=== PATIENT | female | born 1955 | race Caucasian/White ===

== ENCOUNTER 2017-02-12 19:15 | Emergency (ER) | payer MEDICARE, MEDICAID ==
[~2017-02-12] VITALS: Ht 152.4 cm; Wt 91.6 kg
[~2017-02-12 19:15] MED LIST: ACETAMINOPHEN325 M3 PO; BENADRYL25 M3 PO
--- NOTE | 2017-02-12 19:43 | Emergency Room Report ---
History of Present Illness General Chief Complaint: Abdominal Pain Present Illness HPI 61-year-old female presents to the emergency department complaining of 10 out of 10 in severity generalized abdominal pain since this afternoon. Patient states she also had acute onset of nausea and vomiting for which she vomited twice. Patient denies blood in the vomit she denies blood in the stool she reports she had a normal bowel movement prior to onset of pain. Patient has a history of chronic kidney disease and requires dialysis 3 times per week. She states she recently was told that she is high phosphorus and has been taking a supplement that she finished several days ago. Patient denies fevers she reports some chills. Patient also has a history of hernia repair which had dehiscence in the left lower quadrant, this occurred last January. She also states that she has midline low back pain onset was at the same time as her abdominal pain. Denies CP, Palpitations, LOC, AMS, dizziness, Changes in Vision , Sensation, paresthesias, or a sudden severe headache. (Alessandra Wolfe P.A.) Allergies: Coded Allergies: No Known Allergies (Unverified , 12/04/15) Patient History Past Medical History: see triage record Past Surgical History: none Pertinent Family History: none Now: No Reviewed Nursing Documentation: PMH: Agreed, PSxH: Agreed (Alessandra Wolfe P.Danni) Nursing Documentation-PMH Hx Cardiac Problems: Yes Hx Hypertension: Yes Hx Cancer: No Hx Gastrointestinal Problems: No Hx Neurological Problems: No (Alessandra Wolfe P.A.) Review of Systems All Other Systems: negative except mentioned in HPI (Alessandra Wolfe P.A.) Physical Exam Vital Signs Date Time Temp Pulse Resp B/P (MAP) Pulse Ox O2 Delivery O2 Flow Rate FiO2 02/12/17 19:18 97.2 64 18 110/52 100 Room Air Sp02 EP Interpretation: reviewed, normal General Appearance: alert, GCS 15, non-toxic, mild distress, obese, Chronically Ill Head: normocephalic, atraumatic Eyes: bilateral eye normal inspection, bilateral eye PERRL ENT: hearing grossly normal, normal voice Neck: full range of motion, supple/symm/no masses Respiratory: lungs clear, normal breath sounds, speaking full sentences Cardiovascular #1: regular rate, rhythm, normal capillary refill Gastrointestinal: normal bowel sounds, soft, non-distended, no guarding, no rebound, tenderness - TTP in all 4 quadrants particularly in the LLQ, where dehisced hernia repair wounds are noted, mesh is visible, no evidence of infection about the wounds. , overweight Rectal: deferred Musculoskeletal: back normal, normal range of motion Neurologic: alert, oriented x3, responsive, motor strength/tone normal, sensory intact, speech normal Skin: normal color, no rash, warm/dry, well hydrated, other - Pt. has jessee- cath in the left sublavian. (Alessandra Wolfe) Medical Decision Making PA Attestation Dr. rajput is my supervising Physician whom patient management has been discussed with. (Alessandra Wolfe) Diagnostic Impression: Primary Impression: Abdominal pain Qualified Codes: R10.84 - Generalized abdominal pain Additional Impressions: CKD (chronic kidney disease) Qualified Codes: N18.6 - End stage renal disease; Z99.2 - Dependence on renal dialysis Obesity, morbid HTN (hypertension) Qualified Codes: I10 - Essential (primary) hypertension ER Course 61-year-old female presents to the emergency department complaining of 10 out of 10 in severity generalized abdominal pain since this afternoon. Patient states she also had acute onset of nausea and vomiting for which she vomited twice. Patient denies blood in the vomit she denies blood in the stool she reports she had a normal bowel movement prior to onset of pain. Patient has a history of chronic kidney disease and requires dialysis 3 times per week. She states she recently was told that she is high phosphorus and has been taking a supplement that she finished several days ago. Patient denies fevers she reports some chills. Patient also has a history of hernia repair which had dehiscence in the left lower quadrant, this occurred last January. She also states that she has midline low back pain onset was at the same time as her abdominal pain. Denies CP, Palpitations, LOC, AMS, dizziness, Changes in Vision , Sensation, paresthesias, or a sudden severe headache. Ddx considered but are not limited to Diverticulitis, acute appy, diarrhea,UC, PUD, GE, pancreatitis, gallstone, AAA, Dissection. Vital signs: are WNL, pt. is afebrile H&PE are most consistent with medically complicated pt. with HX of dialysis , and previous abdominal surgeries with acute onset abdominal pain and back pain with N/V. this pt. requires extensive work up to include laboratory work and imaging studies. ORDERS: CBC, CMP, lipase: Elevated Lipase at 426 , wbc's 12.1, -BNP: 5250 elevated -Troponin, CK : WNL -UA:-- Pt. does not make urine so d/c order -CXR: Pending at time of sign out to Dr. Wright -EKNSR no acute ST changes. - CT Abdomen and Pelvis with contrast: Pending ED INTERVENTIONS: -- . Morphine 4mg IV DISPOSITION: at this time pt. will be admitted to [ ] for [ ]. [ ] agreed to admit the pt. and to continue pt. care management. Labs Test 02/12/17 20:03 White Blood Count 12.1 K/UL (4.8-10.8) Red Blood Count 3.88 M/UL (4.20-5.40) Hemoglobin 13.7 G/DL (12.0-16.0) Hematocrit 40.8 % (37.0-47.0) Mean Corpuscular Volume 105 FL (80-99) Mean Corpuscular Hemoglobin 35.5 PG (27.0-31.0) Mean Corpuscular Hemoglobin Concent 33.7 G/DL (32.0-36.0) Red Cell Distribution Width 13.6 % (11.6-14.8) Platelet Count 199 K/UL (150-450) Mean Platelet Volume 7.7 FL (6.5-10.1) Neutrophils (%) (Auto) 53.8 % (45.0-75.0) Lymphocytes (%) (Auto) 37.3 % (20.0-45.0) Monocytes (%) (Auto) 7.5 % (1.0-10.0) Eosinophils (%) (Auto) 0.8 % (0.0-3.0) Basophils (%) (Auto) 0.6 % (0.0-2.0) Sodium Level 139 MMOL/L (136-145) Potassium Level 4.1 MMOL/L (3.5-5.1) Chloride Level 100 MMOL/L (98-107) Carbon Dioxide Level 28 MMOL/L (21-32) Anion Gap 11 mmol/L (5-15) Blood Urea Nitrogen 30 mg/dL (7-18) Creatinine 8.0 MG/DL (0.55-1.30) Estimat Glomerular Filtration Rate 5.1 mL/min (>60) Glucose Level 95 MG/DL (74-106) Calcium Level 9.9 MG/DL (8.5-10.1) Total Bilirubin 0.3 MG/DL (0.2-1.0) Aspartate Amino Transf (AST/SGOT) 13 U/L (15-37) Alanine Aminotransferase (ALT/SGPT) 14 U/L (12-78) Alkaline Phosphatase 101 U/L (46-116) Total Creatine Kinase 65 U/L (26-308) Troponin I 0.006 ng/mL (0.000-0.056) Pro-B-Type Natriuretic Peptide 5250 pg/mL (0-125) Total Protein 8.6 G/DL (6.4-8.2) Albumin 4.0 G/DL (3.4-5.0) Globulin 4.6 g/dL Albumin/Globulin Ratio 0.9 (1.0-2.7) Lipase 426 U/L (73-393) (Alessandra Wolfe P.A.) ER Course Patient signed out to me. She had multiple abdominal surgery in the past with small bowel obstruction. She presents with abdominal pain. CT scan signed out to me. CT scan negative for acute process. We'll discharge home. (MARIE WRIGHT M.D.) EKG Diagnostic Results EP Interpretation: Dr. Mosquera Rate: normal Rhythm: NSR ST Segments: no acute changes ASA given to the pt in ED: No PA Scribe Text - EK BPM NSR - no acute ST changes reviewed by Dr. Mosquera , this interpretation was scribed by RAINE Wolfe (Alessandra Wolfe P.A.) CT/MRI/US Diagnostic Results CT/MRI/US Diagnostic Results : Imaging Test Ordered: CT abdomen and pelvis Impression Read by radiologist. Diffuse anterior abdominal wall laxity with multiple small bowel loops and pushing the colon in the large anterior pannus. No evidence of obstruction. No evidence of acute appendicitis. No free air. (MARIE WRIGHT M.D.) Last Vital Signs Date Time Temp Pulse Resp B/P (MAP) Pulse Ox O2 Delivery O2 Flow Rate FiO2 11/25/17 19:18 97.2 64 18 110/52 100 Room Air (Alessandra Wolfe) Status: improved (MARIE WRIGHT M.D.) Disposition: HOME, SELF-CARE Condition: Stable Signed Out To: Dr. Wright (Alessandra Wolfe) Scripts Hydrocodone/Acetaminophen 5-325* (HYDROCODONE/ACETAMINOPHEN 5-325*) 1 Each Tablet 1 TAB ORAL Q6H Y for For Pain, #30 TAB 0 Refills Prov: MARIE WRIGHT M.D. 02/13/17 Patient Instructions: Abdominal Pain, Adult Additional Instructions: Followup with your DrBeatriz in 2 to 3 days. Return if worse. Alessandra Wolfe Feb 12, 2017 19:43 MARIE WRIGHT M.D. Feb 13, 2017 00:29
[2017-02-12] MEDS ORDERED: AMLODIPINE BESYL5 MG ORAL (20:10)
[2017-02-12] MEDS ORDERED: TRAZODONE HCL150 MG ORAL (20:10)
[2017-02-12] MEDS ORDERED: GABAPENTIN300 MG ORAL (20:10)
[2017-02-12] MEDS ORDERED: TOPIRAMATE25 MG ORAL (20:10)
[2017-02-12] MEDS ORDERED: AMIODARONE HCL200 MG ORAL (20:10)
[2017-02-12] MEDS ORDERED: METOPROLOL TART25 MG ORAL (20:10)
[2017-02-12] MEDS ORDERED: SENSIPAR30 MG ORAL (20:10)
[2017-02-12] MEDS ORDERED: AURYXIA210 MG PO (20:10)
[2017-02-12] MEDS ORDERED: RENA-VITE RX T1 EAC1 PO (20:10)
[2017-02-12] MEDS ORDERED: ASPIRIN81 MG ORAL (20:10)
[2017-02-12] MEDS ORDERED: CATAPRES0.1 MG ORAL (20:10)
[2017-02-12] MEDS ORDERED: ELIQUIS5 MG PO (20:10)
[2017-02-12] MEDS ORDERED: TRAMADOL HCL50 MG ORAL (20:10)
[2017-02-12] MEDS ORDERED: BUSPIRONE HCL15 MG ORAL (20:10)
[2017-02-12 20:15] VITALS: BP 110/52
[2017-02-12 20:56] LABS: BASOPHILS % (AUTO) 0.6 % (0.0-2.0); EOSINOPHILS % (AUTO) 0.8 % (0.0-3.0); LYMPHOCYTES % (AUTO) 37.3 % (20.0-45.0); MEAN CORPUSCULAR HEMOGLOBIN 35.5 PG (27.0-31.0); MEAN CORPUSCULAR HGB CONC 33.7 G/DL (32.0-36.0); MEAN CORPUSCULAR VOLUME 105 FL (80-99); MEAN PLATELET VOLUME 7.7 FL (6.5-10.1); MONOCYTES % (AUTO) 7.5 % (1.0-10.0); NEUTROPHILS % (AUTO) 53.8 % (45.0-75.0); PLATELET COUNT 199 K/UL (150-450); RED BLOOD COUNT 3.88 M/UL (4.20-5.40); RED CELL DISTRIBUTION WIDTH 13.6 % (11.6-14.8); WHITE BLOOD COUNT 12.1 K/UL (4.8-10.8)
[2017-02-12 20:59] LABS: ANION GAP 11 mmol/L (5-15); CALCIUM 9.9 MG/DL (8.5-10.1); CARBON DIOXIDE 28 MMOL/L (21-32); CHLORIDE 100 MMOL/L (98-107); GLOMERULAR FILTRATION RATE 5.1 mL/min (>60); POTASSIUM 4.1 MMOL/L (3.5-5.1); SODIUM 139 MMOL/L (136-145)
[2017-02-12] MEDS ORDERED: Morphine Sulfate 4mg/ml Inj IVP ONE (21:00)
[2017-02-12 21:03] LABS: ALANINE AMINOTRANSFERASE 14 U/L (12-78); ALBUMIN/GLOBULIN RATIO 0.9 (1.0-2.7); ASPARTATE AMINO TRANSFERASE 13 U/L (15-37); LIPASE 426 U/L (73-393); TOTAL PROTEIN 8.6 G/DL (6.4-8.2)
[2017-02-12] MEDS ORDERED: HYDROmorphone 1mg/ml Carpuject IVP ONE (22:00)
[2017-02-12 22:15] VITALS: BP 117/52
[2017-02-13 00:15] VITALS: BP 121/68
[2017-02-13] MEDS ORDERED: HYDROCODON-ACE1 EA15 ORAL (00:28)
[2017-02-13 00:50] VITALS: BP 124/56
[2017-02-13 01:09] VITALS: BP 117/52
--- NOTE | 2017-02-13 10:36 | Diagnostic Imaging Report ---
Indication: Abdominal pain Technique: CT scan of the abdomen and pelvis utilizing automated exposure control without intravenous or oral contrast. Axial, sagittal and coronal images were obtained. CT dose: Total DLP 997 mGycm; CTDI vol 19.5 mGy Comparison: None Findings: Evaluation of the solid organs is limited without intravenous contrast material. There is atelectasis in the partially visualized lung bases. There is a tiny hiatal hernia. The liver, adrenal glands, kidneys and pancreas are grossly unremarkable. There is slight heterogeneous density within the gallbladder suggestive of noncalcified gallstones. There is a fat and small bowel containing hernia of the right lateral abdomen without obstruction. There is also diffuse rectus diastases versus large anterior hernia but no obstruction. The uterus is enlarged with a 9 cm partially calcified mass. Polycystic changes are noted of the kidneys, right greater than left. There is a complex rim calcified cystic lesion in the right renal upper pole measuring 4.5 cm. There is at least one noncystic mass of the anterior right kidney measuring 1.4 cm series 3 image 42 and within the lower pole of the left kidney measuring 1.2 cm series 3 image 41. The inferior extent of the anterior abdominal wall pannus is not completely imaged. Degenerative changes of the spine are noted. There is grade 1 anterolisthesis of L4 on L5. There is severe bilateral hip arthrosis with acetabular remodeling. Impression: Right lower abdominal lateral hernia containing fat and small bowel without obstruction. Diffuse rectus diastases versus large anterior abdominal hernia containing bowel but no obstruction. Inferior margin incompletely imaged. Heterogeneity within the gallbladder suggestive of noncalcified gallstones. Correlation with ultrasound recommended as indicated. Cystic changes of the bilateral kidneys, right greater than left. Complex cyst in the upper pole the right kidney with peripheral calcification measuring 4.5 cm. At least one indeterminate possibly solid lesion in the anterior mid/lower right kidney and one indeterminate possibly solid lesion in the lower pole of the left kidney. Please see above for description. Further evaluation recommended as indicated. Enlarged uterus with a large partially calcified mass probably a fibroid measuring 9 cm. Clinical correlation recommended. Other findings as above. The CT scanner at [facility] is accredited by the [employer] and the scans are performed using protocols designed to limit radiation exposure to as low as reasonably achievable to attain images of sufficient resolution adequate for diagnostic evaluation.
--- NOTE | 2017-02-13 15:28 | Cardiology Report ---
APPROVED REPORT EKG Measurement Heart [id number] Normal sinus rhythm Normal ECG
== END 2017-02-13 00:50 | disposition home or self-care (01) ==
LOC: EDBD 19:15 → EMR 21:31
DX: R10.10 Upper abdominal pain, unspecified (principal); I12.9 Hypertensive chronic kidney disease with stage 1 through stage 4 chronic kidney disease, or unspecified chronic kidney disease; N18.9 Chronic kidney disease, unspecified
CPT/HCPCS: 36415; 74177; 80053; 82550; 83690; 83880; 84484; 85025; 93005; 96374; 96375; 99284; J1170; J2270; Q9967

== ENCOUNTER 2017-04-30 21:44 | Inpatient (IN) | payer MEDICARE, MEDICAID ==
[~2017-04-30] VITALS: Ht 162.6 cm; Wt 95.7 kg
[~2017-04-30 21:44] MED LIST changes: +AMIODARONE HCL200 MG ORAL; +AMIODARONE HCL400 M1 ORAL; +AMLODIPINE BESYL5 MG ORAL; +ASPIRIN81 MG ORAL; +AURYXIA210 MG PO; +BUSPIRONE HCL15 MG ORAL; +CATAPRES0.1 MG ORAL; +ELIQUIS5 MG PO; +GABAPENTIN300 MG ORAL; +HYDROCODON-ACE1 EA15 ORAL; +METOPROLOL TART25 MG ORAL; +RENA-VITE RX T1 EAC1 PO; +SENSIPAR30 MG ORAL; +TOPIRAMATE25 MG ORAL; +TRAMADOL HCL50 MG ORAL; +TRAZODONE HCL150 MG ORAL; +TRAZODONE HCL50 MG ORAL
[2017-04-30 21:53] VITALS: BP 115/94
[2017-04-30] MEDS ORDERED: Acetaminophen 650 MG SUPP RECTAL ONE (22:15)
[2017-04-30 22:35] LABS: BASOPHILS % (AUTO) 0.7 % (0.0-2.0); HEMATOCRIT 42.9 % (37.0-47.0); HEMOGLOBIN 14.3 G/DL (12.0-16.0); LYMPHOCYTES % (AUTO) 14.4 % (20.0-45.0); MEAN CORPUSCULAR VOLUME 101 FL (80-99); MONOCYTES % (AUTO) 6.8 % (1.0-10.0); NEUTROPHILS % (AUTO) 78.1 % (45.0-75.0); PLATELET COUNT 129 K/UL (150-450); RED BLOOD COUNT 4.23 M/UL (4.20-5.40); RED CELL DISTRIBUTION WIDTH 12.6 % (11.6-14.8); WHITE BLOOD COUNT 14.1 K/UL (4.8-10.8)
[2017-04-30 22:38] LABS: ANION GAP 19 mmol/L (5-15); BLOOD UREA NITROGEN 54 mg/dL (7-18); CALCIUM 11.3 MG/DL (8.5-10.1); CARBON DIOXIDE 23 MMOL/L (21-32); CHLORIDE 90 MMOL/L (98-107); CREATININE 15.5 MG/DL (0.55-1.30); POTASSIUM 4.8 MMOL/L (3.5-5.1); SODIUM 132 MMOL/L (136-145)
[2017-04-30 22:52] LABS: ALANINE AMINOTRANSFERASE 21 U/L (12-78); ALBUMIN 2.7 G/DL (3.4-5.0); ALBUMIN/GLOBULIN RATIO 0.4 (1.0-2.7); ALKALINE PHOSPHATASE 114 U/L (46-116); ASPARTATE AMINO TRANSFERASE 45 U/L (15-37); BILIRUBIN,TOTAL 0.8 MG/DL (0.2-1.0); CKMB 2.3 NG/ML (0.0-3.6); CREATINE KINASE 931 U/L (26-308)
[2017-04-30 23:24] VITALS: BP 76/45
[2017-04-30] MEDS ORDERED: NS 250 ML IVPB ONE (23:30)
[2017-05-01] VITALS (28 sets, daily range): BP systolic 58–194; BP diastolic 33–140
[2017-05-01] MEDS ORDERED: Piperacillin/Tazobactam 3.375 GM in NS 110 ML IVPB ONE (00:30)
[2017-05-01] MEDS ORDERED: NS 250 ML IVPB ONE ×2 (00:30→06:00)
[2017-05-01] MEDS ORDERED: Zosyn 3.375gm inj ONE (00:31)
--- NOTE | 2017-05-01 01:19 | Emergency Room Report ---
History of Present Illness General Chief Complaint: Flu Like Symptoms Source: Patient Present Illness HPI 61-year-old female presents ED for evaluation. Patient presents with generalized weakness, cough and congestion for several days. Rectal temperature 104. Patient missed dialysis today because she was feeling weak. Denies chest pain or shortness of breath. Denies nausea or vomiting. Denies abdominal pain. No other aggravating relieving factors. Denies any other associated symptoms Allergies: Coded Allergies: No Known Allergies (Unverified , 12/04/15) Patient History Past Medical History: seizures, renal disease, dialysis Past Surgical History: none Pertinent Family History: none Social History: Denies: smoking, alcohol use, drug use Last Menstrual Period: n/a Now: No Immunizations: UTD Reviewed Nursing Documentation: PMH: Agreed, PSxH: Agreed Nursing Documentation-PMH Hx Cardiac Problems: Yes Hx Hypertension: Yes Hx Cancer: No Hx Gastrointestinal Problems: No Hx Dialysis: Yes - tues, thurs, sat Hx Neurological Problems: No Hx Seizures: Yes Review of Systems All Other Systems: negative except mentioned in HPI Physical Exam Vital Signs Date Time Temp Pulse Resp B/P (MAP) Pulse Ox O2 Delivery O2 Flow Rate FiO2 04/30/17 21:36 99.3 64 16 98 Room Air 04/30/17 21:53 115/94 05/01/17 00:47 2.0 Sp02 EP Interpretation: reviewed, normal General Appearance: no apparent distress, alert, GCS 15, non-toxic, obese Head: normocephalic Eyes: bilateral eye normal inspection, bilateral eye PERRL ENT: normal ENT inspection Neck: normal inspection Respiratory: crackles Cardiovascular #1: no edema, tachycardia Gastrointestinal: normal bowel sounds, non tender, soft, non-distended, no guarding, no rebound Rectal: deferred Genitourinary: no CVA tenderness Musculoskeletal: normal inspection Neurologic: alert, oriented x3, responsive, motor strength/tone normal, sensory intact, speech normal Psychiatric: normal inspection Skin: normal inspection Lymphatic: normal inspection Procedures Critical Care Time Critical Care Time i. I feel this is a highly complex case requiring extensive working including EKG/Rhythm strip, Xray/CT/US, Blood/urine lab work, repeat exams while in ED, and administration of strong opiates/narcotics for pain control, admission to hospital or close patient follow up. Total time: 30 min bedside evaluation and treatment excludes procedures (EKG). Reason for critical care: severe sepsis, hypotension Possible complications: hypotension, hypertension, IN, shock, arrhythmias, metabolic acidosis, end organ damage, respiratory failure. Interventions: Labs, EKG, chest x-ray, rectal Tylenol, IV bolus, antibiotics Course: Patient presenting with fever and weakness. History of end-stage renal disease. Rectal temperature 104 and given rectal Tylenol. Chest x-ray shows possible infiltrate. Influenza swab negative. Lactate greater than 6. Patient became hypotensive respond with small fluid bolus. broad spectrum abx given. Consultations: nursing staff, EMS, family Performed by: Dr Mosquera Tolerated well condition = serious j. because of unstable vital signs this patient had a condition that could potentially threaten life or limb. I feel this is a critical patient who required my full attention while patient was considered critical. Total Critical Care Time excluding procedures was greater than 35 minutes Medical Decision Making Diagnostic Impression: Primary Impression: Severe sepsis Additional Impressions: Pneumonia Qualified Codes: J18.1 - Lobar pneumonia, unspecified organism Elevated troponin ESRD (end stage renal disease) on dialysis ER Course Hospital Course 61-year-old female presenting to ED with generalized weakness, fever Differential diagnoses include: Pneumonia, UTI, sepsis, dehydration, IN/ unstable angina Clinical course Patient placed on stretcher. On cardiac/vascular sonographer with stable vitals are ED course. After initial history and physical, I ordered labs, EKG, chest x-ray, blood cultures, UA. given rectal tylenol Labs - BUN/Cr elevated, noted leukocytosis, troponin elevated, lactate > 6, BNP elevated EKG - sinus tachycardia, no acute ischemic changes interpreted by me CXR - cardiomegaly, RLL infiltrate, dialysis catether in place troponin likely elevated due to troponin leak given ESRD Patient initially hypotensive, respond with small fluid bolus broad spectrum Abx given. Case discussed with Dr Mcnair and they agreed to admit patient to their service for further care and support I feel this is a highly complex case requiring extensive working including EKG/ Rhythm strip, Xray/CT/US, Blood/urine lab work, repeat exams while in ED, and administration of strong opiates/narcotics for pain control, admission to hospital or close patient follow up. Diagnosis - severe sepsis, pneumonia, elecated troponin, ESRD on dialysis Patient admitted to telemetry in serious condition Labs Test 04/30/17 21:50 04/30/17 23:25 04/30/17 23:31 White Blood Count 14.1 K/UL (4.8-10.8) Red Blood Count 4.23 M/UL (4.20-5.40) Hemoglobin 14.3 G/DL (12.0-16.0) Hematocrit 42.9 % (37.0-47.0) Mean Corpuscular Volume 101 FL (80-99) Mean Corpuscular Hemoglobin 33.9 PG (27.0-31.0) Mean Corpuscular Hemoglobin Concent 33.4 G/DL (32.0-36.0) Red Cell Distribution Width 12.6 % (11.6-14.8) Platelet Count 129 K/UL (150-450) Mean Platelet Volume 9.6 FL (6.5-10.1) Neutrophils (%) (Auto) 78.1 % (45.0-75.0) Lymphocytes (%) (Auto) 14.4 % (20.0-45.0) Monocytes (%) (Auto) 6.8 % (1.0-10.0) Eosinophils (%) (Auto) 0.0 % (0.0-3.0) Basophils (%) (Auto) 0.7 % (0.0-2.0) Sodium Level 132 MMOL/L (136-145) Potassium Level 4.8 MMOL/L (3.5-5.1) Chloride Level 90 MMOL/L (98-107) Carbon Dioxide Level 23 MMOL/L (21-32) Anion Gap 19 mmol/L (5-15) Blood Urea Nitrogen 54 mg/dL (7-18) Creatinine 15.5 MG/DL (0.55-1.30) Estimat Glomerular Filtration Rate 2.4 mL/min (>60) Glucose Level 160 MG/DL (74-106) Lactic Acid Level 6.10 mmol/L (0.66-2.22) 5.90 mmol/L (0.66-2.22) Calcium Level 11.3 MG/DL (8.5-10.1) Total Bilirubin 0.8 MG/DL (0.2-1.0) Aspartate Amino Transf (AST/SGOT) 45 U/L (15-37) Alanine Aminotransferase (ALT/SGPT) 21 U/L (12-78) Alkaline Phosphatase 114 U/L (46-116) Total Creatine Kinase 931 U/L (26-308) Creatine Kinase MB 2.3 NG/ML (0.0-3.6) Creatine Kinase MB Relative Index 0.2 Troponin I 0.284 ng/mL (0.000-0.056) Pro-B-Type Natriuretic Peptide > 50194 pg/mL (0-125) Total Protein 8.8 G/DL (6.4-8.2) Albumin 2.7 G/DL (3.4-5.0) Globulin 6.1 g/dL Albumin/Globulin Ratio 0.4 (1.0-2.7) Arterial Blood pH 7.509 (7.350-7.450) Arterial Blood Partial Pressure CO2 22.7 mmHg (35.0-45.0) Arterial Blood Partial Pressure O2 87.5 mmHg (75.0-100.0) Arterial Blood HCO3 17.7 mmol/L (22.0-26.0) Arterial Blood Oxygen Saturation 96.8 % (92.0-98.0) Arterial Blood Base Excess -3.4 Cecilio Test N/a EKG Diagnostic Results Rate: tachycardiac Rhythm: NSR ST Segments: no acute changes ASA given to the pt in ED: No Rhythm Strip Diag. Results EP Interpretation: yes Rhythm: NSR, no PVC's, no ectopy Chest X-Ray Diagnostic Results Chest X-Ray Diagnostic Results : Chest X-Ray Ordered: Yes # of Views/Limited/Complete: 1 View Indication: Shortness of Breath EP Interpretation: Yes Interpretation: no pneumothorax, other - cardiomegaly. RLL infiltrate Impression: Other - PNA Electronically Signed by: Electronically signed by Ye Mosquera MD Last Vital Signs Date Time Temp Pulse Resp B/P (MAP) Pulse Ox O2 Delivery O2 Flow Rate FiO2 05/01/17 00:49 99.2 05/01/17 00:47 124 21 105/87 96 Nasal Cannula 2.0 Status: improved Disposition: ADMITTED INPATIENT Condition: Serious Referrals: NOT CHOSEN ALYSSA/,REFERRING (PCP) YE MOSQUERA M.D. May 01, 2017 01:19
[2017-05-01] MEDS ORDERED: Albuterol/Ipratropium 3ml neb HHN PRN ×2 (02:30→11:30)
[2017-05-01] MEDS ORDERED: LORazepam Inj 2mg/ml 1ml IV PRN ×2 (02:30→11:30)
[2017-05-01] MEDS ORDERED: Norco 5mg/325mg tab ORAL PRN ×2 (07:00→11:00)
[2017-05-01] MEDS ORDERED: traMADol 50mg tab ORAL PRN ×2 (07:30→11:30)
[2017-05-01] MEDS ORDERED: Heparin 5000 units/ml inj SUBQ SCH (09:00)
[2017-05-01] MEDS ORDERED: Metoprolol 25mg tab ORAL SCH (09:00)
[2017-05-01] MEDS ORDERED: Amiodarone 200mg tab ORAL SCH ×3 (09:00→21:00)
[2017-05-01] MEDS ORDERED: Topiramate 25mg tab ORAL SCH (09:00)
[2017-05-01] MEDS ORDERED: BusPIRone 5mg Tab ORAL SCH (09:00)
[2017-05-01] MEDS ORDERED: Sensipar 30mg Tab ORAL SCH (09:00)
[2017-05-01] MEDS ORDERED: Aspirin Baby 81mg ORAL SCH (09:00)
--- NOTE | 2017-05-01 10:10 | Diagnostic Imaging Report ---
Indication: Cough Technique: XRAY Chest 1v Comparison: 12/08/2015 Findings: Limited exam due to patient rotation, low lung volumes and underpenetration secondary to large body habitus. Left-sided tunneled dialysis catheter in place, tip in the region of the right atrium. There is cardiomegaly and pulmonary vascular congestion. Mediastinal contours appear sharp. Question hazy opacity in the right upper lung. No pleural effusion. No definite pneumothorax. There are degenerative change of the spine. Impression: Markedly limited exam as above. Cardiomegaly with pulmonary vascular congestion. Question hazy asymmetric opacity in the right upper lung, possibly artifactual or possible developing infiltrate. Clinical correlation and repeat exam recommended. Study obtained via the emergency department however patient admitted to the hospital at time of dictation of the final report.
--- NOTE | 2017-05-01 10:35 | Infectious Diseases Prog Note ---
Assessment/Plan Assessment/Plan ID consult dictated # [id number] Subjective Allergies: Coded Allergies: No Known Allergies (Unverified , 12/04/15) Objective Vital Signs Last 24 Hour Vital Signs Date Time Temp Pulse Resp B/P (MAP) Pulse Ox O2 Delivery O2 Flow Rate FiO2 05/01/17 09:57 99 Nasal Cannula 2.0 28 05/01/17 09:56 Nasal Cannula 2.0 28 05/01/17 09:49 101.8 123 20 194/140 98 Nasal Cannula 2.0 05/01/17 09:48 122 05/01/17 09:00 101.8 122 20 79/47 98 Nasal Cannula 2.0 05/01/17 06:30 88/56 05/01/17 04:00 99.1 122 22 87/52 96 Nasal Cannula 2.0 05/01/17 04:00 123 05/01/17 01:34 99.2 124 21 105/87 96 Nasal Cannula 2.0 05/01/17 01:30 98.5 122 22 150/83 96 Nasal Cannula 2.0 05/01/17 00:49 99.2 05/01/17 00:47 99.2 124 21 105/87 96 Nasal Cannula 2.0 04/30/17 23:24 104.6 126 28 76/45 96 Room Air 04/30/17 22:36 128 28 Room Air 04/30/17 21:53 104.6 128 28 115/94 98 Room Air 04/30/17 21:36 99.3 64 16 98 Room Air Height (Feet): 5 Height (Inches): 4.00 Weight (Pounds): 310 Microbiology Date/Time Source Procedure Growth Status 04/30/17 22:50 Nasal Nares Influenza Types A,B Antigen (AARON) - Final Complete Laboratory Tests Test 04/30/17 21:50 04/30/17 23:25 04/30/17 23:31 White Blood Count 14.1 K/UL (4.8-10.8) H Red Blood Count 4.23 M/UL (4.20-5.40) Hemoglobin 14.3 G/DL (12.0-16.0) Hematocrit 42.9 % (37.0-47.0) Mean Corpuscular Volume 101 FL (80-99) H Mean Corpuscular Hemoglobin 33.9 PG (27.0-31.0) H Mean Corpuscular Hemoglobin Concent 33.4 G/DL (32.0-36.0) Red Cell Distribution Width 12.6 % (11.6-14.8) Platelet Count 129 K/UL (150-450) L Mean Platelet Volume 9.6 FL (6.5-10.1) Neutrophils (%) (Auto) 78.1 % (45.0-75.0) H Lymphocytes (%) (Auto) 14.4 % (20.0-45.0) L Monocytes (%) (Auto) 6.8 % (1.0-10.0) Eosinophils (%) (Auto) 0.0 % (0.0-3.0) Basophils (%) (Auto) 0.7 % (0.0-2.0) Sodium Level 132 MMOL/L (136-145) L Potassium Level 4.8 MMOL/L (3.5-5.1) Chloride Level 90 MMOL/L (98-107) L Carbon Dioxide Level 23 MMOL/L (21-32) Anion Gap 19 mmol/L (5-15) H Blood Urea Nitrogen 54 mg/dL (7-18) H Creatinine 15.5 MG/DL (0.55-1.30) H Estimat Glomerular Filtration Rate 2.4 mL/min (>60) Glucose Level 160 MG/DL (74-106) H Lactic Acid Level 6.10 mmol/L (0.66-2.22) H 5.90 mmol/L (0.66-2.22) H Calcium Level 11.3 MG/DL (8.5-10.1) H Total Bilirubin 0.8 MG/DL (0.2-1.0) Aspartate Amino Transf (AST/SGOT) 45 U/L (15-37) H Alanine Aminotransferase (ALT/SGPT) 21 U/L (12-78) Alkaline Phosphatase 114 U/L (46-116) Total Creatine Kinase 931 U/L (26-308) H Creatine Kinase MB 2.3 NG/ML (0.0-3.6) Creatine Kinase MB Relative Index 0.2 Troponin I 0.284 ng/mL (0.000-0.056) Pro-B-Type Natriuretic Peptide > 87035 pg/mL (0-125) H Total Protein 8.8 G/DL (6.4-8.2) H Albumin 2.7 G/DL (3.4-5.0) L Globulin 6.1 g/dL Albumin/Globulin Ratio 0.4 (1.0-2.7) L Arterial Blood pH 7.509 (7.350-7.450) Arterial Blood Partial Pressure CO2 22.7 mmHg (35.0-45.0) *L Arterial Blood Partial Pressure O2 87.5 mmHg (75.0-100.0) Arterial Blood HCO3 17.7 mmol/L (22.0-26.0) L Arterial Blood Oxygen Saturation 96.8 % (92.0-98.0) Arterial Blood Base Excess -3.4 Cecilio Test N/a Current Medications Medications (Trade) Dose Ordered Sig/Jeff Route PRN Reason Start Time Stop Time Status Last Admin Dose Admin Acetaminophen (Tylenol) 650 mg Q4H PRN ORAL Mild Pain (Pain Scale 1-3) 05/01/17 02:30 05/31/17 02:29 Acetaminophen/ Hydrocodone Bitart ([place] 5/325) 1 tab Q6H PRN ORAL Moderate Pain 05/01/17 07:00 05/08/17 06:59 Albumin Human 100 ml @ 200 mls/hr PRN PRN IV sbp<90 during hd 05/02/17 06:00 05/02/17 23:59 Albuterol/ Ipratropium (Albuterol/ Ipratropium) 3 ml Q4H PRN HHN sob 05/01/17 02:30 05/06/17 02:29 Amiodarone HCl (Cordarone) 200 mg EVERY 12 HOURS ORAL 05/01/17 09:00 05/31/17 08:59 UNV Aspirin (ASA) 81 mg DAILY ORAL 05/01/17 09:00 05/31/17 08:59 Buspirone HCl (Buspar) 15 mg TWICE A DAY ORAL 05/01/17 09:00 05/31/17 08:59 Cinacalcet (Sensipar) 30 mg DAILY ORAL 05/01/17 09:00 05/31/17 08:59 Dextrose (Dextrose 50%) STAT PRN IV Hypoglycemia 05/01/17 02:30 05/31/17 02:29 Gabapentin (Neurontin) 300 mg BEDTIME ORAL 05/01/17 21:00 05/31/17 20:59 Heparin Sodium (Porcine) (Heparin 5000 units/ml) 5,000 units EVERY 12 HOURS SUBQ 05/01/17 09:00 05/31/17 08:59 Heparin Sodium (Porcine) (Heparin Sod 1000 units/ml 10ml) 500 unit ONCE IV 05/02/17 06:00 05/02/17 23:59 Hydromorphone HCl (Dilaudid) 2 mg Q4H PRN IVP Severe Pain (Pain Scale 7-10) 05/01/17 02:30 05/08/17 02:29 Lorazepam (Ativan 2mg/ml 1ml) 0.5 mg Q4H PRN IV For Anxiety 05/01/17 02:30 05/08/17 02:29 Metoprolol Tartrate (Lopressor) 25 mg THREE TIMES A DAY ORAL 05/01/17 09:00 05/31/17 08:59 UNV Piperacillin Sod/ Tazobactam Sod 2.25 gm/Dextrose 55 ml @ 110 mls/hr Q8HR IVPB 05/01/17 14:00 05/06/17 13:59 UNV Prochlorperazine (Compazine) 10 mg Q6H PRN IVP Nausea & Vomiting 05/01/17 02:30 05/31/17 02:29 Topiramate (Topamax) 25 mg TWICE A DAY ORAL 05/01/17 09:00 05/31/17 08:59 Tramadol HCl (Ultram) 50 mg Q6H PRN ORAL Breakthru Moderate-Severe Pain 05/01/17 07:30 05/08/17 07:29 Trazodone HCl (Desyrel) 150 mg BEDTIME ORAL 05/01/17 21:00 05/31/17 20:59 Vancomycin HCl (Vanco rx to dose) 1 ea DAILY PRN MISC Per rx protocol 05/01/17 09:15 05/31/17 09:14 UNV SCOOBY FERREIRA May 01, 2017 10:35
[2017-05-01] MEDS ORDERED: Piperacillin/Tazobactam 2.25 GM in D5W 55 ML IVPB SCH (12:00)
[2017-05-01] MEDS: Piperacillin/Tazobactam 2.25 GM in NS 55 ML IVPB SCH ×2 (12:30→22:10)
[2017-05-01] MEDS ORDERED: Vancomycin 1.5gm/D5W 250ml 250 ML IVPB ONE (12:30)
--- NOTE | 2017-05-01 12:37 | History & Physical ---
History and Physical History & Physicial HP dictatted # [id number] NENA FERREIRA May 01, 2017 12:37
[2017-05-01] MEDS ORDERED: Lidocaine 1% Plain 30 ml INJ PRN (18:00)
[2017-05-01] MEDS ORDERED: Heparin 2000 units/Ns 1000ml INJ PRN (18:00)
[2017-05-01] MEDS: Topiramate 25mg tab ORAL SCH (18:00)
[2017-05-01] MEDS: BusPIRone 5mg Tab ORAL SCH (18:00)
--- NOTE | 2017-05-01 18:45 | History and Physical Report ---
DATE OF ADMISSION: 04/30/2017 CHIEF COMPLAINT: The patient came in with generalized weakness, cough, and congestion and temperature of 104 degrees. HISTORY OF PRESENT ILLNESS: This is a 61-year-old female with history of end-stage renal disease, on hemodialysis three times a week. The patient missed her dialysis yesterday. She came in with feeling weak and was found to have temperature of 104 degrees. She has still left-sided catheter for dialysis. The patient was hypotensive after she was admitted to telemetry and I just transferred her to the intensive care unit. She cannot talk much. She is somewhat dazed and not very coherent. PAST MEDICAL HISTORY: Includes history of end-stage renal disease as mentioned, history of seizures, peripheral vascular disease, and history of hypertension. MEDICATIONS: Reviewed and reconciled in the EMR. ALLERGIES: No known drug allergies. SOCIAL HISTORY: No history of smoking or alcohol abuse. REVIEW OF SYSTEMS: Negative except above. PHYSICAL EXAMINATION: GENERAL: The patient is an obese female. She does not feel good. VITAL SIGNS: Blood pressure is 133/100, pulse 125, temperature 101.5 degrees, and respiratory rate is 20. HEENT: Normanna conjunctivae. Anicteric sclerae. NECK: Supple. LUNGS: Clear to auscultation. HEART: S1 and S2 without murmurs or rubs. CHEST: The patient has a left-sided PermCath. ABDOMEN: Soft and nontender. EXTREMITIES: No cyanosis or edema. LABORATORY FINDINGS: The CBC shows WBC of 14.1, hematocrit is 42.9, hemoglobin is 14.3, and platelets 129,000. Lactic acid was originally 6.10 as of yesterday, repeat is 5.9. The chemistry panel shows serum sodium 132, potassium 4.8, chloride 90, CO2 23, BUN is 54, creatinine is 15.5, blood sugar is 160, and calcium is 11.3. Troponin was 0.284. ASSESSMENT: This is a 61-year-old female with history of end-stage renal disease, on hemodialysis every Tuesday, , and Tuesday. The patient was admitted with weakness and fevers. She was hypotensive. This is in a patient, who usually takes multiple blood pressure medications and likely she has septic shock. She was transferred to ICU. Her blood pressure is better at this point. PLAN: I would hold off on dialysis until tomorrow, hopefully with better blood pressure. The patient was already started on IV antibiotics. She was seen by Infectious Disease supply chain consultant. The patient will be seen by customer program specialist, Dr. Babin. Adjustment will be made in the patient's regimen. I also started the patient on Levophed just in case blood pressure drops again. Chico Truong M.D. DR: Mary JOB#: [id number] CC:
[2017-05-01] MEDS: TraZODone 50mg tab ORAL SCH (21:00)
[2017-05-01] MEDS ORDERED: TraZODone 50mg tab ORAL SCH (21:00)
[2017-05-01] MEDS: Heparin 5000 units/ml inj SUBQ SCH (21:14)
--- NOTE | 2017-05-01 21:15 | Consultation ---
DATE OF CONSULTATION: 05/01/2017 INFECTIOUS DISEASE CONSULTATION PRIMARY ATTENDING PHYSICIAN: Timoteo Mcnair M.D. REASON FOR CONSULTATION: Sepsis and pneumonia. HISTORY OF PRESENT ILLNESS: A 61-year-old female admitted late last night complaining of cough, congestion, and weakness. She had a temperature of 104.6 degrees. She is tachycardic with a heart rate of 123, was hypotensive this morning with a blood pressure of 79/47. The patient is a poor historian. Currently, transferred to ICU. PAST MEDICAL HISTORY: Significant for morbid obesity, end-stage renal disease, started on hemodialysis in 2014, and hypertension. MEDICATIONS: Getting albumin, heparin, gabapentin, trazodone, vancomycin, aspirin, BuSpar, Sensipar, metoprolol, Topamax, amiodarone, tramadol, Aurora, albuterol, ipratropium inhaler, and get a dose of Levaquin and Zosyn in the emergency room. ALLERGIES: No known drug allergies. REVIEW OF SYSTEMS: Very limited. The patient has some urine difficulty. According to son, has nausea, vomiting. Could not go to hemodialysis yesterday since he could not go out of bed in the past few days. PHYSICAL EXAMINATION: VITAL SIGNS: Temperature 101.8 degrees, pulse 123, and blood pressure 194/140. GENERAL APPEARANCE: Seems to be obese. HEAD AND NECK: Has red conjunctiva. HEART: Tachycardic. LUNGS: Tachypneic with decreased expansion and sounds. ABDOMEN: Soft and nontender. EXTREMITIES: No significant edema. The patient has left hemodialysis PermCath. NEUROLOGIC: Awake and alert, slow to response. SKIN: Developing pressure ulcer in buttock area. LABORATORY AND DIAGNOSTIC DATA: Sodium 138, potassium 4.8, chloride 90, bicarbonate 23, BUN 54, creatinine 15.5, lactic acid 5.9, and glucose 160. Troponin elevated 0.284. BNP elevated to 35,000. WBC 4.1, hemoglobin 14.3, hematocrit 42.9, and platelets 129,000. Chest x-ray showed congestion, cardiomegaly, opacity in the right lower lung. IMPRESSION: Sepsis with fever, leukocytosis and lactic acidosis. The patient may developed pneumonia. We will try to also rule out line sepsis. The patient has morbid obesity, acidosis, end-stage renal disease, and hypertension. RECOMMENDATION: We will continue with Zosyn and vancomycin. We will follow up the cultures. At the end of my exam, I thank Dr. Mcnair for involving me in the care of this patient. Yordy Truong M.D. DR: Angel JOB#: [id number] CC: BRIDGER
--- NOTE | 2017-05-01 21:52 | Consultation ---
Consult Note Assessment/Plan [id number] sepsis with shock RF on HD afib with RVR ? PNA HTn AMS NIKOS BELL DO May 01, 2017 21:52
[2017-05-01] MEDS: Amiodarone 900 MG in D5W 500ml 482 ML IV SCH (23:25)
--- NOTE | 2017-05-01 23:30 | Consultation ---
DATE OF CONSULTATION: 05/01/2017 PULMONARY AND CRITICAL CARE CONSULTATION CONSULTING PHYSICIAN: Kristina Bradley D.O. REASON FOR CONSULTATION: Shortness of breath. HISTORY OF PRESENT ILLNESS: This is a 61-year-old female, transferred here from a nursing facility with generalized weakness, cough, and fever to 100.4. She is confused and agitated, currently in no acute respiratory distress. Also in atrial tachycardia with a heart rate of 150 to 160 at this time. She has history of end-stage renal disease, apparently missed her dialysis on Tuesday due to her feeling poor. She has remained hypotensive and has been given IV fluids at this time. PAST MEDICAL HISTORY: End-stage renal disease, seizure disorder, peripheral vascular disease, hypertension, and atrial fibrillation. MEDICATIONS: Pre-hospital and present medications reviewed, reconciled, and documented in the electronic medical record by dose, frequency, and route. ALLERGIES: She has no known drug allergies. SOCIAL HISTORY: Not available. FAMILY HISTORY: Unavailable. REVIEW OF SYSTEMS: Unreliable. PHYSICAL EXAMINATION: GENERAL: At the time of my exam, her eyes are open. She answers minimal yes or no questions. VITAL SIGNS: She is currently afebrile at 89.9, heart rate is 152, her blood pressure is 98/57, and she is on 4 liters nasal cannula. HEENT: Normocephalic and atraumatic. Conjunctivae are injected. No discharge. Oropharynx is dry. LUNGS: Clear. No rhonchi. No wheezes. HEART: Irregular and tachycardic with positive murmur. ABDOMEN: Soft and distended. Abdominal wound from ventral hernia is noted. EXTREMITIES: With trace edema. She does not follow commands. Decubitus ulcer is also present. LABORATORY DATA: Her white count is 14, hemoglobin is 14, and platelets are 129. Her sodium is 132, potassium 4.8, chloride 90, bicarbonate 23, BUN 54, creatinine 15.5, glucose is 160. Lactic acid last measured was 5.9. Troponin is 0.284. CK was 931. BNP is elevated at 35,000. Urinalysis is not obtained. A chest x-ray was obtained in the emergency room with cardiomegaly, CHF, questionable pneumonia. Influenza screen was negative for influenza. ASSESSMENT: 1. Sepsis. 2. Respiratory insufficiency. 3. Fever. 4. End-stage renal disease, on dialysis. 5. History of atrial fibrillation. 6. Decubitus ulcer. 7. Depression. 8. Seizure disorder. 9. Sepsis and shock. 10. Chronic obstructive pulmonary disease. PLAN FOR THE PATIENT: She is in the intensive care unit. Pressors as mean arterial pressure less than 65. Heart rate controlled. Covering her with amiodarone through IV as she is unable to take p.o. Nebulizer treatments. Avoid any beta-agonists in light of arrhythmia. IV antibiotics. Aspiration precautions. May need NG tube. Dialysis per Renal. Repeat chest x-ray p.r.n. ABG in the morning. Wound care and follow her cultures and tailor antibiotics accordingly. Greater than 35 minutes of critical care time was spent with the patient reviewing medical records, documenting electronic record, and discussing plan of care with the nursing staff. The patient remains critically ill to be in the ICU. Kristina Bradley D.O. DR: Anibal JOB#: [id number] CC:
[2017-05-02] VITALS (40 sets, daily range): BP systolic 97–145; BP diastolic 33–85
[2017-05-02] MEDS ORDERED: Levophed 4mg/4mL Inj IV ONE ×2 (02:00→06:45)
[2017-05-02 04:03] LABS: BASOPHILS % (AUTO) 0.5 % (0.0-2.0); HEMATOCRIT 35.4 % (37.0-47.0); HEMOGLOBIN 11.9 G/DL (12.0-16.0); LYMPHOCYTES % (AUTO) 9.3 % (20.0-45.0); MEAN CORPUSCULAR VOLUME 103 FL (80-99); NEUTROPHILS % (AUTO) 79.2 % (45.0-75.0); PLATELET COUNT 120 K/UL (150-450); RED BLOOD COUNT 3.45 M/UL (4.20-5.40); RED CELL DISTRIBUTION WIDTH 13.4 % (11.6-14.8); WHITE BLOOD COUNT 15.4 K/UL (4.8-10.8)
[2017-05-02 04:17] LABS: ANION GAP 15 mmol/L (5-15); BLOOD UREA NITROGEN 39 mg/dL (7-18); CALCIUM 10.6 MG/DL (8.5-10.1); CARBON DIOXIDE 24 MMOL/L (21-32); CHLORIDE 97 MMOL/L (98-107); CREATININE 11.2 MG/DL (0.55-1.30); POTASSIUM 5.2 MMOL/L (3.5-5.1); SODIUM 136 MMOL/L (136-145)
[2017-05-02] MEDS: Piperacillin/Tazobactam 2.25 GM in NS 55 ML IVPB SCH ×3 (05:35→21:51)
[2017-05-02] MEDS ORDERED: Heparin Sod 1000 units/ml 10ml IV SCH (06:00)
[2017-05-02] MEDS ORDERED: Vancomycin 1.5 GM/D5W 250ML IVPB ONE (08:00)
--- NOTE | 2017-05-02 08:54 | Pulmonology Progress Note ---
Assessment/Plan Assessment/Plan 1. Septic shock 2. Respiratory insufficiency. 3. Rapid AF 4. End-stage renal disease, on dialysis. 5. abdominal hernia withulceration x2 with visible mesh and pus 6. Decubitus ulcer. 7. Depression. 8. Seizure disorder. 9. Dialysis catheter infection 10. Chronic obstructive pulmonary disease. CT abd sputum c/s f/u CXR rec dc HD catheter, culture tip rec surgery, cardiology, ID consults Subjective ROS Limited/Unobtainable: Yes Allergies: Coded Allergies: No Known Allergies (Unverified , 12/04/15) Objective Last 24 Hour Vital Signs Date Time Temp Pulse Resp B/P (MAP) Pulse Ox O2 Delivery O2 Flow Rate FiO2 05/02/17 06:30 93 31 142/68 95 Nasal Cannula 2.0 05/02/17 06:00 94 32 145/53 94 Nasal Cannula 4.0 05/02/17 05:30 94 32 145/53 94 Nasal Cannula 4.0 05/02/17 05:00 91 05/02/17 05:00 93 32 133/78 94 Nasal Cannula 4.0 05/02/17 04:30 93 32 143/72 87 Nasal Cannula 4.0 05/02/17 04:00 94 05/02/17 04:00 98.3 94 32 120/85 87 Nasal Cannula 4.0 05/02/17 03:00 93 32 141/63 93 Nasal Cannula 4.0 05/02/17 02:30 92 32 127/51 93 Nasal Cannula 4.0 05/02/17 02:05 113/36 05/02/17 02:00 93 32 128/72 93 Nasal Cannula 4.0 05/02/17 01:30 99 30 115/50 94 Nasal Cannula 4.0 05/02/17 01:00 91 30 126/43 94 Nasal Cannula 4.0 05/02/17 01:00 92 05/02/17 00:30 100 30 120/42 95 Nasal Cannula 4.0 05/02/17 00:00 99.0 96 30 138/42 95 Nasal Cannula 4.0 05/02/17 00:00 96 05/01/17 23:30 137 29 95/46 96 Nasal Cannula 4.0 05/01/17 23:00 137 29 99/76 96 Nasal Cannula 4.0 05/01/17 22:30 139 28 105/51 100 Nasal Cannula 4.0 05/01/17 22:00 140 29 150/60 96 Nasal Cannula 4.0 05/01/17 21:30 144 29 120/57 96 Nasal Cannula 4.0 05/01/17 21:00 144 29 98/57 96 Nasal Cannula 4.0 05/01/17 20:30 146 27 88/55 99 Nasal Cannula 4.0 05/01/17 20:00 143 05/01/17 20:00 99.2 143 27 91/57 99 Nasal Cannula 4.0 05/01/17 19:59 99 Nasal Cannula 3.0 32 05/01/17 19:59 Nasal Cannula 3.0 32 05/01/17 19:30 130 20 Nasal Cannula 3.0 32 05/01/17 19:30 98.9 141 24 98/57 Nasal Cannula 4.0 05/01/17 19:30 99.0 143 24 93/58 Nasal Cannula 4.0 05/01/17 19:30 Nasal Cannula 4.0 05/01/17 18:15 129 18 85/46 98 Nasal Cannula 2.0 05/01/17 18:00 77/49 05/01/17 18:00 100.2 132 23 76/42 96 Nasal Cannula 2.0 05/01/17 17:45 133 20 87/46 93 Nasal Cannula 2.0 05/01/17 17:30 134 20 85/46 95 Nasal Cannula 2.0 05/01/17 17:15 133 20 75/45 95 Nasal Cannula 2.0 05/01/17 17:00 100.2 135 20 58/33 95 Nasal Cannula 2.0 05/01/17 17:00 58/33 05/01/17 16:32 100.4 05/01/17 16:00 128 20 100/46 95 Nasal Cannula 2.0 05/01/17 16:00 128 05/01/17 15:36 109 20 Nasal Cannula 2.0 28 05/01/17 15:00 Nasal Cannula 4.0 05/01/17 15:00 108 20 110/56 95 Nasal Cannula 2.0 05/01/17 15:00 98.7 102 28 76/53 Nasal Cannula 4.0 05/01/17 14:00 100.8 110 20 92/45 96 Nasal Cannula 2.0 05/01/17 13:00 113 20 102/57 94 Nasal Cannula 2.0 05/01/17 12:00 113 05/01/17 12:00 101.2 110 20 92/45 95 Nasal Cannula 2.0 05/01/17 11:00 101.5 125 20 133/100 98 Nasal Cannula 2.0 05/01/17 11:00 115 20 102/57 94 Nasal Cannula 2.0 05/01/17 10:00 122 20 108/80 98 Nasal Cannula 2.0 05/01/17 09:57 99 Nasal Cannula 2.0 28 05/01/17 09:56 Nasal Cannula 2.0 28 05/01/17 09:49 101.8 123 20 194/140 98 Nasal Cannula 2.0 05/01/17 09:48 122 05/01/17 09:00 101.8 122 20 79/47 98 Nasal Cannula 2.0 Intake and Output 05/01/17 05/02/17 19:00 07:00 Intake Total 386.25 ml 647.87 ml Output Total 0 ml Balance 386.25 ml 647.87 ml Intake IV Total 386.25 ml 647.87 ml Hemodialysis UF 0 ml # Bowel Movements 1 1 General Appearance: no acute distress HEENT: atraumatic Respiratory/Chest: lungs clear Cardiovascular: tachycardia, irregularly irregular Abdomen: tender, hernia - with two ulcerations and visible mesh Microbiology Date/Time Source Procedure Growth Status 04/30/17 22:05 Blood Blood Culture - Preliminary NO GROWTH AFTER 24 HOURS Resulted 04/30/17 21:50 Blood Blood Culture - Preliminary NO GROWTH AFTER 24 HOURS Resulted 04/30/17 22:50 Nasal Nares Influenza Types A,B Antigen (AARON) - Final Complete Laboratory Tests 05/02/17 03:40: White Blood Count 15.4H, Red Blood Count 3.45L, Hemoglobin 11.9L, Hematocrit 35.4L, Mean Corpuscular Volume 103H, Mean Corpuscular Hemoglobin 34.5H, Mean Corpuscular Hemoglobin Concent 33.7, Red Cell Distribution Width 13.4, Platelet Count 120L, Mean Platelet Volume 10.1, Neutrophils (%) (Auto) 79.2H, Lymphocytes (%) (Auto) 9.3L, Monocytes (%) (Auto) 11.0H, Eosinophils (%) (Auto) 0.0, Basophils (%) (Auto) 0.5, Sodium Level 136, Potassium Level 5.2H, Chloride Level 97L, Carbon Dioxide Level 24, Anion Gap 15, Blood Urea Nitrogen 39H, Creatinine 11.2H, Estimat Glomerular Filtration Rate 4.2, Glucose Level 142H, Calcium Level 10.6H, Random Vancomycin Level 17.9 Current Medications Medications (Trade) Dose Ordered Sig/Jeff Route PRN Reason Start Time Stop Time Status Last Admin Dose Admin Acetaminophen (Tylenol) 650 mg Q4H PRN ORAL Mild Pain (Pain Scale 1-3) 05/01/17 11:00 05/31/17 10:59 Acetaminophen/ Hydrocodone Bitart ([place] 5/325) 1 tab Q6H PRN ORAL Moderate Pain 05/01/17 11:00 05/08/17 10:59 Albuterol/ Ipratropium (Albuterol/ Ipratropium) 3 ml Q4H PRN HHN SHORTNESS OF BREATH 05/01/17 11:30 05/06/17 11:29 Amiodarone HCl (Cordarone) 200 mg QHS ORAL 05/01/17 21:00 05/31/17 20:59 05/01/17 21:12 Amiodarone HCl 900 mg/Dextrose 500 ml @ 0 mls/hr Q24H IV 05/01/17 23:00 05/02/17 22:59 05/01/17 23:25 Aspirin (ASA) 81 mg DAILY ORAL 05/02/17 09:00 05/31/17 08:59 Buspirone HCl (Buspar) 15 mg TWICE A DAY ORAL 05/01/17 18:00 05/31/17 08:59 Chlorhexidine Gluconate (Majo-Hex 2%) 1 applic DAILY@2000 TOPIC 05/02/17 20:00 06/01/17 19:59 Cinacalcet (Sensipar) 30 mg DAILY ORAL 05/02/17 09:00 05/31/17 08:59 Dextrose (Dextrose 50%) STAT PRN IV Hypoglycemia 05/01/17 11:00 05/31/17 10:59 Gabapentin (Neurontin) 300 mg BEDTIME ORAL 05/01/17 21:00 05/31/17 20:59 05/01/17 21:12 Heparin Sodium (Porcine) (Heparin 5000 units/ml) 5,000 units EVERY 12 HOURS SUBQ 05/01/17 21:00 05/31/17 08:59 05/01/17 21:14 Heparin Sodium/ Sodium Chloride (Heparin 2000 units/Ns 1000ml premix) 2,000 unit ONCE PRN INJ PICC LINE INSERTION 05/01/17 18:00 05/02/17 23:59 Hydromorphone HCl (Dilaudid) 2 mg Q4H PRN IVP Severe Pain (Pain Scale 7-10) 05/01/17 11:00 05/08/17 10:59 05/01/17 15:45 Lidocaine HCl (Xylocaine 1% 30ml) 30 ml ONCE PRN INJ PICC LINE INSERTION 05/01/17 18:00 05/02/17 23:59 Lorazepam (Ativan 2mg/ml 1ml) 0.5 mg Q4H PRN IV For Anxiety 05/01/17 11:30 05/08/17 11:29 Metoprolol Succinate (Toprol XL) 25 mg DAILY ORAL 05/02/17 09:00 06/01/17 08:59 Norepinephrine Bitartrate 4 mg/ Dextrose 250 ml @ 0 mls/hr Q24H IV 05/01/17 14:30 05/31/17 14:29 05/02/17 02:05 Piperacillin Sod/ Tazobactam Sod 2.25 gm/Sodium Chloride 55 ml @ 110 mls/hr Q8HR IVPB 05/01/17 12:30 05/06/17 12:29 05/02/17 05:35 Prochlorperazine (Compazine) 10 mg Q6H PRN IVP Nausea & Vomiting 05/01/17 11:00 05/31/17 10:59 Topiramate (Topamax) 25 mg TWICE A DAY ORAL 05/01/17 18:00 05/31/17 08:59 Tramadol HCl (Ultram) 50 mg Q6H PRN ORAL Breakthru Moderate-Severe Pain 05/01/17 11:30 05/08/17 11:29 Trazodone HCl (Desyrel) 150 mg BEDTIME ORAL 05/01/17 21:00 05/31/17 20:59 Vancomycin HCl (Vanco rx to dose) 1 ea DAILYPRN PRN MISC Per rx protocol 05/01/17 09:00 05/31/17 08:59 Vancomycin HCl/ Dextrose 250 ml @ 125 mls/hr NOW ONCE IVPB 05/02/17 08:00 05/02/17 09:59 DEVENDRA BASSETT May 02, 2017 08:54
[2017-05-02] MEDS: Metoprolol Succinate XL 25mg tab ORAL SCH (09:00)
[2017-05-02] MEDS: Sensipar 30mg Tab ORAL SCH (09:09)
[2017-05-02] MEDS: BusPIRone 5mg Tab ORAL SCH ×2 (09:09→18:33)
[2017-05-02] MEDS: Aspirin Baby 81mg ORAL SCH (09:09)
[2017-05-02] MEDS: Topiramate 25mg tab ORAL SCH ×2 (09:14→18:33)
[2017-05-02] MEDS: Heparin 5000 units/ml inj SUBQ SCH ×2 (09:21→20:51)
[2017-05-02] MEDS ORDERED: NS 500ML ONE (10:05)
[2017-05-02] MEDS ORDERED: Tubing IV Secondary IV ONE (10:05)
--- NOTE | 2017-05-02 10:56 | Diagnostic Imaging Report ---
Indication: Cough Comparison: 04/30/2017 A single view chest radiograph was obtained. Findings: Pulmonary vascularity is prominent. Heart size is prominent. Left upper lobe infiltrate and left perihilar infiltrates noted. Left jugular permacath is noted. IMPRESSION: Interstitial edema/CHF. Patchy left pulmonary infiltrate
[2017-05-02] MEDS ORDERED: Metoprolol 5mg/5ml Inj IVP PRN (11:00)
[2017-05-02] MEDS ORDERED: Lidocaine 1% 10mg/ml/Epi 0.005mg/ml 30ml vial INJ PRN (12:45)
--- NOTE | 2017-05-02 12:52 | Nephrology Progress Note ---
Assessment/Plan Problem List: (1) Septic shock (2) Secondary hyperparathyroidism (of renal origin) (3) HTN (hypertension) (4) ESRD (end stage renal disease) on dialysis (5) Gram-positive bacteremia Assessment Remove HD catheter IV Abxs cardiology consult Discussed with Dr Babin and RN follow labs Await final cultures Subjective Subjective does not feel good Objective Objective Last 24 Hour Vital Signs Date Time Temp Pulse Resp B/P (MAP) Pulse Ox O2 Delivery O2 Flow Rate FiO2 05/02/17 12:00 98.9 88 30 105/54 100 Nasal Cannula 2.0 05/02/17 11:00 90 33 102/53 99 Nasal Cannula 2.0 05/02/17 10:00 95 31 122/70 99 Nasal Cannula 2.0 05/02/17 10:00 122/70 05/02/17 09:28 112/71 05/02/17 09:15 97 32 121/72 98 Nasal Cannula 2.0 05/02/17 09:08 121/72 05/02/17 09:00 120 112/71 05/02/17 09:00 124 36 110/64 98 Nasal Cannula 2.0 05/02/17 08:45 128 36 110/64 98 Nasal Cannula 2.0 05/02/17 08:30 123 36 112/71 98 Nasal Cannula 2.0 05/02/17 08:15 127 31 105/40 95 Nasal Cannula 2.0 05/02/17 08:00 99.3 124 33 120/85 97 Nasal Cannula 4.0 05/02/17 08:00 110/57 05/02/17 08:00 119 05/02/17 07:57 Nasal Cannula 2.0 05/02/17 07:56 98 Nasal Cannula 2.0 05/02/17 07:55 127 28 Nasal Cannula 2.0 05/02/17 07:30 123 32 98/33 94 Nasal Cannula 2.0 05/02/17 07:00 120 33 124/83 95 Nasal Cannula 2.0 05/02/17 07:00 124/83 05/02/17 06:30 93 31 142/68 95 Nasal Cannula 2.0 05/02/17 06:00 94 32 145/53 94 Nasal Cannula 4.0 05/02/17 05:30 94 32 145/53 94 Nasal Cannula 4.0 05/02/17 05:00 91 05/02/17 05:00 93 32 133/78 94 Nasal Cannula 4.0 05/02/17 04:30 93 32 143/72 87 Nasal Cannula 4.0 05/02/17 04:00 94 05/02/17 04:00 98.3 94 32 120/85 87 Nasal Cannula 4.0 05/02/17 03:00 93 32 141/63 93 Nasal Cannula 4.0 05/02/17 02:30 92 32 127/51 93 Nasal Cannula 4.0 05/02/17 02:05 113/36 05/02/17 02:00 93 32 128/72 93 Nasal Cannula 4.0 05/02/17 01:30 99 30 115/50 94 Nasal Cannula 4.0 05/02/17 01:00 91 30 126/43 94 Nasal Cannula 4.0 05/02/17 01:00 92 05/02/17 00:30 100 30 120/42 95 Nasal Cannula 4.0 05/02/17 00:00 99.0 96 30 138/42 95 Nasal Cannula 4.0 05/02/17 00:00 96 05/01/17 23:30 137 29 95/46 96 Nasal Cannula 4.0 05/01/17 23:00 137 29 99/76 96 Nasal Cannula 4.0 05/01/17 22:30 139 28 105/51 100 Nasal Cannula 4.0 05/01/17 22:00 140 29 150/60 96 Nasal Cannula 4.0 05/01/17 21:30 144 29 120/57 96 Nasal Cannula 4.0 05/01/17 21:00 144 29 98/57 96 Nasal Cannula 4.0 05/01/17 20:30 146 27 88/55 99 Nasal Cannula 4.0 05/01/17 20:00 143 05/01/17 20:00 99.2 143 27 91/57 99 Nasal Cannula 4.0 05/01/17 19:59 99 Nasal Cannula 3.0 32 05/01/17 19:59 Nasal Cannula 3.0 32 05/01/17 19:30 130 20 Nasal Cannula 3.0 32 05/01/17 19:30 98.9 141 24 98/57 Nasal Cannula 4.0 05/01/17 19:30 99.0 143 24 93/58 Nasal Cannula 4.0 05/01/17 19:30 Nasal Cannula 4.0 05/01/17 18:15 129 18 85/46 98 Nasal Cannula 2.0 05/01/17 18:00 77/49 05/01/17 18:00 100.2 132 23 76/42 96 Nasal Cannula 2.0 05/01/17 17:45 133 20 87/46 93 Nasal Cannula 2.0 05/01/17 17:30 134 20 85/46 95 Nasal Cannula 2.0 05/01/17 17:15 133 20 75/45 95 Nasal Cannula 2.0 05/01/17 17:00 100.2 135 20 58/33 95 Nasal Cannula 2.0 05/01/17 17:00 58/33 05/01/17 16:32 100.4 05/01/17 16:00 128 20 100/46 95 Nasal Cannula 2.0 05/01/17 16:00 128 05/01/17 15:36 109 20 Nasal Cannula 2.0 28 05/01/17 15:00 Nasal Cannula 4.0 05/01/17 15:00 108 20 110/56 95 Nasal Cannula 2.0 05/01/17 15:00 98.7 102 28 76/53 Nasal Cannula 4.0 05/01/17 14:00 100.8 110 20 92/45 96 Nasal Cannula 2.0 05/01/17 13:00 113 20 102/57 94 Nasal Cannula 2.0 Intake and Output 05/01/17 05/02/17 19:00 07:00 Intake Total 386.25 ml 683.28 ml Output Total 0 ml Balance 386.25 ml 683.28 ml IV Total 386.25 ml 683.28 ml Hemodialysis UF 0 ml # Bowel Movements 1 1 Laboratory Tests 05/02/17 03:40: White Blood Count 15.4H, Red Blood Count 3.45L, Hemoglobin 11.9L, Hematocrit 35.4L, Mean Corpuscular Volume 103H, Mean Corpuscular Hemoglobin 34.5H, Mean Corpuscular Hemoglobin Concent 33.7, Red Cell Distribution Width 13.4, Platelet Count 120L, Mean Platelet Volume 10.1, Neutrophils (%) (Auto) 79.2H, Lymphocytes (%) (Auto) 9.3L, Monocytes (%) (Auto) 11.0H, Eosinophils (%) (Auto) 0.0, Basophils (%) (Auto) 0.5, Sodium Level 136, Potassium Level 5.2H, Chloride Level 97L, Carbon Dioxide Level 24, Anion Gap 15, Blood Urea Nitrogen 39H, Creatinine 11.2H, Estimat Glomerular Filtration Rate 4.2, Glucose Level 142H, Calcium Level 10.6H, Random Vancomycin Level 17.9 05/02/17 10:45: Lactic Acid Level 1.40 Height (Feet): 5 Height (Inches): 4.00 Weight (Pounds): 309 Cardiovascular: normal rate Respiratory/Chest: lungs clear Extremities: trace edema, other NENA FERREIRA May 02, 2017 12:52
--- NOTE | 2017-05-02 13:37 | Wound Care Consultation ---
Wound Assessment Wound Assessment #1: Wound Number: 1 Wound Present on Admission: Yes New Wound: No Status Change of Wound: No Wound Location Body Site Modif: mid Wound Location Body Site: coccyx Wound Type: pressure ulcer Agustina Test: Does not Agustina Pressure Ulcer Stage: III Wound Thickness: Full Thickness Wound Length: 3.5 Wound Width: 1.5 Wound Depth: 0.2 Percent of Wound Vandling/Red: 100 Wound Drainage Description: Serosanguineous Wound Drainage Amount: Moderate Wound Drainage Odor: None/Absent Tissue Surrounding Wound: Erythemic Wound General Appearance: Reddened, Draining Wound Assessment #2: Wound Number: 2 Wound Present on Admission: Yes New Wound: No Status Change of Wound: No Wound Location Body Site Modif: right Wound Location Body Site: buttocks Wound Type: pressure ulcer Agustina Test: Does not Agustina Pressure Ulcer Stage: III - scattered Wound Thickness: Full Thickness Wound Length: 8.5 Wound Width: 6.5 Wound Depth: 0.2 Percent of Wound Vandling/Red: 100 Wound Drainage Description: Serosanguineous Wound Drainage Amount: Scant Wound Drainage Odor: None/Absent Tissue Surrounding Wound: Macerated Wound General Appearance: Reddened, Draining Wound Assessment #3: Wound Number: 3 Wound Present on Admission: Yes New Wound: No Status Change of Wound: No Wound Location Body Site Modif: left Wound Location Body Site: buttocks Wound Type: pressure ulcer Agustina Test: Does not Agustina Pressure Ulcer Stage: III Wound Thickness: Full Thickness Wound Length: 2.5 Wound Width: 2.5 Wound Depth: 0.2 Percent of Wound Vandling/Red: 100 Wound Drainage Amount: None Wound Drainage Odor: None/Absent Tissue Surrounding Wound: Intact Wound General Appearance: Reddened, Draining Wound Assessment #4: Wound Number: 4 Wound Present on Admission: Yes New Wound: No Status Change of Wound: No Wound Location Body Site Modif: right Wound Location Body Site: buttocks Wound Type: pressure ulcer Agustina Test: Does not Agustina Pressure Ulcer Stage: II - scattered Wound Thickness: Partial Thickness Wound Length: 3.5 Wound Width: 2.5 Wound Depth: 0.1 Percent of Wound Vandling/Red: 100 Wound Drainage Description: Serosanguineous Wound Drainage Amount: Scant Wound Drainage Odor: None/Absent Tissue Surrounding Wound: Intact Wound General Appearance: Reddened, Draining Wound Assessment #5: Wound Number: 5 Wound Present on Admission: Yes New Wound: No Status Change of Wound: No Wound Location Body Site Modif: left Wound Location Body Site: ischial tuberosity Wound Type: pressure ulcer Agustina Test: Does not Agustina Wound Thickness: Full Thickness Wound Length: 3.5 Wound Width: 4.5 Wound Depth: utd Percent of Wound Vandling/Red: 100 Wound Drainage Amount: None Wound Drainage Odor: None/Absent Tissue Surrounding Wound: Intact Wound General Appearance: Reddened Wound Comment #1 Coccygeal stage III pressure ulcer #2 Right buttock scattered stage III pressure ulcer #3 Left lower buttocks stage III pressure ulcer #4 Right buttocks scattered stage II pressure ulcer #5 Left ischial tuberosity full thickness scar tissue Recommendation -Local wound care per protocol -Keep clean and dry -Turn and reposition -Optimize nutrition -Low air loss mattress -Offload both heel -Heel protector on both heels -Assess and f/u accordingly for any changes AIMEE FRAUSTO RN May 02, 2017 13:37
--- NOTE | 2017-05-02 13:42 | Infectious Diseases Prog Note ---
Assessment/Plan Assessment/Plan A Septic shock improving/off pressor HD line infection Gram positive sepsis ESRD on HD Morbid obesity COPD P; Continue Zosyn & Vancomycin agree with HD removal will f/u cultures Subjective ROS Limited/Unobtainable: Yes Constitutional: Reports: other - no fever since yesterday Cardiovascular: Reports: other - off Levophed, on Amiodarone Allergies: Coded Allergies: No Known Allergies (Unverified , 12/04/15) Objective Vital Signs Last 24 Hour Vital Signs Date Time Temp Pulse Resp B/P (MAP) Pulse Ox O2 Delivery O2 Flow Rate FiO2 05/02/17 13:00 83 24 97/49 100 Nasal Cannula 2.0 05/02/17 12:00 98.9 88 30 105/54 100 Nasal Cannula 2.0 05/02/17 12:00 90 05/02/17 11:00 90 33 102/53 99 Nasal Cannula 2.0 05/02/17 10:00 95 31 122/70 99 Nasal Cannula 2.0 05/02/17 10:00 122/70 05/02/17 09:28 112/71 05/02/17 09:15 97 32 121/72 98 Nasal Cannula 2.0 05/02/17 09:08 121/72 05/02/17 09:00 120 112/71 05/02/17 09:00 124 36 110/64 98 Nasal Cannula 2.0 05/02/17 08:45 128 36 110/64 98 Nasal Cannula 2.0 05/02/17 08:30 123 36 112/71 98 Nasal Cannula 2.0 05/02/17 08:15 127 31 105/40 95 Nasal Cannula 2.0 05/02/17 08:00 99.3 124 33 120/85 97 Nasal Cannula 4.0 05/02/17 08:00 110/57 05/02/17 08:00 119 05/02/17 07:57 Nasal Cannula 2.0 05/02/17 07:56 98 Nasal Cannula 2.0 05/02/17 07:55 127 28 Nasal Cannula 2.0 05/02/17 07:30 123 32 98/33 94 Nasal Cannula 2.0 05/02/17 07:00 120 33 124/83 95 Nasal Cannula 2.0 05/02/17 07:00 124/83 05/02/17 06:30 93 31 142/68 95 Nasal Cannula 2.0 2/12/18 06:00 94 32 145/53 94 Nasal Cannula 4.0 05/02/17 05:30 94 32 145/53 94 Nasal Cannula 4.0 05/02/17 05:00 91 05/02/17 05:00 93 32 133/78 94 Nasal Cannula 4.0 05/02/17 04:30 93 32 143/72 87 Nasal Cannula 4.0 05/02/17 04:00 94 05/02/17 04:00 98.3 94 32 120/85 87 Nasal Cannula 4.0 05/02/17 03:00 93 32 141/63 93 Nasal Cannula 4.0 05/02/17 02:30 92 32 127/51 93 Nasal Cannula 4.0 05/02/17 02:05 113/36 05/02/17 02:00 93 32 128/72 93 Nasal Cannula 4.0 05/02/17 01:30 99 30 115/50 94 Nasal Cannula 4.0 05/02/17 01:00 91 30 126/43 94 Nasal Cannula 4.0 05/02/17 01:00 92 05/02/17 00:30 100 30 120/42 95 Nasal Cannula 4.0 05/02/17 00:00 99.0 96 30 138/42 95 Nasal Cannula 4.0 05/02/17 00:00 96 05/01/17 23:30 137 29 95/46 96 Nasal Cannula 4.0 05/01/17 23:00 137 29 99/76 96 Nasal Cannula 4.0 05/01/17 22:30 139 28 105/51 100 Nasal Cannula 4.0 05/01/17 22:00 140 29 150/60 96 Nasal Cannula 4.0 05/01/17 21:30 144 29 120/57 96 Nasal Cannula 4.0 05/01/17 21:00 144 29 98/57 96 Nasal Cannula 4.0 05/01/17 20:30 146 27 88/55 99 Nasal Cannula 4.0 05/01/17 20:00 143 05/01/17 20:00 99.2 143 27 91/57 99 Nasal Cannula 4.0 05/01/17 19:59 99 Nasal Cannula 3.0 32 05/01/17 19:59 Nasal Cannula 3.0 32 05/01/17 19:30 130 20 Nasal Cannula 3.0 32 05/01/17 19:30 98.9 141 24 98/57 Nasal Cannula 4.0 05/01/17 19:30 99.0 143 24 93/58 Nasal Cannula 4.0 05/01/17 19:30 Nasal Cannula 4.0 05/01/17 18:15 129 18 85/46 98 Nasal Cannula 2.0 05/01/17 18:00 77/49 05/01/17 18:00 100.2 132 23 76/42 96 Nasal Cannula 2.0 05/01/17 17:45 133 20 87/46 93 Nasal Cannula 2.0 05/01/17 17:30 134 20 85/46 95 Nasal Cannula 2.0 05/01/17 17:15 133 20 75/45 95 Nasal Cannula 2.0 05/01/17 17:00 100.2 135 20 58/33 95 Nasal Cannula 2.0 05/01/17 17:00 58/33 05/01/17 16:32 100.4 05/01/17 16:00 128 20 100/46 95 Nasal Cannula 2.0 05/01/17 16:00 128 05/01/17 15:36 109 20 Nasal Cannula 2.0 28 05/01/17 15:00 Nasal Cannula 4.0 05/01/17 15:00 108 20 110/56 95 Nasal Cannula 2.0 05/01/17 15:00 98.7 102 28 76/53 Nasal Cannula 4.0 05/01/17 14:00 100.8 110 20 92/45 96 Nasal Cannula 2.0 Height (Feet): 5 Height (Inches): 4.00 Weight (Pounds): 309 Respiratory/Chest: lungs clear Cardiovascular: normal rate, other - Permacath in left side Abdomen: soft, non tender Extremities: no edema Skin: ulcers, other - abdominal wall, mesh visible Neurologic/Psychiatric: other - sleeping Microbiology Date/Time Source Procedure Growth Status 04/30/17 22:05 Blood Blood Culture - Preliminary Resulted 04/30/17 21:50 Blood Blood Culture - Preliminary Resulted 04/30/17 22:50 Nasal Nares Influenza Types A,B Antigen (AARON) - Final Complete Laboratory Tests Test 05/02/17 03:40 05/02/17 10:45 White Blood Count 15.4 K/UL (4.8-10.8) H Red Blood Count 3.45 M/UL (4.20-5.40) L Hemoglobin 11.9 G/DL (12.0-16.0) L Hematocrit 35.4 % (37.0-47.0) L Mean Corpuscular Volume 103 FL (80-99) H Mean Corpuscular Hemoglobin 34.5 PG (27.0-31.0) H Mean Corpuscular Hemoglobin Concent 33.7 G/DL (32.0-36.0) Red Cell Distribution Width 13.4 % (11.6-14.8) Platelet Count 120 K/UL (150-450) L Mean Platelet Volume 10.1 FL (6.5-10.1) Neutrophils (%) (Auto) 79.2 % (45.0-75.0) H Lymphocytes (%) (Auto) 9.3 % (20.0-45.0) L Monocytes (%) (Auto) 11.0 % (1.0-10.0) H Eosinophils (%) (Auto) 0.0 % (0.0-3.0) Basophils (%) (Auto) 0.5 % (0.0-2.0) Sodium Level 136 MMOL/L (136-145) Potassium Level 5.2 MMOL/L (3.5-5.1) H Chloride Level 97 MMOL/L (98-107) L Carbon Dioxide Level 24 MMOL/L (21-32) Anion Gap 15 mmol/L (5-15) Blood Urea Nitrogen 39 mg/dL (7-18) H Creatinine 11.2 MG/DL (0.55-1.30) H Estimat Glomerular Filtration Rate 4.2 mL/min (>60) Glucose Level 142 MG/DL (74-106) H Calcium Level 10.6 MG/DL (8.5-10.1) H Random Vancomycin Level 17.9 ug/mL Lactic Acid Level 1.40 mmol/L (0.66-2.22) Current Medications Medications (Trade) Dose Ordered Sig/Jeff Route PRN Reason Start Time Stop Time Status Last Admin Dose Admin Acetaminophen (Tylenol) 650 mg Q4H PRN ORAL Mild Pain (Pain Scale 1-3) 05/01/17 11:00 05/31/17 10:59 Acetaminophen/ Hydrocodone Bitart ([place] 5/325) 1 tab Q6H PRN ORAL Moderate Pain 05/01/17 11:00 05/08/17 10:59 Albuterol/ Ipratropium (Albuterol/ Ipratropium) 3 ml Q4H PRN HHN SHORTNESS OF BREATH 05/01/17 11:30 05/06/17 11:29 Amiodarone HCl (Cordarone) 200 mg QHS ORAL 05/01/17 21:00 05/31/17 20:59 05/01/17 21:12 Amiodarone HCl 900 mg/Dextrose 500 ml @ 0 mls/hr Q24H IV 05/01/17 23:00 05/02/17 22:59 05/01/17 23:25 Aspirin (ASA) 81 mg DAILY ORAL 05/02/17 09:00 05/31/17 08:59 05/02/17 09:09 Buspirone HCl (Buspar) 15 mg TWICE A DAY ORAL 05/01/17 18:00 05/31/17 08:59 05/02/17 09:09 Chlorhexidine Gluconate (Majo-Hex 2%) 1 applic DAILY@2000 TOPIC 05/02/17 20:00 06/01/17 19:59 Cinacalcet (Sensipar) 30 mg DAILY ORAL 05/02/17 09:00 05/31/17 08:59 05/02/17 09:09 Dextrose (Dextrose 50%) STAT PRN IV Hypoglycemia 05/01/17 11:00 05/31/17 10:59 Gabapentin (Neurontin) 300 mg BEDTIME ORAL 05/01/17 21:00 05/31/17 20:59 05/01/17 21:12 Heparin Sodium (Porcine) (Heparin 5000 units/ml) 5,000 units EVERY 12 HOURS SUBQ 05/01/17 21:00 05/31/17 08:59 05/02/17 09:21 Heparin Sodium/ Sodium Chloride (Heparin 2000 units/Ns 1000ml premix) 2,000 unit ONCE PRN INJ PICC LINE INSERTION 05/01/17 18:00 05/02/17 23:59 Hydromorphone HCl (Dilaudid) 2 mg Q4H PRN IVP Severe Pain (Pain Scale 7-10) 05/01/17 11:00 05/08/17 10:59 05/02/17 12:26 Lidocaine HCl (Xylocaine 1% 30ml) 30 ml ONCE PRN INJ PICC LINE INSERTION 05/01/17 18:00 05/02/17 23:59 Lidocaine/ Epinephrine (Xylocaine 1%/ Epi MPF 30ml) 30 ml ONCE PRN INJ For radiology procedure 05/02/17 12:45 05/02/17 23:59 Lorazepam (Ativan 2mg/ml 1ml) 0.5 mg Q4H PRN IV For Anxiety 05/01/17 11:30 05/08/17 11:29 Metoprolol Succinate (Toprol XL) 25 mg DAILY ORAL 05/02/17 09:00 06/01/17 08:59 Metoprolol Tartrate (Lopressor) 5 mg Q6H PRN IVP HR>130 SUSTAINED MORE THAN 5 M 05/02/17 11:00 06/01/17 10:59 Norepinephrine Bitartrate 4 mg/ Dextrose 250 ml @ 0 mls/hr Q24H IV 05/01/17 14:30 05/31/17 14:29 05/02/17 09:28 Piperacillin Sod/ Tazobactam Sod 2.25 gm/Sodium Chloride 55 ml @ 110 mls/hr Q8HR IVPB 05/01/17 12:30 05/06/17 12:29 05/02/17 13:20 Prochlorperazine (Compazine) 10 mg Q6H PRN IVP Nausea & Vomiting 05/01/17 11:00 05/31/17 10:59 Topiramate (Topamax) 25 mg TWICE A DAY ORAL 05/01/17 18:00 05/31/17 08:59 05/02/17 09:14 Tramadol HCl (Ultram) 50 mg Q6H PRN ORAL Breakthru Moderate-Severe Pain 05/01/17 11:30 05/08/17 11:29 Trazodone HCl (Desyrel) 150 mg BEDTIME ORAL 05/01/17 21:00 05/31/17 20:59 Vancomycin HCl (Vanco rx to dose) 1 ea DAILYPRN PRN MISC Per rx protocol 05/01/17 09:00 05/31/17 08:59 SCOOBY FERREIRA May 02, 2017 13:42
[2017-05-02 14:58] LABS: INR 1.1 (0.9-1.1)
--- NOTE | 2017-05-02 19:28 | Cardiology Report ---
APPROVED REPORT EXAM: Two-dimensional and M-mode echocardiogram with Doppler and color Doppler. INDICATION SOB M-Mode DIMENSIONS IVSd0.8 (0.7-1.1cm)Left Atrium (MM)3.5 (1.6-4.0cm) LVDd4.2 (3.5-5.6cm)Aortic Root2.4 (2.0-3.7cm) PWd1.2 (0.7-1.1cm)Aortic Cusp Exc.1.7 (1.5-2.0cm) LVDs1.8 (2.5-4.0cm) PWs1.6 cm Technically limited and difficult study due to poor acoustical windows. Normal left ventricular chamber size, systolic function and wall motion. Left ventricular ejection fraction estimated to be 70-75% to extend visualized. No evidence of left ventricular hypertrophy. No evidence of pericardial or pleural effusion. Focal aortic valve sclerosis with adequate cusp excursion. Thickened mitral valve leaflets with normal excursion. Mild mitral annulus and aortic root calcification. Pulmonic valve not well visualized. Normal tricuspid valve structure. IVC is normal in size and collapsible with respiration. A color flow and spectral Doppler study was performed and revealed: No aortic regurgitation. Trace tricuspid regurgitation. Pulmonic regurgitation present.
--- NOTE | 2017-05-02 19:44 | Cardiology Progress Note ---
Assessment/Plan Assessment/Plan full note dicated pad nwop back ot sinsu keep on amiod iv overnite observe for ercurrrrenc f afib anticaogualtion withheparin for now fr srok prevention if no proceedure planned may need permacath tomorrow to start anitcoagualtion after that [id number] Objective Last 24 Hour Vital Signs Date Time Temp Pulse Resp B/P (MAP) Pulse Ox O2 Delivery O2 Flow Rate FiO2 05/02/17 19:04 98.7 05/02/17 19:00 80 26 128/58 97 Nasal Cannula 2.0 05/02/17 18:00 78 25 116/47 100 Nasal Cannula 2.0 05/02/17 17:00 80 24 100/44 99 Nasal Cannula 2.0 05/02/17 16:00 98.7 83 28 110/57 99 Nasal Cannula 2.0 05/02/17 16:00 83 05/02/17 15:00 83 24 117/72 100 Nasal Cannula 2.0 05/02/17 14:00 84 24 119/58 99 Nasal Cannula 2.0 05/02/17 13:00 83 24 97/49 100 Nasal Cannula 2.0 05/02/17 12:00 98.9 88 30 105/54 100 Nasal Cannula 2.0 05/02/17 12:00 90 05/02/17 11:00 90 33 102/53 99 Nasal Cannula 2.0 05/02/17 10:00 95 31 122/70 99 Nasal Cannula 2.0 05/02/17 10:00 122/70 05/02/17 09:28 112/71 05/02/17 09:15 97 32 121/72 98 Nasal Cannula 2.0 05/02/17 09:08 121/72 05/02/17 09:00 120 112/71 05/02/17 09:00 124 36 110/64 98 Nasal Cannula 2.0 05/02/17 08:45 128 36 110/64 98 Nasal Cannula 2.0 05/02/17 08:30 123 36 112/71 98 Nasal Cannula 2.0 05/02/17 08:15 127 31 105/40 95 Nasal Cannula 2.0 05/02/17 08:00 99.3 124 33 120/85 97 Nasal Cannula 4.0 05/02/17 08:00 110/57 05/02/17 08:00 119 2/12/18 07:57 Nasal Cannula 2.0 05/02/17 07:56 98 Nasal Cannula 2.0 05/02/17 07:55 127 28 Nasal Cannula 2.0 05/02/17 07:30 123 32 98/33 94 Nasal Cannula 2.0 05/02/17 07:00 120 33 124/83 95 Nasal Cannula 2.0 05/02/17 07:00 124/83 05/02/17 06:30 93 31 142/68 95 Nasal Cannula 2.0 05/02/17 06:00 94 32 145/53 94 Nasal Cannula 4.0 05/02/17 05:30 94 32 145/53 94 Nasal Cannula 4.0 05/02/17 05:00 91 05/02/17 05:00 93 32 133/78 94 Nasal Cannula 4.0 05/02/17 04:30 93 32 143/72 87 Nasal Cannula 4.0 05/02/17 04:00 94 05/02/17 04:00 98.3 94 32 120/85 87 Nasal Cannula 4.0 05/02/17 03:00 93 32 141/63 93 Nasal Cannula 4.0 05/02/17 02:30 92 32 127/51 93 Nasal Cannula 4.0 05/02/17 02:05 113/36 05/02/17 02:00 93 32 128/72 93 Nasal Cannula 4.0 05/02/17 01:30 99 30 115/50 94 Nasal Cannula 4.0 05/02/17 01:00 91 30 126/43 94 Nasal Cannula 4.0 05/02/17 01:00 92 05/02/17 00:30 100 30 120/42 95 Nasal Cannula 4.0 05/02/17 00:00 99.0 96 30 138/42 95 Nasal Cannula 4.0 05/02/17 00:00 96 05/01/17 23:30 137 29 95/46 96 Nasal Cannula 4.0 05/01/17 23:00 137 29 99/76 96 Nasal Cannula 4.0 05/01/17 22:30 139 28 105/51 100 Nasal Cannula 4.0 05/01/17 22:00 140 29 150/60 96 Nasal Cannula 4.0 05/01/17 21:30 144 29 120/57 96 Nasal Cannula 4.0 05/01/17 21:00 144 29 98/57 96 Nasal Cannula 4.0 05/01/17 20:30 146 27 88/55 99 Nasal Cannula 4.0 05/01/17 20:00 143 05/01/17 20:00 99.2 143 27 91/57 99 Nasal Cannula 4.0 05/01/17 19:59 99 Nasal Cannula 3.0 32 05/01/17 19:59 Nasal Cannula 3.0 32 Intake and Output 05/01/17 05/02/17 19:00 07:00 Intake Total 386.25 ml 683.28 ml Output Total 0 ml Balance 386.25 ml 683.28 ml IV Total 386.25 ml 683.28 ml Hemodialysis UF 0 ml # Bowel Movements 1 1 Laboratory Tests Test 05/02/17 03:40 05/02/17 10:45 05/02/17 13:40 White Blood Count 15.4 K/UL (4.8-10.8) H Red Blood Count 3.45 M/UL (4.20-5.40) L Hemoglobin 11.9 G/DL (12.0-16.0) L Hematocrit 35.4 % (37.0-47.0) L Mean Corpuscular Volume 103 FL (80-99) H Mean Corpuscular Hemoglobin 34.5 PG (27.0-31.0) H Mean Corpuscular Hemoglobin Concent 33.7 G/DL (32.0-36.0) Red Cell Distribution Width 13.4 % (11.6-14.8) Platelet Count 120 K/UL (150-450) L Mean Platelet Volume 10.1 FL (6.5-10.1) Neutrophils (%) (Auto) 79.2 % (45.0-75.0) H Lymphocytes (%) (Auto) 9.3 % (20.0-45.0) L Monocytes (%) (Auto) 11.0 % (1.0-10.0) H Eosinophils (%) (Auto) 0.0 % (0.0-3.0) Basophils (%) (Auto) 0.5 % (0.0-2.0) Sodium Level 136 MMOL/L (136-145) Potassium Level 5.2 MMOL/L (3.5-5.1) H Chloride Level 97 MMOL/L (98-107) L Carbon Dioxide Level 24 MMOL/L (21-32) Anion Gap 15 mmol/L (5-15) Blood Urea Nitrogen 39 mg/dL (7-18) H Creatinine 11.2 MG/DL (0.55-1.30) H Estimat Glomerular Filtration Rate 4.2 mL/min (>60) Glucose Level 142 MG/DL (74-106) H Calcium Level 10.6 MG/DL (8.5-10.1) H Random Vancomycin Level 17.9 ug/mL Lactic Acid Level 1.40 mmol/L (0.66-2.22) Prothrombin Time 11.1 SEC (9.30-11.50) Prothromb Time International Ratio 1.1 (0.9-1.1) Microbiology Date/Time Source Procedure Growth Status 04/30/17 22:05 Blood Blood Culture - Preliminary Resulted 04/30/17 21:50 Blood Blood Culture - Preliminary Resulted 04/30/17 22:50 Nasal Nares Influenza Types A,B Antigen (AARON) - Final Complete MATHEUS GATES May 02, 2017 19:44
[2017-05-02] MEDS: Dyna-Hex 2% Top Sol 2oz TOPIC SCH (20:01)
[2017-05-02] MEDS: TraZODone 50mg tab ORAL SCH (20:50)
[2017-05-02] MEDS: Amiodarone 900 MG in D5W 500ml 482 ML IV SCH (23:14)
--- NOTE | 2017-05-02 23:38 | Internal Med Progress Note ---
Subjective Physician Name Ion Appiah Attending Physician Ion Appiah M.D. Current Medications Medications (Trade) Dose Ordered Sig/Jeff Route PRN Reason Start Time Stop Time Status Last Admin Dose Admin Acetaminophen (Tylenol) 650 mg Q4H PRN ORAL Mild Pain (Pain Scale 1-3) 05/01/17 11:00 05/31/17 10:59 Acetaminophen/ Hydrocodone Bitart ([place] 5/325) 1 tab Q6H PRN ORAL Moderate Pain 05/01/17 11:00 05/08/17 10:59 Albuterol/ Ipratropium (Albuterol/ Ipratropium) 3 ml Q4H PRN HHN SHORTNESS OF BREATH 05/01/17 11:30 05/06/17 11:29 Aspirin (ASA) 81 mg DAILY ORAL 05/02/17 09:00 05/31/17 08:59 05/02/17 09:09 Buspirone HCl (Buspar) 15 mg TWICE A DAY ORAL 05/01/17 18:00 05/31/17 08:59 05/02/17 18:33 Chlorhexidine Gluconate (Majo-Hex 2%) 1 applic DAILY@2000 TOPIC 05/02/17 20:00 06/01/17 19:59 05/02/17 20:01 Cinacalcet (Sensipar) 30 mg DAILY ORAL 05/02/17 09:00 05/31/17 08:59 05/02/17 09:09 Dextrose (Dextrose 50%) STAT PRN IV Hypoglycemia 05/01/17 11:00 05/31/17 10:59 Gabapentin (Neurontin) 300 mg BEDTIME ORAL 05/01/17 21:00 05/31/17 20:59 05/02/17 20:49 Heparin Sodium (Porcine) (Heparin 5000 units/ml) 5,000 units EVERY 12 HOURS SUBQ 05/01/17 21:00 05/31/17 08:59 05/02/17 20:51 Heparin Sodium/ Sodium Chloride (Heparin 2000 units/Ns 1000ml premix) 2,000 unit ONCE PRN INJ PICC LINE INSERTION 05/01/17 18:00 05/02/17 23:59 Hydromorphone HCl (Dilaudid) 2 mg Q4H PRN IVP Severe Pain (Pain Scale 7-10) 05/01/17 11:00 05/08/17 10:59 05/02/17 18:34 Lidocaine HCl (Xylocaine 1% 30ml) 30 ml ONCE PRN INJ PICC LINE INSERTION 05/01/17 18:00 05/02/17 23:59 Lidocaine/ Epinephrine (Xylocaine 1%/ Epi MPF 30ml) 30 ml ONCE PRN INJ For radiology procedure 05/02/17 12:45 05/02/17 23:59 Lorazepam (Ativan 2mg/ml 1ml) 0.5 mg Q4H PRN IV For Anxiety 05/01/17 11:30 05/08/17 11:29 Metoprolol Succinate (Toprol XL) 25 mg DAILY ORAL 05/02/17 09:00 06/01/17 08:59 Metoprolol Tartrate (Lopressor) 5 mg Q6H PRN IVP HR>130 SUSTAINED MORE THAN 5 M 05/02/17 11:00 06/01/17 10:59 Norepinephrine Bitartrate 4 mg/ Dextrose 250 ml @ 0 mls/hr Q24H IV 05/01/17 14:30 05/31/17 14:29 05/02/17 09:28 Piperacillin Sod/ Tazobactam Sod 2.25 gm/Sodium Chloride 55 ml @ 110 mls/hr Q8HR IVPB 05/01/17 12:30 05/06/17 12:29 05/02/17 21:51 Prochlorperazine (Compazine) 10 mg Q6H PRN IVP Nausea & Vomiting 05/01/17 11:00 05/31/17 10:59 Topiramate (Topamax) 25 mg TWICE A DAY ORAL 05/01/17 18:00 05/31/17 08:59 05/02/17 18:33 Tramadol HCl (Ultram) 50 mg Q6H PRN ORAL Breakthru Moderate-Severe Pain 05/01/17 11:30 05/08/17 11:29 Trazodone HCl (Desyrel) 150 mg BEDTIME ORAL 05/01/17 21:00 05/31/17 20:59 05/02/17 20:50 Vancomycin HCl (Vanco rx to dose) 1 ea DAILYPRN PRN MISC Per rx protocol 05/01/17 09:00 05/31/17 08:59 Allergies: Coded Allergies: No Known Allergies (Unverified , 12/04/15) Objective Last Vital Signs Date Time Temp Pulse Resp B/P (MAP) Pulse Ox O2 Delivery O2 Flow Rate FiO2 05/02/17 22:00 76 34 133/64 99 Nasal Cannula 2.0 05/02/17 20:00 98.1 05/02/17 19:56 28 Laboratory Tests Test 05/02/17 03:40 05/02/17 10:45 05/02/17 13:40 White Blood Count 15.4 K/UL (4.8-10.8) H Red Blood Count 3.45 M/UL (4.20-5.40) L Hemoglobin 11.9 G/DL (12.0-16.0) L Hematocrit 35.4 % (37.0-47.0) L Mean Corpuscular Volume 103 FL (80-99) H Mean Corpuscular Hemoglobin 34.5 PG (27.0-31.0) H Mean Corpuscular Hemoglobin Concent 33.7 G/DL (32.0-36.0) Red Cell Distribution Width 13.4 % (11.6-14.8) Platelet Count 120 K/UL (150-450) L Mean Platelet Volume 10.1 FL (6.5-10.1) Neutrophils (%) (Auto) 79.2 % (45.0-75.0) H Lymphocytes (%) (Auto) 9.3 % (20.0-45.0) L Monocytes (%) (Auto) 11.0 % (1.0-10.0) H Eosinophils (%) (Auto) 0.0 % (0.0-3.0) Basophils (%) (Auto) 0.5 % (0.0-2.0) Sodium Level 136 MMOL/L (136-145) Potassium Level 5.2 MMOL/L (3.5-5.1) H Chloride Level 97 MMOL/L (98-107) L Carbon Dioxide Level 24 MMOL/L (21-32) Anion Gap 15 mmol/L (5-15) Blood Urea Nitrogen 39 mg/dL (7-18) H Creatinine 11.2 MG/DL (0.55-1.30) H Estimat Glomerular Filtration Rate 4.2 mL/min (>60) Glucose Level 142 MG/DL (74-106) H Calcium Level 10.6 MG/DL (8.5-10.1) H Random Vancomycin Level 17.9 ug/mL Lactic Acid Level 1.40 mmol/L (0.66-2.22) Prothrombin Time 11.1 SEC (9.30-11.50) Prothromb Time International Ratio 1.1 (0.9-1.1) Microbiology Date/Time Source Procedure Growth Status 04/30/17 22:05 Blood Blood Culture - Preliminary Resulted 04/30/17 21:50 Blood Blood Culture - Preliminary Resulted 04/30/17 22:50 Nasal Nares Influenza Types A,B Antigen (AARON) - Final Complete Intake and Output 05/01/17 05/02/17 19:00 07:00 Intake Total 386.25 ml 683.28 ml Output Total 0 ml Balance 386.25 ml 683.28 ml IV Total 386.25 ml 683.28 ml Hemodialysis UF 0 ml # Bowel Movements 1 1 Assessment/Plan Assessment/Plan ASSESSMENT: 1. Line Sepsis w/ GPC bacteremia 2. Respiratory insufficiency. 3. Metabolic Encephalopathy 4. End-stage renal disease, on dialysis. 5. History of atrial fibrillation. 6. Decubitus ulcer. 7. Depression. 8. Seizure disorder. 9. Septic Shock 2/2 #1 - resolved 10. Chronic obstructive pulmonary disease. 11. Abd surgical wound with exposed mesh Plan level of care - ICU off pressors catheter removed --> sent for Culture abx - Vanco and Zosyn ID recs appreciated f/u cultures renal recs appreciated Line Holiday TTE - no vegatations Surgery evaluation for abdominal surgical wound ION APPIAH M.D. May 02, 2017 23:38
--- NOTE | 2017-05-02 23:45 | Consultation ---
DATE OF CONSULTATION: 05/02/2017 CARDIOLOGY CONSULTATION REFERRING PHYSICIAN: Dr. Dionne M.D. REASON FOR REFERRAL: Atrial fibrillation. HISTORY OF PRESENT ILLNESS: This is an elderly female who is really not able to provide any information, but obtained from the patient's chart. On review of [facility] records as per my discussion with the patient's daughter, apparently the patient is on hemodialysis and has had replacement of the catheter of some kind on the left side. Her daughter was changing the dressing, noted some purulent material, also she has had some abdominal wall hernia that was treated with dressing changes. The patient became confused and less responsive, was brought to the emergency room here at [facility] by the paramedics, was seen this morning by Dr. Babin, was noted initially to be atrial fibrillation with rapid ventricular response. This consultation was subsequently requested by Dr. Truong. The patient is really noncommunicative at the present time and she is awake, responsive, although she had been on amiodarone IV and she was converted to sinus rhythm. PAST MEDICAL HISTORY: Positive for history of recent hospitalization at [facility] back in 2015 at which time, a left heart catheterization showed no evidence of cardiac coronary disease. She has had a history of morbid obesity, hypertension, ventral hernia, bowel obstruction secondary to incarcerated hernia status post exploratory laparotomy, status post release of several small bowel obstruction, lysis of adhesions and placement of a Prolene mesh by Dr. Burton. History of renal failure with ATN, compartment syndrome status post fasciotomy, and AV fistula placement. She has had septic shock previously, end-stage renal disease on hemodialysis, osteoarthritis, sleep apnea, pulmonary edema, atrial fibrillation, and pulmonary embolism. She has been maintained on Eliquis for anticoagulation, although I am not sure she was taking before this hospitalization. SOCIAL HISTORY: No smoking, tobacco alcohol use. She lives at home, although she gets dialysis transportation apparently take her down the stairs to as well. FAMILY HISTORY: Negative for premature coronary disease. REVIEW OF SYSTEMS: Really unable to obtain. PHYSICAL EXAMINATION: GENERAL: Morbidly obese elderly female, in no respiratory distress. She is lying down flat. VITAL SIGNS: Blood pressure has been anywhere between 97/59 to a level as high as 145/68 and at present time is 128/58. Her heart rates in the 80s and temperature 98.7 degrees. NECK: Supple. No jugular venous distention. Dressing on the left upper side of the chest wall and there is also dressing in the lower central abdomen. LUNGS: Appear to be clear to auscultation anteriorly. CARDIAC: Regular rate and rhythm. No heaves or thrills noted. ABDOMEN: Soft and nontender. Positive bowel sounds. EXTREMITIES: Bony edema in lower extremities bilaterally. LABORATORY AND DIAGNOSTIC DATA: Her white count of 15.4, hemoglobin 11.9, and platelet count of 120. PH is 7.55, pCO2 of 23, pO2 87 and bicarbonate of 18. Sodium is 136, potassium 5.2, chloride 97, bicarbonate 24, BUN 39, creatinine 11.2. Calcium of 10.6. Troponin of 0.284. INR 1.1. An echocardiogram has been performed. Preliminary report shows ejection fraction 30%-35%. No significant valvular regurgitation. Telemetry shows atrial fibrillation with rapid ventricular response at times. An EKG was performed at the time of admission by the paramedics shows sinus tachycardia at rate of 120. The patient's chest x-ray shows interstitial edema, CHF, and patchy left pulmonary infiltrate being documented. ASSESSMENT AND PLAN: 1. Paroxysmal episodes of atrial fibrillation. 2. No evidence of epicardial coronary disease. 3. End-stage renal disease, on hemodialysis. 4. Septic shock. 5. Bacteremia. 6. Abdominal ventral hernia status post repair. Dr. Truong, this patient was seen in cardiac consultation. The patient appears to be somewhat encephalopathic and my recommendation would be for the patient to be stay on amiodarone probably overnight. She has already converted to sinus rhythm. Hopefully with amiodarone will be able to maintain her in sinus. Once she is fully awake, alert, and responsive and able to take oral medication, we will switch her to a higher dose of amiodarone orally. I would consider replacing the patient back on anticoagulation with heparin or resumption of Eliquis and maintain a sinus rhythm to help with stroke prevention. Koko Gary M.D. DR: SOCORRO JOB#: [id number] CC:
[2017-05-03] VITALS (26 sets, daily range): BP systolic 103–142; BP diastolic 25–91
[2017-05-03 05:23] LABS: HEMATOCRIT 32.5 % (37.0-47.0); HEMOGLOBIN 10.8 G/DL (12.0-16.0); MEAN CORPUSCULAR VOLUME 103 FL (80-99); PLATELET COUNT 92 K/UL (150-450); RED BLOOD COUNT 3.15 M/UL (4.20-5.40); RED CELL DISTRIBUTION WIDTH 14.1 % (11.6-14.8); WHITE BLOOD COUNT 10.1 K/UL (4.8-10.8)
[2017-05-03 05:35] LABS: ANION GAP 15 mmol/L (5-15); BLOOD UREA NITROGEN 55 mg/dL (7-18); CARBON DIOXIDE 23 MMOL/L (21-32); CHLORIDE 97 MMOL/L (98-107); CREATININE 13.3 MG/DL (0.55-1.30); POTASSIUM 5.3 MMOL/L (3.5-5.1); SODIUM 135 MMOL/L (136-145)
[2017-05-03] MEDS: Piperacillin/Tazobactam 2.25 GM in NS 55 ML IVPB SCH ×2 (05:50→13:25)
[2017-05-03] MEDS: Sensipar 30mg Tab ORAL SCH (08:44)
[2017-05-03] MEDS: BusPIRone 5mg Tab ORAL SCH ×2 (08:44→18:46)
[2017-05-03] MEDS: Aspirin Baby 81mg ORAL SCH (08:44)
[2017-05-03] MEDS: Topiramate 25mg tab ORAL SCH ×2 (08:45→18:42)
[2017-05-03] MEDS: Heparin 5000 units/ml inj SUBQ SCH ×2 (09:00→21:00)
[2017-05-03] MEDS: Metoprolol Succinate XL 25mg tab ORAL SCH (09:00)
[2017-05-03] MEDS ORDERED: D5W 275ml ONE (10:55)
--- NOTE | 2017-05-03 12:58 | Nephrology Progress Note ---
Assessment/Plan Problem List: (1) Septic shock (2) Secondary hyperparathyroidism (of renal origin) (3) HTN (hypertension) (4) ESRD (end stage renal disease) on dialysis (5) Gram-positive bacteremia Assessment: Staph Aureus Plan Insert HD catheter by Tuesday IV Abxs Discussed with Dr Mcnair Discussed with Dr Babin and RN follow labs Subjective Subjective pain in her legs. can not be touched. Objective Objective Last 24 Hour Vital Signs Date Time Temp Pulse Resp B/P (MAP) Pulse Ox O2 Delivery O2 Flow Rate FiO2 05/03/17 12:00 97.7 66 17 130/91 100 Nasal Cannula 2.0 05/03/17 11:00 63 16 109/54 100 Nasal Cannula 2.0 05/03/17 10:00 65 15 115/48 100 Nasal Cannula 2.0 05/03/17 09:00 66 20 130/52 97 Nasal Cannula 2.0 05/03/17 08:00 67 05/03/17 08:00 97.7 65 15 142/63 99 Nasal Cannula 2.0 05/03/17 07:47 Nasal Cannula 2.0 28 05/03/17 07:46 96 Nasal Cannula 2.0 28 05/03/17 07:45 67 20 Nasal Cannula 2.0 28 05/03/17 07:00 67 16 130/52 97 Nasal Cannula 2.0 05/03/17 06:00 66 20 112/63 100 Nasal Cannula 2.0 05/03/17 05:00 69 22 134/52 96 Nasal Cannula 2.0 05/03/17 04:00 97.7 69 34 137/66 99 Nasal Cannula 2.0 05/03/17 03:50 69 05/03/17 03:00 71 17 133/61 99 Nasal Cannula 2.0 05/03/17 02:00 73 24 133/62 100 Nasal Cannula 2.0 05/03/17 01:30 74 24 124/79 100 Nasal Cannula 2.0 05/03/17 01:00 73 22 139/70 100 Nasal Cannula 2.0 05/03/17 00:30 73 22 132/68 99 Nasal Cannula 2.0 05/03/17 00:00 98.1 73 22 118/60 99 Nasal Cannula 2.0 05/02/17 23:53 73 05/02/17 23:30 75 22 137/60 99 Nasal Cannula 2.0 05/02/17 23:00 75 21 120/67 100 Nasal Cannula 2.0 05/02/17 22:30 76 25 121/67 98 Nasal Cannula 2.0 05/02/17 22:00 76 34 133/64 99 Nasal Cannula 2.0 05/02/17 21:30 78 24 135/70 93 Nasal Cannula 2.0 05/02/17 21:00 78 20 134/68 99 Nasal Cannula 2.0 05/02/17 20:30 76 19 123/66 98 Nasal Cannula 2.0 05/02/17 20:00 98.1 76 20 120/61 96 Nasal Cannula 2.0 05/02/17 19:58 77 05/02/17 19:56 79 20 Nasal Cannula 2.0 28 05/02/17 19:55 Nasal Cannula 2.0 28 05/02/17 19:55 98 Nasal Cannula 2.0 28 05/02/17 19:30 77 33 116/60 96 Nasal Cannula 2.0 05/02/17 19:04 98.7 05/02/17 19:00 80 26 128/58 97 Nasal Cannula 2.0 05/02/17 18:00 78 25 116/47 100 Nasal Cannula 2.0 05/02/17 17:00 80 24 100/44 99 Nasal Cannula 2.0 05/02/17 16:00 98.7 83 28 110/57 99 Nasal Cannula 2.0 05/02/17 16:00 83 05/02/17 15:00 83 24 117/72 100 Nasal Cannula 2.0 05/02/17 14:00 84 24 119/58 99 Nasal Cannula 2.0 05/02/17 13:00 83 24 97/49 100 Nasal Cannula 2.0 Intake and Output 05/02/17 05/03/17 19:00 07:00 Intake Total 469.92 ml 243.30 ml Output Total 0 ml 0 ml Balance 469.92 ml 243.30 ml Intake Oral 120 ml 50 ml IV Total 299.92 ml 193.30 ml Other 50 ml Output Urine Total 0 ml 0 ml Laboratory Tests 05/02/17 13:40: Prothrombin Time 11.1, Prothromb Time International Ratio 1.1 05/03/17 04:30: White Blood Count 10.1, Red Blood Count 3.15L, Hemoglobin 10.8L, Hematocrit 32.5L, Mean Corpuscular Volume 103H, Mean Corpuscular Hemoglobin 34.1H, Mean Corpuscular Hemoglobin Concent 33.1, Red Cell Distribution Width 14.1, Platelet Count 92L, Mean Platelet Volume 9.5, Neutrophils (%) (Auto) , Lymphocytes (%) ( Auto) , Monocytes (%) (Auto) , Eosinophils (%) (Auto) , Basophils (%) (Auto) , Sodium Level 135L, Potassium Level 5.3H, Chloride Level 97L, Carbon Dioxide Level 23, Anion Gap 15, Blood Urea Nitrogen 55H, Creatinine 13.3H, Estimat Glomerular Filtration Rate 3.4, Glucose Level 133H, Calcium Level 10.0 Height (Feet): 5 Height (Inches): 4.00 Weight (Pounds): 309 Cardiovascular: normal rate Respiratory/Chest: lungs clear Extremities: trace edema NENA FERREIRA May 03, 2017 12:58
--- NOTE | 2017-05-03 13:13 | Internal Med Progress Note ---
Subjective Physician Name Ion Appiah Attending Physician Ion Appiah M.D. Current Medications Medications (Trade) Dose Ordered Sig/Jeff Route PRN Reason Start Time Stop Time Status Last Admin Dose Admin Acetaminophen (Tylenol) 650 mg Q4H PRN ORAL Mild Pain (Pain Scale 1-3) 05/01/17 11:00 05/31/17 10:59 Acetaminophen/ Hydrocodone Bitart ([place] 5/325) 1 tab Q6H PRN ORAL Moderate Pain 05/01/17 11:00 05/08/17 10:59 Albuterol/ Ipratropium (Albuterol/ Ipratropium) 3 ml Q4H PRN HHN SHORTNESS OF BREATH 05/01/17 11:30 05/06/17 11:29 Aspirin (ASA) 81 mg DAILY ORAL 05/02/17 09:00 05/31/17 08:59 05/03/17 08:44 Buspirone HCl (Buspar) 15 mg TWICE A DAY ORAL 05/01/17 18:00 05/31/17 08:59 05/03/17 08:44 Chlorhexidine Gluconate ([place]ajo-Hex 2%) 1 applic DAILY@1999 TOPIC 05/02/17 20:00 06/01/17 19:59 05/02/17 20:01 Cinacalcet (Sensipar) 30 mg DAILY ORAL 05/02/17 09:00 05/31/17 08:59 05/03/17 08:44 Dextrose (Dextrose 50%) STAT PRN IV Hypoglycemia 05/01/17 11:00 05/31/17 10:59 Gabapentin (Neurontin) 300 mg BEDTIME ORAL 05/01/17 21:00 05/31/17 20:59 05/02/17 20:49 Heparin Sodium (Porcine) (Heparin 5000 units/ml) 5,000 units EVERY 12 HOURS SUBQ 05/01/17 21:00 05/31/17 08:59 05/02/17 20:51 Hydromorphone HCl (Dilaudid) 2 mg Q4H PRN IVP Severe Pain (Pain Scale 7-10) 05/01/17 11:00 05/08/17 10:59 05/03/17 07:32 Lorazepam (Ativan 2mg/ml 1ml) 0.5 mg Q4H PRN IV For Anxiety 05/01/17 11:30 05/08/17 11:29 Metoprolol Succinate (Toprol XL) 25 mg DAILY ORAL 05/02/17 09:00 06/01/17 08:59 Metoprolol Tartrate (Lopressor) 5 mg Q6H PRN IVP HR>130 SUSTAINED MORE THAN 5 M 05/02/17 11:00 06/01/17 10:59 Norepinephrine Bitartrate 4 mg/ Dextrose 250 ml @ 0 mls/hr Q24H IV 05/01/17 14:30 05/31/17 14:29 05/02/17 09:28 Piperacillin Sod/ Tazobactam Sod 2.25 gm/Sodium Chloride 55 ml @ 110 mls/hr Q8HR IVPB 05/01/17 12:30 05/06/17 12:29 05/03/17 05:50 Prochlorperazine (Compazine) 10 mg Q6H PRN IVP Nausea & Vomiting 05/01/17 11:00 05/31/17 10:59 Topiramate (Topamax) 25 mg TWICE A DAY ORAL 05/01/17 18:00 05/31/17 08:59 05/03/17 08:45 Tramadol HCl (Ultram) 50 mg Q6H PRN ORAL Breakthru Moderate-Severe Pain 05/01/17 11:30 05/08/17 11:29 Trazodone HCl (Desyrel) 150 mg BEDTIME ORAL 05/01/17 21:00 05/31/17 20:59 05/02/17 20:50 Vancomycin HCl (Vanco rx to dose) 1 ea DAILYPRN PRN MISC Per rx protocol 05/01/17 09:00 05/31/17 08:59 Allergies: Coded Allergies: No Known Allergies (Unverified , 12/04/15) All Systems: reviewed and negative except above Subjective in ICU off pressors on NC pain when moving cath removed today Objective Last Vital Signs Date Time Temp Pulse Resp B/P (MAP) Pulse Ox O2 Delivery O2 Flow Rate FiO2 05/03/17 12:00 97.7 66 17 130/91 100 Nasal Cannula 2.0 05/03/17 07:47 28 Laboratory Tests Test 05/02/17 13:40 05/03/17 04:30 Prothrombin Time 11.1 SEC (9.30-11.50) Prothromb Time International Ratio 1.1 (0.9-1.1) White Blood Count 10.1 K/UL (4.8-10.8) Red Blood Count 3.15 M/UL (4.20-5.40) L Hemoglobin 10.8 G/DL (12.0-16.0) L Hematocrit 32.5 % (37.0-47.0) L Mean Corpuscular Volume 103 FL (80-99) H Mean Corpuscular Hemoglobin 34.1 PG (27.0-31.0) H Mean Corpuscular Hemoglobin Concent 33.1 G/DL (32.0-36.0) Red Cell Distribution Width 14.1 % (11.6-14.8) Platelet Count 92 K/UL (150-450) L Mean Platelet Volume 9.5 FL (6.5-10.1) Neutrophils (%) (Auto) % (45.0-75.0) Lymphocytes (%) (Auto) % (20.0-45.0) Monocytes (%) (Auto) % (1.0-10.0) Eosinophils (%) (Auto) % (0.0-3.0) Basophils (%) (Auto) % (0.0-2.0) Sodium Level 135 MMOL/L (136-145) L Potassium Level 5.3 MMOL/L (3.5-5.1) H Chloride Level 97 MMOL/L (98-107) L Carbon Dioxide Level 23 MMOL/L (21-32) Anion Gap 15 mmol/L (5-15) Blood Urea Nitrogen 55 mg/dL (7-18) H Creatinine 13.3 MG/DL (0.55-1.30) H Estimat Glomerular Filtration Rate 3.4 mL/min (>60) Glucose Level 133 MG/DL (74-106) H Calcium Level 10.0 MG/DL (8.5-10.1) Microbiology Date/Time Source Procedure Growth Status 04/30/17 22:05 Blood Blood Culture - Preliminary Staphylococcus Aureus Resulted 04/30/17 21:50 Blood Blood Culture - Preliminary Staphylococcus Aureus Resulted 05/02/17 15:30 Drainage Fluid Gram Stain Pending Resulted 05/02/17 15:30 Drainage Fluid Body Fluid Culture - Preliminary Resulted 05/02/17 08:45 Sputum Expectorated Gram Stain Pending Resulted 05/02/17 08:45 Sputum Expectorated Sputum Culture - Preliminary NO GROWTH Resulted 04/30/17 22:50 Nasal Nares Influenza Types A,B Antigen (AARON) - Final Complete 04/30/17 22:30 Nasal Nares MRSA Culture - Final Staphylococcus Aureus - Mrsa Complete 05/02/17 15:30 Catheter Site Catheter Tip Culture - Preliminary Staphylococcus Aureus Resulted 04/30/17 22:30 Rectum VRE Culture - Final NO VANCOMYCIN RESISTANT ENTEROCOCCUS ... Complete Intake and Output 05/02/17 05/03/17 19:00 07:00 Intake Total 469.92 ml 243.30 ml Output Total 0 ml 0 ml Balance 469.92 ml 243.30 ml Intake Oral 120 ml 50 ml IV Total 299.92 ml 193.30 ml Other 50 ml Output Urine Total 0 ml 0 ml Objective gen - NAD. obese. slow to talk HEENT - nc/at Neck - supple. no kvd CVS - RRR> no S1, S2 Lungs - dec BS bilaterally Abd - NT. + surgical wound Assessment/Plan Assessment/Plan ASSESSMENT: 1. Line Sepsis w/ GPC bacteremia 2. Respiratory insufficiency. 3. Metabolic Encephalopathy 4. End-stage renal disease, on dialysis. 5. History of atrial fibrillation. 6. Decubitus ulcer. 7. Depression. 8. Seizure disorder. 9. Septic Shock 2/2 #1 - resolved 10. Chronic obstructive pulmonary disease. 11. Abd surgical wound with exposed mesh Plan level of care - ICU off pressors catheter removed --> sent for Culture abx - Vanco and Zosyn ID recs appreciated f/u cultures renal recs appreciated Line Holiday TTE - no vegatations Surgery evaluation for abdominal surgical wound ION APPIAH M.D. May 03, 2017 13:12
[2017-05-03] MEDS ORDERED: Morphine Sulfate 4mg/ml Inj IM PRN (13:15)
--- NOTE | 2017-05-03 13:57 | Pulmonology Progress Note ---
Assessment/Plan Assessment/Plan 1. Septic shock, due to staph aureus bacteremia, off pressors 2. Respiratory insufficiency. 3. Rapid AF, better 4. End-stage renal disease, on dialysis. 5. abdominal hernia with ulceration x2 with visible mesh and pus 6. Decubitus ulcer. 7. Depression. 8. Seizure disorder. 9. Dialysis catheter infection, removed 10. Chronic obstructive pulmonary disease. CT abd pdg sputum c/s HD catheter removed, culture tip growing s aureus surgery, cardiology, ID consults noted or pending disc w RN, Dr Truong Subjective ROS Limited/Unobtainable: Yes Allergies: Coded Allergies: No Known Allergies (Unverified , 12/04/15) Objective Last 24 Hour Vital Signs Date Time Temp Pulse Resp B/P (MAP) Pulse Ox O2 Delivery O2 Flow Rate FiO2 05/03/17 12:00 97.7 66 17 130/91 100 Nasal Cannula 2.0 05/03/17 11:00 63 16 109/54 100 Nasal Cannula 2.0 05/03/17 10:00 65 15 115/48 100 Nasal Cannula 2.0 05/03/17 09:00 66 20 130/52 97 Nasal Cannula 2.0 05/03/17 08:00 67 05/03/17 08:00 97.7 65 15 142/63 99 Nasal Cannula 2.0 05/03/17 07:47 Nasal Cannula 2.0 28 05/03/17 07:46 96 Nasal Cannula 2.0 28 05/03/17 07:45 67 20 Nasal Cannula 2.0 28 05/03/17 07:00 67 16 130/52 97 Nasal Cannula 2.0 05/03/17 06:00 66 20 112/63 100 Nasal Cannula 2.0 05/03/17 05:00 69 22 134/52 96 Nasal Cannula 2.0 05/03/17 04:00 97.7 69 34 137/66 99 Nasal Cannula 2.0 05/03/17 03:50 69 05/03/17 03:00 71 17 133/61 99 Nasal Cannula 2.0 05/03/17 02:00 73 24 133/62 100 Nasal Cannula 2.0 05/03/17 01:30 74 24 124/79 100 Nasal Cannula 2.0 05/03/17 01:00 73 22 139/70 100 Nasal Cannula 2.0 05/03/17 00:30 73 22 132/68 99 Nasal Cannula 2.0 05/03/17 00:00 98.1 73 22 118/60 99 Nasal Cannula 2.0 05/02/17 23:53 73 05/02/17 23:30 75 22 137/60 99 Nasal Cannula 2.0 05/02/17 23:00 75 21 120/67 100 Nasal Cannula 2.0 05/02/17 22:30 76 25 121/67 98 Nasal Cannula 2.0 05/02/17 22:00 76 34 133/64 99 Nasal Cannula 2.0 05/02/17 21:30 78 24 135/70 93 Nasal Cannula 2.0 05/02/17 21:00 78 20 134/68 99 Nasal Cannula 2.0 05/02/17 20:30 76 19 123/66 98 Nasal Cannula 2.0 05/02/17 20:00 98.1 76 20 120/61 96 Nasal Cannula 2.0 05/02/17 19:58 77 05/02/17 19:56 79 20 Nasal Cannula 2.0 28 05/02/17 19:55 Nasal Cannula 2.0 28 05/02/17 19:55 98 Nasal Cannula 2.0 28 05/02/17 19:30 77 33 116/60 96 Nasal Cannula 2.0 05/02/17 19:04 98.7 05/02/17 19:00 80 26 128/58 97 Nasal Cannula 2.0 05/02/17 18:00 78 25 116/47 100 Nasal Cannula 2.0 05/02/17 17:00 80 24 100/44 99 Nasal Cannula 2.0 05/02/17 16:00 98.7 83 28 110/57 99 Nasal Cannula 2.0 05/02/17 16:00 83 05/02/17 15:00 83 24 117/72 100 Nasal Cannula 2.0 05/02/17 14:00 84 24 119/58 99 Nasal Cannula 2.0 Intake and Output 05/02/17 05/03/17 19:00 07:00 Intake Total 469.92 ml 243.30 ml Output Total 0 ml 0 ml Balance 469.92 ml 243.30 ml Intake Oral 120 ml 50 ml IV Total 299.92 ml 193.30 ml Other 50 ml Output Urine Total 0 ml 0 ml General Appearance: no acute distress - confused Respiratory/Chest: lungs clear, no respiratory distress Cardiovascular: normal rate Abdomen: tender, other - ulcerations Microbiology Date/Time Source Procedure Growth Status 04/30/17 22:05 Blood Blood Culture - Preliminary Staphylococcus Aureus Resulted 04/30/17 21:50 Blood Blood Culture - Preliminary Staphylococcus Aureus Resulted 05/02/17 15:30 Drainage Fluid Gram Stain Pending Resulted 05/02/17 15:30 Drainage Fluid Body Fluid Culture - Preliminary Resulted 05/02/17 08:45 Sputum Expectorated Gram Stain Pending Resulted 05/02/17 08:45 Sputum Expectorated Sputum Culture - Preliminary NO GROWTH Resulted 04/30/17 22:50 Nasal Nares Influenza Types A,B Antigen (AARON) - Final Complete 04/30/17 22:30 Nasal Nares MRSA Culture - Final Staphylococcus Aureus - Mrsa Complete 05/02/17 15:30 Catheter Site Catheter Tip Culture - Preliminary Staphylococcus Aureus Resulted 04/30/17 22:30 Rectum VRE Culture - Final NO VANCOMYCIN RESISTANT ENTEROCOCCUS ... Complete Laboratory Tests 05/03/17 04:30: White Blood Count 10.1, Red Blood Count 3.15L, Hemoglobin 10.8L, Hematocrit 32.5L, Mean Corpuscular Volume 103H, Mean Corpuscular Hemoglobin 34.1H, Mean Corpuscular Hemoglobin Concent 33.1, Red Cell Distribution Width 14.1, Platelet Count 92L, Mean Platelet Volume 9.5, Neutrophils (%) (Auto) , Lymphocytes (%) ( Auto) , Monocytes (%) (Auto) , Eosinophils (%) (Auto) , Basophils (%) (Auto) , Sodium Level 135L, Potassium Level 5.3H, Chloride Level 97L, Carbon Dioxide Level 23, Anion Gap 15, Blood Urea Nitrogen 55H, Creatinine 13.3H, Estimat Glomerular Filtration Rate 3.4, Glucose Level 133H, Calcium Level 10.0 Current Medications Medications (Trade) Dose Ordered Sig/Jeff Route PRN Reason Start Time Stop Time Status Last Admin Dose Admin Acetaminophen (Tylenol) 650 mg Q4H PRN ORAL Mild Pain (Pain Scale 1-3) 05/01/17 11:00 05/31/17 10:59 Acetaminophen/ Hydrocodone Bitart ([place] 5/325) 1 tab Q6H PRN ORAL Moderate Pain 05/01/17 11:00 05/08/17 10:59 Albuterol/ Ipratropium (Albuterol/ Ipratropium) 3 ml Q4H PRN HHN SHORTNESS OF BREATH 05/01/17 11:30 05/06/17 11:29 Aspirin (ASA) 81 mg DAILY ORAL 05/02/17 09:00 05/31/17 08:59 05/03/17 08:44 Buspirone HCl (Buspar) 15 mg TWICE A DAY ORAL 05/01/17 18:00 05/31/17 08:59 05/03/17 08:44 Chlorhexidine Gluconate (Majo-Hex 2%) 1 applic DAILY@2000 TOPIC 05/02/17 20:00 06/01/17 19:59 05/02/17 20:01 Cinacalcet (Sensipar) 30 mg DAILY ORAL 05/02/17 09:00 05/31/17 08:59 05/03/17 08:44 Dextrose (Dextrose 50%) STAT PRN IV Hypoglycemia 05/01/17 11:00 05/31/17 10:59 Gabapentin (Neurontin) 300 mg BEDTIME ORAL 05/01/17 21:00 05/31/17 20:59 05/02/17 20:49 Heparin Sodium (Porcine) (Heparin 5000 units/ml) 5,000 units EVERY 12 HOURS SUBQ 05/01/17 21:00 05/31/17 08:59 05/02/17 20:51 Hydromorphone HCl (Dilaudid) 2 mg Q4H PRN IVP Severe Pain (Pain Scale 7-10) 05/01/17 11:00 05/08/17 10:59 05/03/17 13:29 Lorazepam (Ativan 2mg/ml 1ml) 0.5 mg Q4H PRN IV For Anxiety 05/01/17 11:30 05/08/17 11:29 Metoprolol Succinate (Toprol XL) 25 mg DAILY ORAL 05/02/17 09:00 06/01/17 08:59 Metoprolol Tartrate (Lopressor) 5 mg Q6H PRN IVP HR>130 SUSTAINED MORE THAN 5 M 05/02/17 11:00 06/01/17 10:59 Morphine Sulfate (Morphine Sulfate) 4 mg Q4H PRN IM For Pain 05/03/17 13:15 05/10/17 13:14 UNV Norepinephrine Bitartrate 4 mg/ Dextrose 250 ml @ 0 mls/hr Q24H IV 05/01/17 14:30 05/31/17 14:29 05/02/17 09:28 Piperacillin Sod/ Tazobactam Sod 2.25 gm/Sodium Chloride 55 ml @ 110 mls/hr Q8HR IVPB 05/01/17 12:30 05/06/17 12:29 05/03/17 13:25 Prochlorperazine (Compazine) 10 mg Q6H PRN IVP Nausea & Vomiting 05/01/17 11:00 05/31/17 10:59 Topiramate (Topamax) 25 mg TWICE A DAY ORAL 05/01/17 18:00 05/31/17 08:59 05/03/17 08:45 Tramadol HCl (Ultram) 50 mg Q6H PRN ORAL Breakthru Moderate-Severe Pain 05/01/17 11:30 05/08/17 11:29 Trazodone HCl (Desyrel) 150 mg BEDTIME ORAL 05/01/17 21:00 05/31/17 20:59 05/02/17 20:50 Vancomycin HCl (Vanco rx to dose) 1 ea DAILYPRN PRN MISC Per rx protocol 05/01/17 09:00 05/31/17 08:59 DEVENDRA BASSETT May 03, 2017 13:57
--- NOTE | 2017-05-03 14:15 | Infectious Diseases Prog Note ---
Assessment/Plan Assessment/Plan A Septic shock improving/off pressor HD line infection Gram positive sepsis ESRD on HD Morbid obesity COPD P; Continue Vancomycin Change Zosyn to Cefazolin will f/u cultures Subjective ROS Limited/Unobtainable: Yes Cardiovascular: Reports: other - permacath was removed Allergies: Coded Allergies: No Known Allergies (Unverified , 12/04/15) Objective Vital Signs Last 24 Hour Vital Signs Date Time Temp Pulse Resp B/P (MAP) Pulse Ox O2 Delivery O2 Flow Rate FiO2 05/03/17 12:00 97.7 66 17 130/91 100 Nasal Cannula 2.0 05/03/17 11:00 63 16 109/54 100 Nasal Cannula 2.0 05/03/17 10:00 65 15 115/48 100 Nasal Cannula 2.0 05/03/17 09:00 66 20 130/52 97 Nasal Cannula 2.0 05/03/17 08:00 67 05/03/17 08:00 97.7 65 15 142/63 99 Nasal Cannula 2.0 05/03/17 07:47 Nasal Cannula 2.0 28 05/03/17 07:46 96 Nasal Cannula 2.0 28 05/03/17 07:45 67 20 Nasal Cannula 2.0 28 05/03/17 07:00 67 16 130/52 97 Nasal Cannula 2.0 05/03/17 06:00 66 20 112/63 100 Nasal Cannula 2.0 05/03/17 05:00 69 22 134/52 96 Nasal Cannula 2.0 05/03/17 04:00 97.7 69 34 137/66 99 Nasal Cannula 2.0 05/03/17 03:50 69 05/03/17 03:00 71 17 133/61 99 Nasal Cannula 2.0 05/03/17 02:00 73 24 133/62 100 Nasal Cannula 2.0 05/03/17 01:30 74 24 124/79 100 Nasal Cannula 2.0 05/03/17 01:00 73 22 139/70 100 Nasal Cannula 2.0 05/03/17 00:30 73 22 132/68 99 Nasal Cannula 2.0 05/03/17 00:00 98.1 73 22 118/60 99 Nasal Cannula 2.0 05/02/17 23:53 73 05/02/17 23:30 75 22 137/60 99 Nasal Cannula 2.0 05/02/17 23:00 75 21 120/67 100 Nasal Cannula 2.0 05/02/17 22:30 76 25 121/67 98 Nasal Cannula 2.0 05/02/17 22:00 76 34 133/64 99 Nasal Cannula 2.0 05/02/17 21:30 78 24 135/70 93 Nasal Cannula 2.0 05/02/17 21:00 78 20 134/68 99 Nasal Cannula 2.0 05/02/17 20:30 76 19 123/66 98 Nasal Cannula 2.0 05/02/17 20:00 98.1 76 20 120/61 96 Nasal Cannula 2.0 05/02/17 19:58 77 05/02/17 19:56 79 20 Nasal Cannula 2.0 28 05/02/17 19:55 Nasal Cannula 2.0 28 05/02/17 19:55 98 Nasal Cannula 2.0 28 05/02/17 19:30 77 33 116/60 96 Nasal Cannula 2.0 05/02/17 19:04 98.7 05/02/17 19:00 80 26 128/58 97 Nasal Cannula 2.0 05/02/17 18:00 78 25 116/47 100 Nasal Cannula 2.0 05/02/17 17:00 80 24 100/44 99 Nasal Cannula 2.0 05/02/17 16:00 98.7 83 28 110/57 99 Nasal Cannula 2.0 05/02/17 16:00 83 05/02/17 15:00 83 24 117/72 100 Nasal Cannula 2.0 Height (Feet): 5 Height (Inches): 4.00 Weight (Pounds): 309 General Appearance: no acute distress HEENT: mucous membranes moist Respiratory/Chest: lungs clear Cardiovascular: normal rate Abdomen: soft, non tender, other - ulcers in midline Extremities: no edema Neurologic/Psychiatric: other - sleeping Microbiology Date/Time Source Procedure Growth Status 04/30/17 22:05 Blood Blood Culture - Preliminary Staphylococcus Aureus Resulted 04/30/17 21:50 Blood Blood Culture - Preliminary Staphylococcus Aureus Resulted 05/02/17 15:30 Drainage Fluid Gram Stain Pending Resulted 05/02/17 15:30 Drainage Fluid Body Fluid Culture - Preliminary Resulted 05/02/17 08:45 Sputum Expectorated Gram Stain Pending Resulted 05/02/17 08:45 Sputum Expectorated Sputum Culture - Preliminary NO GROWTH Resulted 04/30/17 22:50 Nasal Nares Influenza Types A,B Antigen (AARON) - Final Complete 04/30/17 22:30 Nasal Nares MRSA Culture - Final Staphylococcus Aureus - Mrsa Complete 05/02/17 15:30 Catheter Site Catheter Tip Culture - Preliminary Staphylococcus Aureus Resulted 04/30/17 22:30 Rectum VRE Culture - Final NO VANCOMYCIN RESISTANT ENTEROCOCCUS ... Complete Laboratory Tests Test 05/03/17 04:30 White Blood Count 10.1 K/UL (4.8-10.8) Red Blood Count 3.15 M/UL (4.20-5.40) L Hemoglobin 10.8 G/DL (12.0-16.0) L Hematocrit 32.5 % (37.0-47.0) L Mean Corpuscular Volume 103 FL (80-99) H Mean Corpuscular Hemoglobin 34.1 PG (27.0-31.0) H Mean Corpuscular Hemoglobin Concent 33.1 G/DL (32.0-36.0) Red Cell Distribution Width 14.1 % (11.6-14.8) Platelet Count 92 K/UL (150-450) L Mean Platelet Volume 9.5 FL (6.5-10.1) Neutrophils (%) (Auto) % (45.0-75.0) Lymphocytes (%) (Auto) % (20.0-45.0) Monocytes (%) (Auto) % (1.0-10.0) Eosinophils (%) (Auto) % (0.0-3.0) Basophils (%) (Auto) % (0.0-2.0) Sodium Level 135 MMOL/L (136-145) L Potassium Level 5.3 MMOL/L (3.5-5.1) H Chloride Level 97 MMOL/L (98-107) L Carbon Dioxide Level 23 MMOL/L (21-32) Anion Gap 15 mmol/L (5-15) Blood Urea Nitrogen 55 mg/dL (7-18) H Creatinine 13.3 MG/DL (0.55-1.30) H Estimat Glomerular Filtration Rate 3.4 mL/min (>60) Glucose Level 133 MG/DL (74-106) H Calcium Level 10.0 MG/DL (8.5-10.1) Current Medications Medications (Trade) Dose Ordered Sig/Jeff Route PRN Reason Start Time Stop Time Status Last Admin Dose Admin Acetaminophen (Tylenol) 650 mg Q4H PRN ORAL Mild Pain (Pain Scale 1-3) 05/01/17 11:00 05/31/17 10:59 Acetaminophen/ Hydrocodone Bitart ([place] 5/325) 1 tab Q6H PRN ORAL Moderate Pain 05/01/17 11:00 05/08/17 10:59 Albuterol/ Ipratropium (Albuterol/ Ipratropium) 3 ml Q4H PRN HHN SHORTNESS OF BREATH 05/01/17 11:30 05/06/17 11:29 Aspirin (ASA) 81 mg DAILY ORAL 05/02/17 09:00 05/31/17 08:59 05/03/17 08:44 Buspirone HCl (Buspar) 15 mg TWICE A DAY ORAL 05/01/17 18:00 05/31/17 08:59 05/03/17 08:44 Chlorhexidine Gluconate (Majo-Hex 2%) 1 applic DAILY@1999 TOPIC 05/02/17 20:00 06/01/17 19:59 05/02/17 20:01 Cinacalcet (Sensipar) 30 mg DAILY ORAL 05/02/17 09:00 05/31/17 08:59 05/03/17 08:44 Dextrose (Dextrose 50%) STAT PRN IV Hypoglycemia 05/01/17 11:00 05/31/17 10:59 Gabapentin (Neurontin) 300 mg BEDTIME ORAL 05/01/17 21:00 05/31/17 20:59 05/02/17 20:49 Heparin Sodium (Porcine) (Heparin 5000 units/ml) 5,000 units EVERY 12 HOURS SUBQ 05/01/17 21:00 05/31/17 08:59 05/02/17 20:51 Hydromorphone HCl (Dilaudid) 2 mg Q4H PRN IVP Severe Pain (Pain Scale 7-10) 05/01/17 11:00 05/08/17 10:59 05/03/17 13:29 Lorazepam (Ativan 2mg/ml 1ml) 0.5 mg Q4H PRN IV For Anxiety 05/01/17 11:30 05/08/17 11:29 Metoprolol Succinate (Toprol XL) 25 mg DAILY ORAL 05/02/17 09:00 3/14/18 08:59 Metoprolol Tartrate (Lopressor) 5 mg Q6H PRN IVP HR>130 SUSTAINED MORE THAN 5 M 05/02/17 11:00 06/01/17 10:59 Morphine Sulfate (Morphine Sulfate) 4 mg Q4H PRN IM For Pain 05/03/17 13:15 05/10/17 13:14 UNV Norepinephrine Bitartrate 4 mg/ Dextrose 250 ml @ 0 mls/hr Q24H IV 05/01/17 14:30 05/31/17 14:29 05/02/17 09:28 Piperacillin Sod/ Tazobactam Sod 2.25 gm/Sodium Chloride 55 ml @ 110 mls/hr Q8HR IVPB 05/01/17 12:30 05/06/17 12:29 05/03/17 13:25 Prochlorperazine (Compazine) 10 mg Q6H PRN IVP Nausea & Vomiting 05/01/17 11:00 05/31/17 10:59 Topiramate (Topamax) 25 mg TWICE A DAY ORAL 05/01/17 18:00 05/31/17 08:59 05/03/17 08:45 Tramadol HCl (Ultram) 50 mg Q6H PRN ORAL Breakthru Moderate-Severe Pain 05/01/17 11:30 05/08/17 11:29 Trazodone HCl (Desyrel) 150 mg BEDTIME ORAL 05/01/17 21:00 05/31/17 20:59 05/02/17 20:50 Vancomycin HCl (Vanco rx to dose) 1 ea DAILYPRN PRN MISC Per rx protocol 05/01/17 09:00 05/31/17 08:59 SCOOBY FERREIRA May 03, 2017 14:15
--- NOTE | 2017-05-03 14:54 | Cardiology Progress Note ---
Assessment/Plan Assessment/Plan 1. Paroxysmal episodes of atrial fibrillation. 2. No evidence of epicardial coronary disease. 3. End-stage renal disease, on hemodialysis. 4. Septic shock. 5. Bacteremia. 6. Abdominal ventral hernia status post repair. remain in sinus off iv amio is on bb will dc for now and restart amio per po route iv abx for bacteremia echo normal lv fucntion Subjective ROS Limited/Unobtainable: Yes Subjective dtr at bedisde say she communicates when she wnat to and she saw her communicate with dr khan Objective Last 24 Hour Vital Signs Date Time Temp Pulse Resp B/P (MAP) Pulse Ox O2 Delivery O2 Flow Rate FiO2 05/03/17 12:00 97.7 66 17 130/91 100 Nasal Cannula 2.0 05/03/17 11:00 63 16 109/54 100 Nasal Cannula 2.0 05/03/17 10:00 65 15 115/48 100 Nasal Cannula 2.0 05/03/17 09:00 66 20 130/52 97 Nasal Cannula 2.0 05/03/17 08:00 67 05/03/17 08:00 97.7 65 15 142/63 99 Nasal Cannula 2.0 05/03/17 07:47 Nasal Cannula 2.0 28 05/03/17 07:46 96 Nasal Cannula 2.0 28 05/03/17 07:45 67 20 Nasal Cannula 2.0 28 05/03/17 07:00 67 16 130/52 97 Nasal Cannula 2.0 05/03/17 06:00 66 20 112/63 100 Nasal Cannula 2.0 05/03/17 05:00 69 22 134/52 96 Nasal Cannula 2.0 05/03/17 04:00 97.7 69 34 137/66 99 Nasal Cannula 2.0 05/03/17 03:50 69 05/03/17 03:00 71 17 133/61 99 Nasal Cannula 2.0 05/03/17 02:00 73 24 133/62 100 Nasal Cannula 2.0 05/03/17 01:30 74 24 124/79 100 Nasal Cannula 2.0 05/03/17 01:00 73 22 139/70 100 Nasal Cannula 2.0 05/03/17 00:30 73 22 132/68 99 Nasal Cannula 2.0 05/03/17 00:00 98.1 73 22 118/60 99 Nasal Cannula 2.0 05/02/17 23:53 73 05/02/17 23:30 75 22 137/60 99 Nasal Cannula 2.0 05/02/17 23:00 75 21 120/67 100 Nasal Cannula 2.0 05/02/17 22:30 76 25 121/67 98 Nasal Cannula 2.0 05/02/17 22:00 76 34 133/64 99 Nasal Cannula 2.0 05/02/17 21:30 78 24 135/70 93 Nasal Cannula 2.0 05/02/17 21:00 78 20 134/68 99 Nasal Cannula 2.0 05/02/17 20:30 76 19 123/66 98 Nasal Cannula 2.0 05/02/17 20:00 98.1 76 20 120/61 96 Nasal Cannula 2.0 05/02/17 19:58 77 05/02/17 19:56 79 20 Nasal Cannula 2.0 28 05/02/17 19:55 Nasal Cannula 2.0 28 05/02/17 19:55 98 Nasal Cannula 2.0 28 05/02/17 19:30 77 33 116/60 96 Nasal Cannula 2.0 05/02/17 19:04 98.7 05/02/17 19:00 80 26 128/58 97 Nasal Cannula 2.0 05/02/17 18:00 78 25 116/47 100 Nasal Cannula 2.0 05/02/17 17:00 80 24 100/44 99 Nasal Cannula 2.0 05/02/17 16:00 98.7 83 28 110/57 99 Nasal Cannula 2.0 05/02/17 16:00 83 05/02/17 15:00 83 24 117/72 100 Nasal Cannula 2.0 General Appearance: no apparent distress, alert, obese Cardiovascular: normal rate Respiratory/Chest: lungs clear - anter Abdomen: normal bowel sounds, non tender, soft Extremities: no swelling Intake and Output 05/02/17 05/03/17 19:00 07:00 Intake Total 469.92 ml 243.30 ml Output Total 0 ml 0 ml Balance 469.92 ml 243.30 ml Intake Oral 120 ml 50 ml IV Total 299.92 ml 193.30 ml Other 50 ml Output Urine Total 0 ml 0 ml Laboratory Tests Test 05/03/17 04:30 White Blood Count 10.1 K/UL (4.8-10.8) Red Blood Count 3.15 M/UL (4.20-5.40) L Hemoglobin 10.8 G/DL (12.0-16.0) L Hematocrit 32.5 % (37.0-47.0) L Mean Corpuscular Volume 103 FL (80-99) H Mean Corpuscular Hemoglobin 34.1 PG (27.0-31.0) H Mean Corpuscular Hemoglobin Concent 33.1 G/DL (32.0-36.0) Red Cell Distribution Width 14.1 % (11.6-14.8) Platelet Count 92 K/UL (150-450) L Mean Platelet Volume 9.5 FL (6.5-10.1) Neutrophils (%) (Auto) % (45.0-75.0) Lymphocytes (%) (Auto) % (20.0-45.0) Monocytes (%) (Auto) % (1.0-10.0) Eosinophils (%) (Auto) % (0.0-3.0) Basophils (%) (Auto) % (0.0-2.0) Sodium Level 135 MMOL/L (136-145) L Potassium Level 5.3 MMOL/L (3.5-5.1) H Chloride Level 97 MMOL/L (98-107) L Carbon Dioxide Level 23 MMOL/L (21-32) Anion Gap 15 mmol/L (5-15) Blood Urea Nitrogen 55 mg/dL (7-18) H Creatinine 13.3 MG/DL (0.55-1.30) H Estimat Glomerular Filtration Rate 3.4 mL/min (>60) Glucose Level 133 MG/DL (74-106) H Calcium Level 10.0 MG/DL (8.5-10.1) Microbiology Date/Time Source Procedure Growth Status 04/30/17 22:05 Blood Blood Culture - Preliminary Staphylococcus Aureus Resulted 04/30/17 21:50 Blood Blood Culture - Preliminary Staphylococcus Aureus Resulted 05/02/17 15:30 Drainage Fluid Gram Stain - Final Resulted 05/02/17 15:30 Drainage Fluid Body Fluid Culture - Preliminary Resulted 05/02/17 08:45 Sputum Expectorated Gram Stain - Final Resulted 05/02/17 08:45 Sputum Expectorated Sputum Culture - Preliminary NO GROWTH Resulted 04/30/17 22:50 Nasal Nares Influenza Types A,B Antigen (AARON) - Final Complete 04/30/17 22:30 Nasal Nares MRSA Culture - Final Staphylococcus Aureus - Mrsa Complete 05/02/17 15:30 Catheter Site Catheter Tip Culture - Preliminary Staphylococcus Aureus Resulted 04/30/17 22:30 Rectum VRE Culture - Final NO VANCOMYCIN RESISTANT ENTEROCOCCUS ... Complete MATHEUS GATES May 03, 2017 14:54
[2017-05-03] MEDS ORDERED: ceFAZolin sod 1 GM in NS 55 ML IVPB SCH (16:00)
--- NOTE | 2017-05-03 16:46 | Consultation ---
History of Present Illness General Date patient seen: May 03, 2017 Chief Complaint: Flu Like Symptoms Reason for Consultation: umbilical hernia mesh exposed Present Illness HPI 61-year-old female with history of end-stage renal disease, on hemodialysis three times a week. She came in with feeling weak and was found to be febrile. She has still left-sided catheter placed prior for dialysis. During admission became hypotensive and noted to be septic. Was transferred to ICU and resuscitated. During hospitalization noted to have potentially infected HD line and possibly infected prior umbilical hernia surgery mesh as etiology of sepsis. Surgery called to evaluate exposed umbilical hernia mesh. Line removed prior. Currently improving. Patient able to respond but majority of history obtained from chart. Seems that patient had umbilical hernia repair some time ago. After surgery her mesh became exposed but was not infected. Since she has been with exposed mesh that is dry and easily visible. Has been seen prior surgeons prior who did not recommend re-operation. because of current medical condition and possible history of infected mesh / exposed mesh surgery called to evaluate. Allergies: Coded Allergies: No Known Allergies (Unverified , 12/04/15) Medication History Scheduled Amiodarone Hcl* (Cordarone*), 200 MG ORAL DAILY, (Reported) Amlodipine Besylate* (Amlodipine Besylate*), 5 MG ORAL DAILY, (Reported) Apixaban (Eliquis), 5 MG PO BID, (Reported) Aspirin* (Aspirin*), 81 MG ORAL DAILY, (Reported) Buspirone Hcl* (Buspirone Hcl*), 15 MG ORAL TWICE A DAY, (Reported) Cinacalcet* (Sensipar*), 30 MG ORAL DAILY, (Reported) Clonidine Hcl* (Catapres*), 0.1 MG ORAL BID, (Reported) Gabapentin* (Gabapentin*), 300 MG ORAL BEDTIME, (Reported) Metoprolol Tartrate* (Metoprolol Tartrate*), 25 MG ORAL THREE TIMES A DAY, ( Reported) Topiramate* (Topamax*), 25 MG ORAL TWICE A DAY, (Reported) Trazodone* (Trazodone*), 150 MG ORAL BEDTIME, (Reported) Vit B Cmplx 3/Fa/Vit C/Biotin (Christine-Radha Rx Tablet), 1 EACH PO DAILY, (Reported) Scheduled PRN Tramadol Hcl* (Ultram*), 50 MG ORAL Q6H PRN for For Pain, (Reported) Discontinued Medications Acetaminophen (Acetaminophen), 325 MG PO, (Reported) Discontinued Reason: Pt stopped taking med Amiodarone Hcl* (Amiodarone Hcl*), Unknown Dose ORAL EVERY 12 HOURS, (Reported) Discontinued Reason: Medication dose changed Clonidine Hcl* (Catapres*), Unknown Dose ORAL EVERY 6 HOURS, (Reported) Discontinued Reason: MD discontinued med Diphenhydramine HCl (Benadryl), 25 MG PO, (Reported) Discontinued Reason: Pt stopped taking med Ferric Citrate (Auryxia), 210 MG PO DAILY, (Reported) Discontinued Reason: Pt stopped taking med Hydrocodone/Acetaminophen 5-325* (Hydrocodone/Acetaminophen 5-325*), 1 TAB ORAL Q6H PRN for For Pain Discontinued Reason: Therapy completed Patient History History Provided By: Patient, Medical Record, PMD Healthcare decision maker Resuscitation status Full Code Advanced Directive on File Past Medical/Surgical History Past Medical/Surgical History: (1) Sepsis (2) Pneumonia (3) Severe sepsis (4) Elevated troponin (5) ESRD (end stage renal disease) on dialysis (6) SOB (shortness of breath) (7) Septic shock (8) Gram-positive bacteremia (9) Small bowel (10) Sinus tachycardia (11) Ventral hernia (12) Small bowel obstruction (13) Uremia of renal origin (14) HTN (hypertension) (15) Cold hands (16) CKD (chronic kidney disease) (17) Respiratory disorder with ventilator dependence (18) Respiratory failure (19) Incarcerated ventral hernia (20) Osteoarthritis (21) Tachycardia (22) SBO (small bowel obstruction) (23) Hypertension (24) Obesity, morbid (25) Nausea & vomiting (26) Ischemia of hand (27) Secondary hyperparathyroidism (of renal origin) Review of Systems Constitutional: Denies: no symptoms, see HPI, chills, sweats, fever, malaise, weakness, other Eye: Denies: no symptoms, see HPI, eye pain, blurred vision, tearing, double vision, nose pain, nose congestion, acuity changes, discharge, other ENT: Denies: no symptoms, see HPI, ear pain, ear discharge, nose pain, nose congestion, throat pain, throat swelling, mouth pain, hearing loss, nasal discharge, other Respiratory: Denies: no symptoms, see HPI, cough, orthopnea, shortness of breath, stridor, wheezing, [place], sputum, other Cardiovascular: Denies: no symptoms, see HPI, chest pain, edema, palpitations, syncope, PND, other Gastrointestinal: Denies: no symptoms, see HPI, abdominal pain, constipation, diarrhea, nausea, vomiting, melena, hematemesis, other Genitourinary: Denies: no symptoms, see HPI, discharge, dysuria, frequency, hematuria, pain, retention, incontinence, urgency, vag bleed/dc, other Musculoskeletal: Denies: no symptoms, see HPI, back pain, gout, joint pain, joint swelling, muscle pain, muscle stiffness, other Skin: Denies: no symptoms, see HPI, rash, change in color, change in hair/nails , dryness, lesions, other Psychiatric: Denies: no symptoms, see HPI, prior hx, anxiety, depressed feelings, emotional problems, SI, HI, hallucinations, other Neurological: Denies: no symptoms, see HPI, headache, numbness, paresthesia, seizure, tingling, tremors, focal weakness, syncope, dizziness, other Endocrine: Denies: no symptoms, see HPI, excessive sweating, flushing, intolerance to temperature, increased thirst, increased urine, unexplained weight loss, other Hematologic/Lymphatic: Denies: no symptoms, see HPI, anemia, blood clots, easy bleeding, easy bruising, swollen glands, diathesis, other All Other Systems: negative except mentioned in HPI Physical Exam General Appearance: no apparent distress, alert HEENT: normocephalic, mucous membranes moist Neck: normal inspection Respiratory/Chest: lungs clear, normal breath sounds, no respiratory distress, no accessory muscle use Cardiovascular/Chest: normal rate, regular rhythm Abdomen: normal bowel sounds, non tender, soft, no organomegaly, no mass, other - prior old umbilical hernia site noted. there is mesh eroded through skin and exposed to surface. scar tissue underneath. no signs of infection. dry. under mesh there is debris builiding up. Extremities: normal inspection Skin Exam: normal pigmentation, warm/dry Neurologic: alert, responsive Last 24 Hour Vital Signs Date Time Temp Pulse Resp B/P (MAP) Pulse Ox O2 Delivery O2 Flow Rate FiO2 05/03/17 12:00 97.7 66 17 130/91 100 Nasal Cannula 2.0 05/03/17 11:00 63 16 109/54 100 Nasal Cannula 2.0 05/03/17 10:00 65 15 115/48 100 Nasal Cannula 2.0 05/03/17 09:00 66 20 130/52 97 Nasal Cannula 2.0 05/03/17 08:00 67 05/03/17 08:00 97.7 65 15 142/63 99 Nasal Cannula 2.0 05/03/17 07:47 Nasal Cannula 2.0 28 05/03/17 07:46 96 Nasal Cannula 2.0 28 05/03/17 07:45 67 20 Nasal Cannula 2.0 28 05/03/17 07:00 67 16 130/52 97 Nasal Cannula 2.0 05/03/17 06:00 66 20 112/63 100 Nasal Cannula 2.0 05/03/17 05:00 69 22 134/52 96 Nasal Cannula 2.0 05/03/17 04:00 97.7 69 34 137/66 99 Nasal Cannula 2.0 05/03/17 03:50 69 05/03/17 03:00 71 17 133/61 99 Nasal Cannula 2.0 05/03/17 02:00 73 24 133/62 100 Nasal Cannula 2.0 05/03/17 01:30 74 24 124/79 100 Nasal Cannula 2.0 05/03/17 01:00 73 22 139/70 100 Nasal Cannula 2.0 05/03/17 00:30 73 22 132/68 99 Nasal Cannula 2.0 05/03/17 00:00 98.1 73 22 118/60 99 Nasal Cannula 2.0 05/02/17 23:53 73 05/02/17 23:30 75 22 137/60 99 Nasal Cannula 2.0 05/02/17 23:00 75 21 120/67 100 Nasal Cannula 2.0 05/02/17 22:30 76 25 121/67 98 Nasal Cannula 2.0 05/02/17 22:00 76 34 133/64 99 Nasal Cannula 2.0 05/02/17 21:30 78 24 135/70 93 Nasal Cannula 2.0 05/02/17 21:00 78 20 134/68 99 Nasal Cannula 2.0 05/02/17 20:30 76 19 123/66 98 Nasal Cannula 2.0 05/02/17 20:00 98.1 76 20 120/61 96 Nasal Cannula 2.0 05/02/17 19:58 77 05/02/17 19:56 79 20 Nasal Cannula 2.0 28 05/02/17 19:55 Nasal Cannula 2.0 28 05/02/17 19:55 98 Nasal Cannula 2.0 28 05/02/17 19:30 77 33 116/60 96 Nasal Cannula 2.0 05/02/17 19:04 98.7 05/02/17 19:00 80 26 128/58 97 Nasal Cannula 2.0 05/02/17 18:00 78 25 116/47 100 Nasal Cannula 2.0 05/02/17 17:00 80 24 100/44 99 Nasal Cannula 2.0 Intake and Output 05/02/17 05/03/17 19:00 07:00 Intake Total 469.92 ml 243.30 ml Output Total 0 ml 0 ml Balance 469.92 ml 243.30 ml Intake Oral 120 ml 50 ml IV Total 299.92 ml 193.30 ml Other 50 ml Output Urine Total 0 ml 0 ml Laboratory Tests Test 05/03/17 04:30 White Blood Count 10.1 K/UL (4.8-10.8) Red Blood Count 3.15 M/UL (4.20-5.40) L Hemoglobin 10.8 G/DL (12.0-16.0) L Hematocrit 32.5 % (37.0-47.0) L Mean Corpuscular Volume 103 FL (80-99) H Mean Corpuscular Hemoglobin 34.1 PG (27.0-31.0) H Mean Corpuscular Hemoglobin Concent 33.1 G/DL (32.0-36.0) Red Cell Distribution Width 14.1 % (11.6-14.8) Platelet Count 92 K/UL (150-450) L Mean Platelet Volume 9.5 FL (6.5-10.1) Neutrophils (%) (Auto) % (45.0-75.0) Lymphocytes (%) (Auto) % (20.0-45.0) Monocytes (%) (Auto) % (1.0-10.0) Eosinophils (%) (Auto) % (0.0-3.0) Basophils (%) (Auto) % (0.0-2.0) Sodium Level 135 MMOL/L (136-145) L Potassium Level 5.3 MMOL/L (3.5-5.1) H Chloride Level 97 MMOL/L (98-107) L Carbon Dioxide Level 23 MMOL/L (21-32) Anion Gap 15 mmol/L (5-15) Blood Urea Nitrogen 55 mg/dL (7-18) H Creatinine 13.3 MG/DL (0.55-1.30) H Estimat Glomerular Filtration Rate 3.4 mL/min (>60) Glucose Level 133 MG/DL (74-106) H Calcium Level 10.0 MG/DL (8.5-10.1) Height (Feet): 5 Height (Inches): 4.00 Weight (Pounds): 309 Medications Current Medications Medications (Trade) Dose Ordered Sig/Jeff Route PRN Reason Start Time Stop Time Status Last Admin Dose Admin Acetaminophen (Tylenol) 650 mg Q4H PRN ORAL Mild Pain (Pain Scale 1-3) 05/01/17 11:00 05/31/17 10:59 Acetaminophen/ Hydrocodone Bitart ([place] 5/325) 1 tab Q6H PRN ORAL Moderate Pain 05/01/17 11:00 05/08/17 10:59 Albuterol/ Ipratropium (Albuterol/ Ipratropium) 3 ml Q4H PRN HHN SHORTNESS OF BREATH 05/01/17 11:30 05/06/17 11:29 Amiodarone HCl (Cordarone) 200 mg EVERY 12 HOURS ORAL 05/03/17 21:00 06/02/17 20:59 Aspirin (ASA) 81 mg DAILY ORAL 05/02/17 09:00 05/31/17 08:59 05/03/17 08:44 Buspirone HCl (Buspar) 15 mg TWICE A DAY ORAL 05/01/17 18:00 05/31/17 08:59 05/03/17 08:44 Cefazolin Sodium 1 gm/Sodium Chloride 55 ml @ 110 mls/hr Q24H IVPB 05/03/17 16:00 05/10/17 23:59 05/03/17 15:51 Chlorhexidine Gluconate (Majo-Hex 2%) 1 applic DAILY@2000 TOPIC 05/02/17 20:00 06/01/17 19:59 05/02/17 20:01 Cinacalcet (Sensipar) 30 mg DAILY ORAL 05/02/17 09:00 05/31/17 08:59 05/03/17 08:44 Dextrose (Dextrose 50%) STAT PRN IV Hypoglycemia 05/01/17 11:00 05/31/17 10:59 Gabapentin (Neurontin) 300 mg BEDTIME ORAL 05/01/17 21:00 05/31/17 20:59 05/02/17 20:49 Heparin Sodium (Porcine) (Heparin 5000 units/ml) 5,000 units EVERY 12 HOURS SUBQ 05/01/17 21:00 05/31/17 08:59 05/02/17 20:51 Hydromorphone HCl (Dilaudid) 2 mg Q4H PRN IVP Severe Pain (Pain Scale 7-10) 05/01/17 11:00 05/08/17 10:59 05/03/17 13:29 Lorazepam (Ativan 2mg/ml 1ml) 0.5 mg Q4H PRN IV For Anxiety 05/01/17 11:30 05/08/17 11:29 Metoprolol Succinate (Toprol XL) 25 mg DAILY ORAL 05/02/17 09:00 06/01/17 08:59 Metoprolol Tartrate (Lopressor) 5 mg Q6H PRN IVP HR>130 SUSTAINED MORE THAN 5 M 05/02/17 11:00 06/01/17 10:59 Morphine Sulfate (Morphine Sulfate) 4 mg Q4H PRN IVP MOD TO SEV BREAKTHROUGH PAIN 05/03/17 17:15 05/10/17 23:59 Norepinephrine Bitartrate 4 mg/ Dextrose 250 ml @ 0 mls/hr Q24H IV 05/01/17 14:30 05/31/17 14:29 05/02/17 09:28 Prochlorperazine (Compazine) 10 mg Q6H PRN IVP Nausea & Vomiting 05/01/17 11:00 05/31/17 10:59 Topiramate (Topamax) 25 mg TWICE A DAY ORAL 05/01/17 18:00 05/31/17 08:59 05/03/17 08:45 Trazodone HCl (Desyrel) 150 mg BEDTIME ORAL 05/01/17 21:00 05/31/17 20:59 05/02/17 20:50 Vancomycin HCl (Vanco rx to dose) 1 ea DAILYPRN PRN MISC Per rx protocol 05/01/17 09:00 05/31/17 08:59 Assessment/Plan Problem List: (1) Ventral hernia Assessment & Plan: history of umbilical hernia s/p repair with failure. hernia recurred and mesh exposed for some time now. has been monitored outside and stable. on exam does not seem to be source of sepsis. it is clean and well healed. areas of exposed mesh has scar tissue and debris building under mesh. no signs of infection or drainage. will cut away at portions of mesh that are exposed to air. this will allow cleaning and monitoring of underlying tissue. mesh seems to have incorporated into/as dermis in surrounding tissues. Do NOT recommend excision of mesh that is not exposed as it does not seem to be infected and would cause more harm. thank you for this consult. will follow with you ICD Codes: K43.9 - Ventral hernia without obstruction or gangrene SNOMED: [id number] Status: stable FernandoRex May 03, 2017 16:46
[2017-05-03] MEDS ORDERED: Morphine Sulfate 4mg/ml Inj IVP PRN (17:15)
[2017-05-03] MEDS: Dyna-Hex 2% Top Sol 2oz TOPIC SCH (19:37)
[2017-05-03] MEDS: Amiodarone 200mg tab ORAL SCH (21:16)
[2017-05-03] MEDS: TraZODone 50mg tab ORAL SCH (21:16)
[2017-05-04] VITALS (19 sets, daily range): BP systolic 86–132; BP diastolic 18–77
[2017-05-04] MEDS: Aspirin Baby 81mg ORAL SCH ×2 (09:00→17:50)
[2017-05-04] MEDS: Heparin 5000 units/ml inj SUBQ SCH (09:00)
[2017-05-04] MEDS: Sensipar 30mg Tab ORAL SCH (09:07)
[2017-05-04] MEDS: Topiramate 25mg tab ORAL SCH ×2 (09:07→22:01)
[2017-05-04] MEDS: Amiodarone 200mg tab ORAL SCH (09:07)
[2017-05-04] MEDS: Metoprolol Succinate XL 25mg tab ORAL SCH (09:08)
[2017-05-04] MEDS: BusPIRone 5mg Tab ORAL SCH ×2 (09:08→17:51)
[2017-05-04 10:31] LABS: BASOPHILS % (AUTO) 0.8 % (0.0-2.0); EOSINOPHILS % (AUTO) 0.6 % (0.0-3.0); HEMATOCRIT 32.1 % (37.0-47.0); HEMOGLOBIN 10.3 G/DL (12.0-16.0); LYMPHOCYTES % (AUTO) 9.3 % (20.0-45.0); MEAN CORPUSCULAR VOLUME 104 FL (80-99); MONOCYTES % (AUTO) 7.1 % (1.0-10.0); NEUTROPHILS % (AUTO) 82.2 % (45.0-75.0); PLATELET COUNT 103 K/UL (150-450); RED BLOOD COUNT 3.09 M/UL (4.20-5.40); RED CELL DISTRIBUTION WIDTH 13.8 % (11.6-14.8); WHITE BLOOD COUNT 9.8 K/UL (4.8-10.8)
[2017-05-04 10:48] LABS: ANION GAP 12 mmol/L (5-15); BLOOD UREA NITROGEN 70 mg/dL (7-18); CALCIUM 9.2 MG/DL (8.5-10.1); CARBON DIOXIDE 26 MMOL/L (21-32); CHLORIDE 97 MMOL/L (98-107); CREATININE 14.9 MG/DL (0.55-1.30); POTASSIUM 5.6 MMOL/L (3.5-5.1); SODIUM 134 MMOL/L (136-145)
--- NOTE | 2017-05-04 10:57 | Infectious Diseases Prog Note ---
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 ROS Limited/Unobtainable: No Constitutional: Reports: other - feels better Respiratory: Reports: dry cough Gastrointestinal/Abdominal: Reports: no symptoms Genitourinary: Reports: no symptoms Musculoskeletal: Reports: pain, other - in legs Allergies: Coded Allergies: No Known Allergies (Unverified , 12/04/15) Objective Vital Signs Last 24 Hour Vital Signs Date Time Temp Pulse Resp B/P (MAP) Pulse Ox O2 Delivery O2 Flow Rate FiO2 05/04/17 10:00 74 21 117/54 95 Nasal Cannula 2.0 05/04/17 09:08 78 117/53 05/04/17 09:00 72 20 117/53 95 Nasal Cannula 2.0 05/04/17 08:00 73 05/04/17 08:00 98.9 73 20 118/57 95 Nasal Cannula 2.0 05/04/17 07:30 100 Nasal Cannula 2.0 28 05/04/17 07:30 Nasal Cannula 2.0 28 05/04/17 07:30 72 24 Nasal Cannula 2.0 28 05/04/17 07:00 72 21 132/57 99 Nasal Cannula 2.0 05/04/17 06:00 72 18 113/51 99 Nasal Cannula 2.0 05/04/17 05:00 72 16 113/51 100 Nasal Cannula 2.0 05/04/17 04:00 98.8 67 14 95/26 100 Nasal Cannula 2.0 05/04/17 03:39 66 05/04/17 03:00 70 19 98/54 100 Nasal Cannula 2.0 05/04/17 02:00 69 19 102/38 100 Nasal Cannula 2.0 05/04/17 01:00 71 22 88/77 100 Nasal Cannula 2.0 05/04/17 00:00 98.8 72 20 86/20 100 Nasal Cannula 2.0 05/03/17 23:32 71 05/03/17 23:00 72 19 121/50 100 Nasal Cannula 2.0 05/03/17 22:00 71 19 104/53 100 Nasal Cannula 2.0 05/03/17 21:00 79 21 115/52 100 Nasal Cannula 2.0 05/03/17 20:24 65 05/03/17 20:00 98.1 68 16 115/51 100 Nasal Cannula 2.0 05/03/17 19:00 100 Nasal Cannula 3.0 32 05/03/17 19:00 69 23 Nasal Cannula 3.0 32 05/03/17 19:00 Nasal Cannula 3.0 32 05/03/17 19:00 68 17 136/29 100 Nasal Cannula 2.0 05/03/17 18:00 68 20 130/61 100 Nasal Cannula 2.0 05/03/17 17:00 67 20 125/53 100 Nasal Cannula 2.0 05/03/17 16:00 64 05/03/17 16:00 67 23 103/25 100 Nasal Cannula 2.0 05/03/17 15:00 64 20 113/67 100 Nasal Cannula 2.0 05/03/17 14:00 63 19 106/64 100 Nasal Cannula 2.0 05/03/17 13:00 65 17 113/59 100 Nasal Cannula 2.0 05/03/17 12:00 97.7 66 17 130/91 100 Nasal Cannula 2.0 05/03/17 12:00 67 05/03/17 11:00 63 16 109/54 100 Nasal Cannula 2.0 Height (Feet): 5 Height (Inches): 4.00 Weight (Pounds): 209 General Appearance: no acute distress HEENT: mucous membranes moist Respiratory/Chest: lungs clear Cardiovascular: normal rate Abdomen: soft, non tender Extremities: other - bilateral SCD of legs Neurologic/Psychiatric: alert, responsive Microbiology Date/Time Source Procedure Growth Status 05/02/17 15:30 Drainage Fluid Gram Stain - Final Resulted 05/02/17 15:30 Body Fluid Culture - Preliminary Staphylococcus Aureus - Mrsa Resulted 05/02/17 08:45 Sputum Expectorated Gram Stain - Final Complete 05/02/17 08:45 Sputum Expectorated Sputum Culture - Final NORMAL UPPER RESPIRATORY JOLLY PRESENT Complete 05/02/17 15:30 Catheter Site Catheter Tip Culture - Preliminary Staphylococcus Aureus - Mrsa Resulted Laboratory Tests Test 05/04/17 10:15 White Blood Count 9.8 K/UL (4.8-10.8) Red Blood Count 3.09 M/UL (4.20-5.40) L Hemoglobin 10.3 G/DL (12.0-16.0) L Hematocrit 32.1 % (37.0-47.0) L Mean Corpuscular Volume 104 FL (80-99) H Mean Corpuscular Hemoglobin 33.3 PG (27.0-31.0) H Mean Corpuscular Hemoglobin Concent 32.0 G/DL (32.0-36.0) Red Cell Distribution Width 13.8 % (11.6-14.8) Platelet Count 103 K/UL (150-450) L Mean Platelet Volume 9.9 FL (6.5-10.1) Neutrophils (%) (Auto) 82.2 % (45.0-75.0) H Lymphocytes (%) (Auto) 9.3 % (20.0-45.0) L Monocytes (%) (Auto) 7.1 % (1.0-10.0) Eosinophils (%) (Auto) 0.6 % (0.0-3.0) Basophils (%) (Auto) 0.8 % (0.0-2.0) Sodium Level 134 MMOL/L (136-145) L Potassium Level 5.6 MMOL/L (3.5-5.1) H Chloride Level 97 MMOL/L (98-107) L Carbon Dioxide Level 26 MMOL/L (21-32) Anion Gap 12 mmol/L (5-15) Blood Urea Nitrogen 70 mg/dL (7-18) H Creatinine 14.9 MG/DL (0.55-1.30) H Estimat Glomerular Filtration Rate 3.0 mL/min (>60) Glucose Level 124 MG/DL (74-106) H Calcium Level 9.2 MG/DL (8.5-10.1) Current Medications Medications (Trade) Dose Ordered Sig/Jeff Route PRN Reason Start Time Stop Time Status Last Admin Dose Admin Acetaminophen (Tylenol) 650 mg Q4H PRN ORAL Mild Pain (Pain Scale 1-3) 05/01/17 11:00 05/31/17 10:59 Acetaminophen/ Hydrocodone Bitart ([place] 5/325) 1 tab Q6H PRN ORAL Moderate Pain 05/01/17 11:00 05/08/17 10:59 Albuterol/ Ipratropium (Albuterol/ Ipratropium) 3 ml Q4H PRN HHN SHORTNESS OF BREATH 05/01/17 11:30 05/06/17 11:29 Amiodarone HCl (Cordarone) 200 mg EVERY 12 HOURS ORAL 05/03/17 21:00 06/02/17 20:59 05/04/17 09:07 Aspirin (ASA) 81 mg DAILY ORAL 05/02/17 09:00 05/31/17 08:59 05/03/17 08:44 Buspirone HCl (Buspar) 15 mg TWICE A DAY ORAL 05/01/17 18:00 05/31/17 08:59 05/04/17 09:08 Chlorhexidine Gluconate (Majo-Hex 2%) 1 applic DAILY@2000 TOPIC 05/02/17 20:00 06/01/17 19:59 05/03/17 19:37 Cinacalcet (Sensipar) 30 mg DAILY ORAL 05/02/17 09:00 05/31/17 08:59 05/04/17 09:07 Dextrose (Dextrose 50%) STAT PRN IV Hypoglycemia 05/01/17 11:00 05/31/17 10:59 Gabapentin (Neurontin) 300 mg BEDTIME ORAL 05/01/17 21:00 05/31/17 20:59 05/03/17 21:15 Heparin Sodium (Porcine) (Heparin 5000 units/ml) 5,000 units EVERY 12 HOURS SUBQ 05/01/17 21:00 05/31/17 08:59 05/02/17 20:51 Hydromorphone HCl (Dilaudid) 2 mg Q4H PRN IVP Severe Pain (Pain Scale 7-10) 05/01/17 11:00 05/08/17 10:59 05/04/17 03:24 Lorazepam (Ativan 2mg/ml 1ml) 0.5 mg Q4H PRN IV For Anxiety 05/01/17 11:30 05/08/17 11:29 Metoprolol Succinate (Toprol XL) 25 mg DAILY ORAL 05/02/17 09:00 06/01/17 08:59 05/04/17 09:08 Metoprolol Tartrate (Lopressor) 5 mg Q6H PRN IVP HR>130 SUSTAINED MORE THAN 5 M 05/02/17 11:00 06/01/17 10:59 Morphine Sulfate (Morphine Sulfate) 4 mg Q4H PRN IVP MOD TO SEV BREAKTHROUGH PAIN 05/03/17 17:15 05/10/17 23:59 05/03/17 17:01 Norepinephrine Bitartrate 4 mg/ Dextrose 250 ml @ 0 mls/hr Q24H IV 05/01/17 14:30 05/31/17 14:29 05/02/17 09:28 Prochlorperazine (Compazine) 10 mg Q6H PRN IVP Nausea & Vomiting 05/01/17 11:00 05/31/17 10:59 05/03/17 17:44 Topiramate (Topamax) 25 mg TWICE A DAY ORAL 05/01/17 18:00 05/31/17 08:59 05/04/17 09:07 Trazodone HCl (Desyrel) 150 mg BEDTIME ORAL 05/01/17 21:00 05/31/17 20:59 05/03/17 21:16 Vancomycin HCl (Vanco rx to dose) 1 ea DAILYPRN PRN MISC Per rx protocol 05/01/17 09:00 05/31/17 08:59 SCOOBY FERREIRA May 04, 2017 10:57
[2017-05-04] MEDS ORDERED: Sodium Polystyrene Sulfonate 15gm Powder ORAL ONE (11:15)
--- NOTE | 2017-05-04 11:42 | Diagnostic Imaging Report ---
Indication: Abdominal pain Technique: Continuous helical transaxial imaging of the abdomen and pelvis was obtained from the lung bases to the pubic symphysis during intravenous contrast administration. Coronal 2-D reformats were also obtained. Study obtained in a Siemens sensation [address] Automatic Exposure Control was utilized. Total Dose length Product (DLP): 1537.[address] Dose Index Volume (CTDIvol): 19.75,18.16 mGy Comparison: None Findings: There is basilar atelectasis on the left side. Cardiomegaly and a small hiatal hernia is present. Study limited by the absence of oral contrast. IV contrast was given. There is artifact on the current study limiting evaluation especially in the upper abdomen. The liver is grossly unchanged in appearance. Small gallstones may be present. There are innumerable cysts within both kidneys. Note is made of the largest cyst in the right kidney measuring 5 cm slightly complex with calcification of the wall and a suggestion of mild enhancement of the wall. The appearance is grossly unchanged. Large uterine fibroids with calcification centrally enlarging the uterus noted. Urinary bladder is nondistended. There is a bowel and fat containing hernia in the right lower quadrant intra-abdominal wall without evidence of obstruction. There is atrophy of the abdominal wall muscles especially on the left side with diastases of the rectus muscles stretching of the linea alba and approximation of the intra-abdominal fat with the skin. There is little to no subcutaneous fat surrounding much of the left side of the abdomen due to this large hernia. The appearance is unchanged from the last study. No bowel obstruction or evidence of free fluid or free air identified. Arterial vascular disease noted with tortuosity of mild calcification of aortoiliac vessels. There is narrowing of intervertebral discs and accompanying endplate osteophyte formation. Hypertrophied facet joints also demonstrated.. The appendix is normal. IMPRESSION: No significant change compared to the last examination. Large broad-based ventral hernia with diastases of the rectus muscles as discussed above. Focal hernia through the muscles of right lower quadrant anterior abdominal wall with the hernia containing fat and small bowel. No obstruction. Enlarged uterus due to fibroids. Basilar atelectasis on the left. Tiny hiatal hernia. Innumerable cysts within both kidneys. Complex cyst on the right kidney unchanged in appearance. Follow-up suggested. Probable gallstones. Spondylosis The CT scanner at [facility] is accredited by the [employer] and the scans are performed using dose optimization techniques as appropriate to a performed exam including Automatic Exposure control.
--- NOTE | 2017-05-04 12:08 | Nephrology Progress Note ---
Assessment/Plan Problem List: (1) Septic shock (2) Secondary hyperparathyroidism (of renal origin) (3) HTN (hypertension) (4) ESRD (end stage renal disease) on dialysis (5) Gram-positive bacteremia Assessment: Staph Aureus Plan Insert HD catheter tomorrow IV Abxs follow labs Kayexalate 30 gm today Discussed with RN Subjective Subjective feels better Objective Objective Last 24 Hour Vital Signs Date Time Temp Pulse Resp B/P (MAP) Pulse Ox O2 Delivery O2 Flow Rate FiO2 05/04/17 11:00 75 20 94/54 95 Nasal Cannula 2.0 05/04/17 10:00 74 21 117/54 95 Nasal Cannula 2.0 05/04/17 09:08 78 117/53 05/04/17 09:00 72 20 117/53 95 Nasal Cannula 2.0 05/04/17 08:00 73 05/04/17 08:00 98.9 73 20 118/57 95 Nasal Cannula 2.0 05/04/17 07:30 100 Nasal Cannula 2.0 28 05/04/17 07:30 Nasal Cannula 2.0 28 05/04/17 07:30 72 24 Nasal Cannula 2.0 28 05/04/17 07:00 72 21 132/57 99 Nasal Cannula 2.0 05/04/17 06:00 72 18 113/51 99 Nasal Cannula 2.0 05/04/17 05:00 72 16 113/51 100 Nasal Cannula 2.0 05/04/17 04:00 98.8 67 14 95/26 100 Nasal Cannula 2.0 05/04/17 03:39 66 05/04/17 03:00 70 19 98/54 100 Nasal Cannula 2.0 05/04/17 02:00 69 19 102/38 100 Nasal Cannula 2.0 05/04/17 01:00 71 22 88/77 100 Nasal Cannula 2.0 05/04/17 00:00 98.8 72 20 86/20 100 Nasal Cannula 2.0 05/03/17 23:32 71 05/03/17 23:00 72 19 121/50 100 Nasal Cannula 2.0 05/03/17 22:00 71 19 104/53 100 Nasal Cannula 2.0 05/03/17 21:00 79 21 115/52 100 Nasal Cannula 2.0 05/03/17 20:24 65 05/03/17 20:00 98.1 68 16 115/51 100 Nasal Cannula 2.0 05/03/17 19:00 100 Nasal Cannula 3.0 32 05/03/17 19:00 69 23 Nasal Cannula 3.0 32 05/03/17 19:00 Nasal Cannula 3.0 32 05/03/17 19:00 68 17 136/29 100 Nasal Cannula 2.0 05/03/17 18:00 68 20 130/61 100 Nasal Cannula 2.0 05/03/17 17:00 67 20 125/53 100 Nasal Cannula 2.0 05/03/17 16:00 64 05/03/17 16:00 67 23 103/25 100 Nasal Cannula 2.0 05/03/17 15:00 64 20 113/67 100 Nasal Cannula 2.0 05/03/17 14:00 63 19 106/64 100 Nasal Cannula 2.0 05/03/17 13:00 65 17 113/59 100 Nasal Cannula 2.0 Intake and Output 05/03/17 05/04/17 19:00 07:00 Intake Total 83 ml 470 ml Output Total 0 ml 0 ml Balance 83 ml 470 ml Intake Oral 28 ml IV Total 55 ml Other 470 ml Output Urine Total 0 ml 0 ml Laboratory Tests 05/04/17 10:15: White Blood Count 9.8, Red Blood Count 3.09L, Hemoglobin 10.3L, Hematocrit 32.1L , Mean Corpuscular Volume 104H, Mean Corpuscular Hemoglobin 33.3H, Mean Corpuscular Hemoglobin Concent 32.0, Red Cell Distribution Width 13.8, Platelet Count 103L, Mean Platelet Volume 9.9, Neutrophils (%) (Auto) 82.2H, Lymphocytes (%) (Auto) 9.3L, Monocytes (%) (Auto) 7.1, Eosinophils (%) (Auto) 0.6, Basophils (%) (Auto) 0.8, Sodium Level 134L, Potassium Level 5.6H, Chloride Level 97L, Carbon Dioxide Level 26, Anion Gap 12, Blood Urea Nitrogen 70H, Creatinine 14.9H, Estimat Glomerular Filtration Rate 3.0, Glucose Level 124H, Calcium Level 9.2 Height (Feet): 5 Height (Inches): 4.00 Weight (Pounds): 209 Cardiovascular: normal rate Respiratory/Chest: lungs clear Extremities: trace edema NENA FERREIRA May 04, 2017 12:08
--- NOTE | 2017-05-04 13:03 | Pulmonology Progress Note ---
Assessment/Plan Assessment/Plan 1. Septic shock, due to staph aureus bacteremia, off pressors 2. Respiratory insufficiency. 3. Rapid AF, better 4. End-stage renal disease, on dialysis. 5. abdominal hernia with ulceration x2 with visible mesh and pus 6. Decubitus ulcer. 7. Depression. 8. Seizure disorder. 9. Dialysis catheter infection, removed 10. Chronic obstructive pulmonary disease. CT abd reviewed blood cultures w MRSA HD catheter removed, culture tip growing s aureus disc w transfer professor out of ICU Subjective ROS Limited/Unobtainable: Yes Constitutional: Reports: fatigue Respiratory: Denies: shortness of breath Allergies: Coded Allergies: No Known Allergies (Unverified , 12/04/15) Objective Last 24 Hour Vital Signs Date Time Temp Pulse Resp B/P (MAP) Pulse Ox O2 Delivery O2 Flow Rate FiO2 05/04/17 12:00 99.0 75 18 98/55 95 Nasal Cannula 2.0 05/04/17 12:00 73 05/04/17 11:00 75 20 94/54 95 Nasal Cannula 2.0 05/04/17 10:00 74 21 117/54 95 Nasal Cannula 2.0 05/04/17 09:08 78 117/53 05/04/17 09:00 72 20 117/53 95 Nasal Cannula 2.0 05/04/17 08:00 73 05/04/17 08:00 98.9 73 20 118/57 95 Nasal Cannula 2.0 05/04/17 07:30 100 Nasal Cannula 2.0 28 05/04/17 07:30 Nasal Cannula 2.0 28 05/04/17 07:30 72 24 Nasal Cannula 2.0 28 05/04/17 07:00 72 21 132/57 99 Nasal Cannula 2.0 05/04/17 06:00 72 18 113/51 99 Nasal Cannula 2.0 05/04/17 05:00 72 16 113/51 100 Nasal Cannula 2.0 05/04/17 04:00 98.8 67 14 95/26 100 Nasal Cannula 2.0 05/04/17 03:39 66 05/04/17 03:00 70 19 98/54 100 Nasal Cannula 2.0 05/04/17 02:00 69 19 102/38 100 Nasal Cannula 2.0 05/04/17 01:00 71 22 88/77 100 Nasal Cannula 2.0 05/04/17 00:00 98.8 72 20 86/20 100 Nasal Cannula 2.0 05/03/17 23:32 71 05/03/17 23:00 72 19 121/50 100 Nasal Cannula 2.0 05/03/17 22:00 71 19 104/53 100 Nasal Cannula 2.0 05/03/17 21:00 79 21 115/52 100 Nasal Cannula 2.0 05/03/17 20:24 65 05/03/17 20:00 98.1 68 16 115/51 100 Nasal Cannula 2.0 05/03/17 19:00 100 Nasal Cannula 3.0 32 05/03/17 19:00 69 23 Nasal Cannula 3.0 32 05/03/17 19:00 Nasal Cannula 3.0 32 05/03/17 19:00 68 17 136/29 100 Nasal Cannula 2.0 05/03/17 18:00 68 20 130/61 100 Nasal Cannula 2.0 05/03/17 17:00 67 20 125/53 100 Nasal Cannula 2.0 05/03/17 16:00 64 05/03/17 16:00 67 23 103/25 100 Nasal Cannula 2.0 05/03/17 15:00 64 20 113/67 100 Nasal Cannula 2.0 05/03/17 14:00 63 19 106/64 100 Nasal Cannula 2.0 Intake and Output 05/03/17 05/04/17 19:00 07:00 Intake Total 83 ml 470 ml Output Total 0 ml 0 ml Balance 83 ml 470 ml Intake Oral 28 ml IV Total 55 ml Other 470 ml Output Urine Total 0 ml 0 ml Objective morbidly obese General Appearance: no acute distress Respiratory/Chest: decreased breath sounds Cardiovascular: normal rate Microbiology Date/Time Source Procedure Growth Status 05/02/17 15:30 Drainage Fluid Gram Stain - Final Resulted 05/02/17 15:30 Body Fluid Culture - Preliminary Staphylococcus Aureus - Mrsa Resulted 05/02/17 08:45 Sputum Expectorated Gram Stain - Final Complete 05/02/17 08:45 Sputum Expectorated Sputum Culture - Final NORMAL UPPER RESPIRATORY JOLLY PRESENT Complete 05/02/17 15:30 Catheter Site Catheter Tip Culture - Preliminary Staphylococcus Aureus - Mrsa Resulted Laboratory Tests 05/04/17 10:15: White Blood Count 9.8, Red Blood Count 3.09L, Hemoglobin 10.3L, Hematocrit 32.1L , Mean Corpuscular Volume 104H, Mean Corpuscular Hemoglobin 33.3H, Mean Corpuscular Hemoglobin Concent 32.0, Red Cell Distribution Width 13.8, Platelet Count 103L, Mean Platelet Volume 9.9, Neutrophils (%) (Auto) 82.2H, Lymphocytes (%) (Auto) 9.3L, Monocytes (%) (Auto) 7.1, Eosinophils (%) (Auto) 0.6, Basophils (%) (Auto) 0.8, Sodium Level 134L, Potassium Level 5.6H, Chloride Level 97L, Carbon Dioxide Level 26, Anion Gap 12, Blood Urea Nitrogen 70H, Creatinine 14.9H, Estimat Glomerular Filtration Rate 3.0, Glucose Level 124H, Calcium Level 9.2 Current Medications Medications (Trade) Dose Ordered Sig/Jeff Route PRN Reason Start Time Stop Time Status Last Admin Dose Admin Acetaminophen (Tylenol) 650 mg Q4H PRN ORAL Mild Pain (Pain Scale 1-3) 05/01/17 11:00 05/31/17 10:59 Acetaminophen/ Hydrocodone Bitart ([place] 5/325) 1 tab Q6H PRN ORAL Moderate Pain 05/01/17 11:00 05/08/17 10:59 Albuterol/ Ipratropium (Albuterol/ Ipratropium) 3 ml Q4H PRN HHN SHORTNESS OF BREATH 05/01/17 11:30 05/06/17 11:29 Amiodarone HCl (Cordarone) 200 mg EVERY 12 HOURS ORAL 05/03/17 21:00 06/02/17 20:59 05/04/17 09:07 Aspirin (ASA) 81 mg DAILY ORAL 05/02/17 09:00 05/31/17 08:59 05/03/17 08:44 Buspirone HCl (Buspar) 15 mg TWICE A DAY ORAL 05/01/17 18:00 05/31/17 08:59 05/04/17 09:08 Chlorhexidine Gluconate (Majo-Hex 2%) 1 applic DAILY@2000 TOPIC 05/02/17 20:00 06/01/17 19:59 05/03/17 19:37 Cinacalcet (Sensipar) 30 mg DAILY ORAL 05/02/17 09:00 05/31/17 08:59 05/04/17 09:07 Dextrose (Dextrose 50%) STAT PRN IV Hypoglycemia 2/11/18 11:00 05/31/17 10:59 Gabapentin (Neurontin) 300 mg BEDTIME ORAL 05/01/17 21:00 05/31/17 20:59 05/03/17 21:15 Heparin Sodium (Porcine) (Heparin 5000 units/ml) 5,000 units EVERY 12 HOURS SUBQ 05/01/17 21:00 05/31/17 08:59 05/02/17 20:51 Hydromorphone HCl (Dilaudid) 2 mg Q4H PRN IVP Severe Pain (Pain Scale 7-10) 05/01/17 11:00 05/08/17 10:59 05/04/17 03:24 Lorazepam (Ativan 2mg/ml 1ml) 0.5 mg Q4H PRN IV For Anxiety 05/01/17 11:30 05/08/17 11:29 Metoprolol Succinate (Toprol XL) 25 mg DAILY ORAL 05/02/17 09:00 06/01/17 08:59 05/04/17 09:08 Metoprolol Tartrate (Lopressor) 5 mg Q6H PRN IVP HR>130 SUSTAINED MORE THAN 5 M 05/02/17 11:00 06/01/17 10:59 Morphine Sulfate (Morphine Sulfate) 4 mg Q4H PRN IVP MOD TO SEV BREAKTHROUGH PAIN 05/03/17 17:15 05/10/17 23:59 05/03/17 17:01 Norepinephrine Bitartrate 4 mg/ Dextrose 250 ml @ 0 mls/hr Q24H IV 05/01/17 14:30 05/31/17 14:29 05/02/17 09:28 Prochlorperazine (Compazine) 10 mg Q6H PRN IVP Nausea & Vomiting 05/01/17 11:00 05/31/17 10:59 05/03/17 17:44 Topiramate (Topamax) 25 mg TWICE A DAY ORAL 05/01/17 18:00 05/31/17 08:59 05/04/17 09:07 Trazodone HCl (Desyrel) 150 mg BEDTIME ORAL 05/01/17 21:00 05/31/17 20:59 05/03/17 21:16 Vancomycin HCl (Vanco rx to dose) 1 ea DAILYPRN PRN MISC Per rx protocol 2/11/18 09:00 05/31/17 08:59 DEVENDRA BASSETT May 04, 2017 13:03
--- NOTE | 2017-05-04 13:12 | General Surgery Progress Note ---
General Surgery-Progress Note Subjective Symptoms: improved Additional Comments doing well. no acute events. Objective Last 24 Hour Vital Signs Date Time Temp Pulse Resp B/P (MAP) Pulse Ox O2 Delivery O2 Flow Rate FiO2 05/04/17 12:00 99.0 75 18 98/55 95 Nasal Cannula 2.0 05/04/17 12:00 73 05/04/17 11:00 75 20 94/54 95 Nasal Cannula 2.0 05/04/17 10:00 74 21 117/54 95 Nasal Cannula 2.0 05/04/17 09:08 78 117/53 05/04/17 09:00 72 20 117/53 95 Nasal Cannula 2.0 05/04/17 08:00 73 05/04/17 08:00 98.9 73 20 118/57 95 Nasal Cannula 2.0 05/04/17 07:30 100 Nasal Cannula 2.0 28 05/04/17 07:30 Nasal Cannula 2.0 28 05/04/17 07:30 72 24 Nasal Cannula 2.0 28 05/04/17 07:00 72 21 132/57 99 Nasal Cannula 2.0 05/04/17 06:00 72 18 113/51 99 Nasal Cannula 2.0 05/04/17 05:00 72 16 113/51 100 Nasal Cannula 2.0 05/04/17 04:00 98.8 67 14 95/26 100 Nasal Cannula 2.0 05/04/17 03:39 66 05/04/17 03:00 70 19 98/54 100 Nasal Cannula 2.0 05/04/17 02:00 69 19 102/38 100 Nasal Cannula 2.0 05/04/17 01:00 71 22 88/77 100 Nasal Cannula 2.0 05/04/17 00:00 98.8 72 20 86/20 100 Nasal Cannula 2.0 05/03/17 23:32 71 05/03/17 23:00 72 19 121/50 100 Nasal Cannula 2.0 05/03/17 22:00 71 19 104/53 100 Nasal Cannula 2.0 05/03/17 21:00 79 21 115/52 100 Nasal Cannula 2.0 05/03/17 20:24 65 05/03/17 20:00 98.1 68 16 115/51 100 Nasal Cannula 2.0 05/03/17 19:00 100 Nasal Cannula 3.0 32 05/03/17 19:00 69 23 Nasal Cannula 3.0 32 05/03/17 19:00 Nasal Cannula 3.0 32 05/03/17 19:00 68 17 136/29 100 Nasal Cannula 2.0 05/03/17 18:00 68 20 130/61 100 Nasal Cannula 2.0 05/03/17 17:00 67 20 125/53 100 Nasal Cannula 2.0 05/03/17 16:00 64 05/03/17 16:00 67 23 103/25 100 Nasal Cannula 2.0 05/03/17 15:00 64 20 113/67 100 Nasal Cannula 2.0 05/03/17 14:00 63 19 106/64 100 Nasal Cannula 2.0 I&O Intake and Output 05/03/17 05/04/17 19:00 07:00 Intake Total 83 ml 470 ml Output Total 0 ml 0 ml Balance 83 ml 470 ml Intake Oral 28 ml IV Total 55 ml Other 470 ml Output Urine Total 0 ml 0 ml Dressing: dry Wound: clean Drains: none Cardiovascular: RSR Respiratory: clear Abdomen: soft, distended, non-tender, present bowel sounds Extremities: no cyanosis Laboratory Tests Test 05/04/17 10:15 White Blood Count 9.8 K/UL (4.8-10.8) Red Blood Count 3.09 M/UL (4.20-5.40) L Hemoglobin 10.3 G/DL (12.0-16.0) L Hematocrit 32.1 % (37.0-47.0) L Mean Corpuscular Volume 104 FL (80-99) H Mean Corpuscular Hemoglobin 33.3 PG (27.0-31.0) H Mean Corpuscular Hemoglobin Concent 32.0 G/DL (32.0-36.0) Red Cell Distribution Width 13.8 % (11.6-14.8) Platelet Count 103 K/UL (150-450) L Mean Platelet Volume 9.9 FL (6.5-10.1) Neutrophils (%) (Auto) 82.2 % (45.0-75.0) H Lymphocytes (%) (Auto) 9.3 % (20.0-45.0) L Monocytes (%) (Auto) 7.1 % (1.0-10.0) Eosinophils (%) (Auto) 0.6 % (0.0-3.0) Basophils (%) (Auto) 0.8 % (0.0-2.0) Sodium Level 134 MMOL/L (136-145) L Potassium Level 5.6 MMOL/L (3.5-5.1) H Chloride Level 97 MMOL/L (98-107) L Carbon Dioxide Level 26 MMOL/L (21-32) Anion Gap 12 mmol/L (5-15) Blood Urea Nitrogen 70 mg/dL (7-18) H Creatinine 14.9 MG/DL (0.55-1.30) H Estimat Glomerular Filtration Rate 3.0 mL/min (>60) Glucose Level 124 MG/DL (74-106) H Calcium Level 9.2 MG/DL (8.5-10.1) Plan Problems: (1) Ventral hernia Assessment & Plan: history of umbilical hernia s/p repair with failure. hernia recurred and mesh exposed for some time now. has been monitored outside and stable. on exam does not seem to be source of sepsis. it is clean and well healed. areas of exposed mesh has scar tissue and debris building under mesh. no signs of infection or drainage. portions of mesh that were exposed were cut away. underlying tissue cleaned and allowed to heal. mesh seems to have incorporated into/as dermis in surrounding tissues. Do NOT recommend excision of mesh that is not exposed as it does not seem to be infected and would cause more harm. thank you for this consult. will follow with you Rex King May 04, 2017 13:12
--- NOTE | 2017-05-04 15:42 | Internal Med Progress Note ---
Subjective Physician Name Ion Appiah Attending Physician Ion Appiah M.D. Current Medications Medications (Trade) Dose Ordered Sig/Jeff Route PRN Reason Start Time Stop Time Status Last Admin Dose Admin Acetaminophen (Tylenol) 650 mg Q4H PRN ORAL Mild Pain (Pain Scale 1-3) 05/01/17 11:00 05/31/17 10:59 Acetaminophen/ Hydrocodone Bitart ([place] 5/325) 1 tab Q6H PRN ORAL Moderate Pain 05/01/17 11:00 05/08/17 10:59 Albuterol/ Ipratropium (Albuterol/ Ipratropium) 3 ml Q4H PRN HHN SHORTNESS OF BREATH 05/01/17 11:30 05/06/17 11:29 Amiodarone HCl (Cordarone) 200 mg EVERY 12 HOURS ORAL 05/03/17 21:00 06/02/17 20:59 05/04/17 09:07 Aspirin (ASA) 81 mg DAILY ORAL 05/02/17 09:00 05/31/17 08:59 05/03/17 08:44 Buspirone HCl (Buspar) 15 mg TWICE A DAY ORAL 05/01/17 18:00 05/31/17 08:59 05/04/17 09:08 Chlorhexidine Gluconate (Majo-Hex 2%) 1 applic DAILY@2000 TOPIC 05/02/17 20:00 06/01/17 19:59 05/03/17 19:37 Cinacalcet (Sensipar) 30 mg DAILY ORAL 05/02/17 09:00 05/31/17 08:59 05/04/17 09:07 Dextrose (Dextrose 50%) STAT PRN IV Hypoglycemia 05/01/17 11:00 05/31/17 10:59 Gabapentin (Neurontin) 300 mg BEDTIME ORAL 05/01/17 21:00 05/31/17 20:59 05/03/17 21:15 Heparin Sodium (Porcine) (Heparin 5000 units/ml) 5,000 units EVERY 12 HOURS SUBQ 05/01/17 21:00 05/31/17 08:59 05/02/17 20:51 Hydromorphone HCl (Dilaudid) 2 mg Q4H PRN IVP Severe Pain (Pain Scale 7-10) 05/01/17 11:00 05/08/17 10:59 05/04/17 03:24 Lorazepam (Ativan 2mg/ml 1ml) 0.5 mg Q4H PRN IV For Anxiety 05/01/17 11:30 05/08/17 11:29 Metoprolol Succinate (Toprol XL) 25 mg DAILY ORAL 05/02/17 09:00 06/01/17 08:59 05/04/17 09:08 Metoprolol Tartrate (Lopressor) 5 mg Q6H PRN IVP HR>130 SUSTAINED MORE THAN 5 M 05/02/17 11:00 06/01/17 10:59 Morphine Sulfate (Morphine Sulfate) 4 mg Q4H PRN IVP MOD TO SEV BREAKTHROUGH PAIN 05/03/17 17:15 05/10/17 23:59 05/03/17 17:01 Norepinephrine Bitartrate 4 mg/ Dextrose 250 ml @ 0 mls/hr Q24H IV 05/01/17 14:30 05/31/17 14:29 05/02/17 09:28 Prochlorperazine (Compazine) 10 mg Q6H PRN IVP Nausea & Vomiting 05/01/17 11:00 05/31/17 10:59 05/03/17 17:44 Topiramate (Topamax) 25 mg TWICE A DAY ORAL 05/01/17 18:00 05/31/17 08:59 05/04/17 09:07 Trazodone HCl (Desyrel) 150 mg BEDTIME ORAL 05/01/17 21:00 05/31/17 20:59 05/03/17 21:16 Vancomycin HCl (Vanco rx to dose) 1 ea DAILYPRN PRN MISC Per rx protocol 05/01/17 09:00 05/31/17 08:59 Allergies: Coded Allergies: No Known Allergies (Unverified , 12/04/15) Subjective vitals stable c/o left hip pain afebrile 12 pt ROS neg except above positives Objective Last Vital Signs Date Time Temp Pulse Resp B/P (MAP) Pulse Ox O2 Delivery O2 Flow Rate FiO2 05/04/17 15:00 72 21 113/47 95 Nasal Cannula 2.0 05/04/17 12:00 99.0 05/04/17 07:30 28 Laboratory Tests Test 05/04/17 10:15 White Blood Count 9.8 K/UL (4.8-10.8) Red Blood Count 3.09 M/UL (4.20-5.40) L Hemoglobin 10.3 G/DL (12.0-16.0) L Hematocrit 32.1 % (37.0-47.0) L Mean Corpuscular Volume 104 FL (80-99) H Mean Corpuscular Hemoglobin 33.3 PG (27.0-31.0) H Mean Corpuscular Hemoglobin Concent 32.0 G/DL (32.0-36.0) Red Cell Distribution Width 13.8 % (11.6-14.8) Platelet Count 103 K/UL (150-450) L Mean Platelet Volume 9.9 FL (6.5-10.1) Neutrophils (%) (Auto) 82.2 % (45.0-75.0) H Lymphocytes (%) (Auto) 9.3 % (20.0-45.0) L Monocytes (%) (Auto) 7.1 % (1.0-10.0) Eosinophils (%) (Auto) 0.6 % (0.0-3.0) Basophils (%) (Auto) 0.8 % (0.0-2.0) Sodium Level 134 MMOL/L (136-145) L Potassium Level 5.6 MMOL/L (3.5-5.1) H Chloride Level 97 MMOL/L (98-107) L Carbon Dioxide Level 26 MMOL/L (21-32) Anion Gap 12 mmol/L (5-15) Blood Urea Nitrogen 70 mg/dL (7-18) H Creatinine 14.9 MG/DL (0.55-1.30) H Estimat Glomerular Filtration Rate 3.0 mL/min (>60) Glucose Level 124 MG/DL (74-106) H Calcium Level 9.2 MG/DL (8.5-10.1) Microbiology Date/Time Source Procedure Growth Status 05/02/17 15:30 Drainage Fluid Gram Stain - Final Resulted 05/02/17 15:30 Body Fluid Culture - Preliminary Staphylococcus Aureus - Mrsa Resulted 05/02/17 08:45 Sputum Expectorated Gram Stain - Final Complete 05/02/17 08:45 Sputum Expectorated Sputum Culture - Final NORMAL UPPER RESPIRATORY JOLLY PRESENT Complete 05/02/17 15:30 Catheter Site Catheter Tip Culture - Preliminary Staphylococcus Aureus - Mrsa Resulted Intake and Output 05/03/17 05/04/17 19:00 07:00 Intake Total 83 ml 470 ml Output Total 0 ml 0 ml Balance 83 ml 470 ml Intake Oral 28 ml IV Total 55 ml Other 470 ml Output Urine Total 0 ml 0 ml Objective gen - NAD. obese. HEENT - nc/at Neck - supple. no kvd CVS - RRR> no S1, S2 Lungs - dec BS bilaterally Abd - NT. + surgical wound ext - no c/c/e; left hip and leg externally rotated Assessment/Plan Assessment/Plan ASSESSMENT: 1. MRSA Line Sepsis w/ bacteremia 2. Respiratory insufficiency. 3. Metabolic Encephalopathy 4. End-stage renal disease, on dialysis. 5. History of atrial fibrillation. 6. Decubitus ulcer. 7. Depression. 8. Seizure disorder. 9. Septic Shock 2/2 #1 - resolved 10. Chronic obstructive pulmonary disease. 11. Abd surgical wound with exposed mesh Plan level of care - ICU off pressors catheter removed --> sent for Culture abx - Vanco ID recs appreciated f/u cultures renal recs appreciated Line Holiday until tomorrow then place non-tunneled catheter TTE - no vegatations CT abd/pelvis - no abscess. large ventral hernia b/l hip xray; Ortho consult Surgery evaluation for abdominal surgical wound ION APPIAH M.D. May 04, 2017 15:42
--- NOTE | 2017-05-04 16:20 | Cardiology Report ---
APPROVED REPORT EKG Measurement Heart [id number] CT 160P25 [id number] Normal sinus rhythm Normal ECG
[2017-05-04] MEDS ORDERED: Morphine Sulfate 4mg/ml Inj IVP PRN (17:15)
[2017-05-04] MEDS ORDERED: LORazepam Inj 2mg/ml 1ml IV PRN (17:52)
[2017-05-04] MEDS ORDERED: Metoprolol 5mg/5ml Inj IVP PRN (17:52)
[2017-05-04] MEDS ORDERED: Norco 5mg/325mg tab ORAL PRN (17:53)
[2017-05-04] MEDS ORDERED: Albuterol/Ipratropium 3ml neb HHN PRN (18:00)
--- NOTE | 2017-05-04 19:16 | Cardiology Progress Note ---
Assessment/Plan Assessment/Plan 1. Paroxysmal episodes of atrial fibrillation. 2. No evidence of epicardial coronary disease. 3. End-stage renal disease, on hemodialysis. 4. Septic shock. 5. Bacteremia. 6. Abdominal ventral hernia status post repair. remain in sinus on po amiod iv abx for bacteremia echo normal lv function catheter tip + for staph as well surveillance cx ordered by id Subjective ROS Limited/Unobtainable: Yes Subjective dtr is nto at bedside Objective Last 24 Hour Vital Signs Date Time Temp Pulse Resp B/P (MAP) Pulse Ox O2 Delivery O2 Flow Rate FiO2 05/04/17 16:00 78 05/04/17 16:00 98.5 80 22 115/18 94 Nasal Cannula 2.0 05/04/17 15:00 72 21 113/47 95 Nasal Cannula 2.0 05/04/17 14:30 108/50 05/04/17 14:00 73 19 120/47 95 Nasal Cannula 2.0 05/04/17 13:00 74 20 125/52 95 Nasal Cannula 2.0 05/04/17 12:00 99.0 75 18 98/55 95 Nasal Cannula 2.0 05/04/17 12:00 73 05/04/17 11:00 98.0 82 24 108/58 Venturi Mask 05/04/17 11:00 75 20 94/54 95 Nasal Cannula 2.0 05/04/17 11:00 Venturi Mask 05/04/17 10:00 74 21 117/54 95 Nasal Cannula 2.0 05/04/17 09:08 78 117/53 05/04/17 09:00 72 20 117/53 95 Nasal Cannula 2.0 05/04/17 08:00 73 05/04/17 08:00 98.9 73 20 118/57 95 Nasal Cannula 2.0 05/04/17 07:30 100 Nasal Cannula 2.0 28 05/04/17 07:30 Nasal Cannula 2.0 28 05/04/17 07:30 72 24 Nasal Cannula 2.0 28 05/04/17 07:00 72 21 132/57 99 Nasal Cannula 2.0 05/04/17 06:00 72 18 113/51 99 Nasal Cannula 2.0 05/04/17 05:00 72 16 113/51 100 Nasal Cannula 2.0 05/04/17 04:00 98.8 67 14 95/26 100 Nasal Cannula 2.0 2/14/18 03:39 66 05/04/17 03:00 70 19 98/54 100 Nasal Cannula 2.0 05/04/17 02:00 69 19 102/38 100 Nasal Cannula 2.0 05/04/17 01:00 71 22 88/77 100 Nasal Cannula 2.0 05/04/17 00:00 98.8 72 20 86/20 100 Nasal Cannula 2.0 05/03/17 23:32 71 05/03/17 23:00 72 19 121/50 100 Nasal Cannula 2.0 05/03/17 22:00 71 19 104/53 100 Nasal Cannula 2.0 05/03/17 21:00 79 21 115/52 100 Nasal Cannula 2.0 05/03/17 20:24 65 05/03/17 20:00 98.1 68 16 115/51 100 Nasal Cannula 2.0 General Appearance: no apparent distress, alert Neck: supple Cardiovascular: normal rate, regular rhythm Respiratory/Chest: lungs clear - ant Abdomen: non tender, soft Extremities: no swelling Intake and Output 05/03/17 05/04/17 19:00 07:00 Intake Total 83 ml 470 ml Output Total 0 ml 0 ml Balance 83 ml 470 ml Intake Oral 28 ml IV Total 55 ml Other 470 ml Output Urine Total 0 ml 0 ml Laboratory Tests Test 05/04/17 10:15 White Blood Count 9.8 K/UL (4.8-10.8) Red Blood Count 3.09 M/UL (4.20-5.40) L Hemoglobin 10.3 G/DL (12.0-16.0) L Hematocrit 32.1 % (37.0-47.0) L Mean Corpuscular Volume 104 FL (80-99) H Mean Corpuscular Hemoglobin 33.3 PG (27.0-31.0) H Mean Corpuscular Hemoglobin Concent 32.0 G/DL (32.0-36.0) Red Cell Distribution Width 13.8 % (11.6-14.8) Platelet Count 103 K/UL (150-450) L Mean Platelet Volume 9.9 FL (6.5-10.1) Neutrophils (%) (Auto) 82.2 % (45.0-75.0) H Lymphocytes (%) (Auto) 9.3 % (20.0-45.0) L Monocytes (%) (Auto) 7.1 % (1.0-10.0) Eosinophils (%) (Auto) 0.6 % (0.0-3.0) Basophils (%) (Auto) 0.8 % (0.0-2.0) Sodium Level 134 MMOL/L (136-145) L Potassium Level 5.6 MMOL/L (3.5-5.1) H Chloride Level 97 MMOL/L (98-107) L Carbon Dioxide Level 26 MMOL/L (21-32) Anion Gap 12 mmol/L (5-15) Blood Urea Nitrogen 70 mg/dL (7-18) H Creatinine 14.9 MG/DL (0.55-1.30) H Estimat Glomerular Filtration Rate 3.0 mL/min (>60) Glucose Level 124 MG/DL (74-106) H Calcium Level 9.2 MG/DL (8.5-10.1) Microbiology Date/Time Source Procedure Growth Status 05/02/17 15:30 Drainage Fluid Gram Stain - Final Resulted 05/02/17 15:30 Body Fluid Culture - Preliminary Staphylococcus Aureus - Mrsa Resulted 05/02/17 08:45 Sputum Expectorated Gram Stain - Final Complete 05/02/17 08:45 Sputum Expectorated Sputum Culture - Final NORMAL UPPER RESPIRATORY JOLLY PRESENT Complete 05/02/17 15:30 Catheter Site Catheter Tip Culture - Preliminary Staphylococcus Aureus - Mrsa Resulted MATHEUS GATES May 04, 2017 19:16
[2017-05-04] MEDS ORDERED: Heparin 5000 units/ml inj SUBQ SCH (21:00)
[2017-05-04] MEDS ORDERED: Amiodarone 200mg tab ORAL SCH (21:00)
[2017-05-04] MEDS: Dyna-Hex 2% Top Sol 2oz TOPIC SCH (22:01)
[2017-05-04] MEDS ORDERED: Heparin 5000 units/ml inj SUBQ ONE (22:30)
[2017-05-04] MEDS: TraZODone 50mg tab ORAL SCH (22:47)
[2017-05-05] VITALS (15 sets, daily range): BP systolic 79–138; BP diastolic 44–110
[2017-05-05 08:27] LABS: BASOPHILS % (AUTO) 0.6 % (0.0-2.0); EOSINOPHILS % (AUTO) 0.8 % (0.0-3.0); HEMATOCRIT 30.8 % (37.0-47.0); HEMOGLOBIN 10.4 G/DL (12.0-16.0); LYMPHOCYTES % (AUTO) 13.7 % (20.0-45.0); MEAN CORPUSCULAR VOLUME 102 FL (80-99); NEUTROPHILS % (AUTO) 76.9 % (45.0-75.0); PLATELET COUNT 125 K/UL (150-450); RED BLOOD COUNT 3.02 M/UL (4.20-5.40); RED CELL DISTRIBUTION WIDTH 13.9 % (11.6-14.8); WHITE BLOOD COUNT 10.2 K/UL (4.8-10.8)
[2017-05-05 08:43] LABS: ANION GAP 15 mmol/L (5-15); BLOOD UREA NITROGEN 78 mg/dL (7-18); CALCIUM 9.3 MG/DL (8.5-10.1); CARBON DIOXIDE 24 MMOL/L (21-32); CHLORIDE 94 MMOL/L (98-107); CREATININE 15.9 MG/DL (0.55-1.30); POTASSIUM 4.9 MMOL/L (3.5-5.1); SODIUM 133 MMOL/L (136-145)
--- NOTE | 2017-05-05 08:44 | General Surgery Progress Note ---
General Surgery-Progress Note Subjective Symptoms: improved Additional Comments no acute events. doing well. Objective Last 24 Hour Vital Signs Date Time Temp Pulse Resp B/P (MAP) Pulse Ox O2 Delivery O2 Flow Rate FiO2 05/05/17 08:36 Nasal Cannula 2.0 28 05/05/17 08:36 88 18 Nasal Cannula 2.0 28 05/05/17 08:36 97 Nasal Cannula 2.0 28 05/05/17 08:00 96.0 86 20 129/105 98 Nasal Cannula 2.0 05/05/17 04:10 97.0 25 99/50 94 Nasal Cannula 2.0 05/05/17 03:52 85 05/05/17 02:40 25 93/45 95 Nasal Cannula 2.0 05/05/17 00:17 116 05/04/17 23:44 97.0 110 27 97/53 95 Nasal Cannula 2.0 05/04/17 20:03 99 Nasal Cannula 2.0 28 05/04/17 20:03 Nasal Cannula 2.0 28 05/04/17 20:03 76 20 Nasal Cannula 2.0 28 05/04/17 19:38 97.5 78 26 103/43 93 Nasal Cannula 2.0 05/04/17 19:05 74 05/04/17 16:00 78 05/04/17 16:00 98.5 80 22 115/18 94 Nasal Cannula 2.0 05/04/17 15:00 72 21 113/47 95 Nasal Cannula 2.0 05/04/17 14:30 108/50 05/04/17 14:00 73 19 120/47 95 Nasal Cannula 2.0 05/04/17 13:00 74 20 125/52 95 Nasal Cannula 2.0 05/04/17 12:00 99.0 75 18 98/55 95 Nasal Cannula 2.0 05/04/17 12:00 73 05/04/17 11:00 98.0 82 24 108/58 Venturi Mask 05/04/17 11:00 75 20 94/54 95 Nasal Cannula 2.0 05/04/17 11:00 Venturi Mask 05/04/17 10:00 74 21 117/54 95 Nasal Cannula 2.0 05/04/17 09:08 78 117/53 05/04/17 09:00 72 20 117/53 95 Nasal Cannula 2.0 I&O Intake and Output 05/04/17 05/05/17 19:00 07:00 Output Total 0 ml 0 ml Balance 0 ml 0 ml Output Urine Total 0 ml 0 ml Wound: clean, dry, intact, other - areas with exposed mesh that was excised improved with less skin breakdown and debris. healing. mesh edges noted and okay. Cardiovascular: RSR Respiratory: clear Abdomen: soft, tenderness, present bowel sounds, other - large hernia noted no obstuction Extremities: no cyanosis Laboratory Tests Test 05/04/17 10:15 05/05/17 07:30 White Blood Count 9.8 K/UL (4.8-10.8) 10.2 K/UL (4.8-10.8) Red Blood Count 3.09 M/UL (4.20-5.40) L 3.02 M/UL (4.20-5.40) L Hemoglobin 10.3 G/DL (12.0-16.0) L 10.4 G/DL (12.0-16.0) L Hematocrit 32.1 % (37.0-47.0) L 30.8 % (37.0-47.0) L Mean Corpuscular Volume 104 FL (80-99) H 102 FL (80-99) H Mean Corpuscular Hemoglobin 33.3 PG (27.0-31.0) H 34.4 PG (27.0-31.0) H Mean Corpuscular Hemoglobin Concent 32.0 G/DL (32.0-36.0) 33.8 G/DL (32.0-36.0) Red Cell Distribution Width 13.8 % (11.6-14.8) 13.9 % (11.6-14.8) Platelet Count 103 K/UL (150-450) L 125 K/UL (150-450) L Mean Platelet Volume 9.9 FL (6.5-10.1) 8.4 FL (6.5-10.1) Neutrophils (%) (Auto) 82.2 % (45.0-75.0) H 76.9 % (45.0-75.0) H Lymphocytes (%) (Auto) 9.3 % (20.0-45.0) L 13.7 % (20.0-45.0) L Monocytes (%) (Auto) 7.1 % (1.0-10.0) 8.0 % (1.0-10.0) Eosinophils (%) (Auto) 0.6 % (0.0-3.0) 0.8 % (0.0-3.0) Basophils (%) (Auto) 0.8 % (0.0-2.0) 0.6 % (0.0-2.0) Sodium Level 134 MMOL/L (136-145) L Pending Potassium Level 5.6 MMOL/L (3.5-5.1) H Pending Chloride Level 97 MMOL/L (98-107) L Pending Carbon Dioxide Level 26 MMOL/L (21-32) Pending Anion Gap 12 mmol/L (5-15) Blood Urea Nitrogen 70 mg/dL (7-18) H Pending Creatinine 14.9 MG/DL (0.55-1.30) H Pending Estimat Glomerular Filtration Rate 3.0 mL/min (>60) Pending Glucose Level 124 MG/DL (74-106) H Pending Calcium Level 9.2 MG/DL (8.5-10.1) Pending Random Vancomycin Level Pending Plan Problems: (1) Ventral hernia Assessment & Plan: history of umbilical hernia s/p repair with failure. hernia recurred and mesh exposed for some time now. has been monitored outside and stable. on exam does not seem to be source of sepsis. it is clean and well healed. areas of exposed mesh has scar tissue and debris building under mesh. no signs of infection or drainage. portions of mesh that were exposed were cut away. underlying tissue cleaned and allowed to heal. mesh seems to have incorporated into/as dermis in surrounding tissues. Do NOT recommend excision of mesh that is not exposed as it does not seem to be infected and would cause more harm. cont with monitoring for now. hernia stable without obstruction thank you for this consult. will follow with you Rex King May 05, 2017 08:44
[2017-05-05] MEDS ORDERED: Metoprolol Succinate XL 25mg tab ORAL SCH (09:00)
[2017-05-05] MEDS: Heparin 5000 units/ml inj SUBQ SCH ×2 (09:00→22:28)
[2017-05-05] MEDS ORDERED: Amiodarone 200mg tab ORAL SCH ×2 (09:00→20:00)
[2017-05-05] MEDS ORDERED: Sensipar 30mg Tab ORAL SCH (09:00)
[2017-05-05] MEDS ORDERED: Heparin Sod 1000 units/ml 10ml IV PRN (09:15)
[2017-05-05] MEDS: BusPIRone 5mg Tab ORAL SCH ×2 (10:14→20:11)
[2017-05-05] MEDS: Aspirin Baby 81mg ORAL SCH (10:14)
[2017-05-05] MEDS: Topiramate 25mg tab ORAL SCH ×2 (10:15→20:20)
--- NOTE | 2017-05-05 11:31 | Nephrology Progress Note ---
Assessment/Plan Problem List: (1) Septic shock (2) Secondary hyperparathyroidism (of renal origin) (3) HTN (hypertension) (4) ESRD (end stage renal disease) on dialysis (5) Gram-positive bacteremia Assessment: Staph Aureus Plan Insert HD catheter today HD today IV Abxs follow labs Discussed with RN Subjective Subjective out of ICU In NAD Objective Objective Last 24 Hour Vital Signs Date Time Temp Pulse Resp B/P (MAP) Pulse Ox O2 Delivery O2 Flow Rate FiO2 05/05/17 11:24 118/71 05/05/17 10:14 88 129/105 05/05/17 08:36 Nasal Cannula 2.0 28 05/05/17 08:36 88 18 Nasal Cannula 2.0 28 05/05/17 08:36 97 Nasal Cannula 2.0 28 05/05/17 08:00 96.0 86 20 129/105 98 Nasal Cannula 2.0 05/05/17 08:00 87 05/05/17 04:10 97.0 25 99/50 94 Nasal Cannula 2.0 05/05/17 03:52 85 05/05/17 02:40 25 93/45 95 Nasal Cannula 2.0 05/05/17 00:17 116 05/04/17 23:44 97.0 110 27 97/53 95 Nasal Cannula 2.0 05/04/17 20:03 99 Nasal Cannula 2.0 28 05/04/17 20:03 Nasal Cannula 2.0 28 05/04/17 20:03 76 20 Nasal Cannula 2.0 28 05/04/17 19:38 97.5 78 26 103/43 93 Nasal Cannula 2.0 05/04/17 19:05 74 05/04/17 16:00 78 05/04/17 16:00 98.5 80 22 115/18 94 Nasal Cannula 2.0 05/04/17 15:00 72 21 113/47 95 Nasal Cannula 2.0 05/04/17 14:30 108/50 05/04/17 14:00 73 19 120/47 95 Nasal Cannula 2.0 05/04/17 13:00 74 20 125/52 95 Nasal Cannula 2.0 05/04/17 12:00 99.0 75 18 98/55 95 Nasal Cannula 2.0 05/04/17 12:00 73 Intake and Output 05/04/17 05/05/17 19:00 07:00 Output Total 0 ml 0 ml Balance 0 ml 0 ml Output Urine Total 0 ml 0 ml Laboratory Tests 05/05/17 07:30: White Blood Count 10.2, Red Blood Count 3.02L, Hemoglobin 10.4L, Hematocrit 30.8L, Mean Corpuscular Volume 102H, Mean Corpuscular Hemoglobin 34.4H, Mean Corpuscular Hemoglobin Concent 33.8, Red Cell Distribution Width 13.9, Platelet Count 125L, Mean Platelet Volume 8.4, Neutrophils (%) (Auto) 76.9H, Lymphocytes (%) (Auto) 13.7L, Monocytes (%) (Auto) 8.0, Eosinophils (%) (Auto) 0.8, Basophils (%) (Auto) 0.6, Sodium Level 133L, Potassium Level 4.9, Chloride Level 94L, Carbon Dioxide Level 24, Anion Gap 15, Blood Urea Nitrogen 78H, Creatinine 15.9H, Estimat Glomerular Filtration Rate 2.8, Glucose Level 76, Calcium Level 9.3, Random Vancomycin Level 29.1 Height (Feet): 5 Height (Inches): 4.00 Weight (Pounds): 210 Cardiovascular: normal rate Respiratory/Chest: lungs clear Extremities: other - no edema NENA FERREIRA May 05, 2017 11:31
--- NOTE | 2017-05-05 12:53 | Internal Med Progress Note ---
Subjective Physician Name Timoteo Appiah Attending Physician Timoteo Appiah M.D. Current Medications Medications (Trade) Dose Ordered Sig/Jeff Route PRN Reason Start Time Stop Time Status Last Admin Dose Admin Acetaminophen (Tylenol) 650 mg Q4H PRN ORAL Mild Pain (Pain Scale 1-3) 05/04/17 18:00 05/31/17 17:59 Acetaminophen/ Hydrocodone Bitart ([place] 5/325) 1 tab Q6H PRN ORAL Moderate Pain 05/04/17 17:53 05/08/17 17:52 Albuterol/ Ipratropium (Albuterol/ Ipratropium) 3 ml Q4H PRN HHN SHORTNESS OF BREATH 05/04/17 18:00 05/06/17 17:59 Amiodarone HCl (Cordarone) 200 mg EVERY 12 HOURS ORAL 05/05/17 09:00 06/04/17 08:59 05/05/17 10:15 Aspirin (ASA) 81 mg DAILY ORAL 05/04/17 18:00 06/03/17 17:59 05/05/17 10:14 Buspirone HCl (Buspar) 15 mg TWICE A DAY ORAL 05/04/17 18:00 05/31/17 08:59 05/05/17 10:14 Chlorhexidine Gluconate (Majo-Hex 2%) 1 applic DAILY@2000 TOPIC 05/04/17 20:00 06/01/17 19:59 05/04/17 22:01 Cinacalcet (Sensipar) 30 mg DAILY ORAL 05/05/17 09:00 05/31/17 08:59 05/05/17 10:14 Dextrose (Dextrose 50%) STAT PRN IV Hypoglycemia 05/04/17 18:00 06/03/17 17:59 Gabapentin (Neurontin) 300 mg BEDTIME ORAL 05/04/17 21:00 05/31/17 20:59 05/04/17 22:01 Heparin Sodium (Porcine) (Heparin 5000 units/ml) 5,000 units EVERY 12 HOURS SUBQ 05/05/17 09:00 06/04/17 08:59 Heparin Sodium (Porcine) (Heparin Sod 1000 units/ml 10ml) 500 unit ONCE PRN IV dialysis 05/05/17 09:15 05/05/17 23:59 Hydromorphone HCl (Dilaudid) 2 mg Q4H PRN IVP Severe Pain (Pain Scale 7-10) 05/04/17 17:53 05/08/17 17:52 05/05/17 11:24 Lorazepam (Ativan 2mg/ml 1ml) 0.5 mg Q4H PRN IV For Anxiety 05/04/17 17:52 05/08/17 17:51 Metoprolol Succinate (Toprol XL) 25 mg DAILY ORAL 05/05/17 09:00 06/01/17 08:59 05/05/17 10:14 Metoprolol Tartrate (Lopressor) 5 mg Q6H PRN IVP HR>130 SUSTAINED MORE THAN 5 M 05/04/17 17:52 06/01/17 17:51 Morphine Sulfate (Morphine Sulfate) 4 mg Q4H PRN IVP MOD TO SEV BREAKTHROUGH PAIN 05/04/17 17:15 05/10/17 23:59 Prochlorperazine (Compazine) 10 mg Q6H PRN IVP Nausea & Vomiting 05/04/17 17:00 05/31/17 10:59 Sodium Chloride 1,000 ml @ 500 mls/hr Q2H PRN IVLG sbp<90 during hd 05/05/17 09:15 05/05/17 23:59 Topiramate (Topamax) 25 mg Q12HR ORAL 05/04/17 21:00 06/03/17 20:59 05/05/17 10:15 Trazodone HCl (Desyrel) 150 mg BEDTIME ORAL 05/04/17 21:00 05/31/17 20:59 05/04/17 22:47 Vancomycin HCl (Vanco rx to dose) 1 ea DAILYPRN PRN MISC Per rx protocol 05/04/17 17:53 06/03/17 17:52 Allergies: Coded Allergies: No Known Allergies (Unverified , 12/04/15) Subjective on tele lethargic still has left leg pain tele - SR awaiting catheter placement 12 pt ROS neg except above positives Objective Last Vital Signs Date Time Temp Pulse Resp B/P (MAP) Pulse Ox O2 Delivery O2 Flow Rate FiO2 05/05/17 11:24 118/71 05/05/17 10:14 88 05/05/17 08:36 Nasal Cannula 2.0 28 05/05/17 08:36 18 05/05/17 08:36 97 05/05/17 08:00 96.0 Laboratory Tests Test 05/05/17 07:30 White Blood Count 10.2 K/UL (4.8-10.8) Red Blood Count 3.02 M/UL (4.20-5.40) L Hemoglobin 10.4 G/DL (12.0-16.0) L Hematocrit 30.8 % (37.0-47.0) L Mean Corpuscular Volume 102 FL (80-99) H Mean Corpuscular Hemoglobin 34.4 PG (27.0-31.0) H Mean Corpuscular Hemoglobin Concent 33.8 G/DL (32.0-36.0) Red Cell Distribution Width 13.9 % (11.6-14.8) Platelet Count 125 K/UL (150-450) L Mean Platelet Volume 8.4 FL (6.5-10.1) Neutrophils (%) (Auto) 76.9 % (45.0-75.0) H Lymphocytes (%) (Auto) 13.7 % (20.0-45.0) L Monocytes (%) (Auto) 8.0 % (1.0-10.0) Eosinophils (%) (Auto) 0.8 % (0.0-3.0) Basophils (%) (Auto) 0.6 % (0.0-2.0) Sodium Level 133 MMOL/L (136-145) L Potassium Level 4.9 MMOL/L (3.5-5.1) Chloride Level 94 MMOL/L (98-107) L Carbon Dioxide Level 24 MMOL/L (21-32) Anion Gap 15 mmol/L (5-15) Blood Urea Nitrogen 78 mg/dL (7-18) H Creatinine 15.9 MG/DL (0.55-1.30) H Estimat Glomerular Filtration Rate 2.8 mL/min (>60) Glucose Level 76 MG/DL (74-106) Calcium Level 9.3 MG/DL (8.5-10.1) Random Vancomycin Level 29.1 ug/mL Microbiology Date/Time Source Procedure Growth Status 05/02/17 15:30 Drainage Fluid Gram Stain - Final Complete 05/02/17 15:30 Body Fluid Culture - Final Staphylococcus Aureus - Mrsa Complete 05/02/17 15:30 Catheter Site Catheter Tip Culture - Final Staphylococcus Aureus - Mrsa Complete Intake and Output 05/04/17 05/05/17 19:00 07:00 Output Total 0 ml 0 ml Balance 0 ml 0 ml Output Urine Total 0 ml 0 ml Objective gen - NAD. obese. HEENT - nc/at Neck - supple. no kvd CVS - RRR> no S1, S2 Lungs - dec BS bilaterally Abd - NT. + surgical wound ext - no c/c/e; left hip and leg externally rotated Assessment/Plan Assessment/Plan ASSESSMENT: 1. MRSA Line Sepsis w/ bacteremia 2. Respiratory insufficiency. 3. Metabolic Encephalopathy 4. End-stage renal disease, on dialysis. 5. History of atrial fibrillation. 6. Decubitus ulcer. 7. Depression. 8. Seizure disorder. 9. Septic Shock 2/2 #1 - resolved 10. Chronic obstructive pulmonary disease. 11. Abd surgical wound with exposed mesh Plan level of care - tele off pressors catheter removed --> sent for Culture abx - Vanco ID recs appreciated f/u cultures renal recs appreciated placement of non-tunneled catheter followed by HD Cards consult for afib Amiodarone TTE - no vegatations CT abd/pelvis - no abscess. large ventral hernia Surgery evaluation for abdominal surgical wound TIMOTEO APPIAH M.D. May 05, 2017 12:53
--- NOTE | 2017-05-05 13:04 | Diagnostic Imaging Report ---
Indication: Dyspnea Comparison: 05/02/2017 A single view chest radiograph was obtained. Findings: Patchy infiltrates noted bilaterally versus pulmonary edema. Please correlate clinically. The heart is enlarged. Contrast noted in the stomach. IMPRESSION: Patchy infiltrates versus pulmonary edema
--- NOTE | 2017-05-05 13:05 | Diagnostic Imaging Report ---
Indications: hip pain Findings: 2 views of both hips were obtained. Large pannus demonstrated projected over the pelvis. Severe degenerative changes of both hips noted with joint space narrowing extensive osteophyte formation. Similar findings lower lumbar spine and sacroiliac joints. Large area of calcification consistent with uterine fibroid noted. Bones are osteopenic. No obvious fracture seen. IMPRESSION: No obvious fracture. Severe arthrosis
--- NOTE | 2017-05-05 15:18 | Diagnostic Imaging Report ---
Indication: Patient requires hemodialysis. Findings: After the indications, procedure, risks, complications, and alternatives of the procedure were explained, written informed consent was obtained. The neck was prepped with alcohol. All elements of maximal sterile barrier technique were followed including usage of a cap, mask, sterile gown, sterile gloves, hand hygiene and a large sterile sheet. 1% lidocaine was used to anesthetize the skin. Sonographic evaluation was performed demonstrating a patent and compressible left jugular vein. Access was obtained under real-time ultrasound guidance using an 18 gauge needle and a digital image was saved in archive. An 0.035 wire was then advanced into the vein. Needle exchanged for a dilator. A temporary hemodialysis catheter was then advanced over the wire. Wire was removed. Catheter was secured to the skin using 2-0 Prolene suture. Both ports aspirate and flush easily. Fluoroscopic imaging was utilized to negotiate the 035 wire into position. Final position of the hemodialysis catheter was confirmed by fluoroscopy. The catheter is cleared for use. Total fluoroscopic time 1.6 minutes. Impression: Successful placement of right jugular hemodialysis catheter.
[2017-05-05] MEDS ORDERED: Tubing IV Secondary IV ONE (17:30)
--- NOTE | 2017-05-05 17:30 | Pulmonology Progress Note ---
Assessment/Plan Assessment/Plan 1. Septic shock, due to staph aureus bacteremia 2. Respiratory insufficiency. 3. Rapid AF, better 4. End-stage renal disease, on dialysis. 5. abdominal hernia with ulceration x2 with visible mesh, foul odor 6. Decubitus ulcer. 7. Depression. 8. Seizure disorder. 9. Dialysis catheter infection, removed 10. Chronic obstructive pulmonary disease. blood cultures still + [facility] HD catheter replaced CXR w edema needs HD/UF Subjective ROS Limited/Unobtainable: Yes Allergies: Coded Allergies: No Known Allergies (Unverified , 12/04/15) Objective Last 24 Hour Vital Signs Date Time Temp Pulse Resp B/P (MAP) Pulse Ox O2 Delivery O2 Flow Rate FiO2 05/05/17 16:00 97.9 82 20 129/56 95 Nasal Cannula 2.0 05/05/17 15:00 85 20 117/56 97 Nasal Cannula 2.0 05/05/17 14:55 85 20 118/61 99 Nasal Cannula 2.0 05/05/17 14:50 84 20 121/57 100 Nasal Cannula 2.0 05/05/17 14:45 83 20 113/53 100 Nasal Cannula 2.0 05/05/17 13:52 84 17 05/05/17 11:24 118/71 05/05/17 10:14 88 129/105 05/05/17 08:36 Nasal Cannula 2.0 28 05/05/17 08:36 88 18 Nasal Cannula 2.0 05/05/17 08:36 97 Nasal Cannula 2.0 28 05/05/17 08:00 96.0 86 20 129/105 98 Nasal Cannula 2.0 05/05/17 08:00 87 05/05/17 04:10 97.0 25 99/50 94 Nasal Cannula 2.0 05/05/17 03:52 85 05/05/17 02:40 25 93/45 95 Nasal Cannula 2.0 05/05/17 00:17 116 05/04/17 23:44 97.0 110 27 97/53 95 Nasal Cannula 2.0 05/04/17 20:03 99 Nasal Cannula 2.0 28 05/04/17 20:03 Nasal Cannula 2.0 28 05/04/17 20:03 76 20 Nasal Cannula 2.0 28 05/04/17 19:38 97.5 78 26 103/43 93 Nasal Cannula 2.0 05/04/17 19:05 74 Intake and Output 05/04/17 05/05/17 19:00 07:00 Output Total 0 ml 0 ml Balance 0 ml 0 ml Output Urine Total 0 ml 0 ml Objective morbidly obese General Appearance: no acute distress HEENT: atraumatic Respiratory/Chest: decreased breath sounds Cardiovascular: normal rate Abdomen: soft, non tender Microbiology Date/Time Source Procedure Growth Status 05/04/17 12:45 Blood Blood Culture - Preliminary Resulted 05/04/17 12:40 Blood Blood Culture - Preliminary Resulted Laboratory Tests 05/05/17 07:30: White Blood Count 10.2, Red Blood Count 3.02L, Hemoglobin 10.4L, Hematocrit 30.8L, Mean Corpuscular Volume 102H, Mean Corpuscular Hemoglobin 34.4H, Mean Corpuscular Hemoglobin Concent 33.8, Red Cell Distribution Width 13.9, Platelet Count 125L, Mean Platelet Volume 8.4, Neutrophils (%) (Auto) 76.9H, Lymphocytes (%) (Auto) 13.7L, Monocytes (%) (Auto) 8.0, Eosinophils (%) (Auto) 0.8, Basophils (%) (Auto) 0.6, Sodium Level 133L, Potassium Level 4.9, Chloride Level 94L, Carbon Dioxide Level 24, Anion Gap 15, Blood Urea Nitrogen 78H, Creatinine 15.9H, Estimat Glomerular Filtration Rate 2.8, Glucose Level 76, Calcium Level 9.3, Random Vancomycin Level 29.1 Current Medications Medications (Trade) Dose Ordered Sig/Jeff Route PRN Reason Start Time Stop Time Status Last Admin Dose Admin Acetaminophen (Tylenol) 650 mg Q4H PRN ORAL Mild Pain (Pain Scale 1-3) 05/04/17 18:00 05/31/17 17:59 Acetaminophen/ Hydrocodone Bitart ([place] 5/325) 1 tab Q6H PRN ORAL Moderate Pain 05/04/17 17:53 05/08/17 17:52 Albuterol/ Ipratropium (Albuterol/ Ipratropium) 3 ml Q4H PRN HHN SHORTNESS OF BREATH 05/04/17 18:00 05/06/17 17:59 Amiodarone HCl (Cordarone) 200 mg EVERY 12 HOURS ORAL 05/05/17 09:00 06/04/17 08:59 05/05/17 10:15 Aspirin (ASA) 81 mg DAILY ORAL 05/04/17 18:00 06/03/17 17:59 05/05/17 10:14 Buspirone HCl (Buspar) 15 mg TWICE A DAY ORAL 05/04/17 18:00 05/31/17 08:59 05/05/17 10:14 Chlorhexidine Gluconate (Majo-Hex 2%) 1 applic DAILY@2000 TOPIC 05/04/17 20:00 06/01/17 19:59 05/04/17 22:01 Cinacalcet (Sensipar) 30 mg DAILY ORAL 05/05/17 09:00 05/31/17 08:59 05/05/17 10:14 Dextrose (Dextrose 50%) STAT PRN IV Hypoglycemia 05/04/17 18:00 06/03/17 17:59 Gabapentin (Neurontin) 300 mg BEDTIME ORAL 05/04/17 21:00 05/31/17 20:59 05/04/17 22:01 Heparin Sodium (Porcine) (Heparin 5000 units/ml) 5,000 units EVERY 12 HOURS SUBQ 05/05/17 09:00 06/04/17 08:59 Heparin Sodium (Porcine) (Heparin Sod 1000 units/ml 10ml) 500 unit ONCE PRN IV dialysis 05/05/17 09:15 05/05/17 23:59 Hydromorphone HCl (Dilaudid) 2 mg Q4H PRN IVP Severe Pain (Pain Scale 7-10) 05/04/17 17:53 05/08/17 17:52 05/05/17 11:24 Lorazepam (Ativan 2mg/ml 1ml) 0.5 mg Q4H PRN IV For Anxiety 05/04/17 17:52 05/08/17 17:51 Metoprolol Succinate (Toprol XL) 25 mg DAILY ORAL 05/05/17 09:00 06/01/17 08:59 05/05/17 10:14 Metoprolol Tartrate (Lopressor) 5 mg Q6H PRN IVP HR>130 SUSTAINED MORE THAN 5 M 05/04/17 17:52 06/01/17 17:51 Morphine Sulfate (Morphine Sulfate) 4 mg Q4H PRN IVP MOD TO SEV BREAKTHROUGH PAIN 05/04/17 17:15 05/10/17 23:59 Prochlorperazine (Compazine) 10 mg Q6H PRN IVP Nausea & Vomiting 05/04/17 17:00 05/31/17 10:59 Sodium Chloride 1,000 ml @ 500 mls/hr Q2H PRN IVLG sbp<90 during hd 05/05/17 09:15 05/05/17 23:59 Topiramate (Topamax) 25 mg Q12HR ORAL 05/04/17 21:00 06/03/17 20:59 05/05/17 10:15 Trazodone HCl (Desyrel) 150 mg BEDTIME ORAL 05/04/17 21:00 05/31/17 20:59 05/04/17 22:47 Vancomycin HCl (Vanco rx to dose) 1 ea DAILYPRN PRN MISC Per rx protocol 05/04/17 17:53 06/03/17 17:52 DEVENDRA BASSETT May 05, 2017 17:30
--- NOTE | 2017-05-05 19:36 | Cardiology Progress Note ---
Assessment/Plan Assessment/Plan 1. Paroxysmal episodes of atrial fibrillation. 2. No evidence of epicardial coronary disease. 3. End-stage renal disease, on hemodialysis. 4. Septic shock. 5. Bacteremia. 6. Abdominal ventral hernia status post repair. has had recurrence of afib 1 time last ntei the other jsut on start of dialysis on po amiod will icnrease to 400 mg bid for nwo iv abx for bacteremia echo normal lv function catheter tip + for staph as well surveillance cx ordered by id yest now seem positive as well may need further evaluation will d/w ID Subjective ROS Limited/Unobtainable: Yes Subjective dtr is nto at bedside just started on dialysis Objective Last 24 Hour Vital Signs Date Time Temp Pulse Resp B/P (MAP) Pulse Ox O2 Delivery O2 Flow Rate FiO2 05/05/17 16:00 84 05/05/17 16:00 97.9 82 20 129/56 95 Nasal Cannula 2.0 05/05/17 15:00 85 20 117/56 97 Nasal Cannula 2.0 05/05/17 14:55 85 20 118/61 99 Nasal Cannula 2.0 05/05/17 14:50 84 20 121/57 100 Nasal Cannula 2.0 05/05/17 14:45 83 20 113/53 100 Nasal Cannula 2.0 05/05/17 13:52 84 17 05/05/17 12:00 88 05/05/17 11:24 118/71 05/05/17 10:14 88 129/105 05/05/17 08:36 Nasal Cannula 2.0 28 05/05/17 08:36 88 18 Nasal Cannula 2.0 28 05/05/17 08:36 97 Nasal Cannula 2.0 28 05/05/17 08:00 96.0 86 20 129/105 98 Nasal Cannula 2.0 05/05/17 08:00 87 05/05/17 04:10 97.0 25 99/50 94 Nasal Cannula 2.0 05/05/17 03:52 85 05/05/17 02:40 25 93/45 95 Nasal Cannula 2.0 05/05/17 00:17 116 05/04/17 23:44 97.0 110 27 97/53 95 Nasal Cannula 2.0 05/04/17 20:03 99 Nasal Cannula 2.0 28 05/04/17 20:03 Nasal Cannula 2.0 28 05/04/17 20:03 76 20 Nasal Cannula 2.0 28 05/04/17 19:38 97.5 78 26 103/43 93 Nasal Cannula 2.0 General Appearance: no apparent distress, patient on isolation Cardiovascular: tachycardia, irregularly irregular Respiratory/Chest: lungs clear, normal breath sounds Abdomen: normal bowel sounds, non tender, soft Extremities: no swelling Intake and Output 05/04/17 05/05/17 19:00 07:00 Output Total 0 ml 0 ml Balance 0 ml 0 ml Output Urine Total 0 ml 0 ml Laboratory Tests Test 05/05/17 07:30 White Blood Count 10.2 K/UL (4.8-10.8) Red Blood Count 3.02 M/UL (4.20-5.40) L Hemoglobin 10.4 G/DL (12.0-16.0) L Hematocrit 30.8 % (37.0-47.0) L Mean Corpuscular Volume 102 FL (80-99) H Mean Corpuscular Hemoglobin 34.4 PG (27.0-31.0) H Mean Corpuscular Hemoglobin Concent 33.8 G/DL (32.0-36.0) Red Cell Distribution Width 13.9 % (11.6-14.8) Platelet Count 125 K/UL (150-450) L Mean Platelet Volume 8.4 FL (6.5-10.1) Neutrophils (%) (Auto) 76.9 % (45.0-75.0) H Lymphocytes (%) (Auto) 13.7 % (20.0-45.0) L Monocytes (%) (Auto) 8.0 % (1.0-10.0) Eosinophils (%) (Auto) 0.8 % (0.0-3.0) Basophils (%) (Auto) 0.6 % (0.0-2.0) Sodium Level 133 MMOL/L (136-145) L Potassium Level 4.9 MMOL/L (3.5-5.1) Chloride Level 94 MMOL/L (98-107) L Carbon Dioxide Level 24 MMOL/L (21-32) Anion Gap 15 mmol/L (5-15) Blood Urea Nitrogen 78 mg/dL (7-18) H Creatinine 15.9 MG/DL (0.55-1.30) H Estimat Glomerular Filtration Rate 2.8 mL/min (>60) Glucose Level 76 MG/DL (74-106) Calcium Level 9.3 MG/DL (8.5-10.1) Random Vancomycin Level 29.1 ug/mL Microbiology Date/Time Source Procedure Growth Status 05/04/17 12:45 Blood Blood Culture - Preliminary Resulted 05/04/17 12:40 Blood Blood Culture - Preliminary Resulted MATHEUS GATES May 05, 2017 19:36
[2017-05-05] MEDS: Dyna-Hex 2% Top Sol 2oz TOPIC SCH (20:10)
[2017-05-05] MEDS: TraZODone 50mg tab ORAL SCH (20:20)
--- NOTE | 2017-05-05 20:46 | Consultation ---
DATE OF CONSULTATION: 05/05/2017 ORTHOPEDIC CONSULTATION CONSULTING PHYSICIAN: Popeye Espinosa M.D. REQUESTING PHYSICIAN: Timoteo Mcnair M.D. CHIEF COMPLAINT: The patient is a pleasant 61-year-old female with very complicated medical history, who is admitted initially with end-stage renal disease. The patient was complaining of shoulder pain. She had an MRI, which showed a full-thickness rotator cuff tear. Therefore, Orthopedic consultation obtained for further care and recommendation. PAST MEDICAL HISTORY: Reviewed from the intake chart. PAST SURGICAL HISTORY: Reviewed from the intake chart. MEDICATIONS: Reviewed from the intake chart. PHYSICAL EXAMINATION: EXTREMITIES: The patient has moderate discomfort in the right shoulder. Limited range of motion. Mild effusion. Neurovascular exam is normal. DIAGNOSTIC DATA: MRI shows a chronic full-thickness rotator cuff tear. ASSESSMENT: Right shoulder chronic rotator cuff tear. DISCUSSION: At this point, given her comorbidities, she is really not any type of candidate for surgical intervention. It looks like it is a chronic tear something that ultimately is going to require intervention in the form of shoulder replacement, but at this point, she is not really a good candidate for that at this point and I will continue to monitor her and manage her medically for her infection and sepsis. She can follow up as outpatient as needed. Popeye Espinosa M.D. DR: Chuy JOB#: [id number] CC:
[2017-05-06] VITALS (33 sets, daily range): BP systolic 76–141; BP diastolic 36–60
[2017-05-06] MEDS ORDERED: Albuterol/Ipratropium 3ml neb HHN PRN (02:00)
[2017-05-06] MEDS ORDERED: Norco 5mg/325mg tab ORAL PRN (06:00)
[2017-05-06] MEDS ORDERED: Metoprolol 5mg/5ml Inj IVP PRN (06:00)
[2017-05-06 06:26] LABS: BASOPHILS % (AUTO) 0.7 % (0.0-2.0); EOSINOPHILS % (AUTO) 0.4 % (0.0-3.0); HEMATOCRIT 28.1 % (37.0-47.0); HEMOGLOBIN 9.2 G/DL (12.0-16.0); MEAN CORPUSCULAR VOLUME 104 FL (80-99); MONOCYTES % (AUTO) 9.7 % (1.0-10.0); NEUTROPHILS % (AUTO) 77.3 % (45.0-75.0); PLATELET COUNT 185 K/UL (150-450); RED CELL DISTRIBUTION WIDTH 13.8 % (11.6-14.8); WHITE BLOOD COUNT 12.7 K/UL (4.8-10.8)
[2017-05-06 07:07] LABS: ALANINE AMINOTRANSFERASE 18 U/L (12-78); ALBUMIN/GLOBULIN RATIO 0.4 (1.0-2.7); ALKALINE PHOSPHATASE 91 U/L (46-116); ANION GAP 14 mmol/L (5-15); ASPARTATE AMINO TRANSFERASE 22 U/L (15-37); BLOOD UREA NITROGEN 41 mg/dL (7-18); CALCIUM 8.9 MG/DL (8.5-10.1); CARBON DIOXIDE 23 MMOL/L (21-32); CHLORIDE 100 MMOL/L (98-107); CREATININE 9.4 MG/DL (0.55-1.30); POTASSIUM 4.2 MMOL/L (3.5-5.1); SODIUM 137 MMOL/L (136-145)
[2017-05-06] MEDS: Metoprolol Succinate XL 25mg tab ORAL SCH (09:00)
[2017-05-06] MEDS ORDERED: Eliquis 2.5mg tablet ORAL SCH (09:00)
[2017-05-06] MEDS: Aspirin Baby 81mg ORAL SCH (09:46)
[2017-05-06] MEDS: Sensipar 30mg Tab ORAL SCH (09:46)
[2017-05-06] MEDS: Topiramate 25mg tab ORAL SCH ×2 (09:46→20:57)
[2017-05-06] MEDS: BusPIRone 5mg Tab ORAL SCH ×2 (09:46→18:00)
[2017-05-06] MEDS: Amiodarone 200mg tab ORAL SCH ×2 (09:47→20:56)
[2017-05-06] MEDS: Eliquis 2.5mg tablet ORAL SCH ×2 (09:47→18:00)
--- NOTE | 2017-05-06 12:14 | Nephrology Progress Note ---
Assessment/Plan Problem List: (1) Septic shock (2) Secondary hyperparathyroidism (of renal origin) (3) HTN (hypertension) (4) ESRD (end stage renal disease) on dialysis (5) Gram-positive bacteremia Assessment: Staph Aureus Plan HD tomorrow IV Abxs follow labs Discussed with RN Subjective Subjective Back in ICU for afib Objective Objective Last 24 Hour Vital Signs Date Time Temp Pulse Resp B/P (MAP) Pulse Ox O2 Delivery O2 Flow Rate FiO2 05/06/17 11:00 82 19 121/54 99 Nasal Cannula 3.0 05/06/17 10:00 83 20 130/59 99 Nasal Cannula 3.0 05/06/17 09:00 80 18 124/57 99 Nasal Cannula 3.0 05/06/17 09:00 79 98/53 05/06/17 08:59 Nasal Cannula 2.0 28 05/06/17 08:58 79 22 Nasal Cannula 2.0 28 05/06/17 08:58 100 Nasal Cannula 2.0 28 05/06/17 08:00 83 05/06/17 08:00 99.1 88 22 100/45 100 Nasal Cannula 3.0 05/06/17 07:00 77 20 98/53 99 Nasal Cannula 3.0 05/06/17 06:30 79 20 103/36 100 Nasal Cannula 3.0 05/06/17 06:00 80 21 110/47 100 Nasal Cannula 3.0 05/06/17 05:30 82 21 117/46 99 Nasal Cannula 3.0 05/06/17 05:00 85 21 141/47 99 Nasal Cannula 3.0 05/06/17 04:30 86 22 89/50 100 Nasal Cannula 3.0 05/06/17 04:00 99.5 88 22 106/46 100 Nasal Cannula 3.0 05/06/17 03:30 92 22 94/47 95 Nasal Cannula 3.0 05/06/17 03:00 95 25 95/43 95 Nasal Cannula 3.0 05/06/17 02:43 94 25 108/43 95 Nasal Cannula 3.0 05/06/17 02:30 104 25 90/45 95 Nasal Cannula 3.0 05/06/17 02:00 120/40 05/06/17 02:00 104 25 85/42 95 Nasal Cannula 3.0 05/06/17 01:30 104 25 85/41 95 Nasal Cannula 3.0 05/06/17 01:00 103 05/06/17 01:00 99.5 120 22 117/38 94 Nasal Cannula 3.0 05/06/17 00:45 136 20 111/56 95 Nasal Cannula 3.0 05/06/17 00:15 141 19 77/52 Nasal Cannula 3.0 05/06/17 00:00 139 05/06/17 00:00 100.2 133 20 76/43 Nasal Cannula 3.0 05/05/17 22:15 98.2 146 28 88/44 Nasal Cannula 3.0 05/05/17 22:15 Nasal Cannula 3.0 05/05/17 22:00 22 79/46 Nasal Cannula 2.0 05/05/17 20:09 Nasal Cannula 2.0 28 05/05/17 20:09 138 20 Nasal Cannula 2.0 28 05/05/17 20:09 97 Nasal Cannula 2.0 28 05/05/17 20:00 98.0 140 23 88/44 96 Nasal Cannula 2.0 05/05/17 20:00 97 05/05/17 18:00 98.2 88 28 116/58 Nasal Cannula 2.0 05/05/17 18:00 Nasal Cannula 3.0 05/05/17 16:00 84 05/05/17 16:00 97.9 82 20 129/56 95 Nasal Cannula 2.0 05/05/17 15:00 85 20 117/56 97 Nasal Cannula 2.0 05/05/17 14:55 85 20 118/61 99 Nasal Cannula 2.0 05/05/17 14:50 84 20 121/57 100 Nasal Cannula 2.0 05/05/17 14:45 83 20 113/53 100 Nasal Cannula 2.0 05/05/17 13:52 84 17 Intake and Output 05/05/17 05/06/17 19:00 07:00 Intake Total 0 ml Output Total 2000 ml Balance -2000 ml Intake Oral 0 ml Output Urine Total 0 ml Hemodialysis UF 2000 ml Laboratory Tests 05/06/17 05:35: White Blood Count 12.7H, Red Blood Count 2.70L, Hemoglobin 9.2L, Hematocrit 28.1L, Mean Corpuscular Volume 104H, Mean Corpuscular Hemoglobin 34.3H, Mean Corpuscular Hemoglobin Concent 32.9, Red Cell Distribution Width 13.8, Platelet Count 185, Mean Platelet Volume 8.0, Neutrophils (%) (Auto) 77.3H, Lymphocytes ( %) (Auto) 12.0L, Monocytes (%) (Auto) 9.7, Eosinophils (%) (Auto) 0.4, Basophils (%) (Auto) 0.7, Sodium Level 137, Potassium Level 4.2, Chloride Level 100, Carbon Dioxide Level 23, Anion Gap 14, Blood Urea Nitrogen 41H, Creatinine 9.4H, Estimat Glomerular Filtration Rate 5.1, Glucose Level 102, Calcium Level 8.9, Total Bilirubin 1.0, Aspartate Amino Transf (AST/SGOT) 22, Alanine Aminotransferase (ALT/SGPT) 18, Alkaline Phosphatase 91, Troponin I 0.340H, Total Protein 7.6, Albumin 2.0L, Globulin 5.6, Albumin/Globulin Ratio 0.4L Height (Feet): 5 Height (Inches): 4.00 Weight (Pounds): 212 Cardiovascular: normal rate Respiratory/Chest: lungs clear Extremities: other - no edema NENA FERREIRA May 06, 2017 12:14
--- NOTE | 2017-05-06 13:12 | Infectious Diseases Prog Note ---
Assessment/Plan Assessment/Plan A Septic shock HD line infection MRSA sepsis Persistent bacteremia ESRD on HD Morbid obesity COPD Atrial fibrillation P; Continue Vancomycin will check sensitivity of MRSA to Daptomycin will repeat blood cultures Subjective ROS Limited/Unobtainable: Yes Respiratory: Reports: no symptoms Cardiovascular: Reports: other - transferred to ICU with rapid A fib, had Floyd'ns catheter placement yesterday Allergies: Coded Allergies: No Known Allergies (Unverified , 12/04/15) Objective Vital Signs Last 24 Hour Vital Signs Date Time Temp Pulse Resp B/P (MAP) Pulse Ox O2 Delivery O2 Flow Rate FiO2 05/06/17 11:00 82 19 121/54 99 Nasal Cannula 3.0 05/06/17 10:00 83 20 130/59 99 Nasal Cannula 3.0 05/06/17 09:00 80 18 124/57 99 Nasal Cannula 3.0 05/06/17 09:00 79 98/53 05/06/17 08:59 Nasal Cannula 2.0 28 05/06/17 08:58 79 22 Nasal Cannula 2.0 28 05/06/17 08:58 100 Nasal Cannula 2.0 28 05/06/17 08:00 83 05/06/17 08:00 99.1 88 22 100/45 100 Nasal Cannula 3.0 05/06/17 07:00 77 20 98/53 99 Nasal Cannula 3.0 05/06/17 06:30 79 20 103/36 100 Nasal Cannula 3.0 05/06/17 06:00 80 21 110/47 100 Nasal Cannula 3.0 05/06/17 05:30 82 21 117/46 99 Nasal Cannula 3.0 05/06/17 05:00 85 21 141/47 99 Nasal Cannula 3.0 05/06/17 04:30 86 22 89/50 100 Nasal Cannula 3.0 05/06/17 04:00 99.5 88 22 106/46 100 Nasal Cannula 3.0 05/06/17 03:30 92 22 94/47 95 Nasal Cannula 3.0 05/06/17 03:00 95 25 95/43 95 Nasal Cannula 3.0 05/06/17 02:43 94 25 108/43 95 Nasal Cannula 3.0 05/06/17 02:30 104 25 90/45 95 Nasal Cannula 3.0 05/06/17 02:00 120/40 05/06/17 02:00 104 25 85/42 95 Nasal Cannula 3.0 05/06/17 01:30 104 25 85/41 95 Nasal Cannula 3.0 05/06/17 01:00 103 05/06/17 01:00 99.5 120 22 117/38 94 Nasal Cannula 3.0 05/06/17 00:45 136 20 111/56 95 Nasal Cannula 3.0 05/06/17 00:15 141 19 77/52 Nasal Cannula 3.0 05/06/17 00:00 139 05/06/17 00:00 100.2 133 20 76/43 Nasal Cannula 3.0 05/05/17 22:15 98.2 146 28 88/44 Nasal Cannula 3.0 05/05/17 22:15 Nasal Cannula 3.0 05/05/17 22:00 22 79/46 Nasal Cannula 2.0 05/05/17 20:09 Nasal Cannula 2.0 28 05/05/17 20:09 138 20 Nasal Cannula 2.0 28 05/05/17 20:09 97 Nasal Cannula 2.0 28 05/05/17 20:00 98.0 140 23 88/44 96 Nasal Cannula 2.0 05/05/17 20:00 97 05/05/17 18:00 98.2 88 28 116/58 Nasal Cannula 2.0 05/05/17 18:00 Nasal Cannula 3.0 05/05/17 16:00 84 05/05/17 16:00 97.9 82 20 129/56 95 Nasal Cannula 2.0 05/05/17 15:00 85 20 117/56 97 Nasal Cannula 2.0 05/05/17 14:55 85 20 118/61 99 Nasal Cannula 2.0 05/05/17 14:50 84 20 121/57 100 Nasal Cannula 2.0 05/05/17 14:45 83 20 113/53 100 Nasal Cannula 2.0 05/05/17 13:52 84 17 Height (Feet): 5 Height (Inches): 4.00 Weight (Pounds): 212 General Appearance: no acute distress HEENT: mucous membranes moist Respiratory/Chest: chest wall non-tender Cardiovascular: normal rate, other - Left IJ Quiton Extremities: no edema Neurologic/Psychiatric: alert, responsive Microbiology Date/Time Source Procedure Growth Status 05/04/17 12:45 Blood Blood Culture - Preliminary Staphylococcus Aureus Resulted 05/04/17 12:40 Blood Blood Culture - Preliminary Staphylococcus Aureus Resulted Laboratory Tests Test 05/06/17 05:35 White Blood Count 12.7 K/UL (4.8-10.8) H Red Blood Count 2.70 M/UL (4.20-5.40) L Hemoglobin 9.2 G/DL (12.0-16.0) L Hematocrit 28.1 % (37.0-47.0) L Mean Corpuscular Volume 104 FL (80-99) H Mean Corpuscular Hemoglobin 34.3 PG (27.0-31.0) H Mean Corpuscular Hemoglobin Concent 32.9 G/DL (32.0-36.0) Red Cell Distribution Width 13.8 % (11.6-14.8) Platelet Count 185 K/UL (150-450) Mean Platelet Volume 8.0 FL (6.5-10.1) Neutrophils (%) (Auto) 77.3 % (45.0-75.0) H Lymphocytes (%) (Auto) 12.0 % (20.0-45.0) L Monocytes (%) (Auto) 9.7 % (1.0-10.0) Eosinophils (%) (Auto) 0.4 % (0.0-3.0) Basophils (%) (Auto) 0.7 % (0.0-2.0) Sodium Level 137 MMOL/L (136-145) Potassium Level 4.2 MMOL/L (3.5-5.1) Chloride Level 100 MMOL/L (98-107) Carbon Dioxide Level 23 MMOL/L (21-32) Anion Gap 14 mmol/L (5-15) Blood Urea Nitrogen 41 mg/dL (7-18) H Creatinine 9.4 MG/DL (0.55-1.30) H Estimat Glomerular Filtration Rate 5.1 mL/min (>60) Glucose Level 102 MG/DL (74-106) Calcium Level 8.9 MG/DL (8.5-10.1) Total Bilirubin 1.0 MG/DL (0.2-1.0) Aspartate Amino Transf (AST/SGOT) 22 U/L (15-37) Alanine Aminotransferase (ALT/SGPT) 18 U/L (12-78) Alkaline Phosphatase 91 U/L (46-116) Troponin I 0.340 ng/mL (0.000-0.056) Total Protein 7.6 G/DL (6.4-8.2) Albumin 2.0 G/DL (3.4-5.0) L Globulin 5.6 g/dL Albumin/Globulin Ratio 0.4 (1.0-2.7) L Current Medications Medications (Trade) Dose Ordered Sig/Jeff Route PRN Reason Start Time Stop Time Status Last Admin Dose Admin Acetaminophen (Tylenol) 650 mg Q4H PRN ORAL Mild Pain (Pain Scale 1-3) 05/06/17 02:00 05/31/17 17:59 Acetaminophen/ Hydrocodone Bitart ([place] 5/325) 1 tab Q6H PRN ORAL Moderate Pain 05/06/17 06:00 05/08/17 17:52 Albuterol/ Ipratropium (Albuterol/ Ipratropium) 3 ml Q4H PRN HHN SHORTNESS OF BREATH 05/06/17 02:00 05/06/17 17:59 Amiodarone HCl (Cordarone) 400 mg EVERY 12 HOURS ORAL 05/06/17 09:00 06/04/17 19:59 05/06/17 09:47 Apixaban (Eliquis) 5 mg BID ORAL 05/06/17 09:00 06/05/17 08:59 05/06/17 09:47 Aspirin (ASA) 81 mg DAILY ORAL 05/06/17 09:00 06/03/17 17:59 05/06/17 09:46 Buspirone HCl (Buspar) 15 mg TWICE A DAY ORAL 05/06/17 09:00 05/31/17 08:59 05/06/17 09:46 Chlorhexidine Gluconate (Majo-Hex 2%) 1 applic DAILY@1999 TOPIC 05/06/17 20:00 06/01/17 19:59 Cinacalcet (Sensipar) 30 mg DAILY ORAL 05/06/17 09:00 05/31/17 08:59 05/06/17 09:46 Dextrose (Dextrose 50%) STAT PRN IV Hypoglycemia 05/06/17 18:00 06/03/17 17:59 Gabapentin (Neurontin) 300 mg BEDTIME ORAL 05/06/17 21:00 05/31/17 20:59 Hydromorphone HCl (Dilaudid) 2 mg Q4H PRN IVP Severe Pain (Pain Scale 7-10) 05/06/17 02:00 05/08/17 17:52 Lorazepam (Ativan 2mg/ml 1ml) 0.5 mg Q4H PRN IV For Anxiety 05/06/17 02:00 05/08/17 17:51 Metoprolol Succinate (Toprol XL) 25 mg DAILY ORAL 05/06/17 09:00 06/01/17 08:59 Metoprolol Tartrate (Lopressor) 5 mg Q6H PRN IVP HR>130 SUSTAINED MORE THAN 5 M 05/06/17 06:00 06/01/17 17:51 Morphine Sulfate (Morphine Sulfate) 4 mg Q4H PRN IVP MOD TO SEV BREAKTHROUGH PAIN 05/06/17 05:15 05/10/17 23:59 Norepinephrine Bitartrate 4 mg/ Dextrose 250 ml @ 0 mls/hr Q24H IV 05/06/17 02:00 06/05/17 01:59 Prochlorperazine (Compazine) 10 mg Q6H PRN IVP Nausea & Vomiting 05/06/17 05:00 05/31/17 10:59 Topiramate (Topamax) 25 mg Q12HR ORAL 05/06/17 09:00 06/03/17 20:59 05/06/17 09:46 Trazodone HCl (Desyrel) 150 mg BEDTIME ORAL 05/06/17 21:00 05/31/17 20:59 Vancomycin HCl (Vanco rx to dose) 1 ea DAILYPRN PRN MISC Per rx protocol 05/06/17 18:00 06/03/17 17:52 SCOOBY FERREIRA May 06, 2017 13:11
--- NOTE | 2017-05-06 14:51 | Cardiology Report ---
APPROVED REPORT EKG Measurement Heart [id number] Sinus tachycardia with premature ventricular complexes or fusion complexes Right atrial enlargement Right superior axis deviation Pulmonary disease pattern Abnormal ECG
--- NOTE | 2017-05-06 18:17 | Cardiology Progress Note ---
Assessment/Plan Assessment/Plan 1. Paroxysmal episodes of atrial fibrillation. 2. No evidence of epicardial coronary disease. 3. End-stage renal disease, on hemodialysis. 4. Septic shock. 5. Bacteremia. 6. Abdominal ventral hernia status post repair. has had recurrence of afib 1 time last ntei the other jsut on start of dialysis on po amiod will icnrease to 400 mg bid for nwo iv abx for bacteremia echo normal lv function catheter tip + for staph as well surveillance cx postitive may need further evaluation will d/w ID iv anticoagualtion when no procedure are planned Subjective Cardiovascular: Denies: chest pain, palpitations Respiratory: Denies: shortness of breath Gastrointestinal/Abdominal: Reports: abdominal pain Objective Last 24 Hour Vital Signs Date Time Temp Pulse Resp B/P (MAP) Pulse Ox O2 Delivery O2 Flow Rate FiO2 05/06/17 17:00 84 19 93/47 99 Nasal Cannula 3.0 05/06/17 16:00 98.9 88 19 101/45 100 Nasal Cannula 3.0 05/06/17 16:00 82 05/06/17 15:00 85 16 115/60 99 Nasal Cannula 3.0 05/06/17 14:00 82 18 120/57 100 Nasal Cannula 3.0 05/06/17 13:00 76 19 122/55 99 Nasal Cannula 3.0 05/06/17 12:00 85 05/06/17 12:00 99.0 79 22 110/58 100 Nasal Cannula 3.0 05/06/17 11:00 82 19 121/54 99 Nasal Cannula 3.0 05/06/17 10:00 83 20 130/59 99 Nasal Cannula 3.0 05/06/17 09:00 80 18 124/57 99 Nasal Cannula 3.0 05/06/17 09:00 79 98/53 05/06/17 08:59 Nasal Cannula 2.0 28 05/06/17 08:58 79 22 Nasal Cannula 2.0 28 05/06/17 08:58 100 Nasal Cannula 2.0 28 05/06/17 08:00 83 05/06/17 08:00 99.1 88 22 100/45 100 Nasal Cannula 3.0 05/06/17 07:00 77 20 98/53 99 Nasal Cannula 3.0 05/06/17 06:30 79 20 103/36 100 Nasal Cannula 3.0 05/06/17 06:00 80 21 110/47 100 Nasal Cannula 3.0 05/06/17 05:30 82 21 117/46 99 Nasal Cannula 3.0 05/06/17 05:00 85 21 141/47 99 Nasal Cannula 3.0 05/06/17 04:30 86 22 89/50 100 Nasal Cannula 3.0 05/06/17 04:00 99.5 88 22 106/46 100 Nasal Cannula 3.0 05/06/17 03:30 92 22 94/47 95 Nasal Cannula 3.0 05/06/17 03:00 95 25 95/43 95 Nasal Cannula 3.0 05/06/17 02:43 94 25 108/43 95 Nasal Cannula 3.0 05/06/17 02:30 104 25 90/45 95 Nasal Cannula 3.0 05/06/17 02:00 120/40 05/06/17 02:00 104 25 85/42 95 Nasal Cannula 3.0 05/06/17 01:30 104 25 85/41 95 Nasal Cannula 3.0 05/06/17 01:00 103 05/06/17 01:00 99.5 120 22 117/38 94 Nasal Cannula 3.0 05/06/17 00:45 136 20 111/56 95 Nasal Cannula 3.0 05/06/17 00:15 141 19 77/52 Nasal Cannula 3.0 05/06/17 00:00 139 05/06/17 00:00 100.2 133 20 76/43 Nasal Cannula 3.0 05/05/17 22:15 98.2 146 28 88/44 Nasal Cannula 3.0 05/05/17 22:15 Nasal Cannula 3.0 05/05/17 22:00 22 79/46 Nasal Cannula 2.0 05/05/17 20:09 Nasal Cannula 2.0 28 05/05/17 20:09 138 20 Nasal Cannula 2.0 28 05/05/17 20:09 97 Nasal Cannula 2.0 28 05/05/17 20:00 98.0 140 23 88/44 96 Nasal Cannula 2.0 05/05/17 20:00 97 General Appearance: no apparent distress Neck: supple Cardiovascular: regular rhythm Respiratory/Chest: lungs clear Abdomen: normal bowel sounds, non tender, soft Extremities: no swelling Intake and Output 05/05/17 05/06/17 19:00 07:00 Intake Total 0 ml Output Total 2000 ml Balance -2000 ml Intake Oral 0 ml Output Urine Total 0 ml Hemodialysis UF 2000 ml Laboratory Tests Test 05/06/17 05:35 White Blood Count 12.7 K/UL (4.8-10.8) H Red Blood Count 2.70 M/UL (4.20-5.40) L Hemoglobin 9.2 G/DL (12.0-16.0) L Hematocrit 28.1 % (37.0-47.0) L Mean Corpuscular Volume 104 FL (80-99) H Mean Corpuscular Hemoglobin 34.3 PG (27.0-31.0) H Mean Corpuscular Hemoglobin Concent 32.9 G/DL (32.0-36.0) Red Cell Distribution Width 13.8 % (11.6-14.8) Platelet Count 185 K/UL (150-450) Mean Platelet Volume 8.0 FL (6.5-10.1) Neutrophils (%) (Auto) 77.3 % (45.0-75.0) H Lymphocytes (%) (Auto) 12.0 % (20.0-45.0) L Monocytes (%) (Auto) 9.7 % (1.0-10.0) Eosinophils (%) (Auto) 0.4 % (0.0-3.0) Basophils (%) (Auto) 0.7 % (0.0-2.0) Sodium Level 137 MMOL/L (136-145) Potassium Level 4.2 MMOL/L (3.5-5.1) Chloride Level 100 MMOL/L (98-107) Carbon Dioxide Level 23 MMOL/L (21-32) Anion Gap 14 mmol/L (5-15) Blood Urea Nitrogen 41 mg/dL (7-18) H Creatinine 9.4 MG/DL (0.55-1.30) H Estimat Glomerular Filtration Rate 5.1 mL/min (>60) Glucose Level 102 MG/DL (74-106) Calcium Level 8.9 MG/DL (8.5-10.1) Total Bilirubin 1.0 MG/DL (0.2-1.0) Aspartate Amino Transf (AST/SGOT) 22 U/L (15-37) Alanine Aminotransferase (ALT/SGPT) 18 U/L (12-78) Alkaline Phosphatase 91 U/L (46-116) Troponin I 0.340 ng/mL (0.000-0.056) Total Protein 7.6 G/DL (6.4-8.2) Albumin 2.0 G/DL (3.4-5.0) L Globulin 5.6 g/dL Albumin/Globulin Ratio 0.4 (1.0-2.7) L Microbiology Date/Time Source Procedure Growth Status 05/04/17 12:45 Blood Blood Culture - Preliminary Staphylococcus Aureus Resulted 05/04/17 12:40 Blood Blood Culture - Preliminary Staphylococcus Aureus Resulted MATHEUS GATES May 06, 2017 18:17
[2017-05-06] MEDS: Dyna-Hex 2% Top Sol 2oz TOPIC SCH (19:57)
[2017-05-06] MEDS: TraZODone 50mg tab ORAL SCH (20:57)
[2017-05-07] VITALS (43 sets, daily range): BP systolic 73–117; BP diastolic 33–75
[2017-05-07 05:21] LABS: BASOPHILS % (AUTO) 0.6 % (0.0-2.0); EOSINOPHILS % (AUTO) 0.4 % (0.0-3.0); HEMATOCRIT 29.1 % (37.0-47.0); HEMOGLOBIN 9.6 G/DL (12.0-16.0); LYMPHOCYTES % (AUTO) 13.6 % (20.0-45.0); MEAN CORPUSCULAR VOLUME 103 FL (80-99); MONOCYTES % (AUTO) 8.6 % (1.0-10.0); NEUTROPHILS % (AUTO) 76.7 % (45.0-75.0); PLATELET COUNT 222 K/UL (150-450); RED BLOOD COUNT 2.83 M/UL (4.20-5.40); RED CELL DISTRIBUTION WIDTH 13.8 % (11.6-14.8); WHITE BLOOD COUNT 12.1 K/UL (4.8-10.8)
[2017-05-07 05:36] LABS: ALANINE AMINOTRANSFERASE 12 U/L (12-78); ALBUMIN 1.9 G/DL (3.4-5.0); ALBUMIN/GLOBULIN RATIO 0.3 (1.0-2.7); ALKALINE PHOSPHATASE 84 U/L (46-116); ANION GAP 17 mmol/L (5-15); ASPARTATE AMINO TRANSFERASE 17 U/L (15-37); BILIRUBIN,TOTAL 0.8 MG/DL (0.2-1.0); BLOOD UREA NITROGEN 61 mg/dL (7-18); CALCIUM 8.9 MG/DL (8.5-10.1); CARBON DIOXIDE 23 MMOL/L (21-32); CHLORIDE 99 MMOL/L (98-107); CREATININE 11.4 MG/DL (0.55-1.30); POTASSIUM 3.6 MMOL/L (3.5-5.1); SODIUM 139 MMOL/L (136-145)
[2017-05-07] MEDS: Metoprolol Succinate XL 25mg tab ORAL SCH (09:00)
[2017-05-07] MEDS: Amiodarone 200mg tab ORAL SCH ×2 (09:02→21:23)
[2017-05-07] MEDS: Aspirin Baby 81mg ORAL SCH (09:02)
[2017-05-07] MEDS: Eliquis 2.5mg tablet ORAL SCH ×2 (09:02→21:24)
[2017-05-07] MEDS: Sensipar 30mg Tab ORAL SCH (09:03)
[2017-05-07] MEDS: Topiramate 25mg tab ORAL SCH ×2 (09:03→21:27)
[2017-05-07] MEDS: BusPIRone 5mg Tab ORAL SCH ×2 (09:03→16:52)
--- NOTE | 2017-05-07 09:07 | Pulmonolgy Critical Care Note ---
Critical Care - Asmt/Plan Assessment/Plan: 1. Septic shock, due to staph aureus bacteremia 2. Respiratory insufficiency. 3. Rapid AF, better 4. End-stage renal disease, on dialysis. 5. abdominal hernia with ulceration x2 with visible mesh, foul odor 6. Decubitus ulcer. 7. Depression. 8. Seizure disorder. 9. Dialysis catheter infection, removed 10. Chronic obstructive pulmonary disease. HD/UF montior BP, pressors for map less than 65 mmhg dvt proplyaxis abs fu cultures wound care is fu labs ICU for now Greater than 35 minutes of critical care time, reviewign transfer to ICu, exam and documentation and discussing with staff and plan for the day Respiratory: CXR Cardiac: continue to monitor HR/BP Infectious Disease: check cultures, continue antibiotics Endocrine: monitor blood sugar Disposition: keep in ICU Time Spent (Minutes): 40 Notes Reviewed: shipping and receiving clerk Discussed with: nurses Critical Care - Objective Last 24 Hour Vital Signs Date Time Temp Pulse Resp B/P (MAP) Pulse Ox O2 Delivery O2 Flow Rate FiO2 05/07/17 06:00 90 23 97/56 99 Nasal Cannula 3.0 05/07/17 05:00 90 23 97/56 99 Nasal Cannula 3.0 05/07/17 04:00 98.0 90 23 90/56 99 Nasal Cannula 3.0 05/07/17 04:00 87 05/07/17 03:00 90 23 90/56 99 Nasal Cannula 3.0 05/07/17 02:00 90/74 05/07/17 02:00 82 23 98/40 99 Nasal Cannula 3.0 05/07/17 01:00 90 23 91/41 99 Nasal Cannula 3.0 05/07/17 00:00 88 05/07/17 00:00 98.5 82 23 88/56 99 Nasal Cannula 3.0 05/06/17 23:00 90 23 98/47 99 Nasal Cannula 3.0 05/06/17 22:00 88 23 88/56 99 Nasal Cannula 3.0 05/06/17 21:00 90 23 88/56 99 Nasal Cannula 3.0 05/06/17 20:00 89 05/06/17 20:00 98.5 90 23 88/56 99 Nasal Cannula 3.0 05/06/17 19:00 85 18 100/50 99 Nasal Cannula 3.0 05/06/17 18:00 82 18 94/51 99 Nasal Cannula 3.0 05/06/17 17:00 84 19 93/47 99 Nasal Cannula 3.0 05/06/17 16:00 98.9 88 19 101/45 100 Nasal Cannula 3.0 05/06/17 16:00 82 05/06/17 15:00 85 16 115/60 99 Nasal Cannula 3.0 05/06/17 14:00 82 18 120/57 100 Nasal Cannula 3.0 05/06/17 13:00 76 19 122/55 99 Nasal Cannula 3.0 05/06/17 12:00 85 05/06/17 12:00 99.0 79 22 110/58 100 Nasal Cannula 3.0 05/06/17 11:00 82 19 121/54 99 Nasal Cannula 3.0 05/06/17 10:00 83 20 130/59 99 Nasal Cannula 3.0 Status: awake Condition: critical, improving Lungs: rales Heart: HR/BP unstable Abdomen: soft, non-tender Extremities: no C/C/E Decubiti: location Micro: Microbiology Date/Time Source Procedure Growth Status 05/04/17 12:45 Blood Blood Culture - Final Staphylococcus Aureus - Mrsa Complete 05/04/17 12:40 Blood Blood Culture - Final Staphylococcus Aureus - Mrsa Complete 05/06/17 20:00 Stool Clostridium difficile Toxin Assay - Final Complete Accucheck: 189 Blood Sugars: BS not controlled Critical Care - Subjective Condition: improving EKG Rhythm: Sinus Rhythm FI02: 28 Sputum Amount: None I&O: Intake and Output 05/06/17 05/07/17 19:00 07:00 Intake Total 0 ml 0 ml Output Total 0 ml 0 ml Balance 0 ml 0 ml Intake Oral 0 ml 0 ml Output Urine Total 0 ml 0 ml # Voids 1 # Bowel Movements 2 Subjective: BETTER THIS AM Transfered post HD for hypotension did not require presors over night folloes commands adn no FND noted no cp nv or bleeding no fever at this time hungry and wants breakfast currently not n IVF CXR: 05/05 CHF VS INFILTRATES Labs: Current Medications Medications (Trade) Dose Ordered Sig/Jeff Route PRN Reason Start Time Stop Time Status Last Admin Dose Admin Acetaminophen (Tylenol) 650 mg Q4H PRN ORAL Mild Pain (Pain Scale 1-3) 05/06/17 02:00 05/31/17 17:59 Acetaminophen/ Hydrocodone Bitart ([place] 5/325) 1 tab Q6H PRN ORAL Moderate Pain 05/06/17 06:00 05/08/17 17:52 Amiodarone HCl (Cordarone) 400 mg EVERY 12 HOURS ORAL 05/06/17 09:00 06/04/17 19:59 05/06/17 20:56 Apixaban (Eliquis) 5 mg BID ORAL 05/06/17 09:00 06/05/17 08:59 05/06/17 09:47 Aspirin (ASA) 81 mg DAILY ORAL 05/06/17 09:00 06/03/17 17:59 05/06/17 09:46 Buspirone HCl (Buspar) 15 mg TWICE A DAY ORAL 05/06/17 09:00 05/31/17 08:59 05/06/17 09:46 Chlorhexidine Gluconate (Majo-Hex 2%) 1 applic DAILY@2000 TOPIC 05/06/17 20:00 06/01/17 19:59 05/06/17 19:57 Cinacalcet (Sensipar) 30 mg DAILY ORAL 05/06/17 09:00 05/31/17 08:59 05/06/17 09:46 Dextrose (Dextrose 50%) STAT PRN IV Hypoglycemia 05/06/17 18:00 06/03/17 17:59 Gabapentin (Neurontin) 300 mg BEDTIME ORAL 05/06/17 21:00 05/31/17 20:59 05/06/17 20:57 Hydromorphone HCl (Dilaudid) 2 mg Q4H PRN IVP Severe Pain (Pain Scale 7-10) 05/06/17 02:00 05/08/17 17:52 Lorazepam (Ativan 2mg/ml 1ml) 0.5 mg Q4H PRN IV For Anxiety 05/06/17 02:00 05/08/17 17:51 Metoprolol Succinate (Toprol XL) 25 mg DAILY ORAL 05/06/17 09:00 06/01/17 08:59 Metoprolol Tartrate (Lopressor) 5 mg Q6H PRN IVP HR>130 SUSTAINED MORE THAN 5 M 05/06/17 06:00 06/01/17 17:51 Morphine Sulfate (Morphine Sulfate) 4 mg Q4H PRN IVP MOD TO SEV BREAKTHROUGH PAIN 05/06/17 05:15 05/10/17 23:59 Norepinephrine Bitartrate 4 mg/ Dextrose 250 ml @ 0 mls/hr Q24H IV 05/06/17 02:00 06/05/17 01:59 Prochlorperazine (Compazine) 10 mg Q6H PRN IVP Nausea & Vomiting 05/06/17 05:00 05/31/17 10:59 Topiramate (Topamax) 25 mg Q12HR ORAL 05/06/17 09:00 06/03/17 20:59 05/06/17 20:57 Trazodone HCl (Desyrel) 150 mg BEDTIME ORAL 05/06/17 21:00 05/31/17 20:59 05/06/17 20:57 Vancomycin HCl (Vanco rx to dose) 1 ea DAILYPRN PRN MISC Per rx protocol 05/06/17 18:00 06/03/17 17:52 Laboratory Tests Test 05/07/17 04:05 White Blood Count 12.1 K/UL (4.8-10.8) H Red Blood Count 2.83 M/UL (4.20-5.40) L Hemoglobin 9.6 G/DL (12.0-16.0) L Hematocrit 29.1 % (37.0-47.0) L Mean Corpuscular Volume 103 FL (80-99) H Mean Corpuscular Hemoglobin 33.9 PG (27.0-31.0) H Mean Corpuscular Hemoglobin Concent 33.0 G/DL (32.0-36.0) Red Cell Distribution Width 13.8 % (11.6-14.8) Platelet Count 222 K/UL (150-450) Mean Platelet Volume 6.7 FL (6.5-10.1) Neutrophils (%) (Auto) 76.7 % (45.0-75.0) H Lymphocytes (%) (Auto) 13.6 % (20.0-45.0) L Monocytes (%) (Auto) 8.6 % (1.0-10.0) Eosinophils (%) (Auto) 0.4 % (0.0-3.0) Basophils (%) (Auto) 0.6 % (0.0-2.0) Sodium Level 139 MMOL/L (136-145) Potassium Level 3.6 MMOL/L (3.5-5.1) Chloride Level 99 MMOL/L (98-107) Carbon Dioxide Level 23 MMOL/L (21-32) Anion Gap 17 mmol/L (5-15) H Blood Urea Nitrogen 61 mg/dL (7-18) H Creatinine 11.4 MG/DL (0.55-1.30) H Estimat Glomerular Filtration Rate 4.1 mL/min (>60) Glucose Level 96 MG/DL (74-106) Calcium Level 8.9 MG/DL (8.5-10.1) Total Bilirubin 0.8 MG/DL (0.2-1.0) Aspartate Amino Transf (AST/SGOT) 17 U/L (15-37) Alanine Aminotransferase (ALT/SGPT) 12 U/L (12-78) Alkaline Phosphatase 84 U/L (46-116) Total Protein 7.6 G/DL (6.4-8.2) Albumin 1.9 G/DL (3.4-5.0) L Globulin 5.7 g/dL Albumin/Globulin Ratio 0.3 (1.0-2.7) L Random Vancomycin Level 19.8 ug/mL NIKOS BELL DO May 07, 2017 09:07
[2017-05-07] MEDS ORDERED: Digoxin 0.5mg/2ml Inj IVP ONE (11:00)
--- NOTE | 2017-05-07 11:12 | Infectious Diseases Prog Note ---
Assessment/Plan Assessment/Plan antibiotics : vancomycin iv A 1. MRSA persistent sepsis s/p catheter removal 2. renal failure 3. septic shock 4. COPD 5. atrial fibrillation P 1. continue iv vancomycin 2. consider rifampin or daptomycin 3. will follow up cultures Subjective ROS Limited/Unobtainable: Yes Allergies: Coded Allergies: No Known Allergies (Unverified , 12/04/15) Objective Vital Signs Last 24 Hour Vital Signs Date Time Temp Pulse Resp B/P (MAP) Pulse Ox O2 Delivery O2 Flow Rate FiO2 05/07/17 11:02 131 05/07/17 11:00 131 21 83/57 99 Nasal Cannula 3.0 05/07/17 10:00 123 20 95/45 100 Nasal Cannula 3.0 05/07/17 09:00 117 22 92/46 99 Nasal Cannula 3.0 05/07/17 09:00 127 92/46 05/07/17 08:00 88 05/07/17 08:00 98.8 129 20 73/43 97 Nasal Cannula 3.0 05/07/17 07:00 86 23 93/57 98 Nasal Cannula 3.0 05/07/17 06:39 100 Nasal Cannula 2.0 28 05/07/17 06:39 86 24 Nasal Cannula 2.0 28 05/07/17 06:39 Nasal Cannula 2.0 28 05/07/17 06:00 90 23 97/56 99 Nasal Cannula 3.0 05/07/17 05:00 90 23 97/56 99 Nasal Cannula 3.0 05/07/17 04:00 98.0 90 23 90/56 99 Nasal Cannula 3.0 05/07/17 04:00 87 05/07/17 03:00 90 23 90/56 99 Nasal Cannula 3.0 05/07/17 02:00 90/74 05/07/17 02:00 82 23 98/40 99 Nasal Cannula 3.0 05/07/17 01:00 90 23 91/41 99 Nasal Cannula 3.0 05/07/17 00:00 88 05/07/17 00:00 98.5 82 23 88/56 99 Nasal Cannula 3.0 05/06/17 23:00 90 23 98/47 99 Nasal Cannula 3.0 05/06/17 22:00 88 23 88/56 99 Nasal Cannula 3.0 05/06/17 21:00 90 23 88/56 99 Nasal Cannula 3.0 05/06/17 20:00 89 05/06/17 20:00 98.5 90 23 88/56 99 Nasal Cannula 3.0 05/06/17 19:00 85 18 100/50 99 Nasal Cannula 3.0 05/06/17 18:00 82 18 94/51 99 Nasal Cannula 3.0 05/06/17 17:00 84 19 93/47 99 Nasal Cannula 3.0 05/06/17 16:00 98.9 88 19 101/45 100 Nasal Cannula 3.0 05/06/17 16:00 82 05/06/17 15:00 85 16 115/60 99 Nasal Cannula 3.0 05/06/17 14:00 82 18 120/57 100 Nasal Cannula 3.0 05/06/17 13:00 76 19 122/55 99 Nasal Cannula 3.0 05/06/17 12:00 85 05/06/17 12:00 99.0 79 22 110/58 100 Nasal Cannula 3.0 Height (Feet): 5 Height (Inches): 4.00 Weight (Pounds): 210 Respiratory/Chest: lungs clear Cardiovascular: normal rate, regular rhythm, no gallop/murmur Abdomen: soft, non tender, other - in dressings Extremities: no edema, other - left IJ catheter Microbiology Date/Time Source Procedure Growth Status 05/04/17 12:45 Blood Blood Culture - Final Staphylococcus Aureus - Mrsa Complete 05/04/17 12:40 Blood Blood Culture - Final Staphylococcus Aureus - Mrsa Complete 05/06/17 20:00 Stool Clostridium difficile Toxin Assay - Final Complete Laboratory Tests Test 05/07/17 04:05 White Blood Count 12.1 K/UL (4.8-10.8) H Red Blood Count 2.83 M/UL (4.20-5.40) L Hemoglobin 9.6 G/DL (12.0-16.0) L Hematocrit 29.1 % (37.0-47.0) L Mean Corpuscular Volume 103 FL (80-99) H Mean Corpuscular Hemoglobin 33.9 PG (27.0-31.0) H Mean Corpuscular Hemoglobin Concent 33.0 G/DL (32.0-36.0) Red Cell Distribution Width 13.8 % (11.6-14.8) Platelet Count 222 K/UL (150-450) Mean Platelet Volume 6.7 FL (6.5-10.1) Neutrophils (%) (Auto) 76.7 % (45.0-75.0) H Lymphocytes (%) (Auto) 13.6 % (20.0-45.0) L Monocytes (%) (Auto) 8.6 % (1.0-10.0) Eosinophils (%) (Auto) 0.4 % (0.0-3.0) Basophils (%) (Auto) 0.6 % (0.0-2.0) Sodium Level 139 MMOL/L (136-145) Potassium Level 3.6 MMOL/L (3.5-5.1) Chloride Level 99 MMOL/L (98-107) Carbon Dioxide Level 23 MMOL/L (21-32) Anion Gap 17 mmol/L (5-15) H Blood Urea Nitrogen 61 mg/dL (7-18) H Creatinine 11.4 MG/DL (0.55-1.30) H Estimat Glomerular Filtration Rate 4.1 mL/min (>60) Glucose Level 96 MG/DL (74-106) Calcium Level 8.9 MG/DL (8.5-10.1) Total Bilirubin 0.8 MG/DL (0.2-1.0) Aspartate Amino Transf (AST/SGOT) 17 U/L (15-37) Alanine Aminotransferase (ALT/SGPT) 12 U/L (12-78) Alkaline Phosphatase 84 U/L (46-116) Total Protein 7.6 G/DL (6.4-8.2) Albumin 1.9 G/DL (3.4-5.0) L Globulin 5.7 g/dL Albumin/Globulin Ratio 0.3 (1.0-2.7) L Random Vancomycin Level 19.8 ug/mL JOAN COLLIER May 07, 2017 11:12
--- NOTE | 2017-05-07 14:08 | Cardiology Progress Note ---
Assessment/Plan Assessment/Plan 1. Paroxysmal episodes of atrial fibrillation. 2. No evidence of epicardial coronary disease. 3. End-stage renal disease, on hemodialysis. 4. Septic shock. 5. Bacteremia. 6. Abdominal ventral hernia status post repair. has had recurrence of afib 1 time last ntei the other jsut on start of dialysis on po amiod will icnrease to 400 mg bid for nwo iv abx for bacteremia echo normal lv function catheter tip + for staph as well surveillance cx postitive may need further evaluation will d/w ID eliquis 2.5 bid for nwo d/w dr michel Subjective ROS Limited/Unobtainable: Yes Subjective on dialysis Objective Last 24 Hour Vital Signs Date Time Temp Pulse Resp B/P (MAP) Pulse Ox O2 Delivery O2 Flow Rate FiO2 05/07/17 12:45 96 13 80/49 99 Nasal Cannula 3.0 05/07/17 12:30 90 16 85/40 99 Nasal Cannula 3.0 05/07/17 12:15 112 14 76/42 99 Nasal Cannula 3.0 05/07/17 12:00 98.0 111 20 82/49 98 Nasal Cannula 3.0 05/07/17 12:00 18 05/07/17 11:58 78/52 05/07/17 11:54 98.8 05/07/17 11:24 98.2 05/07/17 11:02 131 05/07/17 11:00 131 21 83/57 99 Nasal Cannula 3.0 05/07/17 10:00 123 20 95/45 100 Nasal Cannula 3.0 05/07/17 09:00 117 22 92/46 99 Nasal Cannula 3.0 05/07/17 09:00 127 92/46 05/07/17 08:00 88 05/07/17 08:00 98.8 129 20 73/43 97 Nasal Cannula 3.0 05/07/17 07:00 86 23 93/57 98 Nasal Cannula 3.0 05/07/17 06:39 100 Nasal Cannula 2.0 28 05/07/17 06:39 86 24 Nasal Cannula 2.0 28 05/07/17 06:39 Nasal Cannula 2.0 28 05/07/17 06:00 90 23 97/56 99 Nasal Cannula 3.0 05/07/17 05:00 90 23 97/56 99 Nasal Cannula 3.0 05/07/17 04:00 98.0 90 23 90/56 99 Nasal Cannula 3.0 05/07/17 04:00 87 05/07/17 03:00 90 23 90/56 99 Nasal Cannula 3.0 05/07/17 02:00 90/74 05/07/17 02:00 82 23 98/40 99 Nasal Cannula 3.0 05/07/17 01:00 90 23 91/41 99 Nasal Cannula 3.0 05/07/17 00:00 88 05/07/17 00:00 98.5 82 23 88/56 99 Nasal Cannula 3.0 05/06/17 23:00 90 23 98/47 99 Nasal Cannula 3.0 05/06/17 22:00 88 23 88/56 99 Nasal Cannula 3.0 05/06/17 21:00 90 23 88/56 99 Nasal Cannula 3.0 05/06/17 20:00 89 05/06/17 20:00 98.5 90 23 88/56 99 Nasal Cannula 3.0 05/06/17 19:00 85 18 100/50 99 Nasal Cannula 3.0 05/06/17 18:00 82 18 94/51 99 Nasal Cannula 3.0 05/06/17 17:00 84 19 93/47 99 Nasal Cannula 3.0 05/06/17 16:00 98.9 88 19 101/45 100 Nasal Cannula 3.0 05/06/17 16:00 82 05/06/17 15:00 85 16 115/60 99 Nasal Cannula 3.0 General Appearance: no apparent distress, obese, patient on isolation Neck: supple Cardiovascular: tachycardia, irregularly irregular Respiratory/Chest: lungs clear - ant Abdomen: normal bowel sounds, soft Extremities: no swelling Intake and Output 05/06/17 05/07/17 19:00 07:00 Intake Total 0 ml 0 ml Output Total 0 ml 0 ml Balance 0 ml 0 ml Intake Oral 0 ml 0 ml Output Urine Total 0 ml 0 ml # Voids 1 # Bowel Movements 2 Laboratory Tests Test 05/07/17 04:05 White Blood Count 12.1 K/UL (4.8-10.8) H Red Blood Count 2.83 M/UL (4.20-5.40) L Hemoglobin 9.6 G/DL (12.0-16.0) L Hematocrit 29.1 % (37.0-47.0) L Mean Corpuscular Volume 103 FL (80-99) H Mean Corpuscular Hemoglobin 33.9 PG (27.0-31.0) H Mean Corpuscular Hemoglobin Concent 33.0 G/DL (32.0-36.0) Red Cell Distribution Width 13.8 % (11.6-14.8) Platelet Count 222 K/UL (150-450) Mean Platelet Volume 6.7 FL (6.5-10.1) Neutrophils (%) (Auto) 76.7 % (45.0-75.0) H Lymphocytes (%) (Auto) 13.6 % (20.0-45.0) L Monocytes (%) (Auto) 8.6 % (1.0-10.0) Eosinophils (%) (Auto) 0.4 % (0.0-3.0) Basophils (%) (Auto) 0.6 % (0.0-2.0) Sodium Level 139 MMOL/L (136-145) Potassium Level 3.6 MMOL/L (3.5-5.1) Chloride Level 99 MMOL/L (98-107) Carbon Dioxide Level 23 MMOL/L (21-32) Anion Gap 17 mmol/L (5-15) H Blood Urea Nitrogen 61 mg/dL (7-18) H Creatinine 11.4 MG/DL (0.55-1.30) H Estimat Glomerular Filtration Rate 4.1 mL/min (>60) Glucose Level 96 MG/DL (74-106) Calcium Level 8.9 MG/DL (8.5-10.1) Total Bilirubin 0.8 MG/DL (0.2-1.0) Aspartate Amino Transf (AST/SGOT) 17 U/L (15-37) Alanine Aminotransferase (ALT/SGPT) 12 U/L (12-78) Alkaline Phosphatase 84 U/L (46-116) Total Protein 7.6 G/DL (6.4-8.2) Albumin 1.9 G/DL (3.4-5.0) L Globulin 5.7 g/dL Albumin/Globulin Ratio 0.3 (1.0-2.7) L Random Vancomycin Level 19.8 ug/mL Microbiology Date/Time Source Procedure Growth Status 05/06/17 20:00 Stool Clostridium difficile Toxin Assay - Final Complete MATHEUS GATESb 17, 2018 14:08
--- NOTE | 2017-05-07 14:24 | Nephrology Progress Note ---
Assessment/Plan Problem List: (1) Septic shock (2) Secondary hyperparathyroidism (of renal origin) (3) HTN (hypertension) (4) ESRD (end stage renal disease) on dialysis (5) Gram-positive bacteremia Assessment: Staph Aureus Plan HD as tolerated IV Abxs follow labs Discussed with RN discussed with dr ortiz Subjective Subjective seen in ICU Objective Objective Last 24 Hour Vital Signs Date Time Temp Pulse Resp B/P (MAP) Pulse Ox O2 Delivery O2 Flow Rate FiO2 05/07/17 13:30 97.7 124 20 82/49 Nasal Cannula 2.0 05/07/17 12:45 96 13 80/49 99 Nasal Cannula 3.0 05/07/17 12:30 90 16 85/40 99 Nasal Cannula 3.0 05/07/17 12:15 112 14 76/42 99 Nasal Cannula 3.0 05/07/17 12:00 98.0 111 20 82/49 98 Nasal Cannula 3.0 05/07/17 12:00 18 05/07/17 11:58 78/52 05/07/17 11:54 98.8 05/07/17 11:24 98.2 05/07/17 11:02 131 05/07/17 11:00 131 21 83/57 99 Nasal Cannula 3.0 05/07/17 10:00 123 20 95/45 100 Nasal Cannula 3.0 05/07/17 09:00 117 22 92/46 99 Nasal Cannula 3.0 05/07/17 09:00 127 92/46 05/07/17 08:00 88 05/07/17 08:00 98.8 129 20 73/43 97 Nasal Cannula 3.0 05/07/17 07:00 86 23 93/57 98 Nasal Cannula 3.0 05/07/17 06:39 100 Nasal Cannula 2.0 28 05/07/17 06:39 86 24 Nasal Cannula 2.0 28 05/07/17 06:39 Nasal Cannula 2.0 28 05/07/17 06:00 90 23 97/56 99 Nasal Cannula 3.0 05/07/17 05:00 90 23 97/56 99 Nasal Cannula 3.0 05/07/17 04:00 98.0 90 23 90/56 99 Nasal Cannula 3.0 05/07/17 04:00 87 05/07/17 03:00 90 23 90/56 99 Nasal Cannula 3.0 05/07/17 02:00 90/74 05/07/17 02:00 82 23 98/40 99 Nasal Cannula 3.0 05/07/17 01:00 90 23 91/41 99 Nasal Cannula 3.0 05/07/17 00:00 88 05/07/17 00:00 98.5 82 23 88/56 99 Nasal Cannula 3.0 05/06/17 23:00 90 23 98/47 99 Nasal Cannula 3.0 05/06/17 22:00 88 23 88/56 99 Nasal Cannula 3.0 05/06/17 21:00 90 23 88/56 99 Nasal Cannula 3.0 05/06/17 20:00 89 05/06/17 20:00 98.5 90 23 88/56 99 Nasal Cannula 3.0 05/06/17 19:00 85 18 100/50 99 Nasal Cannula 3.0 05/06/17 18:00 82 18 94/51 99 Nasal Cannula 3.0 05/06/17 17:00 84 19 93/47 99 Nasal Cannula 3.0 05/06/17 16:00 98.9 88 19 101/45 100 Nasal Cannula 3.0 05/06/17 16:00 82 05/06/17 15:00 85 16 115/60 99 Nasal Cannula 3.0 Intake and Output 05/06/17 05/07/17 19:00 07:00 Intake Total 0 ml 0 ml Output Total 0 ml 0 ml Balance 0 ml 0 ml Intake Oral 0 ml 0 ml Output Urine Total 0 ml 0 ml # Voids 1 # Bowel Movements 2 Laboratory Tests 05/07/17 04:05: White Blood Count 12.1H, Red Blood Count 2.83L, Hemoglobin 9.6L, Hematocrit 29.1L, Mean Corpuscular Volume 103H, Mean Corpuscular Hemoglobin 33.9H, Mean Corpuscular Hemoglobin Concent 33.0, Red Cell Distribution Width 13.8, Platelet Count 222, Mean Platelet Volume 6.7, Neutrophils (%) (Auto) 76.7H, Lymphocytes ( %) (Auto) 13.6L, Monocytes (%) (Auto) 8.6, Eosinophils (%) (Auto) 0.4, Basophils (%) (Auto) 0.6, Sodium Level 139, Potassium Level 3.6, Chloride Level 99, Carbon Dioxide Level 23, Anion Gap 17H, Blood Urea Nitrogen 61H, Creatinine 11.4H, Estimat Glomerular Filtration Rate 4.1, Glucose Level 96, Calcium Level 8.9, Total Bilirubin 0.8, Aspartate Amino Transf (AST/SGOT) 17, Alanine Aminotransferase (ALT/SGPT) 12, Alkaline Phosphatase 84, Total Protein 7.6, Albumin 1.9L, Globulin 5.7, Albumin/Globulin Ratio 0.3L, Random Vancomycin Level 19.8 Height (Feet): 5 Height (Inches): 4.00 Weight (Pounds): 210 Cardiovascular: regularly irregular Respiratory/Chest: lungs clear NEAN FERREIRA May 07, 2017 14:24
[2017-05-07] MEDS: Morphine Sulfate 4mg/ml Inj IVP PRN (16:53)
[2017-05-07] MEDS ORDERED: Tubing Blood Filter IV ONE (17:33)
[2017-05-07] MEDS ORDERED: D5W 275ml ONE (17:33)
[2017-05-07] MEDS ORDERED: Vancomycin 1gm/D5W 275ml IVPB ONE ×2 (20:00)
[2017-05-07] MEDS: Dyna-Hex 2% Top Sol 2oz TOPIC SCH (20:24)
[2017-05-07] MEDS: TraZODone 50mg tab ORAL SCH (21:24)
[2017-05-07] MEDS: LORazepam Inj 2mg/ml 1ml IV PRN (22:18)
[2017-05-08] VITALS (51 sets, daily range): BP systolic 81–114; BP diastolic 38–60
[2017-05-08] MEDS: LORazepam Inj 2mg/ml 1ml IV PRN (05:23)
[2017-05-08 08:55] LABS: BASOPHILS % (AUTO) 0.3 % (0.0-2.0); EOSINOPHILS % (AUTO) 0.3 % (0.0-3.0); HEMATOCRIT 24.7 % (37.0-47.0); LYMPHOCYTES % (AUTO) 18.6 % (20.0-45.0); MEAN CORPUSCULAR VOLUME 107 FL (80-99); MONOCYTES % (AUTO) 11.2 % (1.0-10.0); NEUTROPHILS % (AUTO) 69.7 % (45.0-75.0); PLATELET COUNT 253 K/UL (150-450); RED BLOOD COUNT 2.32 M/UL (4.20-5.40); RED CELL DISTRIBUTION WIDTH 14.6 % (11.6-14.8); WHITE BLOOD COUNT 17.4 K/UL (4.8-10.8)
--- NOTE | 2017-05-08 08:59 | Infectious Diseases Prog Note ---
Assessment/Plan Assessment/Plan A Septic shock resolved HD line infection MRSA sepsis Persistent MRSE bacteremia ESRD on HD Morbid obesity COPD Atrial fibrillation P; Change Vancomycin to Daptomycin will f/u blood cultures case was D/W microbiologist there is no disc for checking Daptomycin sensitivity Case was D/W pharmacy Subjective ROS Limited/Unobtainable: Yes Allergies: Coded Allergies: No Known Allergies (Unverified , 12/04/15) Objective Vital Signs Last 24 Hour Vital Signs Date Time Temp Pulse Resp B/P (MAP) Pulse Ox O2 Delivery O2 Flow Rate FiO2 05/08/17 08:30 130 20 102/53 100 Nasal Cannula 3.0 05/08/17 08:00 128 05/08/17 08:00 128 22 93/51 99 Nasal Cannula 3.0 05/08/17 07:30 98.5 128 25 105/44 100 Nasal Cannula 3.0 05/08/17 07:00 77/60 05/08/17 07:00 125 22 113/50 99 Nasal Cannula 3.0 05/08/17 06:48 Nasal Cannula 2.0 28 05/08/17 06:48 130 26 Nasal Cannula 3.0 28 05/08/17 06:48 100 Nasal Cannula 2.0 28 05/08/17 06:30 126 22 88/48 99 Nasal Cannula 3.0 05/08/17 06:00 128 22 105/56 99 Nasal Cannula 3.0 05/08/17 06:00 88/48 218 05:30 131 23 110/56 99 Nasal Cannula 3.0 05/08/17 05:00 131 23 114/52 96 Nasal Cannula 3.0 05/08/17 05:00 114/52 18 04:30 123 23 99/42 100 Nasal Cannula 3.0 05/08/17 04:00 98.0 127 25 100/46 100 Nasal Cannula 3.0 05/08/17 04:00 90/46 218 04:00 122 18 03:30 126 24 100/53 100 Nasal Cannula 3.0 18 03:00 93/53 218 03:00 126 24 93/53 95 Nasal Cannula 3.0 05/08/17 02:30 125 25 100/45 95 Nasal Cannula 3.0 05/08/17 02:00 97/47 2/18/18 02:00 128 26 97/47 95 Nasal Cannula 3.0 218/18 01:30 128 21 82/48 95 Nasal Cannula 3.0 18 01:00 87/40 218/18 01:00 127 21 87/40 95 Nasal Cannula 3.0 18/18 00:30 128 21 81/45 95 Nasal Cannula 3.0 18 00:00 98.2 129 21 90/54 95 Nasal Cannula 3.0 18 00:00 124 218 00:00 90/54 05/07/18 23:30 129 21 84/66 95 Nasal Cannula 3.0 05/07/17 23:00 128 21 100/51 95 Nasal Cannula 3.0 05/07/17 23:00 110/47 05/07/ 22:30 128 22 96/51 95 Nasal Cannula 3.0 05/07/17 22:00 134 22 97/48 97 Nasal Cannula 3.0 05/07/17 22:00 97/48 05/07/17 21:30 130 22 110/52 97 Nasal Cannula 3.0 05/07/17 21:00 113/60 2/18 21:00 130 22 113/60 96 Nasal Cannula 3.0 05/07/17 20:30 111 22 117/64 96 Nasal Cannula 3.0 05/07/17 20:00 98.2 129 22 101/57 93 Nasal Cannula 3.0 18 20:00 101/57 05/07/18 19:42 Nasal Cannula 2.0 28 05/07/18 19:42 98 Nasal Cannula 2.0 28 05/07/18 19:41 93 23 Nasal Cannula 2.0 28 05/07/18 19:00 125 21 104/54 93 Nasal Cannula 3.0 05/07/18 18:45 122 22 82/43 94 Nasal Cannula 3.0 05/07/18 18:30 129 22 89/52 95 Nasal Cannula 3.0 05/07/18 18:15 125 22 82/45 96 Nasal Cannula 3.0 05/07/18 18:00 111 22 101/49 98 Nasal Cannula 3.0 05/07/18 18:00 101/49 05/07/18 17:45 98.4 127 20 76/43 Nasal Cannula 2.0 2/17/18 17:30 131 22 78/33 98 Nasal Cannula 3.0 18 17:23 98.4 218 17:15 132 22 82/45 98 Nasal Cannula 3.0 18 17:00 131 22 82/45 98 Nasal Cannula 3.0 18 17:00 78/33 2/18 16:53 98.8 18 16:45 115 19 82/45 98 Nasal Cannula 3.0 05/07/17 16:30 134 21 111/48 98 Nasal Cannula 3.0 05/07/17 16:16 Nasal Cannula 2.0 05/07/17 16:15 120 20 111/48 98 Nasal Cannula 3.0 05/07/17 16:14 98.6 133 20 96/56 Nasal Cannula 2.0 05/07/17 16:00 98.4 131 19 107/60 Nasal Cannula 2.0 05/07/17 16:00 99/49 18 16:00 88 18 15:31 133 18 15:00 132 15 111/47 98 Nasal Cannula 3.0 18 15:00 111/47 18 14:00 133 15 80/45 98 Nasal Cannula 3.0 05/07/17 14:00 80/45 18 13:30 97.7 124 20 82/49 Nasal Cannula 2.0 05/07/17 13:30 133 15 109/75 98 Nasal Cannula 3.0 05/07/17 13:15 101 13 84/39 99 Nasal Cannula 3.0 05/07/17 13:00 80/49 18 13:00 99 14 107/49 98 Nasal Cannula 3.0 05/07/17 12:45 96 13 80/49 99 Nasal Cannula 3.0 05/07/17 12:30 Nasal Cannula 2.0 18 12:30 90 16 85/40 99 Nasal Cannula 3.0 18 12:15 112 14 76/42 99 Nasal Cannula 3.0 05/07/17 12:00 98.0 111 20 82/49 98 Nasal Cannula 3.0 05/07/17 12:00 117 18 11:58 78/52 18 11:54 98.8 05/07/17 11:24 98.2 05/07/17 11:02 131 05/07/17 11:00 131 21 83/57 99 Nasal Cannula 3.0 05/07/17 10:00 123 20 95/45 100 Nasal Cannula 3.0 05/07/17 09:00 117 22 92/46 99 Nasal Cannula 3.0 05/07/17 09:00 127 92/46 Height (Feet): 5 Height (Inches): 4.00 Weight (Pounds): 205 HEENT: mucous membranes moist Respiratory/Chest: lungs clear, other - tachypneic Cardiovascular: tachycardia, other - left IJ HD Abdomen: soft, non tender, other - ventral hernia, suferfical ulcers with exposed mesh Extremities: no edema Neurologic/Psychiatric: other - sleeping Microbiology Date/Time Source Procedure Growth Status 05/06/17 16:15 Blood Blood Culture - Preliminary Staphylococcus Aureus Resulted 05/06/17 16:10 Blood Blood Culture - Preliminary Staphylococcus Aureus Resulted 05/06/17 20:00 Stool Clostridium difficile Toxin Assay - Final Complete Laboratory Tests Test 05/08/17 08:30 White Blood Count Pending Red Blood Count Pending Hemoglobin Pending Hematocrit Pending Mean Corpuscular Volume Pending Mean Corpuscular Hemoglobin Pending Mean Corpuscular Hemoglobin Concent Pending Red Cell Distribution Width Pending Platelet Count Pending Mean Platelet Volume Pending Neutrophils (%) (Auto) Pending Lymphocytes (%) (Auto) Pending Monocytes (%) (Auto) Pending Eosinophils (%) (Auto) Pending Basophils (%) (Auto) Pending Sodium Level Pending Potassium Level Pending Chloride Level Pending Carbon Dioxide Level Pending Blood Urea Nitrogen Pending Creatinine Pending Estimat Glomerular Filtration Rate Pending Glucose Level Pending Calcium Level Pending Total Bilirubin Pending Aspartate Amino Transf (AST/SGOT) Pending Alanine Aminotransferase (ALT/SGPT) Pending Alkaline Phosphatase Pending Total Protein Pending Albumin Pending Globulin Pending Current Medications Medications (Trade) Dose Ordered Sig/Jeff Route PRN Reason Start Time Stop Time Status Last Admin Dose Admin Acetaminophen (Tylenol) 650 mg Q4H PRN ORAL Mild Pain (Pain Scale 1-3) 05/06/17 02:00 05/31/17 17:59 Acetaminophen/ Hydrocodone Bitart ([place] 5/325) 1 tab Q6H PRN ORAL Moderate Pain 2/16/18 06:00 05/08/17 17:52 Amiodarone HCl (Cordarone) 400 mg EVERY 12 HOURS ORAL 05/06/17 09:00 06/04/17 19:59 05/07/17 21:23 Apixaban (Eliquis) 2.5 mg Q12HR ORAL 05/07/17 21:00 06/06/17 20:59 05/07/17 21:24 Aspirin (ASA) 81 mg DAILY ORAL 05/06/17 09:00 06/03/17 17:59 05/07/17 09:02 Buspirone HCl (Buspar) 15 mg TWICE A DAY ORAL 05/06/17 09:00 05/31/17 08:59 05/07/17 16:52 Chlorhexidine Gluconate (Majo-Hex 2%) 1 applic DAILY@2000 TOPIC 05/06/17 20:00 06/01/17 19:59 05/07/17 20:24 Cinacalcet (Sensipar) 30 mg DAILY ORAL 05/06/17 09:00 05/31/17 08:59 05/07/17 09:03 Daptomycin 550 mg/ Sodium Chloride 55 ml @ 100 mls/hr Q48H IV 05/08/17 09:00 05/15/17 08:59 UNV Dextrose (Dextrose 50%) STAT PRN IV Hypoglycemia 05/06/17 18:00 06/03/17 17:59 Gabapentin (Neurontin) 300 mg BEDTIME ORAL 05/06/17 21:00 05/31/17 20:59 05/07/17 21:24 Hydromorphone HCl (Dilaudid) 2 mg Q4H PRN IVP Severe Pain (Pain Scale 7-10) 05/06/17 02:00 05/08/17 17:52 05/07/17 11:24 Lorazepam (Ativan 2mg/ml 1ml) 0.5 mg Q4H PRN IV For Anxiety 05/06/17 02:00 05/08/17 17:51 05/08/17 05:23 Metoprolol Succinate (Toprol XL) 25 mg DAILY ORAL 05/06/17 09:00 06/01/17 08:59 Metoprolol Tartrate (Lopressor) 5 mg Q6H PRN IVP HR>130 SUSTAINED MORE THAN 5 M 2/16/18 06:00 06/01/17 17:51 Morphine Sulfate (Morphine Sulfate) 4 mg Q4H PRN IVP MOD TO SEV BREAKTHROUGH PAIN 05/06/17 05:15 05/10/17 23:59 05/07/17 16:53 Norepinephrine Bitartrate 4 mg/ Dextrose 250 ml @ 0 mls/hr Q24H IV 05/06/17 02:00 06/05/17 01:59 05/07/17 11:58 Prochlorperazine (Compazine) 10 mg Q6H PRN IVP Nausea & Vomiting 05/06/17 05:00 05/31/17 10:59 Topiramate (Topamax) 25 mg Q12HR ORAL 05/06/17 09:00 06/03/17 20:59 05/07/17 21:27 Trazodone HCl (Desyrel) 150 mg BEDTIME ORAL 05/06/17 21:00 05/31/17 20:59 05/07/17 21:24 SCOOBY FERREIRA May 08, 2017 08:59
[2017-05-08] MEDS: Metoprolol Succinate XL 25mg tab ORAL SCH (09:00)
[2017-05-08 09:18] LABS: ALBUMIN 1.7 G/DL (3.4-5.0); ALBUMIN/GLOBULIN RATIO 0.3 (1.0-2.7); ALKALINE PHOSPHATASE 78 U/L (46-116); ANION GAP 7 mmol/L (5-15); ASPARTATE AMINO TRANSFERASE 18 U/L (15-37); BILIRUBIN,TOTAL 0.9 MG/DL (0.2-1.0); BLOOD UREA NITROGEN 37 mg/dL (7-18); CARBON DIOXIDE 33 MMOL/L (21-32); CHLORIDE 104 MMOL/L (98-107); CREATININE 7.5 MG/DL (0.55-1.30); POTASSIUM 3.9 MMOL/L (3.5-5.1); SODIUM 144 MMOL/L (136-145)
[2017-05-08 09:27] LABS: ALANINE AMINOTRANSFERASE < 6 U/L (12-78)
[2017-05-08] MEDS: Eliquis 2.5mg tablet ORAL SCH ×2 (09:45→20:53)
[2017-05-08] MEDS: BusPIRone 5mg Tab ORAL SCH ×2 (09:45→18:41)
[2017-05-08] MEDS: Aspirin Baby 81mg ORAL SCH (09:45)
[2017-05-08] MEDS: Amiodarone 200mg tab ORAL SCH ×2 (09:46→20:53)
[2017-05-08] MEDS: Topiramate 25mg tab ORAL SCH ×2 (09:46→20:54)
[2017-05-08] MEDS: Sensipar 30mg Tab ORAL SCH (09:46)
--- NOTE | 2017-05-08 10:50 | Cardiology Progress Note ---
Assessment/Plan Assessment/Plan 1. Paroxysmal episodes of atrial fibrillation. 2. No evidence of epicardial coronary disease. 3. End-stage renal disease, on hemodialysis. 4. Septic shock. 5. Bacteremia. 6. Abdominal ventral hernia status post repair. has been in and out of afib and sinus on po amiod 400 mg bid for nwo iv abx for bacteremia echo normal lv function catheter tip + for staph as well surveillance cx postitive may need further evaluation will d/w ID eliquis 2.5mg bid for now for stroke prevention awiat furth line changes Subjective ROS Limited/Unobtainable: Yes Objective Last 24 Hour Vital Signs Date Time Temp Pulse Resp B/P (MAP) Pulse Ox O2 Delivery O2 Flow Rate FiO2 05/08/17 10:30 104 20 92/51 99 Nasal Cannula 3.0 05/08/17 10:00 105 20 107/60 100 Nasal Cannula 3.0 05/08/17 09:30 130 23 86/52 100 Nasal Cannula 3.0 05/08/17 09:00 126 20 93/46 100 Nasal Cannula 3.0 05/08/17 09:00 126 86/52 05/08/17 08:30 130 20 102/53 100 Nasal Cannula 3.0 05/08/17 08:00 128 05/08/17 08:00 128 22 93/51 99 Nasal Cannula 3.0 05/08/17 07:30 98.5 128 25 105/44 100 Nasal Cannula 3.0 05/08/17 07:00 77/60 05/08/17 07:00 125 22 113/50 99 Nasal Cannula 3.0 05/08/17 06:48 Nasal Cannula 2.0 28 05/08/17 06:48 130 26 Nasal Cannula 3.0 28 05/08/17 06:48 100 Nasal Cannula 2.0 28 05/08/17 06:30 126 22 88/48 99 Nasal Cannula 3.0 05/08/17 06:00 128 22 105/56 99 Nasal Cannula 3.0 05/08/17 06:00 88/48 05/08/17 05:30 131 23 110/56 99 Nasal Cannula 3.0 05/08/17 05:00 131 23 114/52 96 Nasal Cannula 3.0 05/08/17 05:00 114/52 05/08/17 04:30 123 23 99/42 100 Nasal Cannula 3.0 05/08/17 04:00 98.0 127 25 100/46 100 Nasal Cannula 3.0 18 04:00 90/46 218 04:00 122 2 03:30 126 24 100/53 100 Nasal Cannula 3.0 18 03:00 93/53 218 03:00 126 24 93/53 95 Nasal Cannula 3.0 05/08/17 02:30 125 25 100/45 95 Nasal Cannula 3.0 05/08/17 02:00 97/47 2 02:00 128 26 97/47 95 Nasal Cannula 3.0 05/08/17 01:30 128 21 82/48 95 Nasal Cannula 3.0 05/08/17 01:00 87/40 05/08/17 01:00 127 21 87/40 95 Nasal Cannula 3.0 05/08/17 00:30 128 21 81/45 95 Nasal Cannula 3.0 05/08/17 00:00 98.2 129 21 90/54 95 Nasal Cannula 3.0 05/08/17 00:00 124 05/08/17 00:00 90/54 18 23:30 129 21 84/66 95 Nasal Cannula 3.0 05/07/17 23:00 128 21 100/51 95 Nasal Cannula 3.0 05/07/17 23:00 110/47 18 22:30 128 22 96/51 95 Nasal Cannula 3.0 05/07/17 22:00 134 22 97/48 97 Nasal Cannula 3.0 05/07/17 22:00 97/48 05/07/17 21:30 130 22 110/52 97 Nasal Cannula 3.0 18 21:00 113/60 18 21:00 130 22 113/60 96 Nasal Cannula 3.0 05/07/18 20:30 111 22 117/64 96 Nasal Cannula 3.0 05/07/17 20:00 98.2 129 22 101/57 93 Nasal Cannula 3.0 18 20:00 101/57 05/07/18 19:42 Nasal Cannula 2.0 28 05/07/18 19:42 98 Nasal Cannula 2.0 28 05/07/18 19:41 93 23 Nasal Cannula 2.0 28 2/17/18 19:00 125 21 104/54 93 Nasal Cannula 3.0 217/18 18:45 122 22 82/43 94 Nasal Cannula 3.0 217/18 18:30 129 22 89/52 95 Nasal Cannula 3.0 217/18 18:15 125 22 82/45 96 Nasal Cannula 3.0 217/18 18:00 111 22 101/49 98 Nasal Cannula 3.0 05/07/18 18:00 101/49 05/07/18 17:45 98.4 127 20 76/43 Nasal Cannula 2.0 05/07/18 17:30 131 22 78/33 98 Nasal Cannula 3.0 05/07/18 17:23 98.4 217/18 17:15 132 22 82/45 98 Nasal Cannula 3.0 05/07/18 17:00 131 22 82/45 98 Nasal Cannula 3.0 05/07/18 17:00 78/33 217/18 16:53 98.8 05/07/18 16:45 115 19 82/45 98 Nasal Cannula 3.0 18 16:30 134 21 111/48 98 Nasal Cannula 3.0 18 16:16 Nasal Cannula 2.0 05/07/18 16:15 120 20 111/48 98 Nasal Cannula 3.0 05/07/18 16:14 98.6 133 20 96/56 Nasal Cannula 2.0 05/07/18 16:00 98.4 131 19 107/60 Nasal Cannula 2.0 05/07/18 16:00 99/49 05/07/18 16:00 88 05/07/18 15:31 133 217/18 15:00 132 15 111/47 98 Nasal Cannula 3.0 17/18 15:00 111/47 217/18 14:00 133 15 80/45 98 Nasal Cannula 3.0 05/07/18 14:00 80/45 05/07/18 13:30 97.7 124 20 82/49 Nasal Cannula 2.0 17/18 13:30 133 15 109/75 98 Nasal Cannula 3.0 17/18 13:15 101 13 84/39 99 Nasal Cannula 3.0 217/18 13:00 80/49 217/18 13:00 99 14 107/49 98 Nasal Cannula 3.0 05/07/17 12:45 96 13 80/49 99 Nasal Cannula 3.0 05/07/17 12:30 Nasal Cannula 2.0 05/07/17 12:30 90 16 85/40 99 Nasal Cannula 3.0 05/07/17 12:15 112 14 76/42 99 Nasal Cannula 3.0 05/07/17 12:00 98.0 111 20 82/49 98 Nasal Cannula 3.0 05/07/17 12:00 117 05/07/17 11:58 78/52 05/07/17 11:54 98.8 05/07/17 11:24 98.2 05/07/17 11:02 131 05/07/17 11:00 131 21 83/57 99 Nasal Cannula 3.0 General Appearance: obese, patient on isolation Neck: supple Cardiovascular: regular rhythm Respiratory/Chest: lungs clear - ant Abdomen: normal bowel sounds, non tender, soft Extremities: trace edema Intake and Output 05/07/17 05/08/17 19:00 07:00 Intake Total 311.25 ml 265.00 ml Output Total 176 ml 0 ml Balance 135.25 ml 265.00 ml Intake Oral 60 ml 40 ml IV Total 251.25 ml 225.00 ml Output Urine Total 0 ml 0 ml Hemodialysis UF 176 ml # Bowel Movements 1 Laboratory Tests Test 05/08/17 08:30 White Blood Count 17.4 K/UL (4.8-10.8) H Red Blood Count 2.32 M/UL (4.20-5.40) L Hemoglobin 8.0 G/DL (12.0-16.0) L Hematocrit 24.7 % (37.0-47.0) L Mean Corpuscular Volume 107 FL (80-99) H Mean Corpuscular Hemoglobin 34.6 PG (27.0-31.0) H Mean Corpuscular Hemoglobin Concent 32.5 G/DL (32.0-36.0) Red Cell Distribution Width 14.6 % (11.6-14.8) Platelet Count 253 K/UL (150-450) Mean Platelet Volume 6.9 FL (6.5-10.1) Neutrophils (%) (Auto) 69.7 % (45.0-75.0) Lymphocytes (%) (Auto) 18.6 % (20.0-45.0) L Monocytes (%) (Auto) 11.2 % (1.0-10.0) H Eosinophils (%) (Auto) 0.3 % (0.0-3.0) Basophils (%) (Auto) 0.3 % (0.0-2.0) Sodium Level 144 MMOL/L (136-145) Potassium Level 3.9 MMOL/L (3.5-5.1) Chloride Level 104 MMOL/L (98-107) Carbon Dioxide Level 33 MMOL/L (21-32) H Anion Gap 7 mmol/L (5-15) Blood Urea Nitrogen 37 mg/dL (7-18) H Creatinine 7.5 MG/DL (0.55-1.30) H Estimat Glomerular Filtration Rate 6.7 mL/min (>60) Glucose Level 129 MG/DL (74-106) H Calcium Level 9.0 MG/DL (8.5-10.1) Total Bilirubin 0.9 MG/DL (0.2-1.0) Aspartate Amino Transf (AST/SGOT) 18 U/L (15-37) Alanine Aminotransferase (ALT/SGPT) < 6 U/L (12-78) L Alkaline Phosphatase 78 U/L (46-116) Total Protein 7.2 G/DL (6.4-8.2) Albumin 1.7 G/DL (3.4-5.0) L Globulin 5.5 g/dL Albumin/Globulin Ratio 0.3 (1.0-2.7) L Microbiology Date/Time Source Procedure Growth Status 05/06/17 16:15 Blood Blood Culture - Preliminary Staphylococcus Aureus Resulted 05/06/17 16:10 Blood Blood Culture - Preliminary Staphylococcus Aureus Resulted 05/06/17 20:00 Stool Clostridium difficile Toxin Assay - Final Complete MATHEUS GATES May 08, 2017 10:50
--- NOTE | 2017-05-08 11:13 | Nephrology Progress Note ---
Assessment/Plan Problem List: (1) Septic shock (2) Secondary hyperparathyroidism (of renal origin) (3) HTN (hypertension) (4) ESRD (end stage renal disease) on dialysis (5) Gram-positive bacteremia Assessment: Staph Aureus Plan DC catheter in AM IV Abxs follow labs Discussed with RN discussed with dr Gary follow cultures Subjective Subjective seen in ICU lethargic Objective Objective Last 24 Hour Vital Signs Date Time Temp Pulse Resp B/P (MAP) Pulse Ox O2 Delivery O2 Flow Rate FiO2 05/08/17 11:00 99.2 103 22 92/51 100 Nasal Cannula 3.0 05/08/17 10:30 104 20 92/51 99 Nasal Cannula 3.0 05/08/17 10:00 105 20 107/60 100 Nasal Cannula 3.0 05/08/17 09:30 130 23 86/52 100 Nasal Cannula 3.0 05/08/17 09:00 126 20 93/46 100 Nasal Cannula 3.0 05/08/17 09:00 126 86/52 05/08/17 08:30 130 20 102/53 100 Nasal Cannula 3.0 05/08/17 08:00 128 05/08/17 08:00 128 22 93/51 99 Nasal Cannula 3.0 05/08/17 07:30 98.5 128 25 105/44 100 Nasal Cannula 3.0 05/08/17 07:00 77/60 05/08/17 07:00 125 22 113/50 99 Nasal Cannula 3.0 05/08/17 06:48 Nasal Cannula 2.0 28 05/08/17 06:48 130 26 Nasal Cannula 3.0 28 05/08/17 06:48 100 Nasal Cannula 2.0 28 05/08/17 06:30 126 22 88/48 99 Nasal Cannula 3.0 05/08/17 06:00 128 22 105/56 99 Nasal Cannula 3.0 05/08/17 06:00 88/48 05/08/17 05:30 131 23 110/56 99 Nasal Cannula 3.0 05/08/17 05:00 131 23 114/52 96 Nasal Cannula 3.0 05/08/17 05:00 114/52 05/08/17 04:30 123 23 99/42 100 Nasal Cannula 3.0 05/08/17 04:00 98.0 127 25 100/46 100 Nasal Cannula 3.0 2/18/18 04:00 90/46 21818 04:00 122 [id number] 03:30 126 24 100/53 100 Nasal Cannula 3.0 18 03:00 93/53 218 03:00 126 24 93/53 95 Nasal Cannula 3.0 18 02:30 125 25 100/45 95 Nasal Cannula 3.0 05/08/17 02:00 97/47 2 02:00 128 26 97/47 95 Nasal Cannula 3.0 05/08/17 01:30 128 21 82/48 95 Nasal Cannula 3.0 05/08/17 01:00 87/40 218 01:00 127 21 87/40 95 Nasal Cannula 3.0 05/08/17 00:30 128 21 81/45 95 Nasal Cannula 3.0 05/08/17 00:00 98.2 129 21 90/54 95 Nasal Cannula 3.0 05/08/17 00:00 124 05/08/17 00:00 90/54 05/07/17 23:30 129 21 84/66 95 Nasal Cannula 3.0 05/07/17 23:00 128 21 100/51 95 Nasal Cannula 3.0 18 23:00 110/47 218 22:30 128 22 96/51 95 Nasal Cannula 3.0 05/07/17 22:00 134 22 97/48 97 Nasal Cannula 3.0 05/07/17 22:00 97/48 05/07/18 21:30 130 22 110/52 97 Nasal Cannula 3.0 05/07/17 21:00 113/60 18 21:00 130 22 113/60 96 Nasal Cannula 3.0 05/07/18 20:30 111 22 117/64 96 Nasal Cannula 3.0 05/07/18 20:00 98.2 129 22 101/57 93 Nasal Cannula 3.0 18 20:00 101/57 05/07/18 19:42 Nasal Cannula 2.0 28 05/07/18 19:42 98 Nasal Cannula 2.0 28 05/07/18 19:41 93 23 Nasal Cannula 2.0 28 05/07/18 19:00 125 21 104/54 93 Nasal Cannula 3.0 18 18:45 122 22 82/43 94 Nasal Cannula 3.0 217/18 18:30 129 22 89/52 95 Nasal Cannula 3.0 217/18 18:15 125 22 82/45 96 Nasal Cannula 3.0 2/18 18:00 111 22 101/49 98 Nasal Cannula 3.0 217/18 18:00 101/49 2/18 17:45 98.4 127 20 76/43 Nasal Cannula 2.0 2/18 17:30 131 22 78/33 98 Nasal Cannula 3.0 2/18 17:23 98.4 217/18 17:15 132 22 82/45 98 Nasal Cannula 3.0 2/18 17:00 131 22 82/45 98 Nasal Cannula 3.0 05/07/18 17:00 78/33 2/18 16:53 98.8 2/18 16:45 115 19 82/45 98 Nasal Cannula 3.0 05/07/18 16:30 134 21 111/48 98 Nasal Cannula 3.0 18 16:16 Nasal Cannula 2.0 05/07/18 16:15 120 20 111/48 98 Nasal Cannula 3.0 05/07/18 16:14 98.6 133 20 96/56 Nasal Cannula 2.0 05/07/18 16:00 98.4 131 19 107/60 Nasal Cannula 2.0 05/07/18 16:00 99/49 2/18 16:00 88 05/07/18 15:31 133 217/18 15:00 132 15 111/47 98 Nasal Cannula 3.0 05/07/18 15:00 111/47 05/07/18 14:00 133 15 80/45 98 Nasal Cannula 3.0 17/18 14:00 80/45 217/18 13:30 97.7 124 20 82/49 Nasal Cannula 2.0 05/07/18 13:30 133 15 109/75 98 Nasal Cannula 3.0 2/18 13:15 101 13 84/39 99 Nasal Cannula 3.0 217/18 13:00 80/49 217/18 13:00 99 14 107/49 98 Nasal Cannula 3.0 05/07/18 12:45 96 13 80/49 99 Nasal Cannula 3.0 2/17/18 12:30 Nasal Cannula 2.0 05/07/17 12:30 90 16 85/40 99 Nasal Cannula 3.0 05/07/17 12:15 112 14 76/42 99 Nasal Cannula 3.0 05/07/17 12:00 98.0 111 20 82/49 98 Nasal Cannula 3.0 05/07/17 12:00 117 05/07/17 11:58 78/52 05/07/17 11:54 98.8 05/07/17 11:24 98.2 Intake and Output 05/07/17 05/08/17 19:00 07:00 Intake Total 311.25 ml 265.00 ml Output Total 176 ml 0 ml Balance 135.25 ml 265.00 ml Intake Oral 60 ml 40 ml IV Total 251.25 ml 225.00 ml Output Urine Total 0 ml 0 ml Hemodialysis UF 176 ml # Bowel Movements 1 Laboratory Tests 05/08/17 08:30: White Blood Count 17.4H, Red Blood Count 2.32L, Hemoglobin 8.0L, Hematocrit 24.7L, Mean Corpuscular Volume 107H, Mean Corpuscular Hemoglobin 34.6H, Mean Corpuscular Hemoglobin Concent 32.5, Red Cell Distribution Width 14.6, Platelet Count 253, Mean Platelet Volume 6.9, Neutrophils (%) (Auto) 69.7, Lymphocytes (% ) (Auto) 18.6L, Monocytes (%) (Auto) 11.2H, Eosinophils (%) (Auto) 0.3, Basophils (%) (Auto) 0.3, Sodium Level 144, Potassium Level 3.9, Chloride Level 104, Carbon Dioxide Level 33H, Anion Gap 7, Blood Urea Nitrogen 37H, Creatinine 7.5H, Estimat Glomerular Filtration Rate 6.7, Glucose Level 129H, Calcium Level 9.0, Total Bilirubin 0.9, Aspartate Amino Transf (AST/SGOT) 18, Alanine Aminotransferase (ALT/SGPT) < 6L, Alkaline Phosphatase 78, Total Protein 7.2, Albumin 1.7L, Globulin 5.5, Albumin/Globulin Ratio 0.3L Height (Feet): 5 Height (Inches): 4.00 Weight (Pounds): 205 Cardiovascular: normal rate Respiratory/Chest: lungs clear Extremities: other - no edema NENA FERREIRA May 08, 2017 11:13
--- NOTE | 2017-05-08 11:46 | Diagnostic Imaging Report ---
Indication: Dyspnea Comparison: 05/05/2017 A single view chest radiograph was obtained. Findings: Left jugular Ervin catheter noted. The tip is in the right atrium in good position. Interstitial edema demonstrated. There is a linear density projected over the area of the minor fissure likely perifissural atelectasis or some pleural fluid. Heart is enlarged. IMPRESSION: Interstitial edema. Left jugular catheter in good position. Anabelle-fissural atelectasis and or effusion
[2017-05-08] MEDS: DAPTOmycin 550 MG in NS 55 ML IV SCH (12:55)
[2017-05-08] MEDS: Dyna-Hex 2% Top Sol 2oz TOPIC SCH (20:05)
--- NOTE | 2017-05-08 20:10 | Pulmonolgy Critical Care Note ---
Critical Care - Asmt/Plan Assessment/Plan: 1. Septic shock, due to staph aureus bacteremia 2. Respiratory insufficiency. 3. Rapid AF, better 4. End-stage renal disease, on dialysis. 5. abdominal hernia with ulceration x2 with visible mesh, foul odor 6. Decubitus ulcer. 7. Depression. 8. Seizure disorder. 9. Dialysis catheter infection, removed 10. Chronic obstructive pulmonary disease. 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 with: nurses Critical Care - Objective Last 24 Hour Vital Signs Date Time Temp Pulse Resp B/P (MAP) Pulse Ox O2 Delivery O2 Flow Rate FiO2 05/08/17 19:39 108 34 Nasal Cannula 3.0 28 05/08/17 19:39 Nasal Cannula 2.0 28 05/08/17 19:39 100 Nasal Cannula 2.0 28 05/08/17 19:30 98 21 107/43 100 Nasal Cannula 3.0 05/08/17 19:00 100 20 91/46 97 Nasal Cannula 3.0 05/08/17 18:30 95 20 95/43 100 Nasal Cannula 3.0 05/08/17 18:00 96 22 95/45 100 Nasal Cannula 3.0 05/08/17 17:30 94 20 100/43 100 Nasal Cannula 3.0 05/08/17 17:00 94 22 110/58 99 Nasal Cannula 3.0 05/08/17 16:30 96 20 109/55 99 Nasal Cannula 3.0 05/08/17 16:00 95 05/08/17 16:00 99.4 94 21 112/53 99 Nasal Cannula 3.0 05/08/17 15:30 95 21 109/51 100 Nasal Cannula 3.0 05/08/17 15:00 96 21 102/45 100 Nasal Cannula 3.0 05/08/17 14:30 93 20 102/43 100 Nasal Cannula 3.0 05/08/17 14:00 97 20 109/50 100 Nasal Cannula 3.0 2/18/18 13:30 99 21 98/45 100 Nasal Cannula 3.0 218 13:00 98 22 97/45 100 Nasal Cannula 3.0 18 12:30 99 20 106/58 100 Nasal Cannula 3.0 18 12:00 102 218 12:00 102 21 104/52 99 Nasal Cannula 3.0 18 11:30 102 20 109/51 99 Nasal Cannula 3.0 18 11:00 99.2 103 22 92/51 100 Nasal Cannula 3.0 18 10:30 104 20 92/51 99 Nasal Cannula 3.0 18 10:00 105 20 107/60 100 Nasal Cannula 3.0 05/08/17 09:30 130 23 86/52 100 Nasal Cannula 3.0 05/08/17 09:00 126 20 93/46 100 Nasal Cannula 3.0 05/08/17 09:00 126 86/52 18 08:30 130 20 102/53 100 Nasal Cannula 3.0 05/08/17 08:00 128 18 08:00 128 22 93/51 99 Nasal Cannula 3.0 05/08/17 07:30 98.5 128 25 105/44 100 Nasal Cannula 3.0 05/08/17 07:00 77/60 18 07:00 125 22 113/50 99 Nasal Cannula 3.0 05/08/17 06:48 Nasal Cannula 2.0 28 18 06:48 130 26 Nasal Cannula 3.0 28 05/08/17 06:48 100 Nasal Cannula 2.0 28 18 06:30 126 22 88/48 99 Nasal Cannula 3.0 18 06:00 128 22 105/56 99 Nasal Cannula 3.0 18 06:00 88/48 [id number] 05:30 131 23 110/56 99 Nasal Cannula 3.0 18 05:00 131 23 114/52 96 Nasal Cannula 3.0 18 05:00 114/52 05/08/18 04:30 123 23 99/42 100 Nasal Cannula 3.0 05/08/17 04:00 98.0 127 25 100/46 100 Nasal Cannula 3.0 05/08/17 04:00 90/46 05/08/17 04:00 122 05/08/17 03:30 126 24 100/53 100 Nasal Cannula 3.0 05/08/17 03:00 93/53 05/08/17 03:00 126 24 93/53 95 Nasal Cannula 3.0 05/08/17 02:30 125 25 100/45 95 Nasal Cannula 3.0 05/08/17 02:00 97/47 05/08/17 02:00 128 26 97/47 95 Nasal Cannula 3.0 05/08/17 01:30 128 21 82/48 95 Nasal Cannula 3.0 05/08/17 01:00 87/40 05/08/17 01:00 127 21 87/40 95 Nasal Cannula 3.0 05/08/17 00:30 128 21 81/45 95 Nasal Cannula 3.0 05/08/17 00:00 98.2 129 21 90/54 95 Nasal Cannula 3.0 05/08/17 00:00 124 05/08/17 00:00 90/54 05/07/17 23:30 129 21 84/66 95 Nasal Cannula 3.0 05/07/17 23:00 128 21 100/51 95 Nasal Cannula 3.0 05/07/17 23:00 110/47 05/07/17 22:30 128 22 96/51 95 Nasal Cannula 3.0 05/07/17 22:00 134 22 97/48 97 Nasal Cannula 3.0 05/07/17 22:00 97/48 05/07/17 21:30 130 22 110/52 97 Nasal Cannula 3.0 05/07/17 21:00 113/60 05/07/17 21:00 130 22 113/60 96 Nasal Cannula 3.0 05/07/17 20:30 111 22 117/64 96 Nasal Cannula 3.0 Status: somnolent Condition: critical Lungs: rhonchi Heart: HR/BP unstable Abdomen: soft, non-tender Extremities: edema Decubiti: location Micro: Microbiology Date/Time Source Procedure Growth Status 05/07/17 13:00 Blood Blood Culture - Preliminary Resulted 05/07/17 12:50 Blood Blood Culture - Preliminary Resulted 05/06/17 16:15 Blood Blood Culture - Preliminary Staphylococcus Aureus Resulted 05/06/17 16:10 Blood Blood Culture - Preliminary Staphylococcus Aureus Resulted 05/06/17 20:00 Stool Clostridium difficile Toxin Assay - Final Complete Accucheck: 189 Blood Sugars: BS not controlled Critical Care - Subjective ROS Limited/Unobtainable: Yes Condition: improving FI02: 28 Sputum Amount: None I&O: Intake and Output 05/07/17 05/08/17 19:00 07:00 Intake Total 311.25 ml 265.00 ml Output Total 176 ml 0 ml Balance 135.25 ml 265.00 ml Intake Oral 60 ml 40 ml IV Total 251.25 ml 225.00 ml Output Urine Total 0 ml 0 ml Hemodialysis UF 176 ml # Bowel Movements 1 Subjective: remains on pressors BC positive for MRSA for HD cath removal tomorrow follows commands adn no FND noted no cp nv or bleeding no fever at this time currently not on IVF Labs: Laboratory Tests Test 05/08/17 08:30 White Blood Count 17.4 K/UL (4.8-10.8) H Red Blood Count 2.32 M/UL (4.20-5.40) L Hemoglobin 8.0 G/DL (12.0-16.0) L Hematocrit 24.7 % (37.0-47.0) L Mean Corpuscular Volume 107 FL (80-99) H Mean Corpuscular Hemoglobin 34.6 PG (27.0-31.0) H Mean Corpuscular Hemoglobin Concent 32.5 G/DL (32.0-36.0) Red Cell Distribution Width 14.6 % (11.6-14.8) Platelet Count 253 K/UL (150-450) Mean Platelet Volume 6.9 FL (6.5-10.1) Neutrophils (%) (Auto) 69.7 % (45.0-75.0) Lymphocytes (%) (Auto) 18.6 % (20.0-45.0) L Monocytes (%) (Auto) 11.2 % (1.0-10.0) H Eosinophils (%) (Auto) 0.3 % (0.0-3.0) Basophils (%) (Auto) 0.3 % (0.0-2.0) Sodium Level 144 MMOL/L (136-145) Potassium Level 3.9 MMOL/L (3.5-5.1) Chloride Level 104 MMOL/L (98-107) Carbon Dioxide Level 33 MMOL/L (21-32) H Anion Gap 7 mmol/L (5-15) Blood Urea Nitrogen 37 mg/dL (7-18) H Creatinine 7.5 MG/DL (0.55-1.30) H Estimat Glomerular Filtration Rate 6.7 mL/min (>60) Glucose Level 129 MG/DL (74-106) H Calcium Level 9.0 MG/DL (8.5-10.1) Total Bilirubin 0.9 MG/DL (0.2-1.0) Aspartate Amino Transf (AST/SGOT) 18 U/L (15-37) Alanine Aminotransferase (ALT/SGPT) < 6 U/L (12-78) L Alkaline Phosphatase 78 U/L (46-116) Total Protein 7.2 G/DL (6.4-8.2) Albumin 1.7 G/DL (3.4-5.0) L Globulin 5.5 g/dL Albumin/Globulin Ratio 0.3 (1.0-2.7) L Current Medications Medications (Trade) Dose Ordered Sig/Jeff Route PRN Reason Start Time Stop Time Status Last Admin Dose Admin Acetaminophen (Tylenol) 650 mg Q4H PRN ORAL Mild Pain (Pain Scale 1-3) 05/06/17 02:00 05/31/17 17:59 Amiodarone HCl (Cordarone) 400 mg EVERY 12 HOURS ORAL 05/06/17 09:00 06/04/17 19:59 05/08/17 09:46 Apixaban (Eliquis) 2.5 mg Q12HR ORAL 05/07/17 21:00 06/06/17 20:59 05/08/17 09:45 Aspirin (ASA) 81 mg DAILY ORAL 05/06/17 09:00 06/03/17 17:59 05/08/17 09:45 Buspirone HCl (Buspar) 15 mg TWICE A DAY ORAL 05/06/17 09:00 05/31/17 08:59 05/08/17 18:41 Chlorhexidine Gluconate (Majo-Hex 2%) 1 applic DAILY@1999 TOPIC 05/06/17 20:00 06/01/17 19:59 05/08/17 20:05 Cinacalcet (Sensipar) 30 mg DAILY ORAL 05/06/17 09:00 05/31/17 08:59 05/08/17 09:46 Daptomycin 550 mg/ Sodium Chloride 55 ml @ 100 mls/hr Q48H IV 05/08/17 11:00 05/15/17 23:59 05/08/17 12:55 Dextrose (Dextrose 50%) STAT PRN IV Hypoglycemia 05/06/17 18:00 06/03/17 17:59 Gabapentin (Neurontin) 300 mg BEDTIME ORAL 05/06/17 21:00 05/31/17 20:59 05/07/17 21:24 Metoprolol Succinate (Toprol XL) 25 mg DAILY ORAL 05/06/17 09:00 06/01/17 08:59 Metoprolol Tartrate (Lopressor) 5 mg Q6H PRN IVP HR>130 SUSTAINED MORE THAN 5 M 05/06/17 06:00 06/01/17 17:51 Morphine Sulfate (Morphine Sulfate) 4 mg Q4H PRN IVP MOD TO SEV BREAKTHROUGH PAIN 05/06/17 05:15 05/10/17 23:59 05/07/17 16:53 Norepinephrine Bitartrate 4 mg/ Dextrose 250 ml @ 0 mls/hr Q24H IV 05/06/17 02:00 06/05/17 01:59 05/07/17 11:58 Prochlorperazine (Compazine) 10 mg Q6H PRN IVP Nausea & Vomiting 05/06/17 05:00 05/31/17 10:59 Topiramate (Topamax) 25 mg Q12HR ORAL 05/06/17 09:00 06/03/17 20:59 05/08/17 09:46 Trazodone HCl (Desyrel) 150 mg BEDTIME ORAL 05/06/17 21:00 05/31/17 20:59 05/07/17 21:24 NIKOS BELL DO May 08, 2017 20:10
[2017-05-08] MEDS: TraZODone 50mg tab ORAL SCH (20:54)
[2017-05-09] VITALS (36 sets, daily range): BP systolic 68–126; BP diastolic 31–103
[2017-05-09] MEDS: Morphine Sulfate 4mg/ml Inj IVP PRN ×2 (05:16→23:33)
[2017-05-09 05:58] LABS: CREATINE KINASE 45 U/L (26-308)
[2017-05-09] MEDS: Metoprolol Succinate XL 25mg tab ORAL SCH (09:00)
[2017-05-09 09:04] LABS: BASOPHILS % (AUTO) 0.3 % (0.0-2.0); EOSINOPHILS % (AUTO) 0.5 % (0.0-3.0); HEMATOCRIT 24.9 % (37.0-47.0); LYMPHOCYTES % (AUTO) 16.8 % (20.0-45.0); MEAN CORPUSCULAR VOLUME 108 FL (80-99); MONOCYTES % (AUTO) 8.1 % (1.0-10.0); NEUTROPHILS % (AUTO) 74.4 % (45.0-75.0); PLATELET COUNT 249 K/UL (150-450); RED BLOOD COUNT 2.31 M/UL (4.20-5.40); RED CELL DISTRIBUTION WIDTH 14.9 % (11.6-14.8)
[2017-05-09 09:11] LABS: ALANINE AMINOTRANSFERASE 13 U/L (12-78); ALBUMIN 1.8 G/DL (3.4-5.0); ALBUMIN/GLOBULIN RATIO 0.3 (1.0-2.7); ALKALINE PHOSPHATASE 79 U/L (46-116); ANION GAP 8 mmol/L (5-15); ASPARTATE AMINO TRANSFERASE 23 U/L (15-37); BILIRUBIN,TOTAL 0.8 MG/DL (0.2-1.0); BLOOD UREA NITROGEN 52 mg/dL (7-18); CALCIUM 8.8 MG/DL (8.5-10.1); CARBON DIOXIDE 32 MMOL/L (21-32); CHLORIDE 102 MMOL/L (98-107); CREATININE 9.3 MG/DL (0.55-1.30); POTASSIUM 3.8 MMOL/L (3.5-5.1); SODIUM 142 MMOL/L (136-145)
[2017-05-09] MEDS: Sensipar 30mg Tab ORAL SCH (09:24)
[2017-05-09] MEDS: Topiramate 25mg tab ORAL SCH ×2 (09:25→20:58)
[2017-05-09] MEDS: Eliquis 2.5mg tablet ORAL SCH ×2 (09:25→20:58)
[2017-05-09] MEDS: Aspirin Baby 81mg ORAL SCH (09:25)
[2017-05-09] MEDS: BusPIRone 5mg Tab ORAL SCH ×2 (09:25→17:27)
[2017-05-09] MEDS: Amiodarone 200mg tab ORAL SCH ×2 (09:25→20:58)
--- NOTE | 2017-05-09 09:50 | Infectious Diseases Prog Note ---
Assessment/Plan Assessment/Plan A Septic shock HD line infection MRSA sepsis Persistent MRSA bacteremia ESRD on HD Morbid obesity COPD Atrial fibrillation P; Continue Daptomycin add linezolid will f/u blood cultures case was D/W microbiologist there is no disc for checking Daptomycin sensitivity Case was D/W pharmacy Subjective ROS Limited/Unobtainable: Yes Constitutional: Reports: anorexia Respiratory: Reports: no symptoms Cardiovascular: Reports: other - hypoptensive on low dose Levephed Gastrointestinal/Abdominal: Reports: no symptoms Genitourinary: Reports: no symptoms Allergies: Coded Allergies: No Known Allergies (Unverified , 12/04/15) Objective Vital Signs Last 24 Hour Vital Signs Date Time Temp Pulse Resp B/P (MAP) Pulse Ox O2 Delivery O2 Flow Rate FiO2 05/09/17 09:00 91 95/45 05/09/17 07:00 81 19 94/42 95 Nasal Cannula 3.0 05/09/17 07:00 94/42 05/09/17 06:58 Nasal Cannula 3.0 05/09/17 06:56 100 Nasal Cannula 3.0 05/09/17 06:55 81 18 Nasal Cannula 3.0 28 05/09/17 06:30 82 21 95/41 99 Nasal Cannula 3.0 05/09/17 06:00 84 20 95/42 100 Nasal Cannula 3.0 05/09/17 06:00 95/42 05/09/17 05:30 81 19 92/31 100 Nasal Cannula 3.0 05/09/17 05:00 85 19 103/40 100 Nasal Cannula 3.0 05/09/17 05:00 103/40 05/09/17 04:30 84 17 99/42 100 Nasal Cannula 3.0 05/09/17 04:00 98.7 90 20 103/68 96 Nasal Cannula 3.0 05/09/17 04:00 87 05/09/17 04:00 103/68 05/09/17 03:30 79 17 88/45 99 Nasal Cannula 3.0 05/09/17 03:15 81 17 88/37 100 Nasal Cannula 3.0 05/09/17 03:00 81 19 88/37 99 Nasal Cannula 3.0 05/09/17 03:00 88/37 05/09/17 02:45 81 16 88/37 99 Nasal Cannula 3.0 05/09/17 02:30 81 19 89/42 99 Nasal Cannula 3.0 05/09/17 02:00 85 19 109/42 99 Nasal Cannula 3.0 05/09/17 02:00 109/42 05/09/17 01:30 89 21 109/42 98 Nasal Cannula 3.0 05/09/17 01:00 98.9 89 20 85/42 99 Nasal Cannula 3.0 05/09/17 01:00 85/42 05/09/17 00:30 93 21 90/40 97 Nasal Cannula 3.0 05/09/17 00:00 99.8 100 18 101/49 98 Nasal Cannula 3.0 05/09/17 00:00 100 05/09/17 00:00 92/39 05/08/17 23:30 98 24 109/57 97 Nasal Cannula 3.0 05/08/17 23:00 96 22 87/47 99 Nasal Cannula 3.0 05/08/17 23:00 88/43 05/08/17 22:30 95 22 98/38 100 Nasal Cannula 3.0 05/08/17 22:06 99/41 18 22:06 103/51 18 22:00 97 23 103/51 99 Nasal Cannula 3.0 05/08/17 21:30 96 22 99/47 100 Nasal Cannula 3.0 05/08/17 21:00 101 24 114/58 96 Nasal Cannula 3.0 18 21:00 104/41 05/08/18 20:45 99 24 107/54 97 Nasal Cannula 3.0 18 20:30 96 22 107/54 100 Nasal Cannula 3.0 18 20:15 95 21 96/53 100 Nasal Cannula 3.0 18 20:00 99.3 96 21 85/43 100 Nasal Cannula 3.0 1818 20:00 84/45 218/18 20:00 94 218/18 19:45 97 20 97/39 100 Nasal Cannula 3.0 18/18 19:39 108 34 Nasal Cannula 3.0 28 18/18 19:39 Nasal Cannula 2.0 28 18/18 19:39 100 Nasal Cannula 2.0 28 18/18 19:30 98 21 107/43 100 Nasal Cannula 3.0 2/18/18 19:00 97/49 05/08/17 19:00 100 20 91/46 97 Nasal Cannula 3.0 05/08/17 18:30 95 20 95/43 100 Nasal Cannula 3.0 05/08/17 18:00 96 22 95/45 100 Nasal Cannula 3.0 05/08/17 17:30 94 20 100/43 100 Nasal Cannula 3.0 05/08/17 17:00 94 22 110/58 99 Nasal Cannula 3.0 05/08/17 16:30 96 20 109/55 99 Nasal Cannula 3.0 05/08/17 16:00 95 05/08/17 16:00 99.4 94 21 112/53 99 Nasal Cannula 3.0 05/08/17 15:30 95 21 109/51 100 Nasal Cannula 3.0 05/08/17 15:00 96 21 102/45 100 Nasal Cannula 3.0 05/08/17 14:30 93 20 102/43 100 Nasal Cannula 3.0 05/08/17 14:00 97 20 109/50 100 Nasal Cannula 3.0 05/08/17 13:30 99 21 98/45 100 Nasal Cannula 3.0 05/08/17 13:00 98 22 97/45 100 Nasal Cannula 3.0 05/08/17 12:30 99 20 106/58 100 Nasal Cannula 3.0 05/08/17 12:00 102 05/08/17 12:00 102 21 104/52 99 Nasal Cannula 3.0 05/08/17 11:30 102 20 109/51 99 Nasal Cannula 3.0 05/08/17 11:00 99.2 103 22 92/51 100 Nasal Cannula 3.0 05/08/17 10:30 104 20 92/51 99 Nasal Cannula 3.0 05/08/17 10:00 105 20 107/60 100 Nasal Cannula 3.0 Height (Feet): 5 Height (Inches): 4.00 Weight (Pounds): 211 HEENT: mucous membranes moist Respiratory/Chest: lungs clear Cardiovascular: normal rate Abdomen: soft, non tender Extremities: no edema Neurologic/Psychiatric: alert, responsive Microbiology Date/Time Source Procedure Growth Status 05/07/17 13:00 Blood Blood Culture - Preliminary Staphylococcus Aureus Resulted 05/07/17 12:50 Blood Blood Culture - Preliminary Staphylococcus Aureus Resulted 05/06/17 16:15 Blood Blood Culture - Final Staphylococcus Aureus - Mrsa Complete 05/06/17 16:10 Blood Blood Culture - Final Staphylococcus Aureus - Mrsa Complete 05/06/17 20:00 Stool Clostridium difficile Toxin Assay - Final Complete Laboratory Tests Test 05/09/17 03:40 White Blood Count 16.0 K/UL (4.8-10.8) H Red Blood Count 2.31 M/UL (4.20-5.40) L Hemoglobin 8.0 G/DL (12.0-16.0) L Hematocrit 24.9 % (37.0-47.0) L Mean Corpuscular Volume 108 FL (80-99) H Mean Corpuscular Hemoglobin 34.5 PG (27.0-31.0) H Mean Corpuscular Hemoglobin Concent 32.0 G/DL (32.0-36.0) Red Cell Distribution Width 14.9 % (11.6-14.8) H Platelet Count 249 K/UL (150-450) Mean Platelet Volume 6.3 FL (6.5-10.1) L Neutrophils (%) (Auto) 74.4 % (45.0-75.0) Lymphocytes (%) (Auto) 16.8 % (20.0-45.0) L Monocytes (%) (Auto) 8.1 % (1.0-10.0) Eosinophils (%) (Auto) 0.5 % (0.0-3.0) Basophils (%) (Auto) 0.3 % (0.0-2.0) Sodium Level 142 MMOL/L (136-145) Potassium Level 3.8 MMOL/L (3.5-5.1) Chloride Level 102 MMOL/L (98-107) Carbon Dioxide Level 32 MMOL/L (21-32) Anion Gap 8 mmol/L (5-15) Blood Urea Nitrogen 52 mg/dL (7-18) H Creatinine 9.3 MG/DL (0.55-1.30) H Estimat Glomerular Filtration Rate 5.2 mL/min (>60) Glucose Level 91 MG/DL (74-106) Calcium Level 8.8 MG/DL (8.5-10.1) Total Bilirubin 0.8 MG/DL (0.2-1.0) Aspartate Amino Transf (AST/SGOT) 23 U/L (15-37) Alanine Aminotransferase (ALT/SGPT) 13 U/L (12-78) Alkaline Phosphatase 79 U/L (46-116) Total Creatine Kinase 45 U/L (26-308) Total Protein 7.3 G/DL (6.4-8.2) Albumin 1.8 G/DL (3.4-5.0) L Globulin 5.5 g/dL Albumin/Globulin Ratio 0.3 (1.0-2.7) L Current Medications Medications (Trade) Dose Ordered Sig/Jeff Route PRN Reason Start Time Stop Time Status Last Admin Dose Admin Acetaminophen (Tylenol) 650 mg Q4H PRN ORAL Mild Pain (Pain Scale 1-3) 05/06/17 02:00 05/31/17 17:59 05/09/17 00:16 Amiodarone HCl (Cordarone) 400 mg EVERY 12 HOURS ORAL 05/06/17 09:00 06/04/17 19:59 05/09/17 09:25 Apixaban (Eliquis) 2.5 mg Q12HR ORAL 05/07/17 21:00 06/06/17 20:59 05/09/17 09:25 Aspirin (ASA) 81 mg DAILY ORAL 05/06/17 09:00 06/03/17 17:59 05/09/17 09:25 Buspirone HCl (Buspar) 15 mg TWICE A DAY ORAL 05/06/17 09:00 05/31/17 08:59 05/09/17 09:25 Chlorhexidine Gluconate (Majo-Hex 2%) 1 applic DAILY@2000 TOPIC 05/06/17 20:00 06/01/17 19:59 05/08/17 20:05 Cinacalcet (Sensipar) 30 mg DAILY ORAL 05/06/17 09:00 05/31/17 08:59 05/09/17 09:24 Daptomycin 550 mg/ Sodium Chloride 55 ml @ 100 mls/hr Q48H IV 05/08/17 11:00 05/15/17 23:59 05/08/17 12:55 Dextrose (Dextrose 50%) STAT PRN IV Hypoglycemia 05/06/17 18:00 06/03/17 17:59 Gabapentin (Neurontin) 300 mg BEDTIME ORAL 05/06/17 21:00 05/31/17 20:59 05/08/17 20:54 Metoprolol Succinate (Toprol XL) 25 mg DAILY ORAL 05/06/17 09:00 06/01/17 08:59 Metoprolol Tartrate (Lopressor) 5 mg Q6H PRN IVP HR>130 SUSTAINED MORE THAN 5 M 05/06/17 06:00 06/01/17 17:51 Morphine Sulfate (Morphine Sulfate) 4 mg Q4H PRN IVP MOD TO SEV BREAKTHROUGH PAIN 05/06/17 05:15 05/10/17 23:59 05/09/17 05:16 Norepinephrine Bitartrate 4 mg/ Dextrose 250 ml @ 0 mls/hr Q24H IV 05/08/17 22:15 06/07/17 22:14 05/08/17 22:06 Prochlorperazine (Compazine) 10 mg Q6H PRN IVP Nausea & Vomiting 05/06/17 05:00 05/31/17 10:59 Topiramate (Topamax) 25 mg Q12HR ORAL 05/06/17 09:00 06/03/17 20:59 05/09/17 09:25 Trazodone HCl (Desyrel) 150 mg BEDTIME ORAL 05/06/17 21:00 05/31/17 20:59 05/08/17 20:54 SCOOBY FERREIRA May 09, 2017 09:50
[2017-05-09] MEDS ORDERED: Midodrine 10mg tab ORAL SCH (13:00)
--- NOTE | 2017-05-09 13:25 | Nephrology Progress Note ---
Assessment/Plan Problem List: (1) Septic shock (2) Secondary hyperparathyroidism (of renal origin) (3) HTN (hypertension) (4) ESRD (end stage renal disease) on dialysis (5) Gram-positive bacteremia Assessment: Staph Aureus Plan I removed dialysis catheter under sterile technic IV Abxs follow labs Discussed with RN start Midodrine follow cultures Subjective Subjective seen in ICU more alert Objective Objective Last 24 Hour Vital Signs Date Time Temp Pulse Resp B/P (MAP) Pulse Ox O2 Delivery O2 Flow Rate FiO2 05/09/17 12:00 99.2 86 17 126/103 97 Nasal Cannula 3.0 05/09/17 12:00 84 05/09/17 11:00 86 19 82/37 100 Nasal Cannula 3.0 05/09/17 10:00 87 18 92/41 100 Nasal Cannula 3.0 05/09/17 10:00 92/41 05/09/17 09:30 90 22 84/60 100 Nasal Cannula 3.0 05/09/17 09:00 81 19 88/33 100 Nasal Cannula 3.0 05/09/17 09:00 88/33 05/09/17 09:00 91 95/45 05/09/17 08:30 75 15 101/38 98 Nasal Cannula 3.0 05/09/17 08:00 83 05/09/17 08:00 79 17 68/34 95 Nasal Cannula 3.0 05/09/17 08:00 68/34 05/09/17 07:30 98.7 82 17 101/39 100 Nasal Cannula 3.0 05/09/17 07:00 81 19 94/42 95 Nasal Cannula 3.0 05/09/17 07:00 94/42 05/09/17 06:58 Nasal Cannula 3.0 05/09/17 06:56 100 Nasal Cannula 3.0 05/09/17 06:55 81 18 Nasal Cannula 3.0 28 05/09/17 06:30 82 21 95/41 99 Nasal Cannula 3.0 05/09/17 06:00 84 20 95/42 100 Nasal Cannula 3.0 05/09/17 06:00 95/42 05/09/17 05:30 81 19 92/31 100 Nasal Cannula 3.0 05/09/17 05:00 85 19 103/40 100 Nasal Cannula 3.0 05/09/17 05:00 103/40 05/09/17 04:30 84 17 99/42 100 Nasal Cannula 3.0 05/09/17 04:00 98.7 90 20 103/68 96 Nasal Cannula 3.0 05/09/17 04:00 87 05/09/17 04:00 103/68 05/09/17 03:30 79 17 88/45 99 Nasal Cannula 3.0 05/09/17 03:15 81 17 88/37 100 Nasal Cannula 3.0 05/09/17 03:00 81 19 88/37 99 Nasal Cannula 3.0 05/09/17 03:00 88/37 05/09/17 02:45 81 16 88/37 99 Nasal Cannula 3.0 05/09/17 02:30 81 19 89/42 99 Nasal Cannula 3.0 05/09/17 02:00 85 19 109/42 99 Nasal Cannula 3.0 05/09/17 02:00 109/42 05/09/17 01:30 89 21 109/42 98 Nasal Cannula 3.0 05/09/17 01:00 98.9 89 20 85/42 99 Nasal Cannula 3.0 05/09/17 01:00 85/42 05/09/17 00:30 93 21 90/40 97 Nasal Cannula 3.0 05/09/17 00:00 99.8 100 18 101/49 98 Nasal Cannula 3.0 05/09/17 00:00 100 05/09/17 00:00 92/39 05/08/17 23:30 98 24 109/57 97 Nasal Cannula 3.0 05/08/17 23:00 96 22 87/47 99 Nasal Cannula 3.0 05/08/17 23:00 88/43 05/08/17 22:30 95 22 98/38 100 Nasal Cannula 3.0 05/08/17 22:06 99/41 18 22:06 103/51 18 22:00 97 23 103/51 99 Nasal Cannula 3.0 05/08/17 21:30 96 22 99/47 100 Nasal Cannula 3.0 05/08/17 21:00 101 24 114/58 96 Nasal Cannula 3.0 18 21:00 104/41 05/08/18 20:45 99 24 107/54 97 Nasal Cannula 3.0 18 20:30 96 22 107/54 100 Nasal Cannula 3.0 05/08/17 20:15 95 21 96/53 100 Nasal Cannula 3.0 05/08/17 20:00 99.3 96 21 85/43 100 Nasal Cannula 3.0 05/08/17 20:00 84/45 18 20:00 94 18 19:45 97 20 97/39 100 Nasal Cannula 3.0 05/08/17 19:39 108 34 Nasal Cannula 3.0 28 05/08/17 19:39 Nasal Cannula 2.0 28 05/08/17 19:39 100 Nasal Cannula 2.0 28 05/08/17 19:30 98 21 107/43 100 Nasal Cannula 3.0 05/08/17 19:00 97/49 05/08/17 19:00 100 20 91/46 97 Nasal Cannula 3.0 05/08/17 18:30 95 20 95/43 100 Nasal Cannula 3.0 05/08/17 18:00 96 22 95/45 100 Nasal Cannula 3.0 05/08/17 17:30 94 20 100/43 100 Nasal Cannula 3.0 05/08/17 17:00 94 22 110/58 99 Nasal Cannula 3.0 05/08/17 16:30 96 20 109/55 99 Nasal Cannula 3.0 05/08/17 16:00 95 05/08/17 16:00 99.4 94 21 112/53 99 Nasal Cannula 3.0 05/08/17 15:30 95 21 109/51 100 Nasal Cannula 3.0 05/08/17 15:00 96 21 102/45 100 Nasal Cannula 3.0 05/08/17 14:30 93 20 102/43 100 Nasal Cannula 3.0 05/08/17 14:00 97 20 109/50 100 Nasal Cannula 3.0 05/08/17 13:30 99 21 98/45 100 Nasal Cannula 3.0 Intake and Output 05/08/17 05/09/17 19:00 07:00 Intake Total 7.5 ml 408.75 ml Output Total 0 ml 0 ml Balance 7.5 ml 408.75 ml Intake Oral 0 ml 300 ml IV Total 7.5 ml 108.75 ml Output Urine Total 0 ml 0 ml Laboratory Tests 05/09/17 03:40: White Blood Count 16.0H, Red Blood Count 2.31L, Hemoglobin 8.0L, Hematocrit 24.9L, Mean Corpuscular Volume 108H, Mean Corpuscular Hemoglobin 34.5H, Mean Corpuscular Hemoglobin Concent 32.0, Red Cell Distribution Width 14.9H, Platelet Count 249, Mean Platelet Volume 6.3L, Neutrophils (%) (Auto) 74.4, Lymphocytes (%) (Auto) 16.8L, Monocytes (%) (Auto) 8.1, Eosinophils (%) (Auto) 0.5, Basophils (%) (Auto) 0.3, Sodium Level 142, Potassium Level 3.8, Chloride Level 102, Carbon Dioxide Level 32, Anion Gap 8, Blood Urea Nitrogen 52H, Creatinine 9.3H, Estimat Glomerular Filtration Rate 5.2, Glucose Level 91, Calcium Level 8.8, Total Bilirubin 0.8, Aspartate Amino Transf (AST/SGOT) 23, Alanine Aminotransferase (ALT/SGPT) 13, Alkaline Phosphatase 79, Total Creatine Kinase 45, Total Protein 7.3, Albumin 1.8L, Globulin 5.5, Albumin/Globulin Ratio 0.3L Height (Feet): 5 Height (Inches): 4.00 Weight (Pounds): 211 Cardiovascular: normal rate Respiratory/Chest: lungs clear Extremities: other - no edema NENA FERREIRA May 09, 2017 13:25
--- NOTE | 2017-05-09 13:48 | Pulmonology Progress Note ---
Assessment/Plan Assessment/Plan 1. Septic shock, due to staph aureus bacteremia 2. Respiratory insufficiency. 3. Rapid AF, better 4. End-stage renal disease, on dialysis. 5. abdominal hernia with ulceration x2 with visible mesh, foul odor 6. Decubitus ulcer. 7. Depression. 8. Seizure disorder. 9. Dialysis catheter infection, removed 10. Chronic obstructive pulmonary disease. HD/UF montior BP, pressors for map less than 65 mmhg dvt proplyaxis abs fu cultures wound care is fu labs CXR in am ICU for now Noted issues with line... Subjective Interval Events: Seen in ICU Constitutional: Reports: no symptoms HEENT: Repors: no symptoms Respiratory: Reports: no symptoms Cardiovascular: Reports: no symptoms Gastrointestinal/Abdominal: Reports: no symptoms Genitourinary: Reports: no symptoms Allergies: Coded Allergies: No Known Allergies (Unverified , 12/04/15) Objective Last 24 Hour Vital Signs Date Time Temp Pulse Resp B/P (MAP) Pulse Ox O2 Delivery O2 Flow Rate FiO2 05/09/17 13:00 80 17 91/40 100 Nasal Cannula 3.0 05/09/17 12:00 99.2 86 17 126/103 97 Nasal Cannula 3.0 05/09/17 12:00 84 05/09/17 11:00 86 19 82/37 100 Nasal Cannula 3.0 05/09/17 10:00 87 18 92/41 100 Nasal Cannula 3.0 05/09/17 10:00 92/41 05/09/17 09:30 90 22 84/60 100 Nasal Cannula 3.0 05/09/17 09:00 81 19 88/33 100 Nasal Cannula 3.0 05/09/17 09:00 88/33 05/09/17 09:00 91 95/45 05/09/17 08:30 75 15 101/38 98 Nasal Cannula 3.0 05/09/17 08:00 83 05/09/17 08:00 79 17 68/34 95 Nasal Cannula 3.0 05/09/17 08:00 68/34 05/09/17 07:30 98.7 82 17 101/39 100 Nasal Cannula 3.0 05/09/17 07:00 81 19 94/42 95 Nasal Cannula 3.0 05/09/17 07:00 94/42 05/09/17 06:58 Nasal Cannula 3.0 05/09/17 06:56 100 Nasal Cannula 3.0 05/09/17 06:55 81 18 Nasal Cannula 3.0 28 05/09/17 06:30 82 21 95/41 99 Nasal Cannula 3.0 05/09/17 06:00 84 20 95/42 100 Nasal Cannula 3.0 05/09/17 06:00 95/42 05/09/17 05:30 81 19 92/31 100 Nasal Cannula 3.0 05/09/17 05:00 85 19 103/40 100 Nasal Cannula 3.0 05/09/17 05:00 103/40 05/09/17 04:30 84 17 99/42 100 Nasal Cannula 3.0 05/09/17 04:00 98.7 90 20 103/68 96 Nasal Cannula 3.0 05/09/17 04:00 87 05/09/17 04:00 103/68 05/09/17 03:30 79 17 88/45 99 Nasal Cannula 3.0 05/09/17 03:15 81 17 88/37 100 Nasal Cannula 3.0 05/09/17 03:00 81 19 88/37 99 Nasal Cannula 3.0 05/09/17 03:00 88/37 05/09/17 02:45 81 16 88/37 99 Nasal Cannula 3.0 05/09/17 02:30 81 19 89/42 99 Nasal Cannula 3.0 05/09/17 02:00 85 19 109/42 99 Nasal Cannula 3.0 05/09/17 02:00 109/42 05/09/17 01:30 89 21 109/42 98 Nasal Cannula 3.0 05/09/17 01:00 98.9 89 20 85/42 99 Nasal Cannula 3.0 05/09/17 01:00 85/42 05/09/17 00:30 93 21 90/40 97 Nasal Cannula 3.0 05/09/17 00:00 99.8 100 18 101/49 98 Nasal Cannula 3.0 05/09/17 00:00 100 05/09/17 00:00 92/39 05/08/17 23:30 98 24 109/57 97 Nasal Cannula 3.0 05/08/17 23:00 96 22 87/47 99 Nasal Cannula 3.0 05/08/17 23:00 88/43 05/08/17 22:30 95 22 98/38 100 Nasal Cannula 3.0 2/18/18 22:06 99/41 2/18/18 22:06 103/51 2/18/18 22:00 97 23 103/51 99 Nasal Cannula 3.0 2/18/18 21:30 96 22 99/47 100 Nasal Cannula 3.0 2/18/18 21:00 101 24 114/58 96 Nasal Cannula 3.0 2/18/18 21:00 104/41 2/18/18 20:45 99 24 107/54 97 Nasal Cannula 3.0 2/18/18 20:30 96 22 107/54 100 Nasal Cannula 3.0 2/18/18 20:15 95 21 96/53 100 Nasal Cannula 3.0 2/18/18 20:00 99.3 96 21 85/43 100 Nasal Cannula 3.0 218/18 20:00 84/45 2/18/18 20:00 94 2/18/18 19:45 97 20 97/39 100 Nasal Cannula 3.0 218/18 19:39 108 34 Nasal Cannula 3.0 28 218/18 19:39 Nasal Cannula 2.0 28 218/18 19:39 100 Nasal Cannula 2.0 28 218/18 19:30 98 21 107/43 100 Nasal Cannula 3.0 2/18/18 19:00 97/49 2/18/18 19:00 100 20 91/46 97 Nasal Cannula 3.0 2/18/18 18:30 95 20 95/43 100 Nasal Cannula 3.0 2/18/18 18:00 96 22 95/45 100 Nasal Cannula 3.0 2/18/18 17:30 94 20 100/43 100 Nasal Cannula 3.0 2/18/18 17:00 94 22 110/58 99 Nasal Cannula 3.0 2/18/18 16:30 96 20 109/55 99 Nasal Cannula 3.0 2/18/18 16:00 95 2/18/18 16:00 99.4 94 21 112/53 99 Nasal Cannula 3.0 2/18/18 15:30 95 21 109/51 100 Nasal Cannula 3.0 2/18/18 15:00 96 21 102/45 100 Nasal Cannula 3.0 2/18/18 14:30 93 20 102/43 100 Nasal Cannula 3.0 2/18/18 14:00 97 20 109/50 100 Nasal Cannula 3.0 Intake and Output 05/08/17 05/09/17 19:00 07:00 Intake Total 7.5 ml 408.75 ml Output Total 0 ml 0 ml Balance 7.5 ml 408.75 ml Intake Oral 0 ml 300 ml IV Total 7.5 ml 108.75 ml Output Urine Total 0 ml 0 ml General Appearance: no acute distress HEENT: normocephalic Respiratory/Chest: chest wall non-tender, lungs clear Cardiovascular: normal peripheral pulses, normal rate Abdomen: normal bowel sounds Microbiology Date/Time Source Procedure Growth Status 05/07/17 13:00 Blood Blood Culture - Preliminary Staphylococcus Aureus Resulted 05/07/17 12:50 Blood Blood Culture - Preliminary Staphylococcus Aureus Resulted 05/06/17 16:15 Blood Blood Culture - Final Staphylococcus Aureus - Mrsa Complete 05/06/17 16:10 Blood Blood Culture - Final Staphylococcus Aureus - Mrsa Complete 05/06/17 20:00 Stool Clostridium difficile Toxin Assay - Final Complete Laboratory Tests 05/09/17 03:40: White Blood Count 16.0H, Red Blood Count 2.31L, Hemoglobin 8.0L, Hematocrit 24.9L, Mean Corpuscular Volume 108H, Mean Corpuscular Hemoglobin 34.5H, Mean Corpuscular Hemoglobin Concent 32.0, Red Cell Distribution Width 14.9H, Platelet Count 249, Mean Platelet Volume 6.3L, Neutrophils (%) (Auto) 74.4, Lymphocytes (%) (Auto) 16.8L, Monocytes (%) (Auto) 8.1, Eosinophils (%) (Auto) 0.5, Basophils (%) (Auto) 0.3, Sodium Level 142, Potassium Level 3.8, Chloride Level 102, Carbon Dioxide Level 32, Anion Gap 8, Blood Urea Nitrogen 52H, Creatinine 9.3H, Estimat Glomerular Filtration Rate 5.2, Glucose Level 91, Calcium Level 8.8, Total Bilirubin 0.8, Aspartate Amino Transf (AST/SGOT) 23, Alanine Aminotransferase (ALT/SGPT) 13, Alkaline Phosphatase 79, Total Creatine Kinase 45, Total Protein 7.3, Albumin 1.8L, Globulin 5.5, Albumin/Globulin Ratio 0.3L Current Medications Medications (Trade) Dose Ordered Sig/Jeff Route PRN Reason Start Time Stop Time Status Last Admin Dose Admin Acetaminophen (Tylenol) 650 mg Q4H PRN ORAL Mild Pain (Pain Scale 1-3) 05/06/17 02:00 05/31/17 17:59 05/09/17 00:16 Amiodarone HCl (Cordarone) 400 mg EVERY 12 HOURS ORAL 05/06/17 09:00 06/04/17 19:59 05/09/17 09:25 Apixaban (Eliquis) 2.5 mg Q12HR ORAL 05/07/17 21:00 06/06/17 20:59 05/09/17 09:25 Aspirin (ASA) 81 mg DAILY ORAL 05/06/17 09:00 06/03/17 17:59 05/09/17 09:25 Buspirone HCl (Buspar) 15 mg TWICE A DAY ORAL 05/06/17 09:00 05/31/17 08:59 05/09/17 09:25 Chlorhexidine Gluconate (Majo-Hex 2%) 1 applic DAILY@2000 TOPIC 05/06/17 20:00 06/01/17 19:59 05/08/17 20:05 Cinacalcet (Sensipar) 30 mg DAILY ORAL 05/06/17 09:00 05/31/17 08:59 05/09/17 09:24 Daptomycin 550 mg/ Sodium Chloride 55 ml @ 100 mls/hr Q48H IV 05/08/17 11:00 05/15/17 23:59 05/08/17 12:55 Dextrose (Dextrose 50%) STAT PRN IV Hypoglycemia 05/06/17 18:00 06/03/17 17:59 Gabapentin (Neurontin) 300 mg BEDTIME ORAL 05/06/17 21:00 05/31/17 20:59 05/08/17 20:54 Linezolid (Zyvox) 600 mg EVERY 12 HOURS ORAL 05/09/17 10:00 05/14/17 09:59 05/09/17 11:33 Metoprolol Succinate (Toprol XL) 25 mg DAILY ORAL 05/06/17 09:00 06/01/17 08:59 Metoprolol Tartrate (Lopressor) 5 mg Q6H PRN IVP HR>130 SUSTAINED MORE THAN 5 M 05/06/17 06:00 06/01/17 17:51 Midodrine (Pro-Amatine) 10 mg EVERY 8 HOURS ORAL 05/09/17 14:00 06/08/17 12:59 Morphine Sulfate (Morphine Sulfate) 4 mg Q4H PRN IVP MOD TO SEV BREAKTHROUGH PAIN 05/06/17 05:15 05/10/17 23:59 05/09/17 05:16 Norepinephrine Bitartrate 4 mg/ Dextrose 250 ml @ 0 mls/hr Q24H IV 05/08/17 22:15 06/07/17 22:14 05/08/17 22:06 Prochlorperazine (Compazine) 10 mg Q6H PRN IVP Nausea & Vomiting 05/06/17 05:00 05/31/17 10:59 Topiramate (Topamax) 25 mg Q12HR ORAL 05/06/17 09:00 06/03/17 20:59 05/09/17 09:25 Trazodone HCl (Desyrel) 150 mg BEDTIME ORAL 05/06/17 21:00 05/31/17 20:59 05/08/17 20:54 Aly Covarrubias MD May 09, 2017 13:48
[2017-05-09] MEDS: Midodrine 10mg tab ORAL SCH ×2 (14:34→21:49)
--- NOTE | 2017-05-09 15:32 | General Surgery Progress Note ---
General Surgery-Progress Note Subjective Symptoms: improved Additional Comments doing well. no acute events. Objective Last 24 Hour Vital Signs Date Time Temp Pulse Resp B/P (MAP) Pulse Ox O2 Delivery O2 Flow Rate FiO2 05/09/17 14:00 79 22 91/33 99 Nasal Cannula 3.0 05/09/17 13:00 80 17 91/40 100 Nasal Cannula 3.0 05/09/17 12:00 99.2 86 17 126/103 97 Nasal Cannula 3.0 05/09/17 12:00 84 05/09/17 11:00 86 19 82/37 100 Nasal Cannula 3.0 05/09/17 10:00 87 18 92/41 100 Nasal Cannula 3.0 05/09/17 10:00 92/41 05/09/17 09:30 90 22 84/60 100 Nasal Cannula 3.0 05/09/17 09:00 81 19 88/33 100 Nasal Cannula 3.0 05/09/17 09:00 88/33 05/09/17 09:00 91 95/45 05/09/17 08:30 75 15 101/38 98 Nasal Cannula 3.0 05/09/17 08:00 83 05/09/17 08:00 79 17 68/34 95 Nasal Cannula 3.0 05/09/17 08:00 68/34 05/09/17 07:30 98.7 82 17 101/39 100 Nasal Cannula 3.0 05/09/17 07:00 81 19 94/42 95 Nasal Cannula 3.0 05/09/17 07:00 94/42 05/09/17 06:58 Nasal Cannula 3.0 05/09/17 06:56 100 Nasal Cannula 3.0 05/09/17 06:55 81 18 Nasal Cannula 3.0 28 05/09/17 06:30 82 21 95/41 99 Nasal Cannula 3.0 05/09/17 06:00 84 20 95/42 100 Nasal Cannula 3.0 05/09/17 06:00 95/42 05/09/17 05:30 81 19 92/31 100 Nasal Cannula 3.0 05/09/17 05:00 85 19 103/40 100 Nasal Cannula 3.0 05/09/17 05:00 103/40 05/09/17 04:30 84 17 99/42 100 Nasal Cannula 3.0 05/09/17 04:00 98.7 90 20 103/68 96 Nasal Cannula 3.0 05/09/17 04:00 87 05/09/17 04:00 103/68 05/09/17 03:30 79 17 88/45 99 Nasal Cannula 3.0 05/09/17 03:15 81 17 88/37 100 Nasal Cannula 3.0 05/09/17 03:00 81 19 88/37 99 Nasal Cannula 3.0 05/09/17 03:00 88/37 05/09/17 02:45 81 16 88/37 99 Nasal Cannula 3.0 05/09/17 02:30 81 19 89/42 99 Nasal Cannula 3.0 05/09/17 02:00 85 19 109/42 99 Nasal Cannula 3.0 05/09/17 02:00 109/42 05/09/17 01:30 89 21 109/42 98 Nasal Cannula 3.0 05/09/17 01:00 98.9 89 20 85/42 99 Nasal Cannula 3.0 05/09/17 01:00 85/42 05/09/17 00:30 93 21 90/40 97 Nasal Cannula 3.0 05/09/17 00:00 99.8 100 18 101/49 98 Nasal Cannula 3.0 05/09/17 00:00 100 05/09/17 00:00 92/39 05/08/17 23:30 98 24 109/57 97 Nasal Cannula 3.0 05/08/17 23:00 96 22 87/47 99 Nasal Cannula 3.0 05/08/17 23:00 88/43 05/08/18 22:30 95 22 98/38 100 Nasal Cannula 3.0 18 22:06 99/41 21818 22:06 103/51 218/18 22:00 97 23 103/51 99 Nasal Cannula 3.0 18 21:30 96 22 99/47 100 Nasal Cannula 3.0 18 21:00 101 24 114/58 96 Nasal Cannula 3.0 18 21:00 104/41 218/18 20:45 99 24 107/54 97 Nasal Cannula 3.0 18/18 20:30 96 22 107/54 100 Nasal Cannula 3.0 18/18 20:15 95 21 96/53 100 Nasal Cannula 3.0 2/18/18 20:00 99.3 96 21 85/43 100 Nasal Cannula 3.0 05/08/17 20:00 84/45 05/08/17 20:00 94 05/08/17 19:45 97 20 97/39 100 Nasal Cannula 3.0 05/08/17 19:39 108 34 Nasal Cannula 3.0 28 05/08/17 19:39 Nasal Cannula 2.0 28 05/08/17 19:39 100 Nasal Cannula 2.0 28 05/08/17 19:30 98 21 107/43 100 Nasal Cannula 3.0 05/08/17 19:00 97/49 05/08/17 19:00 100 20 91/46 97 Nasal Cannula 3.0 05/08/17 18:30 95 20 95/43 100 Nasal Cannula 3.0 05/08/17 18:00 96 22 95/45 100 Nasal Cannula 3.0 05/08/17 17:30 94 20 100/43 100 Nasal Cannula 3.0 05/08/17 17:00 94 22 110/58 99 Nasal Cannula 3.0 05/08/17 16:30 96 20 109/55 99 Nasal Cannula 3.0 05/08/17 16:00 95 05/08/17 16:00 99.4 94 21 112/53 99 Nasal Cannula 3.0 I&O Intake and Output 05/08/17 05/09/17 19:00 07:00 Intake Total 7.5 ml 408.75 ml Output Total 0 ml 0 ml Balance 7.5 ml 408.75 ml Intake Oral 0 ml 300 ml IV Total 7.5 ml 108.75 ml Output Urine Total 0 ml 0 ml Dressing: dry Wound: clean Cardiovascular: RSR Respiratory: clear Abdomen: soft, non-tender, other - mesh edges okay. obese. hernia without issues Extremities: no cyanosis Laboratory Tests Test 05/09/17 03:40 White Blood Count 16.0 K/UL (4.8-10.8) H Red Blood Count 2.31 M/UL (4.20-5.40) L Hemoglobin 8.0 G/DL (12.0-16.0) L Hematocrit 24.9 % (37.0-47.0) L Mean Corpuscular Volume 108 FL (80-99) H Mean Corpuscular Hemoglobin 34.5 PG (27.0-31.0) H Mean Corpuscular Hemoglobin Concent 32.0 G/DL (32.0-36.0) Red Cell Distribution Width 14.9 % (11.6-14.8) H Platelet Count 249 K/UL (150-450) Mean Platelet Volume 6.3 FL (6.5-10.1) L Neutrophils (%) (Auto) 74.4 % (45.0-75.0) Lymphocytes (%) (Auto) 16.8 % (20.0-45.0) L Monocytes (%) (Auto) 8.1 % (1.0-10.0) Eosinophils (%) (Auto) 0.5 % (0.0-3.0) Basophils (%) (Auto) 0.3 % (0.0-2.0) Sodium Level 142 MMOL/L (136-145) Potassium Level 3.8 MMOL/L (3.5-5.1) Chloride Level 102 MMOL/L (98-107) Carbon Dioxide Level 32 MMOL/L (21-32) Anion Gap 8 mmol/L (5-15) Blood Urea Nitrogen 52 mg/dL (7-18) H Creatinine 9.3 MG/DL (0.55-1.30) H Estimat Glomerular Filtration Rate 5.2 mL/min (>60) Glucose Level 91 MG/DL (74-106) Calcium Level 8.8 MG/DL (8.5-10.1) Total Bilirubin 0.8 MG/DL (0.2-1.0) Aspartate Amino Transf (AST/SGOT) 23 U/L (15-37) Alanine Aminotransferase (ALT/SGPT) 13 U/L (12-78) Alkaline Phosphatase 79 U/L (46-116) Total Creatine Kinase 45 U/L (26-308) Total Protein 7.3 G/DL (6.4-8.2) Albumin 1.8 G/DL (3.4-5.0) L Globulin 5.5 g/dL Albumin/Globulin Ratio 0.3 (1.0-2.7) L Plan Problems: (1) Ventral hernia Assessment & Plan: history of umbilical hernia s/p repair with failure. hernia recurred and mesh exposed for some time now. has been monitored outside and stable. on exam does not seem to be source of sepsis. it is clean and well healed. areas of exposed mesh has scar tissue and debris building under mesh. no signs of infection or drainage. portions of mesh that were exposed were cut away. underlying tissue cleaned and allowed to heal. mesh seems to have incorporated into/as dermis in surrounding tissues. Do not recommend excision of mesh that is not exposed as it does not seem to be infected and would cause more harm. cont with monitoring for now. hernia stable without obstruction thank you for this consult. will follow with you Rex King May 09, 2017 15:32
--- NOTE | 2017-05-09 20:15 | Cardiology Progress Note ---
Assessment/Plan Assessment/Plan 1. Paroxysmal episodes of atrial fibrillation. 2. No evidence of epicardial coronary disease. 3. End-stage renal disease, on hemodialysis. 4. Septic shock. 5. Bacteremia persistent 6. Abdominal ventral hernia status post repair. no afib since yest at 8 am on po amiod 400 mg bid for nwo iv abx for bacteremia echo normal lv function catheter tip + for staph as well surveillance cx postitive still on repeat !! no cathter reviwed needs a holiday form lines may need further evaluation will d/w ID eliquis 2.5mg bid for now for stroke prevention awiat furth line changes ekg in am Subjective Cardiovascular: Reports: chest pain - upper chest when she takes a deep breath or cough , Denies: lightheadedness Respiratory: Denies: shortness of breath Gastrointestinal/Abdominal: Denies: abdominal pain Objective Last 24 Hour Vital Signs Date Time Temp Pulse Resp B/P (MAP) Pulse Ox O2 Delivery O2 Flow Rate FiO2 05/09/17 20:00 73 05/09/17 19:06 Nasal Cannula 3.0 32 05/09/17 19:06 83 18 Nasal Cannula 3.0 28 05/09/17 19:06 100 Nasal Cannula 3.0 05/09/17 19:00 73 21 97/63 98 Nasal Cannula 3.0 05/09/17 18:26 99.2 05/09/17 18:00 79 21 87/37 100 Nasal Cannula 3.0 05/09/17 17:27 99.1 05/09/17 17:00 83 21 104/39 100 Nasal Cannula 3.0 05/09/17 16:00 84 05/09/17 16:00 99.4 78 20 90/33 98 Nasal Cannula 3.0 05/09/17 15:00 79 22 79/53 99 Nasal Cannula 3.0 05/09/17 14:00 79 22 91/33 99 Nasal Cannula 3.0 05/09/17 13:00 80 17 91/40 100 Nasal Cannula 3.0 05/09/17 12:00 99.2 86 17 126/103 97 Nasal Cannula 3.0 05/09/17 12:00 84 05/09/17 11:00 86 19 82/37 100 Nasal Cannula 3.0 05/09/17 10:00 87 18 92/41 100 Nasal Cannula 3.0 05/09/17 10:00 92/41 05/09/17 09:30 90 22 84/60 100 Nasal Cannula 3.0 05/09/17 09:00 81 19 88/33 100 Nasal Cannula 3.0 05/09/17 09:00 88/33 05/09/17 09:00 91 95/45 05/09/17 08:30 75 15 101/38 98 Nasal Cannula 3.0 05/09/17 08:00 83 05/09/17 08:00 79 17 68/34 95 Nasal Cannula 3.0 05/09/17 08:00 68/34 05/09/17 07:30 98.7 82 17 101/39 100 Nasal Cannula 3.0 05/09/17 07:00 81 19 94/42 95 Nasal Cannula 3.0 05/09/17 07:00 94/42 05/09/17 06:58 Nasal Cannula 3.0 05/09/17 06:56 100 Nasal Cannula 3.0 05/09/17 06:55 81 18 Nasal Cannula 3.0 28 05/09/17 06:30 82 21 95/41 99 Nasal Cannula 3.0 05/09/17 06:00 84 20 95/42 100 Nasal Cannula 3.0 05/09/17 06:00 95/42 05/09/17 05:30 81 19 92/31 100 Nasal Cannula 3.0 05/09/17 05:00 85 19 103/40 100 Nasal Cannula 3.0 05/09/17 05:00 103/40 05/09/17 04:30 84 17 99/42 100 Nasal Cannula 3.0 05/09/17 04:00 98.7 90 20 103/68 96 Nasal Cannula 3.0 05/09/17 04:00 87 05/09/17 04:00 103/68 05/09/17 03:30 79 17 88/45 99 Nasal Cannula 3.0 05/09/17 03:15 81 17 88/37 100 Nasal Cannula 3.0 05/09/17 03:00 81 19 88/37 99 Nasal Cannula 3.0 05/09/17 03:00 88/37 05/09/17 02:45 81 16 88/37 99 Nasal Cannula 3.0 05/09/17 02:30 81 19 89/42 99 Nasal Cannula 3.0 05/09/17 02:00 85 19 109/42 99 Nasal Cannula 3.0 05/09/17 02:00 109/42 05/09/17 01:30 89 21 109/42 98 Nasal Cannula 3.0 05/09/17 01:00 98.9 89 20 85/42 99 Nasal Cannula 3.0 05/09/17 01:00 85/42 05/09/17 00:30 93 21 90/40 97 Nasal Cannula 3.0 05/09/17 00:00 99.8 100 18 101/49 98 Nasal Cannula 3.0 05/09/17 00:00 100 05/09/17 00:00 92/39 05/08/17 23:30 98 24 109/57 97 Nasal Cannula 3.0 05/08/17 23:00 96 22 87/47 99 Nasal Cannula 3.0 05/08/17 23:00 88/43 05/08/17 22:30 95 22 98/38 100 Nasal Cannula 3.0 05/08/17 22:06 99/41 05/08/17 22:06 103/51 05/08/17 22:00 97 23 103/51 99 Nasal Cannula 3.0 05/08/17 21:30 96 22 99/47 100 Nasal Cannula 3.0 05/08/17 21:00 101 24 114/58 96 Nasal Cannula 3.0 05/08/17 21:00 104/41 05/08/17 20:45 99 24 107/54 97 Nasal Cannula 3.0 05/08/17 20:30 96 22 107/54 100 Nasal Cannula 3.0 05/08/17 20:15 95 21 96/53 100 Nasal Cannula 3.0 General Appearance: no apparent distress, alert Neck: supple Cardiovascular: normal rate, regular rhythm Respiratory/Chest: lungs clear Abdomen: normal bowel sounds, non tender, soft Extremities: no swelling Intake and Output 05/08/17 05/09/17 19:00 07:00 Intake Total 7.5 ml 408.75 ml Output Total 0 ml 0 ml Balance 7.5 ml 408.75 ml Intake Oral 0 ml 300 ml IV Total 7.5 ml 108.75 ml Output Urine Total 0 ml 0 ml Laboratory Tests Test 05/09/17 03:40 White Blood Count 16.0 K/UL (4.8-10.8) H Red Blood Count 2.31 M/UL (4.20-5.40) L Hemoglobin 8.0 G/DL (12.0-16.0) L Hematocrit 24.9 % (37.0-47.0) L Mean Corpuscular Volume 108 FL (80-99) H Mean Corpuscular Hemoglobin 34.5 PG (27.0-31.0) H Mean Corpuscular Hemoglobin Concent 32.0 G/DL (32.0-36.0) Red Cell Distribution Width 14.9 % (11.6-14.8) H Platelet Count 249 K/UL (150-450) Mean Platelet Volume 6.3 FL (6.5-10.1) L Neutrophils (%) (Auto) 74.4 % (45.0-75.0) Lymphocytes (%) (Auto) 16.8 % (20.0-45.0) L Monocytes (%) (Auto) 8.1 % (1.0-10.0) Eosinophils (%) (Auto) 0.5 % (0.0-3.0) Basophils (%) (Auto) 0.3 % (0.0-2.0) Sodium Level 142 MMOL/L (136-145) Potassium Level 3.8 MMOL/L (3.5-5.1) Chloride Level 102 MMOL/L (98-107) Carbon Dioxide Level 32 MMOL/L (21-32) Anion Gap 8 mmol/L (5-15) Blood Urea Nitrogen 52 mg/dL (7-18) H Creatinine 9.3 MG/DL (0.55-1.30) H Estimat Glomerular Filtration Rate 5.2 mL/min (>60) Glucose Level 91 MG/DL (74-106) Calcium Level 8.8 MG/DL (8.5-10.1) Total Bilirubin 0.8 MG/DL (0.2-1.0) Aspartate Amino Transf (AST/SGOT) 23 U/L (15-37) Alanine Aminotransferase (ALT/SGPT) 13 U/L (12-78) Alkaline Phosphatase 79 U/L (46-116) Total Creatine Kinase 45 U/L (26-308) Total Protein 7.3 G/DL (6.4-8.2) Albumin 1.8 G/DL (3.4-5.0) L Globulin 5.5 g/dL Albumin/Globulin Ratio 0.3 (1.0-2.7) L Microbiology Date/Time Source Procedure Growth Status 05/07/17 13:00 Blood Blood Culture - Preliminary Staphylococcus Aureus Resulted 05/07/17 12:50 Blood Blood Culture - Preliminary Staphylococcus Aureus Resulted MATHEUS GATES May 09, 2017 20:15
[2017-05-09] MEDS: TraZODone 50mg tab ORAL SCH (20:58)
--- NOTE | 2017-05-09 21:29 | Internal Med Progress Note ---
Subjective Physician Name Timoteo Appiah Attending Physician Timoteo Appiah M.D. Current Medications Medications (Trade) Dose Ordered Sig/Jeff Route PRN Reason Start Time Stop Time Status Last Admin Dose Admin Acetaminophen (Tylenol) 650 mg Q4H PRN ORAL Mild Pain (Pain Scale 1-3) 05/06/17 02:00 05/31/17 17:59 05/09/17 17:27 Amiodarone HCl (Cordarone) 400 mg EVERY 12 HOURS ORAL 05/06/17 09:00 06/04/17 19:59 05/09/17 20:58 Apixaban (Eliquis) 2.5 mg Q12HR ORAL 05/07/17 21:00 06/06/17 20:59 05/09/17 20:58 Aspirin (ASA) 81 mg DAILY ORAL 05/06/17 09:00 06/03/17 17:59 05/09/17 09:25 Buspirone HCl (Buspar) 15 mg TWICE A DAY ORAL 05/06/17 09:00 05/31/17 08:59 05/09/17 17:27 Cinacalcet (Sensipar) 30 mg DAILY ORAL 05/06/17 09:00 05/31/17 08:59 05/09/17 09:24 Daptomycin 550 mg/ Sodium Chloride 55 ml @ 100 mls/hr Q48H IV 05/08/17 11:00 05/15/17 23:59 05/08/17 12:55 Dextrose (Dextrose 50%) STAT PRN IV Hypoglycemia 05/06/17 18:00 06/03/17 17:59 Gabapentin (Neurontin) 300 mg BEDTIME ORAL 05/06/17 21:00 05/31/17 20:59 05/09/17 20:57 Linezolid (Zyvox) 600 mg EVERY 12 HOURS ORAL 05/09/17 10:00 05/14/17 09:59 05/09/17 20:57 Metoprolol Succinate (Toprol XL) 25 mg DAILY ORAL 05/06/17 09:00 06/01/17 08:59 Metoprolol Tartrate (Lopressor) 5 mg Q6H PRN IVP HR>130 SUSTAINED MORE THAN 5 M 05/06/17 06:00 06/01/17 17:51 Midodrine (Pro-Amatine) 10 mg EVERY 8 HOURS ORAL 05/09/17 14:00 06/08/17 12:59 05/09/17 14:34 Morphine Sulfate (Morphine Sulfate) 4 mg Q4H PRN IVP MOD TO SEV BREAKTHROUGH PAIN 05/06/17 05:15 05/10/17 23:59 05/09/17 05:16 Norepinephrine Bitartrate 4 mg/ Dextrose 250 ml @ 0 mls/hr Q24H IV 05/08/17 22:15 06/07/17 22:14 05/08/17 22:06 Prochlorperazine (Compazine) 10 mg Q6H PRN IVP Nausea & Vomiting 05/06/17 05:00 05/31/17 10:59 Topiramate (Topamax) 25 mg Q12HR ORAL 05/06/17 09:00 06/03/17 20:59 05/09/17 20:58 Trazodone HCl (Desyrel) 150 mg BEDTIME ORAL 05/06/17 21:00 05/31/17 20:59 05/09/17 20:58 Allergies: Coded Allergies: No Known Allergies (Unverified , 12/04/15) Subjective tele - SR off levophed g++ since 12:30pm afebrile on midodrine 12 pt ROS neg except above positives Objective Last Vital Signs Date Time Temp Pulse Resp B/P (MAP) Pulse Ox O2 Delivery O2 Flow Rate FiO2 05/09/17 20:00 73 05/09/17 20:00 99.3 25 96/61 98 Nasal Cannula 3.0 05/09/17 19:06 32 Laboratory Tests Test 05/09/17 03:40 White Blood Count 16.0 K/UL (4.8-10.8) H Red Blood Count 2.31 M/UL (4.20-5.40) L Hemoglobin 8.0 G/DL (12.0-16.0) L Hematocrit 24.9 % (37.0-47.0) L Mean Corpuscular Volume 108 FL (80-99) H Mean Corpuscular Hemoglobin 34.5 PG (27.0-31.0) H Mean Corpuscular Hemoglobin Concent 32.0 G/DL (32.0-36.0) Red Cell Distribution Width 14.9 % (11.6-14.8) H Platelet Count 249 K/UL (150-450) Mean Platelet Volume 6.3 FL (6.5-10.1) L Neutrophils (%) (Auto) 74.4 % (45.0-75.0) Lymphocytes (%) (Auto) 16.8 % (20.0-45.0) L Monocytes (%) (Auto) 8.1 % (1.0-10.0) Eosinophils (%) (Auto) 0.5 % (0.0-3.0) Basophils (%) (Auto) 0.3 % (0.0-2.0) Sodium Level 142 MMOL/L (136-145) Potassium Level 3.8 MMOL/L (3.5-5.1) Chloride Level 102 MMOL/L (98-107) Carbon Dioxide Level 32 MMOL/L (21-32) Anion Gap 8 mmol/L (5-15) Blood Urea Nitrogen 52 mg/dL (7-18) H Creatinine 9.3 MG/DL (0.55-1.30) H Estimat Glomerular Filtration Rate 5.2 mL/min (>60) Glucose Level 91 MG/DL (74-106) Calcium Level 8.8 MG/DL (8.5-10.1) Total Bilirubin 0.8 MG/DL (0.2-1.0) Aspartate Amino Transf (AST/SGOT) 23 U/L (15-37) Alanine Aminotransferase (ALT/SGPT) 13 U/L (12-78) Alkaline Phosphatase 79 U/L (46-116) Total Creatine Kinase 45 U/L (26-308) Total Protein 7.3 G/DL (6.4-8.2) Albumin 1.8 G/DL (3.4-5.0) L Globulin 5.5 g/dL Albumin/Globulin Ratio 0.3 (1.0-2.7) L Microbiology Date/Time Source Procedure Growth Status 05/07/17 13:00 Blood Blood Culture - Preliminary Staphylococcus Aureus Resulted 05/07/17 12:50 Blood Blood Culture - Preliminary Staphylococcus Aureus Resulted Intake and Output 05/08/17 05/09/17 19:00 07:00 Intake Total 7.5 ml 408.75 ml Output Total 0 ml 0 ml Balance 7.5 ml 408.75 ml Intake Oral 0 ml 300 ml IV Total 7.5 ml 108.75 ml Output Urine Total 0 ml 0 ml Objective gen - NAD. obese. HEENT - nc/at Neck - supple. no kvd CVS - RRR> no S1, S2 Lungs - dec BS bilaterally Abd - NT. + surgical wound ext - no c/c/e; left hip and leg externally rotated Assessment/Plan Assessment/Plan ASSESSMENT: 1. MRSA Line Sepsis w/ bacteremia 2. Respiratory insufficiency- resolved 3. Metabolic Encephalopathy 4. End-stage renal disease, on dialysis. 5. History of atrial fibrillation. 6. Decubitus ulcer. 7. Depression. 8. Seizure disorder. 9. Septic Shock 2/2 #1 10. Chronic obstructive pulmonary disease. 11. Abd surgical wound with exposed mesh Plan level of care - ICU off pressors repeat Bcx abx - Daptomycin Will need KRISTIN bc persistent bacteremia Dialysis catheter removed ID recs appreciated f/u cultures renal recs appreciated Cards consult for afib Amiodarone TTE - no vegatations CT abd/pelvis - no abscess. large ventral hernia Surgery evaluation for abdominal surgical wound TIMOTEO APPIAH M.D. May 09, 2017 21:29
[2017-05-10] VITALS (27 sets, daily range): BP systolic 71–114; BP diastolic 36–94
[2017-05-10] MEDS: Morphine Sulfate 4mg/ml Inj IVP PRN (05:15)
[2017-05-10] MEDS: Midodrine 10mg tab ORAL SCH ×3 (06:03→21:46)
[2017-05-10] MEDS: BusPIRone 5mg Tab ORAL SCH ×2 (08:43→18:25)
[2017-05-10] MEDS: Topiramate 25mg tab ORAL SCH ×2 (08:43→21:00)
[2017-05-10] MEDS: Amiodarone 200mg tab ORAL SCH ×2 (08:44→21:00)
[2017-05-10] MEDS: Aspirin Baby 81mg ORAL SCH (08:44)
[2017-05-10] MEDS: Eliquis 2.5mg tablet ORAL SCH ×2 (08:44→21:00)
[2017-05-10] MEDS: Metoprolol Succinate XL 25mg tab ORAL SCH (08:44)
[2017-05-10] MEDS: Sensipar 30mg Tab ORAL SCH (08:44)
[2017-05-10] MEDS: DAPTOmycin 550 MG in NS 55 ML IV SCH (11:28)
--- NOTE | 2017-05-10 11:33 | Infectious Diseases Prog Note ---
Assessment/Plan Assessment/Plan A Septic shock off pressor HD line infection MRSA sepsis Persistent MRSA bacteremia ESRD on HD Morbid obesity COPD Atrial fibrillation P; Continue Daptomycin & linezolid repeat blood cultures case was D/W microbiologist there is no disc for checking Daptomycin sensitivity Case was D/W pharmacy Subjective ROS Limited/Unobtainable: Yes Cardiovascular: Reports: other - HD line removed Neurologic: Reports: other - drowsy Allergies: Coded Allergies: No Known Allergies (Unverified , 12/04/15) Objective Vital Signs Last 24 Hour Vital Signs Date Time Temp Pulse Resp B/P (MAP) Pulse Ox O2 Delivery O2 Flow Rate FiO2 05/10/17 10:00 80 18 88/41 96 Nasal Cannula 3.0 05/10/17 09:00 81 20 99/39 97 Nasal Cannula 3.0 05/10/17 08:44 82 95/43 05/10/17 08:00 82 05/10/17 08:00 99.1 82 18 95/43 100 Nasal Cannula 3.0 05/10/17 07:00 82 18 94/42 99 Nasal Cannula 3.0 05/10/17 06:42 100 Nasal Cannula 3.0 05/10/17 06:42 85 20 Nasal Cannula 3.0 28 05/10/17 06:42 Nasal Cannula 3.0 32 05/10/17 06:00 85 20 103/42 99 Nasal Cannula 3.0 05/10/17 05:00 88 23 97/39 99 Nasal Cannula 3.0 05/10/17 04:00 93 05/10/17 04:00 99.2 90 29 90/48 95 Nasal Cannula 3.0 05/10/17 03:00 82 33 108/48 99 Nasal Cannula 3.0 05/10/17 02:00 82 23 98/41 99 Nasal Cannula 3.0 05/10/17 01:00 88 28 89/43 91 Nasal Cannula 3.0 05/10/17 00:00 98.3 78 27 99/45 100 Nasal Cannula 3.0 05/10/17 00:00 78 05/09/17 23:00 77 23 89/43 99 Nasal Cannula 3.0 05/09/17 22:15 92/40 05/09/17 22:00 73 21 84/40 100 Nasal Cannula 3.0 05/09/17 21:00 74 21 98/45 100 Nasal Cannula 3.0 05/09/17 20:00 73 05/09/17 20:00 99.3 72 25 96/61 98 Nasal Cannula 3.0 05/09/17 19:06 Nasal Cannula 3.0 32 05/09/17 19:06 83 18 Nasal Cannula 3.0 28 05/09/17 19:06 100 Nasal Cannula 3.0 05/09/17 19:00 73 21 97/63 98 Nasal Cannula 3.0 05/09/17 18:26 99.2 05/09/17 18:00 79 21 87/37 100 Nasal Cannula 3.0 05/09/17 17:27 99.1 05/09/17 17:00 83 21 104/39 100 Nasal Cannula 3.0 05/09/17 16:00 84 05/09/17 16:00 99.4 78 20 90/33 98 Nasal Cannula 3.0 05/09/17 15:00 79 22 79/53 99 Nasal Cannula 3.0 05/09/17 14:00 79 22 91/33 99 Nasal Cannula 3.0 05/09/17 13:00 80 17 91/40 100 Nasal Cannula 3.0 05/09/17 12:00 99.2 86 17 126/103 97 Nasal Cannula 3.0 05/09/17 12:00 84 Height (Feet): 5 Height (Inches): 4.00 Weight (Pounds): 209 HEENT: mucous membranes moist Respiratory/Chest: rhonchi - bilaterally Cardiovascular: normal rate Extremities: no edema Neurologic/Psychiatric: other - lethargic Microbiology Date/Time Source Procedure Growth Status 05/07/17 13:00 Blood Blood Culture - Final Staphylococcus Aureus Complete 05/07/17 12:50 Blood Blood Culture - Final Staphylococcus Aureus - Mrsa Complete Laboratory Tests Test 05/10/17 05:00 Troponin I 0.307 ng/mL (0.000-0.056) Current Medications Medications (Trade) Dose Ordered Sig/Jeff Route PRN Reason Start Time Stop Time Status Last Admin Dose Admin Acetaminophen (Tylenol) 650 mg Q4H PRN ORAL Mild Pain (Pain Scale 1-3) 05/06/17 02:00 05/31/17 17:59 05/09/17 17:27 Amiodarone HCl (Cordarone) 400 mg EVERY 12 HOURS ORAL 05/06/17 09:00 06/04/17 19:59 05/10/17 08:44 Apixaban (Eliquis) 2.5 mg Q12HR ORAL 05/07/17 21:00 06/06/17 20:59 05/10/17 08:44 Aspirin (ASA) 81 mg DAILY ORAL 05/06/17 09:00 06/03/17 17:59 05/10/17 08:44 Buspirone HCl (Buspar) 15 mg TWICE A DAY ORAL 05/06/17 09:00 05/31/17 08:59 05/10/17 08:43 Cinacalcet (Sensipar) 30 mg DAILY ORAL 05/06/17 09:00 05/31/17 08:59 05/10/17 08:44 Daptomycin 550 mg/ Sodium Chloride 55 ml @ 100 mls/hr Q48H IV 05/08/17 11:00 05/15/17 23:59 05/08/17 12:55 Dextrose (Dextrose 50%) STAT PRN IV Hypoglycemia 05/06/17 18:00 06/03/17 17:59 Gabapentin (Neurontin) 300 mg BEDTIME ORAL 05/06/17 21:00 05/31/17 20:59 05/09/17 20:57 Linezolid (Zyvox) 600 mg EVERY 12 HOURS ORAL 05/09/17 10:00 05/14/17 09:59 05/10/17 08:43 Metoprolol Succinate (Toprol XL) 25 mg DAILY ORAL 05/06/17 09:00 06/01/17 08:59 Metoprolol Tartrate (Lopressor) 5 mg Q6H PRN IVP HR>130 SUSTAINED MORE THAN 5 M 05/06/17 06:00 06/01/17 17:51 Midodrine (Pro-Amatine) 10 mg EVERY 8 HOURS ORAL 05/09/17 14:00 06/08/17 12:59 05/10/17 06:03 Morphine Sulfate (Morphine Sulfate) 4 mg Q4H PRN IVP MOD TO SEV BREAKTHROUGH PAIN 05/06/17 05:15 05/10/17 23:59 05/10/17 05:15 Norepinephrine Bitartrate 4 mg/ Dextrose 250 ml @ 0 mls/hr Q24H IV 05/08/17 22:15 06/07/17 22:14 05/08/17 22:06 Prochlorperazine (Compazine) 10 mg Q6H PRN IVP Nausea & Vomiting 05/06/17 05:00 05/31/17 10:59 Topiramate (Topamax) 25 mg Q12HR ORAL 05/06/17 09:00 06/03/17 20:59 05/10/17 08:43 Trazodone HCl (Desyrel) 150 mg BEDTIME ORAL 05/06/17 21:00 05/31/17 20:59 05/09/17 20:58 SCOOBY FERREIRA May 10, 2017 11:33
--- NOTE | 2017-05-10 11:54 | Pulmonology Progress Note ---
Assessment/Plan Assessment/Plan 1. Septic shock, due to staph aureus bacteremia 2. Respiratory insufficiency. 3. Rapid AF, better 4. End-stage renal disease, on dialysis. 5. abdominal hernia with ulceration x2 with visible mesh, foul odor 6. Decubitus ulcer. 7. Depression. 8. Seizure disorder. 9. Dialysis catheter infection, removed 10. Chronic obstructive pulmonary disease. blood cultures still + GPC on 05/07 HD catheter replaced in distress stat ABG may need intubation Subjective ROS Limited/Unobtainable: Yes Respiratory: Reports: productive cough, shortness of breath Allergies: Coded Allergies: No Known Allergies (Unverified , 12/04/15) Objective Last 24 Hour Vital Signs Date Time Temp Pulse Resp B/P (MAP) Pulse Ox O2 Delivery O2 Flow Rate FiO2 05/10/17 11:00 83 18 96/58 93 Nasal Cannula 4.0 05/10/17 10:00 80 18 88/41 96 Nasal Cannula 3.0 05/10/17 09:00 81 20 99/39 97 Nasal Cannula 3.0 05/10/17 08:44 82 95/43 05/10/17 08:00 82 05/10/17 08:00 99.1 82 18 95/43 100 Nasal Cannula 3.0 05/10/17 07:00 82 18 94/42 99 Nasal Cannula 3.0 05/10/17 06:42 100 Nasal Cannula 3.0 05/10/17 06:42 85 20 Nasal Cannula 3.0 28 05/10/17 06:42 Nasal Cannula 3.0 32 05/10/17 06:00 85 20 103/42 99 Nasal Cannula 3.0 05/10/17 05:00 88 23 97/39 99 Nasal Cannula 3.0 05/10/17 04:00 93 05/10/17 04:00 99.2 90 29 90/48 95 Nasal Cannula 3.0 05/10/17 03:00 82 33 108/48 99 Nasal Cannula 3.0 05/10/17 02:00 82 23 98/41 99 Nasal Cannula 3.0 05/10/17 01:00 88 28 89/43 91 Nasal Cannula 3.0 05/10/17 00:00 98.3 78 27 99/45 100 Nasal Cannula 3.0 05/10/17 00:00 78 05/09/17 23:00 77 23 89/43 99 Nasal Cannula 3.0 05/09/17 22:15 92/40 05/09/17 22:00 73 21 84/40 100 Nasal Cannula 3.0 05/09/17 21:00 74 21 98/45 100 Nasal Cannula 3.0 05/09/17 20:00 73 05/09/17 20:00 99.3 72 25 96/61 98 Nasal Cannula 3.0 05/09/17 19:06 Nasal Cannula 3.0 32 05/09/17 19:06 83 18 Nasal Cannula 3.0 28 05/09/17 19:06 100 Nasal Cannula 3.0 05/09/17 19:00 73 21 97/63 98 Nasal Cannula 3.0 05/09/17 18:26 99.2 05/09/17 18:00 79 21 87/37 100 Nasal Cannula 3.0 05/09/17 17:27 99.1 05/09/17 17:00 83 21 104/39 100 Nasal Cannula 3.0 05/09/17 16:00 84 05/09/17 16:00 99.4 78 20 90/33 98 Nasal Cannula 3.0 05/09/17 15:00 79 22 79/53 99 Nasal Cannula 3.0 05/09/17 14:00 79 22 91/33 99 Nasal Cannula 3.0 05/09/17 13:00 80 17 91/40 100 Nasal Cannula 3.0 05/09/17 12:00 99.2 86 17 126/103 97 Nasal Cannula 3.0 05/09/17 12:00 84 Intake and Output 05/09/17 05/10/17 19:00 07:00 Intake Total 163.75 ml 260 ml Output Total 0 ml 200 ml Balance 163.75 ml 60 ml Intake Oral 130 ml 260 ml IV Total 33.75 ml Output Urine Total 0 ml 200 ml Stool Total 0 ml # Voids 2 # Bowel Movements 1 Objective morbidly obese General Appearance: no acute distress HEENT: atraumatic Respiratory/Chest: rhonchi Cardiovascular: normal rate Microbiology Date/Time Source Procedure Growth Status 05/07/17 13:00 Blood Blood Culture - Final Staphylococcus Aureus Complete 05/07/17 12:50 Blood Blood Culture - Final Staphylococcus Aureus - Mrsa Complete Laboratory Tests 05/10/17 05:00: Troponin I 0.307H Current Medications Medications (Trade) Dose Ordered Sig/Jeff Route PRN Reason Start Time Stop Time Status Last Admin Dose Admin Acetaminophen (Tylenol) 650 mg Q4H PRN ORAL Mild Pain (Pain Scale 1-3) 05/06/17 02:00 05/31/17 17:59 05/09/17 17:27 Amiodarone HCl (Cordarone) 400 mg EVERY 12 HOURS ORAL 05/06/17 09:00 06/04/17 19:59 05/10/17 08:44 Apixaban (Eliquis) 2.5 mg Q12HR ORAL 05/07/17 21:00 06/06/17 20:59 05/10/17 08:44 Aspirin (ASA) 81 mg DAILY ORAL 05/06/17 09:00 06/03/17 17:59 05/10/17 08:44 Buspirone HCl (Buspar) 15 mg TWICE A DAY ORAL 05/06/17 09:00 05/31/17 08:59 05/10/17 08:43 Cinacalcet (Sensipar) 30 mg DAILY ORAL 05/06/17 09:00 05/31/17 08:59 05/10/17 08:44 Daptomycin 550 mg/ Sodium Chloride 55 ml @ 100 mls/hr Q48H IV 05/08/17 11:00 05/15/17 23:59 05/10/17 11:28 Dextrose (Dextrose 50%) STAT PRN IV Hypoglycemia 05/06/17 18:00 06/03/17 17:59 Gabapentin (Neurontin) 300 mg BEDTIME ORAL 05/06/17 21:00 05/31/17 20:59 05/09/17 20:57 Linezolid (Zyvox) 600 mg EVERY 12 HOURS ORAL 05/09/17 10:00 05/14/17 09:59 05/10/17 08:43 Metoprolol Succinate (Toprol XL) 25 mg DAILY ORAL 05/06/17 09:00 06/01/17 08:59 Metoprolol Tartrate (Lopressor) 5 mg Q6H PRN IVP HR>130 SUSTAINED MORE THAN 5 M 05/06/17 06:00 06/01/17 17:51 Midodrine (Pro-Amatine) 10 mg EVERY 8 HOURS ORAL 05/09/17 14:00 06/08/17 12:59 05/10/17 06:03 Morphine Sulfate (Morphine Sulfate) 4 mg Q4H PRN IVP MOD TO SEV BREAKTHROUGH PAIN 05/06/17 05:15 05/10/17 23:59 05/10/17 05:15 Norepinephrine Bitartrate 4 mg/ Dextrose 250 ml @ 0 mls/hr Q24H IV 05/08/17 22:15 06/07/17 22:14 05/08/17 22:06 Prochlorperazine (Compazine) 10 mg Q6H PRN IVP Nausea & Vomiting 05/06/17 05:00 05/31/17 10:59 Topiramate (Topamax) 25 mg Q12HR ORAL 05/06/17 09:00 06/03/17 20:59 05/10/17 08:43 Trazodone HCl (Desyrel) 150 mg BEDTIME ORAL 05/06/17 21:00 05/31/17 20:59 05/09/17 20:58 DEVENDRA BASSETT May 10, 2017 11:54
--- NOTE | 2017-05-10 11:59 | Cardiology Progress Note ---
Assessment/Plan Assessment/Plan 1. Paroxysmal episodes of atrial fibrillation. 2. No evidence of epicardial coronary disease. 3. End-stage renal disease, on hemodialysis. 4. Septic shock. 5. Bacteremia persistent 6. Abdominal ventral hernia status post repair. no afib since 05/08/ at 8 am on higer dose of amiod on po amiod 400 mg bid for nwo will decrese in a few days iv abx for bacteremia echo normal lv function surveillance cx postitive still on repeat !! no cathter reviwed needs a holiday form lines may need further evaluation with KRISTIN will d/w ID eliquis 2.5mg bid for now for stroke prevention awiat furth line changes ekg in am Subjective ROS Limited/Unobtainable: Yes Objective Last 24 Hour Vital Signs Date Time Temp Pulse Resp B/P (MAP) Pulse Ox O2 Delivery O2 Flow Rate FiO2 05/10/17 11:00 83 18 96/58 93 Nasal Cannula 4.0 05/10/17 10:00 80 18 88/41 96 Nasal Cannula 3.0 05/10/17 09:00 81 20 99/39 97 Nasal Cannula 3.0 05/10/17 08:44 82 95/43 05/10/17 08:00 82 05/10/17 08:00 99.1 82 18 95/43 100 Nasal Cannula 3.0 05/10/17 07:00 82 18 94/42 99 Nasal Cannula 3.0 05/10/17 06:42 100 Nasal Cannula 3.0 05/10/17 06:42 85 20 Nasal Cannula 3.0 28 05/10/17 06:42 Nasal Cannula 3.0 32 05/10/17 06:00 85 20 103/42 99 Nasal Cannula 3.0 05/10/17 05:00 88 23 97/39 99 Nasal Cannula 3.0 05/10/17 04:00 93 05/10/17 04:00 99.2 90 29 90/48 95 Nasal Cannula 3.0 05/10/17 03:00 82 33 108/48 99 Nasal Cannula 3.0 05/10/17 02:00 82 23 98/41 99 Nasal Cannula 3.0 05/10/17 01:00 88 28 89/43 91 Nasal Cannula 3.0 05/10/17 00:00 98.3 78 27 99/45 100 Nasal Cannula 3.0 05/10/17 00:00 78 05/09/17 23:00 77 23 89/43 99 Nasal Cannula 3.0 05/09/17 22:15 92/40 05/09/17 22:00 73 21 84/40 100 Nasal Cannula 3.0 05/09/17 21:00 74 21 98/45 100 Nasal Cannula 3.0 05/09/17 20:00 73 05/09/17 20:00 99.3 72 25 96/61 98 Nasal Cannula 3.0 05/09/17 19:06 Nasal Cannula 3.0 32 05/09/17 19:06 83 18 Nasal Cannula 3.0 28 05/09/17 19:06 100 Nasal Cannula 3.0 05/09/17 19:00 73 21 97/63 98 Nasal Cannula 3.0 05/09/17 18:26 99.2 05/09/17 18:00 79 21 87/37 100 Nasal Cannula 3.0 05/09/17 17:27 99.1 05/09/17 17:00 83 21 104/39 100 Nasal Cannula 3.0 05/09/17 16:00 84 05/09/17 16:00 99.4 78 20 90/33 98 Nasal Cannula 3.0 05/09/17 15:00 79 22 79/53 99 Nasal Cannula 3.0 05/09/17 14:00 79 22 91/33 99 Nasal Cannula 3.0 05/09/17 13:00 80 17 91/40 100 Nasal Cannula 3.0 05/09/17 12:00 99.2 86 17 126/103 97 Nasal Cannula 3.0 05/09/17 12:00 84 General Appearance: lethargic Cardiovascular: normal rate, regular rhythm Respiratory/Chest: lungs clear, normal breath sounds Abdomen: normal bowel sounds, non tender, soft Extremities: no swelling Intake and Output 05/09/17 05/10/17 19:00 07:00 Intake Total 163.75 ml 260 ml Output Total 0 ml 200 ml Balance 163.75 ml 60 ml Intake Oral 130 ml 260 ml IV Total 33.75 ml Output Urine Total 0 ml 200 ml Stool Total 0 ml # Voids 2 # Bowel Movements 1 Laboratory Tests Test 05/10/17 05:00 Troponin I 0.307 ng/mL (0.000-0.056) Microbiology Date/Time Source Procedure Growth Status 05/07/17 13:00 Blood Blood Culture - Final Staphylococcus Aureus Complete 2/17/18 12:50 Blood Blood Culture - Final Staphylococcus Aureus - Mrsa Complete MATHEUS GATES May 10, 2017 11:59
--- NOTE | 2017-05-10 12:03 | General Surgery Progress Note ---
General Surgery-Progress Note Subjective Symptoms: worse Additional Comments was doing okay yesterday but respiratory decline today. mild accessory muscle use. desaturation. awake, alert, uncomfortable. Objective Last 24 Hour Vital Signs Date Time Temp Pulse Resp B/P (MAP) Pulse Ox O2 Delivery O2 Flow Rate FiO2 05/10/17 11:00 83 18 96/58 93 Nasal Cannula 4.0 05/10/17 10:00 80 18 88/41 96 Nasal Cannula 3.0 05/10/17 09:00 81 20 99/39 97 Nasal Cannula 3.0 05/10/17 08:44 82 95/43 05/10/17 08:00 82 05/10/17 08:00 99.1 82 18 95/43 100 Nasal Cannula 3.0 05/10/17 07:00 82 18 94/42 99 Nasal Cannula 3.0 05/10/17 06:42 100 Nasal Cannula 3.0 05/10/17 06:42 85 20 Nasal Cannula 3.0 28 05/10/17 06:42 Nasal Cannula 3.0 32 05/10/17 06:00 85 20 103/42 99 Nasal Cannula 3.0 05/10/17 05:00 88 23 97/39 99 Nasal Cannula 3.0 05/10/17 04:00 93 05/10/17 04:00 99.2 90 29 90/48 95 Nasal Cannula 3.0 05/10/17 03:00 82 33 108/48 99 Nasal Cannula 3.0 05/10/17 02:00 82 23 98/41 99 Nasal Cannula 3.0 05/10/17 01:00 88 28 89/43 91 Nasal Cannula 3.0 05/10/17 00:00 98.3 78 27 99/45 100 Nasal Cannula 3.0 05/10/17 00:00 78 05/09/17 23:00 77 23 89/43 99 Nasal Cannula 3.0 05/09/17 22:15 92/40 05/09/17 22:00 73 21 84/40 100 Nasal Cannula 3.0 05/09/17 21:00 74 21 98/45 100 Nasal Cannula 3.0 05/09/17 20:00 73 05/09/17 20:00 99.3 72 25 96/61 98 Nasal Cannula 3.0 05/09/17 19:06 Nasal Cannula 3.0 32 05/09/17 19:06 83 18 Nasal Cannula 3.0 28 05/09/17 19:06 100 Nasal Cannula 3.0 05/09/17 19:00 73 21 97/63 98 Nasal Cannula 3.0 05/09/17 18:26 99.2 05/09/17 18:00 79 21 87/37 100 Nasal Cannula 3.0 05/09/17 17:27 99.1 05/09/17 17:00 83 21 104/39 100 Nasal Cannula 3.0 05/09/17 16:00 84 05/09/17 16:00 99.4 78 20 90/33 98 Nasal Cannula 3.0 05/09/17 15:00 79 22 79/53 99 Nasal Cannula 3.0 05/09/17 14:00 79 22 91/33 99 Nasal Cannula 3.0 05/09/17 13:00 80 17 91/40 100 Nasal Cannula 3.0 I&O Intake and Output 05/09/17 05/10/17 19:00 07:00 Intake Total 163.75 ml 260 ml Output Total 0 ml 200 ml Balance 163.75 ml 60 ml Intake Oral 130 ml 260 ml IV Total 33.75 ml Output Urine Total 0 ml 200 ml Stool Total 0 ml # Voids 2 # Bowel Movements 1 Dressing: dry Wound: clean Cardiovascular: RSR Respiratory: clear Abdomen: soft, distended, tenderness - discomfort as baseline. hernia reducible and stable. , present bowel sounds Extremities: no cyanosis Laboratory Tests Test 05/10/17 05:00 Troponin I 0.307 ng/mL (0.000-0.056) Plan Problems: (1) Ventral hernia Assessment & Plan: history of umbilical hernia s/p repair with failure. hernia recurred and mesh exposed for some time now. has been monitored outside and stable. on exam does not seem to be source of sepsis. it is clean and well healed. areas of exposed mesh has scar tissue and debris building under mesh. no signs of infection or drainage. portions of mesh that were exposed were cut away. underlying tissue cleaned and allowed to heal. mesh seems to have incorporated into/as dermis in surrounding tissues. Do not recommend excision of mesh that is not exposed as it does not seem to be infected and would cause more harm. cont with monitoring for now. hernia stable without obstruction monitor respiratory status. f/u abg thank you for this consult. will follow with you Rex Kingb 20, 2018 12:03
--- NOTE | 2017-05-10 14:36 | Nephrology Progress Note ---
Assessment/Plan Problem List: (1) Septic shock (2) Secondary hyperparathyroidism (of renal origin) (3) HTN (hypertension) (4) ESRD (end stage renal disease) on dialysis (5) Gram-positive bacteremia Assessment: Staph Aureus Plan IV Abxs follow labs Discussed with RN follow cultures hold off on HD as long as possible KRISTIN ? Subjective Subjective seen in ICU lethargic again Objective Objective Last 24 Hour Vital Signs Date Time Temp Pulse Resp B/P (MAP) Pulse Ox O2 Delivery O2 Flow Rate FiO2 05/10/17 14:00 79 18 92/40 95 Venturi Mask 55 05/10/17 13:00 79 18 92/48 99 Venturi Mask 55 05/10/17 12:00 99.2 82 18 95/56 93 Venturi Mask 55 05/10/17 12:00 98 05/10/17 11:00 83 18 96/58 93 Nasal Cannula 4.0 05/10/17 10:00 80 18 88/41 96 Nasal Cannula 3.0 05/10/17 09:00 81 20 99/39 97 Nasal Cannula 3.0 05/10/17 08:44 82 95/43 05/10/17 08:00 82 05/10/17 08:00 99.1 82 18 95/43 100 Nasal Cannula 3.0 05/10/17 07:00 82 18 94/42 99 Nasal Cannula 3.0 05/10/17 06:42 100 Nasal Cannula 3.0 05/10/17 06:42 85 20 Nasal Cannula 3.0 28 05/10/17 06:42 Nasal Cannula 3.0 32 05/10/17 06:00 85 20 103/42 99 Nasal Cannula 3.0 05/10/17 05:00 88 23 97/39 99 Nasal Cannula 3.0 05/10/17 04:00 93 05/10/17 04:00 99.2 90 29 90/48 95 Nasal Cannula 3.0 05/10/17 03:00 82 33 108/48 99 Nasal Cannula 3.0 05/10/17 02:00 82 23 98/41 99 Nasal Cannula 3.0 05/10/17 01:00 88 28 89/43 91 Nasal Cannula 3.0 05/10/17 00:00 98.3 78 27 99/45 100 Nasal Cannula 3.0 05/10/17 00:00 78 05/09/17 23:00 77 23 89/43 99 Nasal Cannula 3.0 05/09/17 22:15 92/40 05/09/17 22:00 73 21 84/40 100 Nasal Cannula 3.0 05/09/17 21:00 74 21 98/45 100 Nasal Cannula 3.0 05/09/17 20:00 73 05/09/17 20:00 99.3 72 25 96/61 98 Nasal Cannula 3.0 05/09/17 19:06 Nasal Cannula 3.0 32 05/09/17 19:06 83 18 Nasal Cannula 3.0 28 05/09/17 19:06 100 Nasal Cannula 3.0 05/09/17 19:00 73 21 97/63 98 Nasal Cannula 3.0 05/09/17 18:26 99.2 05/09/17 18:00 79 21 87/37 100 Nasal Cannula 3.0 05/09/17 17:27 99.1 05/09/17 17:00 83 21 104/39 100 Nasal Cannula 3.0 05/09/17 16:00 84 05/09/17 16:00 99.4 78 20 90/33 98 Nasal Cannula 3.0 05/09/17 15:00 79 22 79/53 99 Nasal Cannula 3.0 Intake and Output 05/09/17 05/10/17 19:00 07:00 Intake Total 163.75 ml 260 ml Output Total 0 ml 200 ml Balance 163.75 ml 60 ml Intake Oral 130 ml 260 ml IV Total 33.75 ml Output Urine Total 0 ml 200 ml Stool Total 0 ml # Voids 2 # Bowel Movements 1 Laboratory Tests 05/10/17 05:00: Troponin I 0.307H 05/10/17 12:00: Arterial Blood pH 7.347L, Arterial Blood Partial Pressure CO2 54.4H, Arterial Blood Partial Pressure O2 78.8, Arterial Blood HCO3 29.2H, Arterial Blood Oxygen Saturation 94.1, Arterial Blood Base Excess 3.1, Cecilio Test Positive Height (Feet): 5 Height (Inches): 4.00 Weight (Pounds): 209 Cardiovascular: normal rate Respiratory/Chest: rhonchi - bilaterally NENA FERREIRA May 10, 2017 14:36
--- NOTE | 2017-05-10 15:16 | Cardiology Report ---
APPROVED REPORT EKG Measurement Heart [id number] Normal sinus rhythm Rightward axis Low voltage QRS Cannot rule out Anterior infarct, age undetermined Abnormal ECG
[2017-05-10] MEDS: TraZODone 50mg tab ORAL SCH (21:00)
--- NOTE | 2017-05-10 21:40 | Internal Med Progress Note ---
Subjective Physician Name Ion Appiah Attending Physician Ion Appiah M.D. Current Medications Medications (Trade) Dose Ordered Sig/Jeff Route PRN Reason Start Time Stop Time Status Last Admin Dose Admin Acetaminophen (Tylenol) 650 mg Q4H PRN ORAL Mild Pain (Pain Scale 1-3) 05/06/17 02:00 05/31/17 17:59 05/09/17 17:27 Amiodarone HCl (Cordarone) 400 mg EVERY 12 HOURS ORAL 05/06/17 09:00 06/04/17 19:59 05/10/17 08:44 Apixaban (Eliquis) 2.5 mg Q12HR ORAL 05/07/17 21:00 06/06/17 20:59 05/10/17 08:44 Aspirin (ASA) 81 mg DAILY ORAL 05/06/17 09:00 06/03/17 17:59 05/10/17 08:44 Buspirone HCl (Buspar) 15 mg TWICE A DAY ORAL 05/06/17 09:00 05/31/17 08:59 05/10/17 18:25 Cinacalcet (Sensipar) 30 mg DAILY ORAL 05/06/17 09:00 05/31/17 08:59 05/10/17 08:44 Daptomycin 550 mg/ Sodium Chloride 55 ml @ 100 mls/hr Q48H IV 05/08/17 11:00 05/15/17 23:59 05/10/17 11:28 Dextrose (Dextrose 50%) STAT PRN IV Hypoglycemia 05/06/17 18:00 06/03/17 17:59 Gabapentin (Neurontin) 300 mg BEDTIME ORAL 05/06/17 21:00 05/31/17 20:59 05/09/17 20:57 Linezolid (Zyvox) 600 mg EVERY 12 HOURS ORAL 05/09/17 10:00 05/14/17 09:59 05/10/17 08:43 Metoprolol Succinate (Toprol XL) 25 mg DAILY ORAL 05/06/17 09:00 06/01/17 08:59 Metoprolol Tartrate (Lopressor) 5 mg Q6H PRN IVP HR>130 SUSTAINED MORE THAN 5 M 05/06/17 06:00 06/01/17 17:51 Midodrine (Pro-Amatine) 10 mg EVERY 8 HOURS ORAL 05/09/17 14:00 06/08/17 12:59 05/10/17 14:43 Morphine Sulfate (Morphine Sulfate) 4 mg Q4H PRN IVP MOD TO SEV BREAKTHROUGH PAIN 05/06/17 05:15 05/10/17 23:59 05/10/17 05:15 Norepinephrine Bitartrate 4 mg/ Dextrose 250 ml @ 0 mls/hr Q24H IV 05/08/17 22:15 06/07/17 22:14 05/08/17 22:06 Prochlorperazine (Compazine) 10 mg Q6H PRN IVP Nausea & Vomiting 05/06/17 05:00 05/31/17 10:59 Topiramate (Topamax) 25 mg Q12HR ORAL 05/06/17 09:00 06/03/17 20:59 05/10/17 08:43 Trazodone HCl (Desyrel) 150 mg BEDTIME ORAL 05/06/17 21:00 05/31/17 20:59 05/09/17 20:58 Allergies: Coded Allergies: No Known Allergies (Unverified , 12/04/15) Subjective tele - SR not awake not following commands on BIPAP afebrile on levophed G++ 12 pt ROS neg except above positives Objective Last Vital Signs Date Time Temp Pulse Resp B/P (MAP) Pulse Ox O2 Delivery O2 Flow Rate FiO2 05/10/17 19:00 86 24 109/47 88 Venturi Mask 55 05/10/17 16:00 99.1 99.1 05/10/17 11:00 4.0 Laboratory Tests Test 05/10/17 05:00 05/10/17 12:00 Troponin I 0.307 ng/mL (0.000-0.056) Arterial Blood pH 7.347 (7.350-7.450) Arterial Blood Partial Pressure CO2 54.4 mmHg (35.0-45.0) H Arterial Blood Partial Pressure O2 78.8 mmHg (75.0-100.0) Arterial Blood HCO3 29.2 mmol/L (22.0-26.0) H Arterial Blood Oxygen Saturation 94.1 % (92.0-98.0) Arterial Blood Base Excess 3.1 Cecilio Test Positive Intake and Output 05/09/17 05/10/17 19:00 07:00 Intake Total 163.75 ml 260 ml Output Total 0 ml 200 ml Balance 163.75 ml 60 ml Intake Oral 130 ml 260 ml IV Total 33.75 ml Output Urine Total 0 ml 200 ml Stool Total 0 ml # Voids 2 # Bowel Movements 1 Objective gen - NAD. obese. no alert or awake. not following. BIPAP started HEENT - nc/at Neck - supple. no kvd CVS - RRR> no S1, S2 Lungs - dec BS bilaterally Abd - NT. + surgical wound ext - no c/c/e; left hip and leg externally rotated Assessment/Plan Assessment/Plan ASSESSMENT: 1. MRSA Line Sepsis w/ bacteremia 2. Respiratory failure on BIPAP 3. Metabolic Encephalopathy 4. End-stage renal disease, on dialysis. 5. History of atrial fibrillation. 6. Decubitus ulcer. 7. Depression. 8. Seizure disorder. 9. Septic Shock 2/2 #1 10. Chronic obstructive pulmonary disease. 11. Abd surgical wound with exposed mesh 12. Metabolic Encephalopathy 13. Plan level of care - ICU levophed g++ restarted repeat Bcx abx - Daptomycin Will need KRISTIN bc persistent bacteremia Dialysis catheter removed BIPAP check ABG to evaluate Co2 ID recs appreciated f/u cultures renal recs appreciated Cards consult for afib Amiodarone TTE - no vegatations CT abd/pelvis - no abscess. large ventral hernia Surgery evaluation for abdominal surgical wound ION APPIAH M.D. May 10, 2017 21:40
[2017-05-11] VITALS (61 sets, daily range): BP systolic 61–158; BP diastolic 32–88
[2017-05-11 05:53] LABS: HEMATOCRIT 18.4 % (37.0-47.0); MEAN CORPUSCULAR VOLUME 108 FL (80-99); PLATELET COUNT 245 K/UL (150-450); RED BLOOD COUNT 1.71 M/UL (4.20-5.40); RED CELL DISTRIBUTION WIDTH 15.1 % (11.6-14.8); WHITE BLOOD COUNT 19.4 K/UL (4.8-10.8)
[2017-05-11] MEDS: Midodrine 10mg tab ORAL SCH ×3 (06:00→21:45)
[2017-05-11 06:23] LABS: ANION GAP 13 mmol/L (5-15); BLOOD UREA NITROGEN 80 mg/dL (7-18); CALCIUM 8.2 MG/DL (8.5-10.1); CARBON DIOXIDE 29 MMOL/L (21-32); CHLORIDE 97 MMOL/L (98-107); CREATININE 12.9 MG/DL (0.55-1.30); POTASSIUM 3.9 MMOL/L (3.5-5.1); SODIUM 139 MMOL/L (136-145)
[2017-05-11 06:34] LABS: HEMOGLOBIN 5.8 G/DL (12.0-16.0)
[2017-05-11 07:51] LABS: HEMATOCRIT 18.7 % (37.0-47.0); HEMOGLOBIN 5.9 G/DL (12.0-16.0); MEAN CORPUSCULAR VOLUME 107 FL (80-99); PLATELET COUNT 276 K/UL (150-450); RED BLOOD COUNT 1.75 M/UL (4.20-5.40); WHITE BLOOD COUNT 23.3 K/UL (4.8-10.8)
[2017-05-11 08:56] LABS: % IRON SATURATION 32 % (15-50); IRON 35 ug/dL (50-175); TOTAL IRON BINDING CAPACITY 110 ug/dL (250-450)
[2017-05-11] MEDS: Metoprolol Succinate XL 25mg tab ORAL SCH (09:00)
[2017-05-11] MEDS: Sensipar 30mg Tab ORAL SCH (09:16)
[2017-05-11] MEDS: Topiramate 25mg tab ORAL SCH ×2 (09:16→21:16)
[2017-05-11] MEDS: Eliquis 2.5mg tablet ORAL SCH ×2 (09:17→09:30)
[2017-05-11] MEDS: Aspirin Baby 81mg ORAL SCH (09:17)
[2017-05-11] MEDS: Amiodarone 200mg tab ORAL SCH ×2 (09:17→21:00)
[2017-05-11] MEDS: BusPIRone 5mg Tab ORAL SCH ×2 (09:17→18:40)
--- NOTE | 2017-05-11 10:17 | Infectious Diseases Prog Note ---
Assessment/Plan Assessment/Plan A Septic shock HD line infection MRSA sepsis Persistent MRSA bacteremia ESRD on HD Morbid obesity COPD Atrial fibrillation Respiratory failure, hypercapnia P; Continue Daptomycin & linezolid repeat CXR start on Cefepime case was D/W microbiologist there is no disc for checking Daptomycin sensitivity Case was D/W pharmacy Subjective ROS Limited/Unobtainable: Yes Respiratory: Reports: other - started on BIPAP since last night Cardiovascular: Reports: other - on Levophed 15microgram /KG/min Allergies: Coded Allergies: No Known Allergies (Unverified , 12/04/15) Objective Vital Signs Last 24 Hour Vital Signs Date Time Temp Pulse Resp B/P (MAP) Pulse Ox O2 Delivery O2 Flow Rate FiO2 05/11/17 09:39 113/61 05/11/17 09:00 77 91/41 05/11/17 08:54 74 17 99 Full Face 55 05/11/17 08:45 74 16 94/37 99 Bi-pap 55 05/11/17 08:30 75 17 101/40 99 Bi-pap 65 05/11/17 08:30 101/40 05/11/17 08:00 76 05/11/17 08:00 99.1 75 16 82/36 100 Bi-pap 65 99.1 05/11/17 08:00 65 05/11/17 07:45 79 21 84/37 99 Bi-pap 65 05/11/17 07:45 86/37 05/11/17 07:30 82 21 97/39 99 Bi-pap 65 05/11/17 07:15 80 20 109/60 99 Bi-pap 70 05/11/17 07:15 135/88 05/11/17 07:00 81 20 135/88 99 Bi-pap 70 05/11/17 06:30 81 16 96/52 100 Bi-pap 70 05/11/17 06:30 84 20 99 Full Face 65 05/11/17 06:00 80 16 90/40 100 Bi-pap 70 05/11/17 06:00 106/40 05/11/17 06:00 90/40 05/11/17 05:30 85 16 103/40 100 Bi-pap 70 05/11/17 05:00 86 16 104/43 100 Bi-pap 70 05/11/17 04:59 79 16 100 Full Face 70 05/11/17 04:51 108/44 05/11/17 04:30 83 16 100/56 100 Bi-pap 70 05/11/17 04:00 99.2 84 16 88/56 100 Bi-pap 70 99.2 05/11/17 04:00 88/41 05/11/17 04:00 77 05/11/17 03:30 82 17 100 Full Face 70 05/11/17 03:00 86/43 05/11/17 03:00 84 16 116/56 100 Bi-pap 70 05/11/17 02:30 77 16 100/43 100 Bi-pap 70 05/11/17 02:00 78 15 94/43 100 Bi-pap 70 05/11/17 02:00 94/43 05/11/17 01:30 78 15 89/42 100 Bi-pap 70 05/11/17 01:26 81 17 94 Full Face 70 05/11/17 01:00 82/42 05/11/17 01:00 80 16 82/42 100 Bi-pap 70 05/11/17 00:30 83 17 86/41 99 Bi-pap 70 05/11/17 00:00 99.0 84 17 87/45 98 Bi-pap 70 99.0 05/11/17 00:00 87/45 05/10/17 23:30 86 17 86/39 99 Bi-pap 70 05/10/17 23:30 85 16 93 Full Face 70 05/10/17 23:00 83/38 05/10/17 23:00 86 16 83/38 99 Bi-pap 70 05/10/17 22:30 87 16 74/36 99 Bi-pap 70 05/10/17 22:15 75 18 103/40 99 Bi-pap 60 05/10/17 22:07 85 18 94 Full Face 70 05/10/17 22:00 76 18 71/38 99 Bi-pap 60 05/10/17 21:50 70/50 05/10/17 21:00 76 18 71/38 99 Bi-pap 60 05/10/17 20:00 78 05/10/17 20:00 85 19 92 Full Face 40 05/10/17 20:00 60 05/10/17 20:00 98.8 78 17 73/38 99 Bi-pap 60 98.8 05/10/17 19:30 Bi-pap 05/10/17 19:30 Bi-pap 05/10/17 19:30 87 18 Bi-pap 40 05/10/17 19:00 86 24 109/47 88 Venturi Mask 55 05/10/17 18:00 80 21 105/52 95 Venturi Mask 55 05/10/17 17:00 82 18 114/94 95 Venturi Mask 55 05/10/17 16:00 99.1 87 18 97/42 92 Venturi Mask 55 99.1 05/10/17 16:00 87 05/10/17 15:00 80 18 90/47 95 Venturi Mask 55 05/10/17 14:00 79 18 92/40 95 Venturi Mask 55 05/10/17 13:00 79 18 92/48 99 Venturi Mask 55 05/10/17 12:00 99.2 82 18 95/56 93 Venturi Mask 55 05/10/17 12:00 98 05/10/17 11:00 83 18 96/58 93 Nasal Cannula 4.0 Height (Feet): 5 Height (Inches): 4.00 Weight (Pounds): 210 HEENT: other - on BIPAP Respiratory/Chest: respiratory distress, other - few rhonchi, tachypneic Cardiovascular: normal rate Abdomen: soft, non tender Extremities: no edema Neurologic/Psychiatric: alert Laboratory Tests Test 05/10/17 12:00 05/10/17 21:31 05/11/17 04:30 05/11/17 06:30 Arterial Blood pH 7.347 (7.350-7.450) 7.354 (7.350-7.450) 7.340 (7.350-7.450) Arterial Blood Partial Pressure CO2 54.4 mmHg (35.0-45.0) H 47.9 mmHg (35.0-45.0) H 50.1 mmHg (35.0-45.0) H Arterial Blood Partial Pressure O2 78.8 mmHg (75.0-100.0) 64.5 mmHg (75.0-100.0) L 82.1 mmHg (75.0-100.0) Arterial Blood HCO3 29.2 mmol/L (22.0-26.0) H 26.1 mmol/L (22.0-26.0) H 26.7 mmol/L (22.0-26.0) H Arterial Blood Oxygen Saturation 94.1 % (92.0-98.0) 89.9 % (92.0-98.0) L 94.2 % (92.0-98.0) Arterial Blood Base Excess 3.1 0.5 0.9 Cecilio Test Positive Positive Positive White Blood Count 19.4 K/UL (4.8-10.8) H Red Blood Count 1.71 M/UL (4.20-5.40) L Hemoglobin 5.8 G/DL (12.0-16.0) *L Hematocrit 18.4 % (37.0-47.0) L Mean Corpuscular Volume 108 FL (80-99) H Mean Corpuscular Hemoglobin 33.8 PG (27.0-31.0) H Mean Corpuscular Hemoglobin Concent 31.3 G/DL (32.0-36.0) L Red Cell Distribution Width 15.1 % (11.6-14.8) H Platelet Count 245 K/UL (150-450) Mean Platelet Volume 7.2 FL (6.5-10.1) Neutrophils (%) (Auto) % (45.0-75.0) Lymphocytes (%) (Auto) % (20.0-45.0) Monocytes (%) (Auto) % (1.0-10.0) Eosinophils (%) (Auto) % (0.0-3.0) Basophils (%) (Auto) % (0.0-2.0) Differential Total Cells Counted 100 Neutrophils % (Manual) 81 % (45-75) H Lymphocytes % (Manual) 10 % (20-45) L Monocytes % (Manual) 9 % (1-10) Eosinophils % (Manual) 0 % (0-3) Basophils % (Manual) 0 % (0-2) Band Neutrophils 0 % (0-8) Platelet Estimate Adequate Platelet Morphology Normal Polychromasia 1+ Hypochromasia 1+ Anisocytosis 1+ Sodium Level 139 MMOL/L (136-145) Potassium Level 3.9 MMOL/L (3.5-5.1) Chloride Level 97 MMOL/L (98-107) L Carbon Dioxide Level 29 MMOL/L (21-32) Anion Gap 13 mmol/L (5-15) Blood Urea Nitrogen 80 mg/dL (7-18) H Creatinine 12.9 MG/DL (0.55-1.30) H Estimat Glomerular Filtration Rate 3.6 mL/min (>60) Glucose Level 116 MG/DL (74-106) H Calcium Level 8.2 MG/DL (8.5-10.1) L Iron Level 35 ug/dL (50-175) L Total Iron Binding Capacity 110 ug/dL (250-450) L Percent Iron Saturation 32 % (15-50) Unsaturated Iron Binding 75 ug/dL (112-346) L Test 05/11/17 06:45 White Blood Count 23.3 K/UL (4.8-10.8) *H Red Blood Count 1.75 M/UL (4.20-5.40) L Hemoglobin 5.9 G/DL (12.0-16.0) *L Hematocrit 18.7 % (37.0-47.0) L Mean Corpuscular Volume 107 FL (80-99) H Mean Corpuscular Hemoglobin 33.8 PG (27.0-31.0) H Mean Corpuscular Hemoglobin Concent 31.6 G/DL (32.0-36.0) L Red Cell Distribution Width 15.0 % (11.6-14.8) H Platelet Count 276 K/UL (150-450) Mean Platelet Volume 7.0 FL (6.5-10.1) Neutrophils (%) (Auto) % (45.0-75.0) Lymphocytes (%) (Auto) % (20.0-45.0) Monocytes (%) (Auto) % (1.0-10.0) Eosinophils (%) (Auto) % (0.0-3.0) Basophils (%) (Auto) % (0.0-2.0) Differential Total Cells Counted 100 Neutrophils % (Manual) 74 % (45-75) Lymphocytes % (Manual) 17 % (20-45) L Monocytes % (Manual) 9 % (1-10) Eosinophils % (Manual) 0 % (0-3) Basophils % (Manual) 0 % (0-2) Band Neutrophils 0 % (0-8) Platelet Estimate Adequate Platelet Morphology Normal Polychromasia 1+ Hypochromasia 1+ Anisocytosis 1+ Current Medications Medications (Trade) Dose Ordered Sig/Jeff Route PRN Reason Start Time Stop Time Status Last Admin Dose Admin Acetaminophen (Tylenol) 650 mg Q4H PRN ORAL Mild Pain (Pain Scale 1-3) 05/06/17 02:00 05/31/17 17:59 05/09/17 17:27 Amiodarone HCl (Cordarone) 400 mg EVERY 12 HOURS ORAL 05/06/17 09:00 06/04/17 19:59 05/11/17 09:17 Apixaban (Eliquis) 2.5 mg Q12HR ORAL 05/07/17 21:00 06/06/17 20:59 05/10/17 08:44 Aspirin (ASA) 81 mg DAILY ORAL 05/06/17 09:00 06/03/17 17:59 05/11/17 09:17 Buspirone HCl (Buspar) 15 mg TWICE A DAY ORAL 05/06/17 09:00 05/31/17 08:59 05/11/17 09:17 Cefepime HCl 1 gm/ Dextrose 55 ml @ 110 mls/hr ONCE ONCE IVPB 05/11/17 10:15 05/11/17 10:44 UNV Cinacalcet (Sensipar) 30 mg DAILY ORAL 05/06/17 09:00 05/31/17 08:59 05/11/17 09:16 Daptomycin 550 mg/ Sodium Chloride 55 ml @ 100 mls/hr Q48H IV 05/08/17 11:00 05/15/17 23:59 05/10/17 11:28 Dextrose (Dextrose 50%) STAT PRN IV Hypoglycemia 05/06/17 18:00 06/03/17 17:59 Epoetin Víctor (Procrit (for ESRD on dialysis)) 10,000 units TUE-TUE-TUE SUBQ 05/11/17 21:00 06/10/17 20:59 Gabapentin (Neurontin) 300 mg BEDTIME ORAL 05/06/17 21:00 05/31/17 20:59 05/09/17 20:57 Linezolid (Zyvox) 600 mg EVERY 12 HOURS ORAL 05/09/17 10:00 05/14/17 09:59 05/11/17 09:17 Metoprolol Succinate (Toprol XL) 25 mg DAILY ORAL 05/06/17 09:00 06/01/17 08:59 Metoprolol Tartrate (Lopressor) 5 mg Q6H PRN IVP HR>130 SUSTAINED MORE THAN 5 M 05/06/17 06:00 06/01/17 17:51 Midodrine (Pro-Amatine) 10 mg EVERY 8 HOURS ORAL 05/09/17 14:00 06/08/17 12:59 05/10/17 14:43 Norepinephrine Bitartrate 4 mg/ Dextrose 250 ml @ 0 mls/hr Q24H IV 05/08/17 22:15 06/07/17 22:14 05/11/17 09:39 Prochlorperazine (Compazine) 10 mg Q6H PRN IVP Nausea & Vomiting 05/06/17 05:00 05/31/17 10:59 Topiramate (Topamax) 25 mg Q12HR ORAL 05/06/17 09:00 06/03/17 20:59 05/11/17 09:16 Trazodone HCl (Desyrel) 150 mg BEDTIME ORAL 05/06/17 21:00 05/31/17 20:59 05/09/17 20:58 SCOOBY FERREIRA May 11, 2017 10:17
--- NOTE | 2017-05-11 10:33 | Nephrology Progress Note ---
Assessment/Plan Problem List: (1) Septic shock (2) Secondary hyperparathyroidism (of renal origin) (3) HTN (hypertension) (4) ESRD (end stage renal disease) on dialysis (5) Gram-positive bacteremia Assessment: Staph Aureus Plan IV Abxs follow labs Discussed with RN follow cultures hold off on HD as long as possible KRISTIN ? Discussed with Dr Babin and Dr Parminder Ferreira transfuse start Epogen Iron studies Pressors Intubation ? Subjective Subjective seen in ICU on BIPAP obtunded Objective Objective Last 24 Hour Vital Signs Date Time Temp Pulse Resp B/P (MAP) Pulse Ox O2 Delivery O2 Flow Rate FiO2 05/11/17 09:39 113/61 05/11/17 09:00 77 91/41 05/11/17 08:54 74 17 99 Full Face 55 05/11/17 08:45 74 16 94/37 99 Bi-pap 55 05/11/17 08:30 75 17 101/40 99 Bi-pap 65 05/11/17 08:30 101/40 05/11/17 08:00 76 05/11/17 08:00 99.1 75 16 82/36 100 Bi-pap 65 99.1 05/11/17 08:00 65 05/11/17 07:45 79 21 84/37 99 Bi-pap 65 05/11/17 07:45 86/37 05/11/17 07:30 82 21 97/39 99 Bi-pap 65 05/11/17 07:15 80 20 109/60 99 Bi-pap 70 05/11/17 07:15 135/88 05/11/17 07:00 81 20 135/88 99 Bi-pap 70 05/11/17 06:30 81 16 96/52 100 Bi-pap 70 05/11/17 06:30 84 20 99 Full Face 65 05/11/17 06:00 80 16 90/40 100 Bi-pap 70 05/11/17 06:00 106/40 05/11/17 06:00 90/40 05/11/17 05:30 85 16 103/40 100 Bi-pap 70 05/11/17 05:00 86 16 104/43 100 Bi-pap 70 05/11/17 04:59 79 16 100 Full Face 70 05/11/17 04:51 108/44 05/11/17 04:30 83 16 100/56 100 Bi-pap 70 05/11/17 04:00 99.2 84 16 88/56 100 Bi-pap 70 99.2 05/11/17 04:00 88/41 05/11/17 04:00 77 05/11/17 03:30 82 17 100 Full Face 70 05/11/17 03:00 86/43 05/11/17 03:00 84 16 116/56 100 Bi-pap 70 05/11/17 02:30 77 16 100/43 100 Bi-pap 70 05/11/17 02:00 78 15 94/43 100 Bi-pap 70 05/11/17 02:00 94/43 05/11/17 01:30 78 15 89/42 100 Bi-pap 70 05/11/17 01:26 81 17 94 Full Face 70 05/11/17 01:00 82/42 05/11/17 01:00 80 16 82/42 100 Bi-pap 70 05/11/17 00:30 83 17 86/41 99 Bi-pap 70 05/11/17 00:00 99.0 84 17 87/45 98 Bi-pap 70 99.0 05/11/17 00:00 87/45 05/10/17 23:30 86 17 86/39 99 Bi-pap 70 05/10/17 23:30 85 16 93 Full Face 70 05/10/17 23:00 83/38 05/10/17 23:00 86 16 83/38 99 Bi-pap 70 05/10/17 22:30 87 16 74/36 99 Bi-pap 70 05/10/17 22:15 75 18 103/40 99 Bi-pap 60 05/10/17 22:07 85 18 94 Full Face 70 05/10/17 22:00 76 18 71/38 99 Bi-pap 60 05/10/17 21:50 70/50 05/10/17 21:00 76 18 71/38 99 Bi-pap 60 05/10/17 20:00 78 05/10/17 20:00 85 19 92 Full Face 40 05/10/17 20:00 60 05/10/17 20:00 98.8 78 17 73/38 99 Bi-pap 60 98.8 05/10/17 19:30 Bi-pap 05/10/17 19:30 Bi-pap 05/10/17 19:30 87 18 Bi-pap 40 05/10/17 19:00 86 24 109/47 88 Venturi Mask 55 05/10/17 18:00 80 21 105/52 95 Venturi Mask 55 05/10/17 17:00 82 18 114/94 95 Venturi Mask 55 05/10/17 16:00 99.1 87 18 97/42 92 Venturi Mask 55 99.1 05/10/17 16:00 87 05/10/17 15:00 80 18 90/47 95 Venturi Mask 55 05/10/17 14:00 79 18 92/40 95 Venturi Mask 55 05/10/17 13:00 79 18 92/48 99 Venturi Mask 55 05/10/17 12:00 99.2 82 18 95/56 93 Venturi Mask 55 05/10/17 12:00 98 05/10/17 11:00 83 18 96/58 93 Nasal Cannula 4.0 Intake and Output 05/10/17 05/11/17 19:00 07:00 Intake Total 370 ml 356.25 ml Output Total 0 ml Balance 370 ml 356.25 ml Intake Oral 270 ml 0 ml IV Total 100 ml 356.25 ml Output Urine Total 0 ml Laboratory Tests 05/10/17 12:00: Arterial Blood pH 7.347L, Arterial Blood Partial Pressure CO2 54.4H, Arterial Blood Partial Pressure O2 78.8, Arterial Blood HCO3 29.2H, Arterial Blood Oxygen Saturation 94.1, Arterial Blood Base Excess 3.1, Cecilio Test Positive 05/10/17 21:31: Arterial Blood pH 7.354, Arterial Blood Partial Pressure CO2 47.9H, Arterial Blood Partial Pressure O2 64.5L, Arterial Blood HCO3 26.1H, Arterial Blood Oxygen Saturation 89.9L, Arterial Blood Base Excess 0.5, Cecilio Test Positive 05/11/17 04:30: White Blood Count 19.4H, Red Blood Count 1.71L, Hemoglobin 5.8*L, Hematocrit 18.4L, Mean Corpuscular Volume 108H, Mean Corpuscular Hemoglobin 33.8H, Mean Corpuscular Hemoglobin Concent 31.3L, Red Cell Distribution Width 15.1H, Platelet Count 245, Mean Platelet Volume 7.2, Neutrophils (%) (Auto) , Lymphocytes (%) (Auto) , Monocytes (%) (Auto) , Eosinophils (%) (Auto) , Basophils (%) (Auto) , Differential Total Cells Counted 100, Neutrophils % ( Manual) 81H, Lymphocytes % (Manual) 10L, Monocytes % (Manual) 9, Eosinophils % ( Manual) 0, Basophils % (Manual) 0, Band Neutrophils 0, Platelet Estimate Adequate, Platelet Morphology Normal, Polychromasia 1+, Hypochromasia 1+, Anisocytosis 1+, Sodium Level 139, Potassium Level 3.9, Chloride Level 97L, Carbon Dioxide Level 29, Anion Gap 13, Blood Urea Nitrogen 80H, Creatinine 12.9H , Estimat Glomerular Filtration Rate 3.6, Glucose Level 116H, Calcium Level 8.2L , Iron Level 35L, Total Iron Binding Capacity 110L, Percent Iron Saturation 32, Unsaturated Iron Binding 75L 05/11/17 06:30: Arterial Blood pH 7.340L, Arterial Blood Partial Pressure CO2 50.1H, Arterial Blood Partial Pressure O2 82.1, Arterial Blood HCO3 26.7H, Arterial Blood Oxygen Saturation 94.2, Arterial Blood Base Excess 0.9, Cecilio Test Positive 05/11/17 06:45: White Blood Count 23.3*H, Red Blood Count 1.75L, Hemoglobin 5.9*L, Hematocrit 18.7L, Mean Corpuscular Volume 107H, Mean Corpuscular Hemoglobin 33.8H, Mean Corpuscular Hemoglobin Concent 31.6L, Red Cell Distribution Width 15.0H, Platelet Count 276, Mean Platelet Volume 7.0, Neutrophils (%) (Auto) , Lymphocytes (%) (Auto) , Monocytes (%) (Auto) , Eosinophils (%) (Auto) , Basophils (%) (Auto) , Differential Total Cells Counted 100, Neutrophils % ( Manual) 74, Lymphocytes % (Manual) 17L, Monocytes % (Manual) 9, Eosinophils % ( Manual) 0, Basophils % (Manual) 0, Band Neutrophils 0, Platelet Estimate Adequate, Platelet Morphology Normal, Polychromasia 1+, Hypochromasia 1+, Anisocytosis 1+ Height (Feet): 5 Height (Inches): 4.00 Weight (Pounds): 210 Cardiovascular: regular rhythm Respiratory/Chest: rhonchi - bilaterally Extremities: other - no edema NENA FERREIRA May 11, 2017 10:33
[2017-05-11] MEDS ORDERED: Cefepime HCl 1 GM in D5W 55 ML IVPB ONE (11:30)
[2017-05-11] MEDS ORDERED: Cefepime HCl 1 GM in NS 55 ML IVPB ONE (11:30)
[2017-05-11] MEDS ORDERED: Lidocaine 1% Plain 30 ml INJ ONE (12:00)
[2017-05-11] MEDS ORDERED: Heparin 2000 units/Ns 1000ml IV ONE (12:00)
--- NOTE | 2017-05-11 12:28 | Diagnostic Imaging Report ---
Indication: Dyspnea, infection Technique: XRAY Chest 1v Comparison: 05/08/2018 Findings: Heart size and mediastinal contours appear stable. There is worsening of aeration with increased interstitial opacification/edema and significant increased right-sided airspace opacities. No pneumothorax. Interval removal of dialysis catheter. Osseous structures are stable. Impression: Significant interval worsening of aeration with increased interstitial opacification/edema and increased right-sided airspace opacities, with dense opacification in the right upper lung. Findings may be related to worsening pulmonary edema however superimposed pneumonia not excluded. Clinical correlation and follow-up exam recommended.
[2017-05-11] MEDS: Lidocaine 1% MPF 10mg/ml 5ml INJ SCH (14:30)
--- NOTE | 2017-05-11 15:11 | Diagnostic Imaging Report ---
Indication: Critically ill patient, requires central venous access. Findings: Informed consent was obtained. The neck was prepped with chlorhexidine solution. All elements of maximal sterile barrier technique were followed including usage of a cap, mask, sterile gown, sterile gloves, sterile ultrasound probe cover and sterile ultrasound gel, hand hygiene and a large sterile sheet. 1% lidocaine was used to anesthetize the skin. Sonographic evaluation of the neck was performed demonstrating a patent and compressible vein. Access was obtained under real-time ultrasound guidance using an 18 gauge needle and a digital image was saved in archive. An 035 wire was then advanced into the vein. Needle exchanged for a dilator. A triple-lumen central venous catheter was advanced over the wire; advanced to 16 cm. Wire was removed. Catheter was secured to the skin using 2-0 Prolene suture. Both ports aspirate and flush easily. Follow-up radiograph obtained demonstrating: Limited exam given patient rotation. Right transjugular central venous catheter has its tip in the expected region of the cavoatrial junction. There is extensive interstitial and bilateral airspace disease, right greater than left. There is no pneumothorax. Vascular stent noted in the right axillary region. Impression: Successful placement of right jugular central venous catheter. No significant interval change in appearance the heart and lungs compared to exam a few hours earlier.
[2017-05-11] MEDS ORDERED: Midazolam 2mg/2ml Inj IVP ONE (18:00)
--- NOTE | 2017-05-11 18:07 | Pulmonology Progress Note ---
Assessment/Plan Assessment/Plan 1. Septic shock, due to staph aureus bacteremia 2. Respiratory insufficiency. 3. Rapid AF, better 4. End-stage renal disease, on dialysis. 5. abdominal hernia with ulceration x2 with visible mesh, foul odor 6. Decubitus ulcer. 7. Depression. 8. Seizure disorder. 9. Dialysis catheter infection, removed 10. Chronic obstructive pulmonary disease. doing poorly not responsive on pressors, BiPAP needs intubation disc w RN, Dr Truong intubated at bedside w 2 mg Versed 8 mm ETT placed under direct vision placed on vent Subjective ROS Limited/Unobtainable: Yes Allergies: Coded Allergies: No Known Allergies (Unverified , 12/04/15) Objective Last 24 Hour Vital Signs Date Time Temp Pulse Resp B/P (MAP) Pulse Ox O2 Delivery O2 Flow Rate FiO2 05/11/17 17:30 86 22 95/48 92 Bi-pap 60 05/11/17 17:00 110/50 05/11/17 17:00 87 25 92 Full Face 60 05/11/17 17:00 86 18 105/44 95 Bi-pap 60 05/11/17 16:30 87 22 110/50 92 Bi-pap 55 05/11/17 16:00 55 05/11/17 16:00 108/54 05/11/17 16:00 99.8 88 23 108/54 92 Bi-pap 55 99.8 05/11/17 16:00 87 05/11/17 15:30 84 18 106/44 94 Bi-pap 55 05/11/17 15:18 87 20 100 Full Face 55 05/11/17 15:00 84 18 101/43 94 Bi-pap 55 05/11/17 14:52 101/48 05/11/17 14:30 86 20 106/51 95 Bi-pap 55 05/11/17 14:15 86 20 101/46 95 Bi-pap 55 05/11/17 14:00 89 21 108/48 96 Bi-pap 55 05/11/17 13:30 86 23 158/72 98 Bi-pap 55 05/11/17 13:00 99.4 88 24 97/47 96 Bi-pap 55 99.4 05/11/17 13:00 97/47 05/11/17 12:56 95 20 86 Full Face 55 05/11/17 12:30 88 23 95/40 95 Bi-pap 55 05/11/17 12:00 89 05/11/17 12:00 55 05/11/17 12:00 99.7 90 21 98/46 94 Bi-pap 55 99.7 05/11/17 11:30 92 21 105/40 96 Bi-pap 55 05/11/17 11:09 94 22 96 Full Face 55 05/11/17 11:00 94 22 95/63 93 Bi-pap 55 05/11/17 10:30 93 19 98/43 94 Bi-pap 55 05/11/17 10:00 117 18 93/43 95 Bi-pap 55 05/11/17 09:39 113/61 05/11/17 09:30 126 16 113/44 94 Bi-pap 55 05/11/17 09:00 77 91/41 05/11/17 09:00 74 16 91/41 99 Bi-pap 55 05/11/17 08:54 74 17 99 Full Face 55 05/11/17 08:45 74 16 94/37 99 Bi-pap 55 05/11/17 08:30 75 17 101/40 99 Bi-pap 65 05/11/17 08:30 101/40 05/11/17 08:00 76 05/11/17 08:00 99.1 75 16 82/36 100 Bi-pap 65 99.1 05/11/17 08:00 65 05/11/17 07:45 79 21 84/37 99 Bi-pap 65 05/11/17 07:45 86/37 05/11/17 07:30 82 21 97/39 99 Bi-pap 65 05/11/17 07:15 80 20 109/60 99 Bi-pap 70 05/11/17 07:15 135/88 05/11/17 07:00 81 20 135/88 99 Bi-pap 70 05/11/17 06:30 81 16 96/52 100 Bi-pap 70 05/11/17 06:30 84 20 99 Full Face 65 05/11/17 06:00 80 16 90/40 100 Bi-pap 70 05/11/17 06:00 106/40 05/11/17 06:00 90/40 05/11/17 05:30 85 16 103/40 100 Bi-pap 70 05/11/17 05:00 86 16 104/43 100 Bi-pap 70 05/11/17 04:59 79 16 100 Full Face 70 05/11/17 04:51 108/44 05/11/17 04:30 83 16 100/56 100 Bi-pap 70 05/11/17 04:00 99.2 84 16 88/56 100 Bi-pap 70 99.2 05/11/17 04:00 88/41 05/11/17 04:00 77 05/11/17 03:30 82 17 100 Full Face 70 05/11/17 03:00 86/43 05/11/17 03:00 84 16 116/56 100 Bi-pap 70 05/11/17 02:30 77 16 100/43 100 Bi-pap 70 05/11/17 02:00 78 15 94/43 100 Bi-pap 70 05/11/17 02:00 94/43 05/11/17 01:30 78 15 89/42 100 Bi-pap 70 05/11/17 01:26 81 17 94 Full Face 70 05/11/17 01:00 82/42 05/11/17 01:00 80 16 82/42 100 Bi-pap 70 05/11/17 00:30 83 17 86/41 99 Bi-pap 70 05/11/17 00:00 99.0 84 17 87/45 98 Bi-pap 70 99.0 05/11/17 00:00 87/45 05/10/17 23:30 86 17 86/39 99 Bi-pap 70 05/10/17 23:30 85 16 93 Full Face 70 05/10/17 23:00 83/38 05/10/17 23:00 86 16 83/38 99 Bi-pap 70 05/10/17 22:30 87 16 74/36 99 Bi-pap 70 05/10/17 22:15 75 18 103/40 99 Bi-pap 60 05/10/17 22:07 85 18 94 Full Face 70 05/10/17 22:00 76 18 71/38 99 Bi-pap 60 05/10/17 21:50 70/50 05/10/17 21:00 76 18 71/38 99 Bi-pap 60 05/10/17 20:00 78 05/10/17 20:00 85 19 92 Full Face 40 05/10/17 20:00 60 05/10/17 20:00 98.8 78 17 73/38 99 Bi-pap 60 98.8 2/20/18 19:30 Bi-pap 05/10/17 19:30 Bi-pap 05/10/17 19:30 87 18 Bi-pap 40 05/10/17 19:00 86 24 109/47 88 Venturi Mask 55 Intake and Output 05/10/17 05/11/17 19:00 07:00 Intake Total 370 ml 356.25 ml Output Total 0 ml Balance 370 ml 356.25 ml Intake Oral 270 ml 0 ml IV Total 100 ml 356.25 ml Output Urine Total 0 ml Objective morbidly obese General Appearance: other HEENT: normocephalic Respiratory/Chest: decreased breath sounds, rhonchi Cardiovascular: regular rhythm, tachycardia Laboratory Tests 05/10/17 21:31: Arterial Blood pH 7.354, Arterial Blood Partial Pressure CO2 47.9H, Arterial Blood Partial Pressure O2 64.5L, Arterial Blood HCO3 26.1H, Arterial Blood Oxygen Saturation 89.9L, Arterial Blood Base Excess 0.5, Cecilio Test Positive 05/11/17 04:30: White Blood Count 19.4H, Red Blood Count 1.71L, Hemoglobin 5.8*L, Hematocrit 18.4L, Mean Corpuscular Volume 108H, Mean Corpuscular Hemoglobin 33.8H, Mean Corpuscular Hemoglobin Concent 31.3L, Red Cell Distribution Width 15.1H, Platelet Count 245, Mean Platelet Volume 7.2, Neutrophils (%) (Auto) , Lymphocytes (%) (Auto) , Monocytes (%) (Auto) , Eosinophils (%) (Auto) , Basophils (%) (Auto) , Differential Total Cells Counted 100, Neutrophils % ( Manual) 81H, Lymphocytes % (Manual) 10L, Monocytes % (Manual) 9, Eosinophils % ( Manual) 0, Basophils % (Manual) 0, Band Neutrophils 0, Platelet Estimate Adequate, Platelet Morphology Normal, Polychromasia 1+, Hypochromasia 1+, Anisocytosis 1+, Sodium Level 139, Potassium Level 3.9, Chloride Level 97L, Carbon Dioxide Level 29, Anion Gap 13, Blood Urea Nitrogen 80H, Creatinine 12.9H , Estimat Glomerular Filtration Rate 3.6, Glucose Level 116H, Calcium Level 8.2L , Iron Level 35L, Total Iron Binding Capacity 110L, Percent Iron Saturation 32, Unsaturated Iron Binding 75L 05/11/17 06:30: Arterial Blood pH 7.340L, Arterial Blood Partial Pressure CO2 50.1H, Arterial Blood Partial Pressure O2 82.1, Arterial Blood HCO3 26.7H, Arterial Blood Oxygen Saturation 94.2, Arterial Blood Base Excess 0.9, Cecilio Test Positive 05/11/17 06:45: White Blood Count 23.3*H, Red Blood Count 1.75L, Hemoglobin 5.9*L, Hematocrit 18.7L, Mean Corpuscular Volume 107H, Mean Corpuscular Hemoglobin 33.8H, Mean Corpuscular Hemoglobin Concent 31.6L, Red Cell Distribution Width 15.0H, Platelet Count 276, Mean Platelet Volume 7.0, Neutrophils (%) (Auto) , Lymphocytes (%) (Auto) , Monocytes (%) (Auto) , Eosinophils (%) (Auto) , Basophils (%) (Auto) , Differential Total Cells Counted 100, Neutrophils % ( Manual) 74, Lymphocytes % (Manual) 17L, Monocytes % (Manual) 9, Eosinophils % ( Manual) 0, Basophils % (Manual) 0, Band Neutrophils 0, Platelet Estimate Adequate, Platelet Morphology Normal, Polychromasia 1+, Hypochromasia 1+, Anisocytosis 1+ Current Medications Medications (Trade) Dose Ordered Sig/Jeff Route PRN Reason Start Time Stop Time Status Last Admin Dose Admin Acetaminophen (Tylenol) 650 mg Q4H PRN ORAL Mild Pain (Pain Scale 1-3) 05/06/17 02:00 05/31/17 17:59 05/09/17 17:27 Amiodarone HCl (Cordarone) 400 mg EVERY 12 HOURS ORAL 05/06/17 09:00 06/04/17 19:59 05/11/17 09:17 Apixaban (Eliquis) 2.5 mg Q12HR ORAL 05/07/17 21:00 06/06/17 20:59 05/10/17 08:44 Aspirin (ASA) 81 mg DAILY ORAL 05/06/17 09:00 06/03/17 17:59 05/11/17 09:17 Buspirone HCl (Buspar) 15 mg TWICE A DAY ORAL 05/06/17 09:00 05/31/17 08:59 05/11/17 09:17 Cefepime HCl 500 mg/Sodium Chloride 55 ml @ 110 mls/hr Q24H IV 05/12/17 11:30 05/19/17 23:59 Chlorhexidine Gluconate (Majo-Hex 2%) 1 applic DAILY@2000 TOPIC 05/11/17 20:00 06/10/17 19:59 Cinacalcet (Sensipar) 30 mg DAILY ORAL 05/06/17 09:00 05/31/17 08:59 05/11/17 09:16 Daptomycin 550 mg/ Sodium Chloride 55 ml @ 100 mls/hr Q48H IV 05/08/17 11:00 05/15/17 23:59 05/10/17 11:28 Dextrose (Dextrose 50%) STAT PRN IV Hypoglycemia 05/06/17 18:00 06/03/17 17:59 Epoetin Víctor (Procrit (for ESRD on dialysis)) 10,000 units TUE-TUE-TUE SUBQ 05/11/17 21:00 06/10/17 20:59 Gabapentin (Neurontin) 300 mg BEDTIME ORAL 05/06/17 21:00 05/31/17 20:59 05/09/17 20:57 Lidocaine (Xylocaine 1% MPF 5ml) 30 ml ONCE INJ 05/11/17 12:00 06/10/17 11:59 Linezolid (Zyvox) 600 mg EVERY 12 HOURS ORAL 05/09/17 10:00 05/14/17 09:59 05/11/17 09:17 Metoprolol Succinate (Toprol XL) 25 mg DAILY ORAL 05/06/17 09:00 06/01/17 08:59 Metoprolol Tartrate (Lopressor) 5 mg Q6H PRN IVP HR>130 SUSTAINED MORE THAN 5 M 05/06/17 06:00 06/01/17 17:51 Midodrine (Pro-Amatine) 10 mg EVERY 8 HOURS ORAL 05/09/17 14:00 06/08/17 12:59 05/11/17 14:59 Norepinephrine Bitartrate 4 mg/ Dextrose 250 ml @ 0 mls/hr Q24H IV 05/08/17 22:15 06/07/17 22:14 05/11/17 14:52 Prochlorperazine (Compazine) 10 mg Q6H PRN IVP Nausea & Vomiting 05/06/17 05:00 05/31/17 10:59 Topiramate (Topamax) 25 mg Q12HR ORAL 05/06/17 09:00 06/03/17 20:59 05/11/17 09:16 Trazodone HCl (Desyrel) 150 mg BEDTIME ORAL 05/06/17 21:00 05/31/17 20:59 05/09/17 20:58 DEVENDRA BASSETT May 11, 2017 18:07
[2017-05-11] MEDS ORDERED: LORazepam Inj 2mg/ml 1ml IV PRN (18:30)
--- NOTE | 2017-05-11 19:09 | Wound Nurse Progress Note ---
Wound RN Progress Note Wound Consult #1 Coccygeal stage III pressure ulcer #2 Right buttock scattered stage III pressure ulcer #3 Left lower buttocks stage III pressure ulcer #4 Right buttocks scattered stage II pressure ulcer #5 Left ischial tuberosity full thickness scar tissue Reassessed this Pt no deterioration noted. Will cont same wound care treatment and recommendation below. Recommendation -Local wound care per protocol -Keep clean and dry -Turn and reposition -Optimize nutrition -Low air loss mattress -Offload both heel -Heel protector on both heels -Assess and f/u accordingly for any changes AIMEE FRAUSTO RN May 11, 2017 19:09
[2017-05-11 19:10] LABS: HEMATOCRIT 21.7 % (37.0-47.0); MEAN CORPUSCULAR VOLUME 100 FL (80-99); PLATELET COUNT 253 K/UL (150-450); RED BLOOD COUNT 2.18 M/UL (4.20-5.40); RED CELL DISTRIBUTION WIDTH 19.9 % (11.6-14.8)
[2017-05-11 19:14] LABS: HEMOGLOBIN 6.8 G/DL (12.0-16.0); WHITE BLOOD COUNT 23.2 K/UL (4.8-10.8)
[2017-05-11] MEDS: Dyna-Hex 2% Top Sol 2oz TOPIC SCH (20:12)
--- NOTE | 2017-05-11 20:15 | Cardiology Progress Note ---
Assessment/Plan Assessment/Plan 1. Paroxysmal episodes of atrial fibrillation. 2. No evidence of epicardial coronary disease. 3. End-stage renal disease, on hemodialysis. 4. Septic shock. 5. Bacteremia persistent 6. Abdominal ventral hernia status post repair. 7. respiratory fialure with right sided infiltrate 8. anemai 2 episodes of afib despite on higer dose of amiod on po amiod 400 mg bid for nwo will decrese in a few days iv abx for bacteremia gettign prbc tx d/w family at bedside nwo has central line but no dialysis catheter echo normal lv function surveillance cx positive still on repeat again is now intubated for respiratory fialure cxr reviewed mainly right sided infiltrate anemic not external sources will need to stop anticoagulation although only low dose may consider fantasma while intubated Subjective ROS Limited/Unobtainable: Yes Cardiovascular: Denies: chest pain Objective Last 24 Hour Vital Signs Date Time Temp Pulse Resp B/P (MAP) Pulse Ox O2 Delivery O2 Flow Rate FiO2 05/11/17 19:17 70 20 100 05/11/17 19:00 73 20 90/40 100 Mechanical Ventilator 100 05/11/17 18:30 72 20 93/47 100 Mechanical Ventilator 100 05/11/17 18:13 78 22 100 05/11/17 18:00 100 05/11/17 18:00 86 21 97/48 96 Mechanical Ventilator 100 05/11/17 17:30 86 22 95/48 92 Bi-pap 60 05/11/17 17:00 110/50 05/11/17 17:00 87 25 92 Full Face 60 05/11/17 17:00 86 18 105/44 95 Bi-pap 60 05/11/17 16:30 87 22 110/50 92 Bi-pap 55 05/11/17 16:00 55 05/11/17 16:00 108/54 05/11/17 16:00 99.8 88 23 108/54 92 Bi-pap 55 99.8 05/11/17 16:00 87 05/11/17 15:30 84 18 106/44 94 Bi-pap 55 05/11/17 15:18 87 20 100 Full Face 55 05/11/17 15:00 84 18 101/43 94 Bi-pap 55 05/11/17 14:52 101/48 05/11/17 14:30 86 20 106/51 95 Bi-pap 55 05/11/17 14:15 86 20 101/46 95 Bi-pap 55 05/11/17 14:00 89 21 108/48 96 Bi-pap 55 05/11/17 13:30 86 23 158/72 98 Bi-pap 55 05/11/17 13:00 99.4 88 24 97/47 96 Bi-pap 55 99.4 05/11/17 13:00 97/47 05/11/17 12:56 95 20 86 Full Face 55 05/11/17 12:30 88 23 95/40 95 Bi-pap 55 05/11/17 12:00 89 05/11/17 12:00 55 05/11/17 12:00 99.7 90 21 98/46 94 Bi-pap 55 99.7 05/11/17 11:30 92 21 105/40 96 Bi-pap 55 05/11/17 11:09 94 22 96 Full Face 55 05/11/17 11:00 94 22 95/63 93 Bi-pap 55 05/11/17 10:30 93 19 98/43 94 Bi-pap 55 05/11/17 10:00 117 18 93/43 95 Bi-pap 55 05/11/17 09:39 113/61 05/11/17 09:30 126 16 113/44 94 Bi-pap 55 05/11/17 09:00 77 91/41 05/11/17 09:00 74 16 91/41 99 Bi-pap 55 05/11/17 08:54 74 17 99 Full Face 55 05/11/17 08:45 74 16 94/37 99 Bi-pap 55 05/11/17 08:30 75 17 101/40 99 Bi-pap 65 05/11/17 08:30 101/40 05/11/17 08:00 76 05/11/17 08:00 99.1 75 16 82/36 100 Bi-pap 65 99.1 05/11/17 08:00 65 05/11/17 07:45 79 21 84/37 99 Bi-pap 65 05/11/17 07:45 86/37 05/11/17 07:30 82 21 97/39 99 Bi-pap 65 05/11/17 07:15 80 20 109/60 99 Bi-pap 70 05/11/17 07:15 135/88 05/11/17 07:00 81 20 135/88 99 Bi-pap 70 05/11/17 06:30 81 16 96/52 100 Bi-pap 70 05/11/17 06:30 84 20 99 Full Face 65 05/11/17 06:00 80 16 90/40 100 Bi-pap 70 05/11/17 06:00 106/40 05/11/17 06:00 90/40 05/11/17 05:30 85 16 103/40 100 Bi-pap 70 05/11/17 05:00 86 16 104/43 100 Bi-pap 70 05/11/17 04:59 79 16 100 Full Face 70 05/11/17 04:51 108/44 05/11/17 04:30 83 16 100/56 100 Bi-pap 70 05/11/17 04:00 99.2 84 16 88/56 100 Bi-pap 70 99.2 05/11/17 04:00 88/41 05/11/17 04:00 77 05/11/17 03:30 82 17 100 Full Face 70 05/11/17 03:00 86/43 05/11/17 03:00 84 16 116/56 100 Bi-pap 70 05/11/17 02:30 77 16 100/43 100 Bi-pap 70 05/11/17 02:00 78 15 94/43 100 Bi-pap 70 05/11/17 02:00 94/43 05/11/17 01:30 78 15 89/42 100 Bi-pap 70 05/11/17 01:26 81 17 94 Full Face 70 05/11/17 01:00 82/42 05/11/17 01:00 80 16 82/42 100 Bi-pap 70 05/11/17 00:30 83 17 86/41 99 Bi-pap 70 05/11/17 00:00 99.0 84 17 87/45 98 Bi-pap 70 99.0 05/11/17 00:00 87/45 05/10/17 23:30 86 17 86/39 99 Bi-pap 70 05/10/17 23:30 85 16 93 Full Face 70 05/10/17 23:00 83/38 05/10/17 23:00 86 16 83/38 99 Bi-pap 70 05/10/17 22:30 87 16 74/36 99 Bi-pap 70 05/10/17 22:15 75 18 103/40 99 Bi-pap 60 05/10/17 22:07 85 18 94 Full Face 70 05/10/17 22:00 76 18 71/38 99 Bi-pap 60 05/10/17 21:50 70/50 05/10/17 21:00 76 18 71/38 99 Bi-pap 60 General Appearance: alert, on vent, patient on isolation Neck: supple Cardiovascular: normal rate, regular rhythm Respiratory/Chest: lungs clear - ant Abdomen: normal bowel sounds, non tender, soft Extremities: non-tender, no swelling Intake and Output 05/10/17 05/11/17 19:00 07:00 Intake Total 370 ml 356.25 ml Output Total 0 ml Balance 370 ml 356.25 ml Intake Oral 270 ml 0 ml IV Total 100 ml 356.25 ml Output Urine Total 0 ml Laboratory Tests Test 05/10/17 21:31 05/11/17 04:30 05/11/17 06:30 05/11/17 06:45 Arterial Blood pH 7.354 (7.350-7.450) 7.340 (7.350-7.450) Arterial Blood Partial Pressure CO2 47.9 mmHg (35.0-45.0) H 50.1 mmHg (35.0-45.0) H Arterial Blood Partial Pressure O2 64.5 mmHg (75.0-100.0) L 82.1 mmHg (75.0-100.0) Arterial Blood HCO3 26.1 mmol/L (22.0-26.0) H 26.7 mmol/L (22.0-26.0) H Arterial Blood Oxygen Saturation 89.9 % (92.0-98.0) L 94.2 % (92.0-98.0) Arterial Blood Base Excess 0.5 0.9 Cecilio Test Positive Positive White Blood Count 19.4 K/UL (4.8-10.8) H 23.3 K/UL (4.8-10.8) *H Red Blood Count 1.71 M/UL (4.20-5.40) L 1.75 M/UL (4.20-5.40) L Hemoglobin 5.8 G/DL (12.0-16.0) *L 5.9 G/DL (12.0-16.0) *L Hematocrit 18.4 % (37.0-47.0) L 18.7 % (37.0-47.0) L Mean Corpuscular Volume 108 FL (80-99) H 107 FL (80-99) H Mean Corpuscular Hemoglobin 33.8 PG (27.0-31.0) H 33.8 PG (27.0-31.0) H Mean Corpuscular Hemoglobin Concent 31.3 G/DL (32.0-36.0) L 31.6 G/DL (32.0-36.0) L Red Cell Distribution Width 15.1 % (11.6-14.8) H 15.0 % (11.6-14.8) H Platelet Count 245 K/UL (150-450) 276 K/UL (150-450) Mean Platelet Volume 7.2 FL (6.5-10.1) 7.0 FL (6.5-10.1) Neutrophils (%) (Auto) % (45.0-75.0) % (45.0-75.0) Lymphocytes (%) (Auto) % (20.0-45.0) % (20.0-45.0) Monocytes (%) (Auto) % (1.0-10.0) % (1.0-10.0) Eosinophils (%) (Auto) % (0.0-3.0) % (0.0-3.0) Basophils (%) (Auto) % (0.0-2.0) % (0.0-2.0) Differential Total Cells Counted 100 100 Neutrophils % (Manual) 81 % (45-75) H 74 % (45-75) Lymphocytes % (Manual) 10 % (20-45) L 17 % (20-45) L Monocytes % (Manual) 9 % (1-10) 9 % (1-10) Eosinophils % (Manual) 0 % (0-3) 0 % (0-3) Basophils % (Manual) 0 % (0-2) 0 % (0-2) Band Neutrophils 0 % (0-8) 0 % (0-8) Platelet Estimate Adequate Adequate Platelet Morphology Normal Normal Polychromasia 1+ 1+ Hypochromasia 1+ 1+ Anisocytosis 1+ 1+ Sodium Level 139 MMOL/L (136-145) Potassium Level 3.9 MMOL/L (3.5-5.1) Chloride Level 97 MMOL/L (98-107) L Carbon Dioxide Level 29 MMOL/L (21-32) Anion Gap 13 mmol/L (5-15) Blood Urea Nitrogen 80 mg/dL (7-18) H Creatinine 12.9 MG/DL (0.55-1.30) H Estimat Glomerular Filtration Rate 3.6 mL/min (>60) Glucose Level 116 MG/DL (74-106) H Calcium Level 8.2 MG/DL (8.5-10.1) L Iron Level 35 ug/dL (50-175) L Total Iron Binding Capacity 110 ug/dL (250-450) L Percent Iron Saturation 32 % (15-50) Unsaturated Iron Binding 75 ug/dL (112-346) L Test 05/11/17 18:50 White Blood Count 23.2 K/UL (4.8-10.8) *H Red Blood Count 2.18 M/UL (4.20-5.40) L Hemoglobin 6.8 G/DL (12.0-16.0) *L Hematocrit 21.7 % (37.0-47.0) L Mean Corpuscular Volume 100 FL (80-99) H Mean Corpuscular Hemoglobin 31.4 PG (27.0-31.0) H Mean Corpuscular Hemoglobin Concent 31.6 G/DL (32.0-36.0) L Red Cell Distribution Width 19.9 % (11.6-14.8) H Platelet Count 253 K/UL (150-450) Mean Platelet Volume 6.7 FL (6.5-10.1) Neutrophils (%) (Auto) % (45.0-75.0) Lymphocytes (%) (Auto) % (20.0-45.0) Monocytes (%) (Auto) % (1.0-10.0) Eosinophils (%) (Auto) % (0.0-3.0) Basophils (%) (Auto) % (0.0-2.0) Neutrophils % (Manual) Pending Lymphocytes % (Manual) Pending Platelet Estimate Pending Platelet Morphology Pending MATEHUS GATES May 11, 2017 20:15
[2017-05-11] MEDS ORDERED: Epogen (for ESRD on dialysis) SUBQ SCH (21:00)
[2017-05-11] MEDS: TraZODone 50mg tab ORAL SCH (21:19)
[2017-05-12] VITALS (58 sets, daily range): BP systolic 66–112; BP diastolic 21–57
[2017-05-12] MEDS: Midodrine 10mg tab ORAL SCH ×3 (05:37→21:52)
[2017-05-12 06:01] LABS: HEMATOCRIT 28.4 % (37.0-47.0); HEMOGLOBIN 8.9 G/DL (12.0-16.0); MEAN CORPUSCULAR VOLUME 98 FL (80-99); PLATELET COUNT 222 K/UL (150-450); RED BLOOD COUNT 2.89 M/UL (4.20-5.40); RED CELL DISTRIBUTION WIDTH 21.3 % (11.6-14.8)
[2017-05-12 06:12] LABS: WHITE BLOOD COUNT 22.3 K/UL (4.8-10.8)
[2017-05-12 06:45] LABS: ALANINE AMINOTRANSFERASE 8 U/L (12-78); ALBUMIN 1.6 G/DL (3.4-5.0); ALBUMIN/GLOBULIN RATIO 0.2 (1.0-2.7); ALKALINE PHOSPHATASE 83 U/L (46-116); ANION GAP 19 mmol/L (5-15); ASPARTATE AMINO TRANSFERASE 27 U/L (15-37); BILIRUBIN,TOTAL 0.7 MG/DL (0.2-1.0); BLOOD UREA NITROGEN 83 mg/dL (7-18); CALCIUM 8.4 MG/DL (8.5-10.1); CARBON DIOXIDE 20 MMOL/L (21-32); CHLORIDE 89 MMOL/L (98-107); CKMB 2.1 NG/ML (0.0-3.6); CREATININE 13.4 MG/DL (0.55-1.30); POTASSIUM 4.4 MMOL/L (3.5-5.1); SODIUM 128 MMOL/L (136-145)
[2017-05-12] MEDS: Metoprolol Succinate XL 25mg tab ORAL SCH (08:16)
[2017-05-12] MEDS: Aspirin Baby 81mg ORAL SCH (08:34)
[2017-05-12] MEDS: Sensipar 30mg Tab ORAL SCH (08:34)
[2017-05-12] MEDS: Amiodarone 200mg tab ORAL SCH ×2 (08:36→21:53)
[2017-05-12] MEDS: BusPIRone 5mg Tab ORAL SCH ×2 (08:36→18:27)
[2017-05-12] MEDS: Topiramate 25mg tab ORAL SCH (08:37)
--- NOTE | 2017-05-12 09:20 | Diagnostic Imaging Report ---
Indication: Post intubation Technique: One view of the chest Comparison: Postcentral line placement radiograph for Findings: Interim endotracheal intubation, endotracheal tube tip immediately above the toan. Interim nasogastric intubation, nasogastric tube tip projecting beyond the imaged Extensive bilateral airspace consolidation, right greater than left, is demonstrated. The heart remains enlarged. A jugular central venous catheter is again demonstrated Impression: Slightly low position of endotracheal tube, just at the toan Interim enteric tube placement, tip projected below the edge of the image, probably in good position Stable diffuse bilateral pulmonary parenchymal consolidation, infiltrates versus edema Other stable findings as described This agrees with the preliminary interpretation provided overnight by [facility].
--- NOTE | 2017-05-12 09:20 | Diagnostic Imaging Report ---
Indication: Status post orogastric tube placement Technique: Supine view of the abdomen Comparison: 12/08/2015 Findings: Orogastric tube is degenerative projected at the level of gastric body, in good position. Dilated small bowel loops are seen in the left side of the abdomen. Impression: Satisfactory orogastric tube position. Dilated left lower quadrant small bowel loops, nonspecific This agrees with the preliminary interpretation provided overnight by [facility].. This agrees with the preliminary interpretation provided overnight by [facility].
[2017-05-12] MEDS ORDERED: Topiramate 25mg tab ORAL ONE (10:15)
--- NOTE | 2017-05-12 10:18 | Diagnostic Imaging Report ---
Indication: Status post adjustment of endotracheal tube Technique: One view of the chest Comparison: 3 hours earlier Findings: Interim slight retraction of endotracheal tube, tip now in good position approximately 2 cm above the toan. Bilateral right greater than left infiltrates and edema persist, stable to slightly improved allowing for differences in exposure technique. Cici persists. Right jugular central venous catheter, orogastric tube are unchanged Impression: Improved and now satisfactory position of endotracheal tube Possible slight improvement of bilateral right greater than left pulmonary parenchymal disease
[2017-05-12] MEDS ORDERED: Tubing Blood Filter IV ONE (10:32)
[2017-05-12] MEDS ORDERED: NS 275ml ONE (10:32)
--- NOTE | 2017-05-12 10:32 | Nephrology Progress Note ---
Assessment/Plan Problem List: (1) Septic shock (2) Secondary hyperparathyroidism (of renal origin) (3) HTN (hypertension) (4) ESRD (end stage renal disease) on dialysis (5) Gram-positive bacteremia Assessment: Staph Aureus (6) Seizure Assessment BC from so far neg Plan IV Abxs seizure meds Neuro consult follow labs Discussed with RN follow cultures Permcath tomorrow KRISTIN ? Discussed with Dr Parminder Truong transfuse PRN cont Epogen Iron studies ok Pressors Vent support Subjective Subjective seen in ICU Intubated Objective Objective Last 24 Hour Vital Signs Date Time Temp Pulse Resp B/P (MAP) Pulse Ox O2 Delivery O2 Flow Rate FiO2 05/12/17 09:30 83 22 94/37 99 Mechanical Ventilator 80 05/12/17 09:30 100.6 05/12/17 09:10 81 20 80 05/12/17 09:00 81 21 83/32 99 Mechanical Ventilator 80 05/12/17 08:35 101.1 05/12/17 08:30 86 24 95/43 99 Mechanical Ventilator 80 05/12/17 08:16 85 94/36 05/12/17 08:00 101.1 84 21 94/36 95 Mechanical Ventilator 80 101.1 05/12/17 08:00 80 05/12/17 08:00 92/39 05/12/17 07:01 78 21 80 05/12/17 07:00 115/44 05/12/17 07:00 84 24 111/44 95 Mechanical Ventilator 80 05/12/17 06:00 90/43 05/12/17 06:00 83 22 92/40 96 Mechanical Ventilator 80 05/12/17 05:00 84 22 97/44 98 Mechanical Ventilator 80 05/12/17 05:00 106/43 05/12/17 04:34 78 20 80 05/12/17 04:00 77 05/12/17 04:00 99.9 76 22 101/42 98 Mechanical Ventilator 80 99.9 05/12/17 04:00 92/35 05/12/17 04:00 80 05/12/17 03:45 75 22 94/37 98 Mechanical Ventilator 80 05/12/17 03:36 90/42 05/12/17 03:30 75 23 90/37 95 Mechanical Ventilator 80 05/12/17 03:25 77 20 80 05/12/17 03:15 77 23 90/38 95 Mechanical Ventilator 80 05/12/17 03:00 90/42 05/12/17 03:00 80 23 90/42 95 Mechanical Ventilator 80 05/12/17 02:45 76 20 99/41 97 Mechanical Ventilator 80 05/12/17 02:30 78 20 87/36 97 Mechanical Ventilator 80 05/12/17 02:15 81 20 76/29 97 Mechanical Ventilator 80 05/12/17 02:00 83 21 86/35 97 Mechanical Ventilator 80 05/12/17 02:00 86/35 05/12/17 01:45 80 22 88/38 95 Mechanical Ventilator 80 05/12/17 01:30 85 24 86/35 93 Mechanical Ventilator 80 05/12/17 01:15 88 26 95/39 94 Mechanical Ventilator 80 05/12/17 01:00 73 21 112/48 97 Mechanical Ventilator 80 05/12/17 01:00 112/48 05/12/17 00:51 74 20 80 05/12/17 00:45 73 21 89/35 99 Mechanical Ventilator 80 05/12/17 00:30 73 20 89/38 96 Mechanical Ventilator 80 05/12/17 00:15 75 21 100/38 96 Mechanical Ventilator 80 05/12/17 00:00 75 21 94/35 95 Mechanical Ventilator 80 05/12/17 00:00 73 05/12/17 00:00 100/38 05/12/17 00:00 80 05/11/17 23:45 77 23 93/38 94 Mechanical Ventilator 80 05/11/17 23:30 73 21 88/34 96 Mechanical Ventilator 80 05/11/17 23:15 74 22 93/38 95 Mechanical Ventilator 80 05/11/17 23:00 69 23 98/38 94 Mechanical Ventilator 80 05/11/17 23:00 88/34 18 22:50 70 20 80 18 22:45 67 22 67/32 99 Mechanical Ventilator 80 05/11/17 22:30 67 23 85/38 100 Mechanical Ventilator 80 05/11/17 22:15 71 23 87/56 99 Mechanical Ventilator 80 05/11/17 22:00 92/40 05/11/17 22:00 69 20 92/40 98 Mechanical Ventilator 80 05/11/17 21:45 69 21 98/38 98 Mechanical Ventilator 80 05/11/17 21:30 67 22 67/32 99 Mechanical Ventilator 80 05/11/17 21:25 65 30 80 18 21:24 85/38 05/11/17 21:15 67 23 85/38 100 Mechanical Ventilator 80 05/11/17 21:00 72 22 71/36 100 Mechanical Ventilator 80 05/11/17 21:00 71/36 05/11/17 20:45 73 22 61/40 100 Mechanical Ventilator 100 05/11/17 20:30 78 26 98/40 100 Mechanical Ventilator 100 05/11/17 20:15 74 21 97/42 100 Mechanical Ventilator 100 05/11/17 20:12 99.9 05/11/17 20:00 100 05/11/17 20:00 74 21 102/46 100 Mechanical Ventilator 100 05/11/17 20:00 72 05/11/17 20:00 102/46 05/11/17 19:45 75 20 102/43 100 Mechanical Ventilator 100 05/11/17 19:30 73 20 94/42 100 Mechanical Ventilator 100 05/11/17 19:17 70 20 100 05/11/17 19:15 99.9 73 20 90/40 100 Mechanical Ventilator 100 99.9 05/11/17 19:00 94/42 05/11/17 19:00 73 20 90/40 100 Mechanical Ventilator 100 05/11/17 18:30 72 20 93/47 100 Mechanical Ventilator 100 05/11/17 18:13 78 22 100 05/11/17 18:00 100 05/11/17 18:00 86 21 97/48 96 Mechanical Ventilator 100 05/11/17 17:30 86 22 95/48 92 Bi-pap 60 05/11/17 17:00 110/50 05/11/17 17:00 87 25 92 Full Face 60 05/11/17 17:00 86 18 105/44 95 Bi-pap 60 05/11/17 16:30 87 22 110/50 92 Bi-pap 55 05/11/17 16:00 55 05/11/17 16:00 108/54 05/11/17 16:00 99.8 88 23 108/54 92 Bi-pap 55 99.8 05/11/17 16:00 87 05/11/17 15:30 84 18 106/44 94 Bi-pap 55 05/11/17 15:18 87 20 100 Full Face 55 05/11/17 15:00 84 18 101/43 94 Bi-pap 55 05/11/17 14:52 101/48 05/11/17 14:30 86 20 106/51 95 Bi-pap 55 05/11/17 14:15 86 20 101/46 95 Bi-pap 55 05/11/17 14:00 89 21 108/48 96 Bi-pap 55 05/11/17 13:30 86 23 158/72 98 Bi-pap 55 05/11/17 13:00 99.4 88 24 97/47 96 Bi-pap 55 99.4 05/11/17 13:00 97/47 05/11/17 12:56 95 20 86 Full Face 55 05/11/17 12:30 88 23 95/40 95 Bi-pap 55 05/11/17 12:00 89 05/11/17 12:00 55 05/11/17 12:00 99.7 90 21 98/46 94 Bi-pap 55 99.7 05/11/17 11:30 92 21 105/40 96 Bi-pap 55 05/11/17 11:09 94 22 96 Full Face 55 05/11/17 11:00 94 22 95/63 93 Bi-pap 55 05/11/17 10:30 93 19 98/43 94 Bi-pap 55 Intake and Output 05/11/17 05/12/17 19:00 07:00 Intake Total 1100.50 ml 882.5 ml Balance 1100.50 ml 882.5 ml Intake Oral 220 ml 0 ml IV Total 580.50 ml 472.5 ml Blood Product 300 ml 250 ml Other 160 ml Laboratory Tests 05/11/17 18:30: Arterial Blood pH 7.318L, Arterial Blood Partial Pressure CO2 55.0H, Arterial Blood Partial Pressure O2 89.3, Arterial Blood HCO3 27.6H, Arterial Blood Oxygen Saturation 94.4, Arterial Blood Base Excess 1.2, Cecilio Test Positive 05/11/17 18:50: White Blood Count 23.2*H, Red Blood Count 2.18L, Hemoglobin 6.8*L, Hematocrit 21.7L, Mean Corpuscular Volume 100H, Mean Corpuscular Hemoglobin 31.4H, Mean Corpuscular Hemoglobin Concent 31.6L, Red Cell Distribution Width 19.9H, Platelet Count 253, Mean Platelet Volume 6.7, Neutrophils (%) (Auto) , Lymphocytes (%) (Auto) , Monocytes (%) (Auto) , Eosinophils (%) (Auto) , Basophils (%) (Auto) , Differential Total Cells Counted 100, Neutrophils % ( Manual) 83H, Lymphocytes % (Manual) 12L, Monocytes % (Manual) 5, Eosinophils % ( Manual) 0, Basophils % (Manual) 0, Band Neutrophils 0, Platelet Estimate Adequate, Platelet Morphology Normal, Hypochromasia 1+, Anisocytosis 1+, Microcytosis , Macrocytosis 1+ 05/12/17 05:15: White Blood Count 22.3*H, Red Blood Count 2.89L, Hemoglobin 8.9#L, Hematocrit 28.4#L, Mean Corpuscular Volume 98, Mean Corpuscular Hemoglobin 30.6, Mean Corpuscular Hemoglobin Concent 31.2L, Red Cell Distribution Width 21.3H, Platelet Count 222, Mean Platelet Volume 7.0, Neutrophils (%) (Auto) , Lymphocytes (%) (Auto) , Monocytes (%) (Auto) , Eosinophils (%) (Auto) , Basophils (%) (Auto) , Neutrophils % (Manual) [Pending], Lymphocytes % (Manual) [Pending], Platelet Estimate [Pending], Platelet Morphology [Pending], Sodium Level 128L, Potassium Level 4.4, Chloride Level 89L, Carbon Dioxide Level 20L, Anion Gap 19H, Blood Urea Nitrogen 83H, Creatinine 13.4H, Estimat Glomerular Filtration Rate 3.4, Glucose Level 336#H, Calcium Level 8.4L, Total Bilirubin 0.7, Aspartate Amino Transf (AST/SGOT) 27, Alanine Aminotransferase (ALT/SGPT) 8L, Alkaline Phosphatase 83, Creatine Kinase MB 2.1, Total Protein 8.2, Albumin 1.6L, Globulin 6.6, Albumin/Globulin Ratio 0.2L 05/12/17 08:25: Arterial Blood pH 7.341L, Arterial Blood Partial Pressure CO2 51.6H, Arterial Blood Partial Pressure O2 70.9L, Arterial Blood HCO3 27.3H, Arterial Blood Oxygen Saturation 91.0L, Arterial Blood Base Excess 1.2, Cecilio Test Positive Height (Feet): 5 Height (Inches): 4.00 Weight (Pounds): 211 Cardiovascular: normal rate Respiratory/Chest: rhonchi - bilaterally Extremities: other - no edema RAHBAN,NENA May 12, 2017 10:32
--- NOTE | 2017-05-12 10:42 | Diagnostic Imaging Report ---
Indication: Dyspnea Technique: One view of the chest Comparison: 05/11/2017 Findings: Stable satisfactory positions of endotracheal tube, orogastric tube, right jugular central venous catheter. Bilateral extensive interstitial and airspace disease persists, unchanged. Cardiomegaly present. Impression: Unchanged, over one day, findings as above.
--- NOTE | 2017-05-12 11:21 | Consultation ---
Consult Note Consult Note NEUROLOGY CONSULTATION: Full note dictated #[id number] 61 y/o, BF of ?H who has HTN, a seizure disorder, ESRD and is HD dependent. She was hospitalized on 04/30/17 for generalized weakness, cough, and congestion and temperature of 104 degrees. Since then she has been septic, has had to be intubated and is on pressors. She is poorly responsive to stat with but today was noted to have some abnormal facial movements and worsening of responsiveness. ON EXAM: Poorly responsive. Only responds to deep pain with wincing and withdrawal. No definite lateralizing findings. Asterixis and myoclonus seen. IMPRESSION: Multifactorial encephalopathy Possible breakthrough seizures. REC: Keppra 1500 mg IV now followed by 750 mg q 12 H EEG Correct all toxic metabolic factors. Correct HB to > 10 G. If seizures last > 5 minutes Ativan 1 mg IV q 4 hours. Matilde Coello M.D., M.S.P.Rowdy. MATILDE COELLO May 12, 2017 11:21
[2017-05-12] MEDS ORDERED: Cefepime HCl 500 MG in NS 55 ML IV SCH (11:30)
[2017-05-12] MEDS: DAPTOmycin 550 MG in NS 55 ML IV SCH (11:45)
--- NOTE | 2017-05-12 11:46 | Infectious Diseases Prog Note ---
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 If blood culture remains negative until tomorrow can have HD catheter Subjective ROS Limited/Unobtainable: Yes Constitutional: Reports: fever, other - Fsxi=095.1 Respiratory: Reports: other - intubated last night Cardiovascular: Reports: other - centraal line placed yesterday, on Levophed Neurologic: Reports: other - seizure activity, on restraint Allergies: Coded Allergies: No Known Allergies (Unverified , 12/04/15) Objective Vital Signs Last 24 Hour Vital Signs Date Time Temp Pulse Resp B/P (MAP) Pulse Ox O2 Delivery O2 Flow Rate FiO2 05/12/17 11:02 87 26 80 05/12/17 11:00 89 26 110/22 100 Mechanical Ventilator 80 05/12/17 10:30 80 19 90/37 100 Mechanical Ventilator 80 05/12/17 10:19 97/39 05/12/17 10:00 100.6 85 23 97/39 99 Mechanical Ventilator 80 100.6 05/12/17 09:30 83 22 94/37 99 Mechanical Ventilator 80 05/12/17 09:30 100.6 05/12/17 09:10 81 20 80 05/12/17 09:00 81 21 83/32 99 Mechanical Ventilator 80 05/12/17 08:35 101.1 05/12/17 08:30 86 24 95/43 99 Mechanical Ventilator 80 05/12/17 08:16 85 94/36 05/12/17 08:00 101.1 84 21 94/36 95 Mechanical Ventilator 80 101.1 05/12/17 08:00 86 05/12/17 08:00 80 05/12/17 08:00 92/39 05/12/17 07:01 78 21 80 05/12/17 07:00 115/44 05/12/17 07:00 84 24 111/44 95 Mechanical Ventilator 80 05/12/17 06:00 90/43 05/12/17 06:00 83 22 92/40 96 Mechanical Ventilator 80 05/12/17 05:00 84 22 97/44 98 Mechanical Ventilator 80 05/12/17 05:00 106/43 05/12/17 04:34 78 20 80 05/12/17 04:00 77 05/12/17 04:00 99.9 76 22 101/42 98 Mechanical Ventilator 80 99.9 05/12/17 04:00 92/35 05/12/17 04:00 80 05/12/17 03:45 75 22 94/37 98 Mechanical Ventilator 80 05/12/17 03:36 90/42 05/12/17 03:30 75 23 90/37 95 Mechanical Ventilator 80 05/12/17 03:25 77 20 80 05/12/17 03:15 77 23 90/38 95 Mechanical Ventilator 80 05/12/17 03:00 90/42 05/12/17 03:00 80 23 90/42 95 Mechanical Ventilator 80 05/12/17 02:45 76 20 99/41 97 Mechanical Ventilator 80 05/12/17 02:30 78 20 87/36 97 Mechanical Ventilator 80 05/12/17 02:15 81 20 76/29 97 Mechanical Ventilator 80 05/12/17 02:00 83 21 86/35 97 Mechanical Ventilator 80 05/12/17 02:00 86/35 05/12/17 01:45 80 22 88/38 95 Mechanical Ventilator 80 05/12/17 01:30 85 24 86/35 93 Mechanical Ventilator 80 05/12/17 01:15 88 26 95/39 94 Mechanical Ventilator 80 05/12/17 01:00 73 21 112/48 97 Mechanical Ventilator 80 05/12/17 01:00 112/48 05/12/17 00:51 74 20 80 05/12/17 00:45 73 21 89/35 99 Mechanical Ventilator 80 05/12/17 00:30 73 20 89/38 96 Mechanical Ventilator 80 05/12/17 00:15 75 21 100/38 96 Mechanical Ventilator 80 05/12/17 00:00 75 21 94/35 95 Mechanical Ventilator 80 05/12/17 00:00 73 05/12/17 00:00 100/38 05/12/17 00:00 80 05/11/17 23:45 77 23 93/38 94 Mechanical Ventilator 80 05/11/17 23:30 73 21 88/34 96 Mechanical Ventilator 80 05/11/17 23:15 74 22 93/38 95 Mechanical Ventilator 80 05/11/17 23:00 69 23 98/38 94 Mechanical Ventilator 80 18 23:00 88/34 05/11/17 22:50 70 20 80 18 22:45 67 22 67/32 99 Mechanical Ventilator 80 18 22:30 67 23 85/38 100 Mechanical Ventilator 80 18 22:15 71 23 87/56 99 Mechanical Ventilator 80 05/11/17 22:00 92/40 05/11/17 22:00 69 20 92/40 98 Mechanical Ventilator 80 18 21:45 69 21 98/38 98 Mechanical Ventilator 80 18 21:30 67 22 67/32 99 Mechanical Ventilator 80 05/11/17 21:25 65 30 80 05/11/17 21:24 85/38 05/11/17 21:15 67 23 85/38 100 Mechanical Ventilator 80 05/11/17 21:00 72 22 71/36 100 Mechanical Ventilator 80 05/11/17 21:00 71/36 05/11/17 20:45 73 22 61/40 100 Mechanical Ventilator 100 05/11/17 20:30 78 26 98/40 100 Mechanical Ventilator 100 05/11/17 20:15 74 21 97/42 100 Mechanical Ventilator 100 05/11/17 20:12 99.9 05/11/17 20:00 100 05/11/17 20:00 74 21 102/46 100 Mechanical Ventilator 100 05/11/17 20:00 72 05/11/17 20:00 102/46 05/11/17 19:45 75 20 102/43 100 Mechanical Ventilator 100 05/11/17 19:30 73 20 94/42 100 Mechanical Ventilator 100 05/11/17 19:17 70 20 100 05/11/17 19:15 99.9 73 20 90/40 100 Mechanical Ventilator 100 99.9 05/11/17 19:00 94/42 05/11/17 19:00 73 20 90/40 100 Mechanical Ventilator 100 05/11/17 18:30 72 20 93/47 100 Mechanical Ventilator 100 05/11/17 18:13 78 22 100 05/11/17 18:00 100 05/11/17 18:00 86 21 97/48 96 Mechanical Ventilator 100 05/11/17 17:30 86 22 95/48 92 Bi-pap 60 05/11/17 17:00 110/50 05/11/17 17:00 87 25 92 Full Face 60 05/11/17 17:00 86 18 105/44 95 Bi-pap 60 05/11/17 16:30 87 22 110/50 92 Bi-pap 55 05/11/17 16:00 55 05/11/17 16:00 108/54 05/11/17 16:00 99.8 88 23 108/54 92 Bi-pap 55 99.8 05/11/17 16:00 87 05/11/17 15:30 84 18 106/44 94 Bi-pap 55 05/11/17 15:18 87 20 100 Full Face 55 05/11/17 15:00 84 18 101/43 94 Bi-pap 55 05/11/17 14:52 101/48 05/11/17 14:30 86 20 106/51 95 Bi-pap 55 05/11/17 14:15 86 20 101/46 95 Bi-pap 55 05/11/17 14:00 89 21 108/48 96 Bi-pap 55 05/11/17 13:30 86 23 158/72 98 Bi-pap 55 05/11/17 13:00 99.4 88 24 97/47 96 Bi-pap 55 99.4 05/11/17 13:00 97/47 05/11/17 12:56 95 20 86 Full Face 55 05/11/17 12:30 88 23 95/40 95 Bi-pap 55 05/11/17 12:00 89 05/11/17 12:00 55 05/11/17 12:00 99.7 90 21 98/46 94 Bi-pap 55 99.7 Height (Feet): 5 Height (Inches): 4.00 Weight (Pounds): 211 HEENT: other - orally intubated Respiratory/Chest: rhonchi - bilaterally, other - on ventilator Cardiovascular: normal rate, other - RIJ central Abdomen: soft, non tender Extremities: no edema Neurologic/Psychiatric: other - sedated Microbiology Date/Time Source Procedure Growth Status 05/10/17 20:30 Blood Blood Culture - Preliminary NO GROWTH AFTER 24 HOURS Resulted 05/10/17 12:20 Blood Blood Culture - Preliminary NO GROWTH AFTER 24 HOURS Resulted Laboratory Tests Test 05/11/17 18:30 05/11/17 18:50 05/12/17 05:15 05/12/17 08:25 Arterial Blood pH 7.318 (7.350-7.450) 7.341 (7.350-7.450) Arterial Blood Partial Pressure CO2 55.0 mmHg (35.0-45.0) H 51.6 mmHg (35.0-45.0) H Arterial Blood Partial Pressure O2 89.3 mmHg (75.0-100.0) 70.9 mmHg (75.0-100.0) L Arterial Blood HCO3 27.6 mmol/L (22.0-26.0) H 27.3 mmol/L (22.0-26.0) H Arterial Blood Oxygen Saturation 94.4 % (92.0-98.0) 91.0 % (92.0-98.0) L Arterial Blood Base Excess 1.2 1.2 Cecilio Test Positive Positive White Blood Count 23.2 K/UL (4.8-10.8) *H 22.3 K/UL (4.8-10.8) *H Red Blood Count 2.18 M/UL (4.20-5.40) L 2.89 M/UL (4.20-5.40) L Hemoglobin 6.8 G/DL (12.0-16.0) *L 8.9 G/DL (12.0-16.0) #L Hematocrit 21.7 % (37.0-47.0) L 28.4 % (37.0-47.0) #L Mean Corpuscular Volume 100 FL (80-99) H 98 FL (80-99) Mean Corpuscular Hemoglobin 31.4 PG (27.0-31.0) H 30.6 PG (27.0-31.0) Mean Corpuscular Hemoglobin Concent 31.6 G/DL (32.0-36.0) L 31.2 G/DL (32.0-36.0) L Red Cell Distribution Width 19.9 % (11.6-14.8) H 21.3 % (11.6-14.8) H Platelet Count 253 K/UL (150-450) 222 K/UL (150-450) Mean Platelet Volume 6.7 FL (6.5-10.1) 7.0 FL (6.5-10.1) Neutrophils (%) (Auto) % (45.0-75.0) % (45.0-75.0) Lymphocytes (%) (Auto) % (20.0-45.0) % (20.0-45.0) Monocytes (%) (Auto) % (1.0-10.0) % (1.0-10.0) Eosinophils (%) (Auto) % (0.0-3.0) % (0.0-3.0) Basophils (%) (Auto) % (0.0-2.0) % (0.0-2.0) Differential Total Cells Counted 100 100 Neutrophils % (Manual) 83 % (45-75) H 75 % (45-75) Lymphocytes % (Manual) 12 % (20-45) L 21 % (20-45) Monocytes % (Manual) 5 % (1-10) 4 % (1-10) Eosinophils % (Manual) 0 % (0-3) 0 % (0-3) Basophils % (Manual) 0 % (0-2) 0 % (0-2) Band Neutrophils 0 % (0-8) 0 % (0-8) Platelet Estimate Adequate Adequate Platelet Morphology Normal Normal Hypochromasia 1+ 2+ Anisocytosis 1+ 3+ Microcytosis Macrocytosis 1+ Sodium Level 128 MMOL/L (136-145) L Potassium Level 4.4 MMOL/L (3.5-5.1) Chloride Level 89 MMOL/L (98-107) L Carbon Dioxide Level 20 MMOL/L (21-32) L Anion Gap 19 mmol/L (5-15) H Blood Urea Nitrogen 83 mg/dL (7-18) H Creatinine 13.4 MG/DL (0.55-1.30) H Estimat Glomerular Filtration Rate 3.4 mL/min (>60) Glucose Level 336 MG/DL (74-106) #H Calcium Level 8.4 MG/DL (8.5-10.1) L Total Bilirubin 0.7 MG/DL (0.2-1.0) Aspartate Amino Transf (AST/SGOT) 27 U/L (15-37) Alanine Aminotransferase (ALT/SGPT) 8 U/L (12-78) L Alkaline Phosphatase 83 U/L (46-116) Creatine Kinase MB 2.1 NG/ML (0.0-3.6) Total Protein 8.2 G/DL (6.4-8.2) Albumin 1.6 G/DL (3.4-5.0) L Globulin 6.6 g/dL Albumin/Globulin Ratio 0.2 (1.0-2.7) L Current Medications Medications (Trade) Dose Ordered Sig/Jeff Route PRN Reason Start Time Stop Time Status Last Admin Dose Admin Acetaminophen (Tylenol) 650 mg Q4H PRN ORAL Mild Pain (Pain Scale 1-3) 05/06/17 02:00 05/31/17 17:59 05/12/17 08:35 Amiodarone HCl (Cordarone) 400 mg EVERY 12 HOURS ORAL 05/06/17 09:00 06/04/17 19:59 05/12/17 08:36 Aspirin (ASA) 81 mg DAILY ORAL 05/06/17 09:00 06/03/17 17:59 05/12/17 08:34 Buspirone HCl (Buspar) 15 mg TWICE A DAY ORAL 05/06/17 09:00 05/31/17 08:59 05/12/17 08:36 Cefepime HCl 500 mg/Sodium Chloride 55 ml @ 110 mls/hr Q24H IV 05/12/17 11:30 05/19/17 23:59 Chlorhexidine Gluconate (Majo-Hex 2%) 1 applic DAILY@2000 TOPIC 05/11/17 20:00 06/10/17 19:59 05/11/17 20:12 Cinacalcet (Sensipar) 30 mg DAILY ORAL 05/06/17 09:00 05/31/17 08:59 05/12/17 08:34 Daptomycin 550 mg/ Sodium Chloride 55 ml @ 100 mls/hr Q48H IV 05/08/17 11:00 05/15/17 23:59 05/10/17 11:28 Dextrose (Dextrose 50%) STAT PRN IV Hypoglycemia 05/06/17 18:00 06/03/17 17:59 Epoetin Víctor (Procrit (for ESRD on dialysis)) 10,000 units MON-WED-TUE SUBQ 05/11/17 21:00 06/10/17 20:59 05/11/17 21:24 Gabapentin (Neurontin) 300 mg BEDTIME ORAL 05/06/17 21:00 05/31/17 20:59 05/11/17 21:16 Levetiracetam (Keppra) 750 mg Q12HR ORAL 05/12/17 21:00 06/11/17 20:59 Levetiracetam 1500 mg/Dextrose 110 ml @ 440 mls/hr ONCE ONCE IV 05/12/17 12:15 05/12/17 12:29 Lidocaine (Xylocaine 1% MPF 5ml) 30 ml ONCE INJ 05/11/17 12:00 06/10/17 11:59 Linezolid (Zyvox) 600 mg EVERY 12 HOURS ORAL 05/09/17 10:00 05/17/17 09:59 05/12/17 08:34 Lorazepam (Ativan 2mg/ml 1ml) 1 mg Q2H PRN IV For Seizures 05/12/17 12:30 05/19/17 12:29 Metoprolol Succinate (Toprol XL) 25 mg DAILY ORAL 05/06/17 09:00 06/01/17 08:59 Metoprolol Tartrate (Lopressor) 5 mg Q6H PRN IVP HR>130 SUSTAINED MORE THAN 5 M 05/06/17 06:00 06/01/17 17:51 Midodrine (Pro-Amatine) 10 mg EVERY 8 HOURS ORAL 05/09/17 14:00 06/08/17 12:59 05/12/17 05:37 Norepinephrine Bitartrate 4 mg/ Dextrose 250 ml @ 0 mls/hr Q24H IV 05/08/17 22:15 06/07/17 22:14 05/12/17 10:19 Prochlorperazine (Compazine) 10 mg Q6H PRN IVP Nausea & Vomiting 05/06/17 05:00 05/31/17 10:59 Topiramate (Topamax) 50 mg Q12HR ORAL 05/12/17 21:00 06/11/17 20:59 Trazodone HCl (Desyrel) 150 mg BEDTIME ORAL 05/06/17 21:00 05/31/17 20:59 05/11/17 21:19 SCOOBY FERREIRA May 12, 2017 11:46
--- NOTE | 2017-05-12 12:05 | Internal Med Progress Note ---
Subjective Physician Name Ion Appiah Attending Physician Ion Appiah M.D. Current Medications Medications (Trade) Dose Ordered Sig/Jeff Route PRN Reason Start Time Stop Time Status Last Admin Dose Admin Acetaminophen (Tylenol) 650 mg Q4H PRN ORAL Mild Pain (Pain Scale 1-3) 05/06/17 02:00 05/31/17 17:59 05/12/17 08:35 Amiodarone HCl (Cordarone) 400 mg EVERY 12 HOURS ORAL 05/06/17 09:00 06/04/17 19:59 05/12/17 08:36 Aspirin (ASA) 81 mg DAILY ORAL 05/06/17 09:00 06/03/17 17:59 05/12/17 08:34 Buspirone HCl (Buspar) 15 mg TWICE A DAY ORAL 05/06/17 09:00 05/31/17 08:59 05/12/17 08:36 Cefepime HCl 500 mg/Sodium Chloride 55 ml @ 110 mls/hr Q24H IV 05/12/17 11:30 05/19/17 23:59 Ceftaroline Fosamil 200 mg/ Sodium Chloride 55 ml @ 55 mls/hr Q12H IVPB 05/12/17 13:00 05/19/17 12:59 Chlorhexidine Gluconate (Majo-Hex 2%) 1 applic DAILY@2000 TOPIC 05/11/17 20:00 06/10/17 19:59 05/11/17 20:12 Cinacalcet (Sensipar) 30 mg DAILY ORAL 05/06/17 09:00 05/31/17 08:59 05/12/17 08:34 Daptomycin 550 mg/ Sodium Chloride 55 ml @ 100 mls/hr Q48H IV 05/08/17 11:00 05/15/17 23:59 05/10/17 11:28 Dextrose (Dextrose 50%) STAT PRN IV Hypoglycemia 05/06/17 18:00 06/03/17 17:59 Epoetin Víctor (Procrit (for ESRD on dialysis)) 10,000 units MON-WED-TUE SUBQ 05/11/17 21:00 06/10/17 20:59 05/11/17 21:24 Gabapentin (Neurontin) 300 mg BEDTIME ORAL 05/06/17 21:00 05/31/17 20:59 05/11/17 21:16 Levetiracetam (Keppra) 750 mg Q12HR ORAL 05/12/17 21:00 06/11/17 20:59 Levetiracetam 1500 mg/Dextrose 110 ml @ 440 mls/hr ONCE ONCE IV 05/12/17 12:15 05/12/17 12:29 Lidocaine (Xylocaine 1% MPF 5ml) 30 ml ONCE INJ 05/11/17 12:00 06/10/17 11:59 Lorazepam (Ativan 2mg/ml 1ml) 1 mg Q2H PRN IV For Seizures 05/12/17 12:30 05/19/17 12:29 Metoprolol Succinate (Toprol XL) 25 mg DAILY ORAL 05/06/17 09:00 06/01/17 08:59 Metoprolol Tartrate (Lopressor) 5 mg Q6H PRN IVP HR>130 SUSTAINED MORE THAN 5 M 05/06/17 06:00 06/01/17 17:51 Midodrine (Pro-Amatine) 10 mg EVERY 8 HOURS ORAL 05/09/17 14:00 06/08/17 12:59 05/12/17 05:37 Norepinephrine Bitartrate 4 mg/ Dextrose 250 ml @ 0 mls/hr Q24H IV 05/08/17 22:15 06/07/17 22:14 05/12/17 10:19 Prochlorperazine (Compazine) 10 mg Q6H PRN IVP Nausea & Vomiting 05/06/17 05:00 05/31/17 10:59 Topiramate (Topamax) 50 mg Q12HR ORAL 05/12/17 21:00 06/11/17 20:59 Trazodone HCl (Desyrel) 150 mg BEDTIME ORAL 05/06/17 21:00 05/31/17 20:59 05/11/17 21:19 Allergies: Coded Allergies: No Known Allergies (Unverified , 12/04/15) Subjective had seizure today s/p intubated yesterday sedated on 22 mics of levo ROS unobtainable Objective Last Vital Signs Date Time Temp Pulse Resp B/P (MAP) Pulse Ox O2 Delivery O2 Flow Rate FiO2 05/12/17 11:02 87 26 80 05/12/17 11:00 110/22 100 Mechanical Ventilator 05/12/17 10:00 100.6 100.6 05/10/17 11:00 4.0 Laboratory Tests Test 05/11/17 18:30 05/11/17 18:50 05/12/17 05:15 05/12/17 08:25 Arterial Blood pH 7.318 (7.350-7.450) 7.341 (7.350-7.450) Arterial Blood Partial Pressure CO2 55.0 mmHg (35.0-45.0) H 51.6 mmHg (35.0-45.0) H Arterial Blood Partial Pressure O2 89.3 mmHg (75.0-100.0) 70.9 mmHg (75.0-100.0) L Arterial Blood HCO3 27.6 mmol/L (22.0-26.0) H 27.3 mmol/L (22.0-26.0) H Arterial Blood Oxygen Saturation 94.4 % (92.0-98.0) 91.0 % (92.0-98.0) L Arterial Blood Base Excess 1.2 1.2 Cecilio Test Positive Positive White Blood Count 23.2 K/UL (4.8-10.8) *H 22.3 K/UL (4.8-10.8) *H Red Blood Count 2.18 M/UL (4.20-5.40) L 2.89 M/UL (4.20-5.40) L Hemoglobin 6.8 G/DL (12.0-16.0) *L 8.9 G/DL (12.0-16.0) #L Hematocrit 21.7 % (37.0-47.0) L 28.4 % (37.0-47.0) #L Mean Corpuscular Volume 100 FL (80-99) H 98 FL (80-99) Mean Corpuscular Hemoglobin 31.4 PG (27.0-31.0) H 30.6 PG (27.0-31.0) Mean Corpuscular Hemoglobin Concent 31.6 G/DL (32.0-36.0) L 31.2 G/DL (32.0-36.0) L Red Cell Distribution Width 19.9 % (11.6-14.8) H 21.3 % (11.6-14.8) H Platelet Count 253 K/UL (150-450) 222 K/UL (150-450) Mean Platelet Volume 6.7 FL (6.5-10.1) 7.0 FL (6.5-10.1) Neutrophils (%) (Auto) % (45.0-75.0) % (45.0-75.0) Lymphocytes (%) (Auto) % (20.0-45.0) % (20.0-45.0) Monocytes (%) (Auto) % (1.0-10.0) % (1.0-10.0) Eosinophils (%) (Auto) % (0.0-3.0) % (0.0-3.0) Basophils (%) (Auto) % (0.0-2.0) % (0.0-2.0) Differential Total Cells Counted 100 100 Neutrophils % (Manual) 83 % (45-75) H 75 % (45-75) Lymphocytes % (Manual) 12 % (20-45) L 21 % (20-45) Monocytes % (Manual) 5 % (1-10) 4 % (1-10) Eosinophils % (Manual) 0 % (0-3) 0 % (0-3) Basophils % (Manual) 0 % (0-2) 0 % (0-2) Band Neutrophils 0 % (0-8) 0 % (0-8) Platelet Estimate Adequate Adequate Platelet Morphology Normal Normal Hypochromasia 1+ 2+ Anisocytosis 1+ 3+ Microcytosis Macrocytosis 1+ Sodium Level 128 MMOL/L (136-145) L Potassium Level 4.4 MMOL/L (3.5-5.1) Chloride Level 89 MMOL/L (98-107) L Carbon Dioxide Level 20 MMOL/L (21-32) L Anion Gap 19 mmol/L (5-15) H Blood Urea Nitrogen 83 mg/dL (7-18) H Creatinine 13.4 MG/DL (0.55-1.30) H Estimat Glomerular Filtration Rate 3.4 mL/min (>60) Glucose Level 336 MG/DL (74-106) #H Calcium Level 8.4 MG/DL (8.5-10.1) L Total Bilirubin 0.7 MG/DL (0.2-1.0) Aspartate Amino Transf (AST/SGOT) 27 U/L (15-37) Alanine Aminotransferase (ALT/SGPT) 8 U/L (12-78) L Alkaline Phosphatase 83 U/L (46-116) Creatine Kinase MB 2.1 NG/ML (0.0-3.6) Total Protein 8.2 G/DL (6.4-8.2) Albumin 1.6 G/DL (3.4-5.0) L Globulin 6.6 g/dL Albumin/Globulin Ratio 0.2 (1.0-2.7) L Microbiology Date/Time Source Procedure Growth Status 05/10/17 20:30 Blood Blood Culture - Preliminary Resulted 05/10/17 12:20 Blood Blood Culture - Preliminary NO GROWTH AFTER 24 HOURS Resulted Intake and Output 05/11/17 05/12/17 19:00 07:00 Intake Total 1100.50 ml 882.5 ml Balance 1100.50 ml 882.5 ml Intake Oral 220 ml 0 ml IV Total 580.50 ml 472.5 ml Blood Product 300 ml 250 ml Other 160 ml Objective gen - NAD. obese. intubated HEENT - nc/at. ETT in place Neck - supple. no kvd CVS - RRR> no S1, S2 Lungs - dec BS bilaterally Abd - NT. + surgical wound ext - no c/c/e; left hip and leg externally rotated Assessment/Plan Assessment/Plan ASSESSMENT: 1. MRSA Line Sepsis w/ bacteremia 2. Respiratory failure s/p intubation 3. Metabolic Encephalopathy 4. End-stage renal disease, on dialysis. 5. History of atrial fibrillation. 6. Decubitus ulcer. 7. Depression. 8. Seizure disorder. 9. Septic Shock 2/2 #1 10. Chronic obstructive pulmonary disease. 11. Abd surgical wound with exposed mesh 12. Metabolic Encephalopathy 13. Seizure Plan level of care - ICU 22 mics of levophed g++ repeat Bcx shows --> GPC in clusters will need temporary dialysis catheter CT C/A/P w/ IV contrast abx - Ceftaroline and Daptomycin KRISTIN ordered Deandra consulted; started keppra Dialysis catheter removed ID recs appreciated f/u cultures renal recs appreciated Cards consult for afib Amiodarone TTE - no vegatations CT abd/pelvis - no abscess. large ventral hernia Surgery evaluation for abdominal surgical wound ION APPIAH M.D. May 12, 2017 12:05
[2017-05-12] MEDS ORDERED: levETIRAcetam 1,500 MG in D5W 95 ML IV ONE (12:15)
[2017-05-12] MEDS ORDERED: LORazepam Inj 2mg/ml 1ml IV PRN (12:30)
[2017-05-12] MEDS: Ceftaroline 200 MG in NS 55 ML IVPB SCH (13:45)
--- NOTE | 2017-05-12 15:38 | Pulmonology Progress Note ---
Assessment/Plan Assessment/Plan 1. Septic shock, due to staph aureus bacteremia 2. Respiratory insufficiency. 3. Rapid AF, better 4. End-stage renal disease, on dialysis. 5. abdominal hernia with ulceration x2 with visible mesh, foul odor 6. Decubitus ulcer. 7. Depression. 8. Seizure disorder. 9. Dialysis catheter infection, removed 10. Chronic obstructive pulmonary disease. still on pressors more responsive seizure this AM BC still + GPC on 05/10 disc w RN cont vent, pressors, abx KRISTIN? Subjective ROS Limited/Unobtainable: Yes Allergies: Coded Allergies: No Known Allergies (Unverified , 12/04/15) Objective Last 24 Hour Vital Signs Date Time Temp Pulse Resp B/P (MAP) Pulse Ox O2 Delivery O2 Flow Rate FiO2 05/12/17 15:06 98 26 80 05/12/17 15:00 101/57 05/12/17 14:00 91/40 05/12/17 13:46 83/42 05/12/17 13:05 91 27 80 05/12/17 13:00 99.2 82 26 107/52 100 Mechanical Ventilator 80 99.2 05/12/17 12:30 89/43 05/12/17 12:30 82 19 89/43 100 Mechanical Ventilator 80 05/12/17 12:00 80 05/12/17 12:00 84 20 99/47 100 Mechanical Ventilator 80 05/12/17 12:00 99/47 05/12/17 12:00 84 05/12/17 11:30 87 20 90/44 100 Mechanical Ventilator 80 05/12/17 11:30 90/44 05/12/17 11:02 87 26 80 05/12/17 11:00 110/22 05/12/17 11:00 89 26 110/22 100 Mechanical Ventilator 80 05/12/17 10:30 80 19 90/37 100 Mechanical Ventilator 80 05/12/17 10:19 97/39 05/12/17 10:00 100.6 85 23 97/39 99 Mechanical Ventilator 80 100.6 05/12/17 09:30 83 22 94/37 99 Mechanical Ventilator 80 05/12/17 09:30 100.6 05/12/17 09:10 81 20 80 05/12/17 09:00 81 21 83/32 99 Mechanical Ventilator 80 05/12/17 08:35 101.1 05/12/17 08:30 86 24 95/43 99 Mechanical Ventilator 80 05/12/17 08:16 85 94/36 05/12/17 08:00 101.1 84 21 94/36 95 Mechanical Ventilator 80 101.1 05/12/17 08:00 86 05/12/17 08:00 80 05/12/17 08:00 94/36 05/12/17 07:30 92/39 05/12/17 07:01 78 21 80 05/12/17 07:00 115/44 05/12/17 07:00 84 24 111/44 95 Mechanical Ventilator 80 05/12/17 06:00 90/43 05/12/17 06:00 83 22 92/40 96 Mechanical Ventilator 80 05/12/17 05:00 84 22 97/44 98 Mechanical Ventilator 80 05/12/17 05:00 106/43 05/12/17 04:34 78 20 80 05/12/17 04:00 77 05/12/17 04:00 99.9 76 22 101/42 98 Mechanical Ventilator 80 99.9 05/12/17 04:00 92/35 05/12/17 04:00 80 05/12/17 03:45 75 22 94/37 98 Mechanical Ventilator 80 05/12/17 03:36 90/42 05/12/17 03:30 75 23 90/37 95 Mechanical Ventilator 80 05/12/17 03:25 77 20 80 05/12/17 03:15 77 23 90/38 95 Mechanical Ventilator 80 05/12/17 03:00 90/42 05/12/17 03:00 80 23 90/42 95 Mechanical Ventilator 80 05/12/17 02:45 76 20 99/41 97 Mechanical Ventilator 80 05/12/17 02:30 78 20 87/36 97 Mechanical Ventilator 80 05/12/17 02:15 81 20 76/29 97 Mechanical Ventilator 80 05/12/17 02:00 83 21 86/35 97 Mechanical Ventilator 80 05/12/17 02:00 86/35 05/12/17 01:45 80 22 88/38 95 Mechanical Ventilator 80 05/12/17 01:30 85 24 86/35 93 Mechanical Ventilator 80 05/12/17 01:15 88 26 95/39 94 Mechanical Ventilator 80 05/12/17 01:00 73 21 112/48 97 Mechanical Ventilator 80 05/12/17 01:00 112/48 05/12/17 00:51 74 20 80 05/12/17 00:45 73 21 89/35 99 Mechanical Ventilator 80 05/12/17 00:30 73 20 89/38 96 Mechanical Ventilator 80 05/12/17 00:15 75 21 100/38 96 Mechanical Ventilator 80 05/12/17 00:00 75 21 94/35 95 Mechanical Ventilator 80 05/12/17 00:00 73 05/12/17 00:00 100/38 05/12/17 00:00 80 05/11/17 23:45 77 23 93/38 94 Mechanical Ventilator 80 05/11/17 23:30 73 21 88/34 96 Mechanical Ventilator 80 05/11/17 23:15 74 22 93/38 95 Mechanical Ventilator 80 05/11/17 23:00 69 23 98/38 94 Mechanical Ventilator 80 05/11/17 23:00 88/34 05/11/17 22:50 70 20 80 05/11/17 22:45 67 22 67/32 99 Mechanical Ventilator 80 05/11/17 22:30 67 23 85/38 100 Mechanical Ventilator 80 05/11/17 22:15 71 23 87/56 99 Mechanical Ventilator 80 05/11/17 22:00 92/40 05/11/17 22:00 69 20 92/40 98 Mechanical Ventilator 80 05/11/17 21:45 69 21 98/38 98 Mechanical Ventilator 80 18 21:30 67 22 67/32 99 Mechanical Ventilator 80 18 21:25 65 30 80 05/11/17 21:24 85/38 05/11/17 21:15 67 23 85/38 100 Mechanical Ventilator 80 05/11/17 21:00 72 22 71/36 100 Mechanical Ventilator 80 05/11/17 21:00 71/36 18 20:45 73 22 61/40 100 Mechanical Ventilator 100 05/11/17 20:30 78 26 98/40 100 Mechanical Ventilator 100 05/11/17 20:15 74 21 97/42 100 Mechanical Ventilator 100 18 20:12 99.9 05/11/17 20:00 100 18 20:00 74 21 102/46 100 Mechanical Ventilator 100 05/11/17 20:00 72 05/11/17 20:00 102/46 05/11/17 19:45 75 20 102/43 100 Mechanical Ventilator 100 05/11/17 19:30 73 20 94/42 100 Mechanical Ventilator 100 05/11/17 19:17 70 20 100 05/11/17 19:15 99.9 73 20 90/40 100 Mechanical Ventilator 100 99.9 05/11/17 19:00 94/42 05/11/17 19:00 73 20 90/40 100 Mechanical Ventilator 100 05/11/17 18:30 72 20 93/47 100 Mechanical Ventilator 100 05/11/17 18:13 78 22 100 05/11/17 18:00 100 05/11/17 18:00 86 21 97/48 96 Mechanical Ventilator 100 05/11/17 17:30 86 22 95/48 92 Bi-pap 60 05/11/17 17:00 110/50 05/11/17 17:00 87 25 92 Full Face 60 05/11/17 17:00 86 18 105/44 95 Bi-pap 60 05/11/17 16:30 87 22 110/50 92 Bi-pap 55 05/11/17 16:00 55 05/11/17 16:00 108/54 05/11/17 16:00 99.8 88 23 108/54 92 Bi-pap 55 99.8 05/11/17 16:00 87 Intake and Output 05/11/17 05/12/17 19:00 07:00 Intake Total 1100.50 ml 882.5 ml Balance 1100.50 ml 882.5 ml Intake Oral 220 ml 0 ml IV Total 580.50 ml 472.5 ml Blood Product 300 ml 250 ml Other 160 ml Objective morbidly obese, oral ETT on vent General Appearance: no acute distress HEENT: atraumatic Respiratory/Chest: crackles/rales, rhonchi Cardiovascular: regular rhythm, tachycardia Abdomen: soft, non tender Microbiology Date/Time Source Procedure Growth Status 05/10/17 20:30 Blood Blood Culture - Preliminary Resulted 05/10/17 12:20 Blood Blood Culture - Preliminary NO GROWTH AFTER 24 HOURS Resulted Laboratory Tests 05/11/17 18:30: Arterial Blood pH 7.318L, Arterial Blood Partial Pressure CO2 55.0H, Arterial Blood Partial Pressure O2 89.3, Arterial Blood HCO3 27.6H, Arterial Blood Oxygen Saturation 94.4, Arterial Blood Base Excess 1.2, Cecilio Test Positive 05/11/17 18:50: White Blood Count 23.2*H, Red Blood Count 2.18L, Hemoglobin 6.8*L, Hematocrit 21.7L, Mean Corpuscular Volume 100H, Mean Corpuscular Hemoglobin 31.4H, Mean Corpuscular Hemoglobin Concent 31.6L, Red Cell Distribution Width 19.9H, Platelet Count 253, Mean Platelet Volume 6.7, Neutrophils (%) (Auto) , Lymphocytes (%) (Auto) , Monocytes (%) (Auto) , Eosinophils (%) (Auto) , Basophils (%) (Auto) , Differential Total Cells Counted 100, Neutrophils % ( Manual) 83H, Lymphocytes % (Manual) 12L, Monocytes % (Manual) 5, Eosinophils % ( Manual) 0, Basophils % (Manual) 0, Band Neutrophils 0, Platelet Estimate Adequate, Platelet Morphology Normal, Hypochromasia 1+, Anisocytosis 1+, Microcytosis , Macrocytosis 1+ 05/12/17 05:15: White Blood Count 22.3*H, Red Blood Count 2.89L, Hemoglobin 8.9#L, Hematocrit 28.4#L, Mean Corpuscular Volume 98, Mean Corpuscular Hemoglobin 30.6, Mean Corpuscular Hemoglobin Concent 31.2L, Red Cell Distribution Width 21.3H, Platelet Count 222, Mean Platelet Volume 7.0, Neutrophils (%) (Auto) , Lymphocytes (%) (Auto) , Monocytes (%) (Auto) , Eosinophils (%) (Auto) , Basophils (%) (Auto) , Differential Total Cells Counted 100, Neutrophils % ( Manual) 75, Lymphocytes % (Manual) 21, Monocytes % (Manual) 4, Eosinophils % ( Manual) 0, Basophils % (Manual) 0, Band Neutrophils 0, Platelet Estimate Adequate, Platelet Morphology Normal, Hypochromasia 2+, Anisocytosis 3+, Sodium Level 128L, Potassium Level 4.4, Chloride Level 89L, Carbon Dioxide Level 20L, Anion Gap 19H, Blood Urea Nitrogen 83H, Creatinine 13.4H, Estimat Glomerular Filtration Rate 3.4, Glucose Level 336#H, Calcium Level 8.4L, Total Bilirubin 0.7, Aspartate Amino Transf (AST/SGOT) 27, Alanine Aminotransferase (ALT/SGPT) 8L, Alkaline Phosphatase 83, Creatine Kinase MB 2.1, Total Protein 8.2, Albumin 1.6L, Globulin 6.6, Albumin/Globulin Ratio 0.2L 05/12/17 08:25: Arterial Blood pH 7.341L, Arterial Blood Partial Pressure CO2 51.6H, Arterial Blood Partial Pressure O2 70.9L, Arterial Blood HCO3 27.3H, Arterial Blood Oxygen Saturation 91.0L, Arterial Blood Base Excess 1.2, Cecilio Test Positive Current Medications Medications (Trade) Dose Ordered Sig/Jeff Route PRN Reason Start Time Stop Time Status Last Admin Dose Admin Acetaminophen (Tylenol) 650 mg Q4H PRN ORAL Mild Pain (Pain Scale 1-3) 05/06/17 02:00 05/31/17 17:59 05/12/17 08:35 Amiodarone HCl (Cordarone) 400 mg EVERY 12 HOURS ORAL 05/06/17 09:00 06/04/17 19:59 05/12/17 08:36 Aspirin (ASA) 81 mg DAILY ORAL 05/06/17 09:00 06/03/17 17:59 05/12/17 08:34 Buspirone HCl (Buspar) 15 mg TWICE A DAY ORAL 05/06/17 09:00 05/31/17 08:59 05/12/17 08:36 Ceftaroline Fosamil 200 mg/ Sodium Chloride 55 ml @ 55 mls/hr Q12H IVPB 05/12/17 13:00 05/19/17 12:59 05/12/17 13:45 Chlorhexidine Gluconate (Majo-Hex 2%) 1 applic DAILY@2000 TOPIC 05/11/17 20:00 06/10/17 19:59 05/11/17 20:12 Cinacalcet (Sensipar) 30 mg DAILY ORAL 05/06/17 09:00 05/31/17 08:59 05/12/17 08:34 Daptomycin 550 mg/ Sodium Chloride 55 ml @ 100 mls/hr Q48H IV 05/08/17 11:00 05/15/17 23:59 05/12/17 11:45 Dextrose (Dextrose 50%) STAT PRN IV Hypoglycemia 05/06/17 18:00 06/03/17 17:59 Epoetin Víctor (Procrit (for ESRD on dialysis)) 10,000 units TUE-WED-TUE SUBQ 05/11/17 21:00 06/10/17 20:59 05/11/17 21:24 Gabapentin (Neurontin) 300 mg BEDTIME ORAL 05/06/17 21:00 05/31/17 20:59 05/11/17 21:16 Levetiracetam (Keppra) 750 mg Q12HR ORAL 05/12/17 21:00 06/11/17 20:59 Lorazepam (Ativan 2mg/ml 1ml) 1 mg Q2H PRN IV For Seizures 05/12/17 12:30 05/19/17 12:29 Metoprolol Succinate (Toprol XL) 25 mg DAILY ORAL 05/06/17 09:00 06/01/17 08:59 Metoprolol Tartrate (Lopressor) 5 mg Q6H PRN IVP HR>130 SUSTAINED MORE THAN 5 M 05/06/17 06:00 06/01/17 17:51 Midodrine (Pro-Amatine) 10 mg EVERY 8 HOURS ORAL 05/09/17 14:00 06/08/17 12:59 05/12/17 14:01 Norepinephrine Bitartrate 4 mg/ Dextrose 250 ml @ 0 mls/hr Q24H IV 05/08/17 22:15 06/07/17 22:14 05/12/17 13:46 Pantoprazole (Protonix) 40 mg DAILY ORAL 05/13/17 09:00 06/12/17 08:59 Prochlorperazine (Compazine) 10 mg Q6H PRN IVP Nausea & Vomiting 05/06/17 05:00 05/31/17 10:59 Topiramate (Topamax) 50 mg Q12HR ORAL 05/12/17 21:00 06/11/17 20:59 Trazodone HCl (Desyrel) 150 mg BEDTIME ORAL 05/06/17 21:00 05/31/17 20:59 05/11/17 21:19 DEVENDRA BASSETT May 12, 2017 15:38
[2017-05-12] MEDS: Lidocaine 1% MPF 10mg/ml 5ml INJ SCH (18:22)
--- NOTE | 2017-05-12 19:02 | Consultation ---
DATE OF CONSULTATION: 05/12/2017 NEUROLOGY CONSULTATION REQUESTING PHYSICIAN: Chico Truong M.D. HISTORY: Ms. Josey Palma is a 61-year-old, black lady, of unknown handedness, who does have a past history of hypertension, end-stage renal disease for which she is hemodialysis dependent, a seizure disorder and a history of behavioral problems. She was hospitalized on 04/30/2017 for generalized weakness, cough, congestion and temperature elevated to 104 degrees Fahrenheit. Since then, she has been noted to be septic and has been treated with appropriate antibiotics. She also developed severe respiratory failure, as a result of which she needed to be intubated and artificially ventilated. She is also on pressors. She has been poorly responsive for quite some time now, but today she was noted to have some abnormal facial and body movements and worsening of responsiveness during this. It was felt that she was having breakthrough seizures. This consultation was requested to evaluate and manage the patient's seizure disorder. At this point in time, the patient is in ICU, and poorly responsive. Further history is unobtainable from her. PAST MEDICAL HISTORY: Significant for hypertension, end-stage renal disease for which she is hemodialysis- dependent, seizure disorder and possible behavioral problems. FAMILY HISTORY: Unavailable in the chart. PERSONAL HISTORY: Home: Unavailable. Work: She is unemployed. Habits: There is no history of alcohol, tobacco, or illicit drug use. MEDICATIONS: Present medications include topiramate 50 mg twice a day, cefepime, Epogen, lorazepam 0.5 mg q.2 h. p.r.n. for anxiety, midodrine, Zyvox, epinephrine, daptomycin, gabapentin 300 mg at bedtime, trazodone, amiodarone, aspirin, BuSpar, Sensipar, metoprolol, Compazine p.r.n. and Tylenol p.r.n. PHYSICAL EXAMINATION: GENERAL: She is a well-developed and well-nourished, obese, black lady, lying in an ICU bed, connected to a ventilator via an orotracheal tube. VITAL SIGNS: Pulse 72 per minute, blood pressure 97/39 mm Hg, respirations 22 per minute, and temperature 100.6 degrees Fahrenheit. HEAD: Normocephalic and atraumatic. EENT: Examination benign. NECK: No neck rigidity was observed. NEUROLOGIC EXAMINATION: MENTAL STATUS EXAMINATION: She was poorly responsive. She did arouse briefly on applying deep painful stimuli, but was unable to communicate in any manner. SPEECH: Could not be tested. LANGUAGE: Could not be tested. CRANIAL NERVE EXAMINATION II: She did blink to threat when aroused. III, IV & : The external ocular movements were present on oculocephalic maneuvers. The pupils were 3 mm in diameter, equal, round, regular, and reactive sluggishly to light. V & VII: The corneal reflexes were subdued, but equal bilaterally. VIII: She did respond to loud sounds when aroused. She had no nystagmus. IX & X: The gag reflex was suppressed. XI: The sternocleidomastoids and trapezii did not function. XII: Could not be tested adequately. MOTOR SYSTEM: The tone was normal in all four extremities. Examination of muscle mass revealed significant generalized muscle wasting, more marked in the lower extremities than in the upper extremities. Examination of power was impossible to perform on individual muscle groups; however, when deep painful stimuli were applied, she did move all four extremities minimally. REFLEXES: 0 at the biceps, triceps, brachioradialis, knees, and ankles. The plantar responses were mute bilaterally. COORDINATION, STANCE & GAIT: Could not be tested. ABNORMAL MOVEMENTS: Asterixis: G 1/4 in both upper extremities Myoclonus of the segmental nature involving the facial muscles and limb muscles G 1/4 seen from time to time. DIAGNOSTIC IMPRESSION: 1. Ms. Josey Palma is a 61-year-old, black lady, of unknown handedness, with a past history of hypertension, end-stage renal disease for which she is hemodialysis-dependent, a seizure disorder and behavioral problems who was hospitalized on 04/30/2017 for a possible acute infectious process characterized by cough, congestion, temperature of 104 degrees Fahrenheit and generalized weakness. Since then, the patient has been septic, has had to be intubated and has to be on pressors. She has also been poorly responsive and today, she had some abnormal facial movements and limb movements thought to be seizures. 2. On neurological examination, at this time, she is poorly responsive and only responds to deep painful stimuli with withdrawal of the appropriate extremity and wincing. She also blinks to threat when aroused. She does not have any definite focal or lateralizing findings. Her deep tendon reflexes are globally absent and the plantar responses are mute. She does exhibit asterixis and myoclonus from time to time. 3. Her latest laboratory data revealed that her WBC count was elevated to 22,300. Her hemoglobin was low at 8.9 grams. Her chemistry panel revealed a sodium that was low at 128, chloride that was low at 89, a BUN elevated to 93, creatinine elevated to 13.4, a blood sugar elevated to 336 and albumin down to 1.6. Her latest arterial blood gas revealed that her pCO2 was elevated to 51.6, her pO2 was low at 70.9 and her pH was low at 7.34. 4. The patient's history and neurological examination are most compatible with a multifactorial encephalopathy of severe degree and in addition, possible breakthrough seizures. RECOMMENDATIONS: 1. The patient should be started on Keppra 1500 mg intravenously now followed by 750 mg intravenously q.12 h. 2. Attempts should be made to correct the patient's toxic metabolic dysfunction. 3. Attempts should be made to correct the patient's hemoglobin to greater than 10. 4. If the patient does have seizures that lasts for more than 5 minutes, then Ativan 1 mg intravenously should be given q.4 h. p.r.n. 5. An EEG should be obtained to evaluate the patient for the degree and type of encephalopathy and to exclude continued ongoing seizures. Thank you for entrusting me with the care of Ms Palma. I shall follow her with you. Wu Coello M.D., M.S.P.H. DR: KALIE JOB#: [id number] MTDD
[2017-05-12] MEDS: Dyna-Hex 2% Top Sol 2oz TOPIC SCH (19:33)
--- NOTE | 2017-05-12 19:37 | Cardiology Progress Note ---
Assessment/Plan Assessment/Plan 1. Paroxysmal episodes of atrial fibrillation. 2. No evidence of epicardial coronary disease. 3. End-stage renal disease, on hemodialysis. 4. Septic shock. 5. Bacteremia persistent 6. Abdominal ventral hernia status post repair. 7. respiratory fialure with right sided infiltrate 8. anemai 9. ams / seizure? new onset occasional episodes of afib on po amiod 400 mg bid qt interval seem ok iv abx for bacteremia now has central line but no dialysis catheter persistent postive blood cx remains now intubated for respiratory failure with mainly right sided infiltrate / white out was anemic yest but no external sources so far has had ct of chest and abd today but no result to look for sources fo persistent bactermia need ct of head as discussed with dr miranda i will order at his request for tomorrow am trying to arrange for fantasma while intubated for tomorrow no bms to see if any blood in stool stool ob just in case she has bm d/w dr khan will need gi input to see if they believe gi source of anemia or not as may affect safety of FANTASMA which is non visualizing transducer will need to arrange for anesthesia as well i did discuss with dtr who asked that i contact pt sister lucas [phone] for a consent i have discussed with lucas possible risks and complication of the fantasma , she has given informed consent, i have explained several step need to be performed prior to the final decision for tomorrow yet anticoagulation if off until safe to resume keep npo Subjective ROS Limited/Unobtainable: Yes Objective Last 24 Hour Vital Signs Date Time Temp Pulse Resp B/P (MAP) Pulse Ox O2 Delivery O2 Flow Rate FiO2 05/12/17 19:31 111/42 05/12/17 19:00 86 22 100/43 93 Mechanical Ventilator 80 05/12/17 18:48 87 22 100 05/12/17 18:00 99/47 05/12/17 18:00 82 22 97/45 93 Mechanical Ventilator 80 05/12/17 17:30 87 22 97/42 93 Mechanical Ventilator 80 05/12/17 17:00 98.6 88 25 101/21 93 Mechanical Ventilator 80 98.6 05/12/17 17:00 101/21 05/12/17 16:49 88 22 80 05/12/17 16:46 100/46 05/12/17 16:30 89 19 100/46 93 Mechanical Ventilator 80 05/12/17 16:00 80 05/12/17 16:00 90/47 05/12/17 16:00 88 05/12/17 16:00 88 19 90/47 93 Mechanical Ventilator 80 05/12/17 15:06 98 26 80 05/12/17 15:00 90 21 101/57 93 Mechanical Ventilator 80 05/12/17 15:00 101/57 05/12/17 14:30 88 18 90/51 93 Mechanical Ventilator 80 05/12/17 14:00 81 20 91/40 100 Mechanical Ventilator 80 05/12/17 14:00 91/40 05/12/17 13:46 83/42 05/12/17 13:05 91 27 80 05/12/17 13:00 99.2 82 26 107/52 100 Mechanical Ventilator 80 99.2 05/12/17 12:30 89/43 05/12/17 12:30 82 19 89/43 100 Mechanical Ventilator 80 05/12/17 12:00 80 05/12/17 12:00 84 20 99/47 100 Mechanical Ventilator 80 05/12/17 12:00 99/47 05/12/17 12:00 84 05/12/17 11:30 87 20 90/44 100 Mechanical Ventilator 80 05/12/17 11:30 90/44 05/12/17 11:02 87 26 80 05/12/17 11:00 110/22 05/12/17 11:00 89 26 110/22 100 Mechanical Ventilator 80 05/12/17 10:30 80 19 90/37 100 Mechanical Ventilator 80 05/12/17 10:19 97/39 05/12/17 10:00 100.6 85 23 97/39 99 Mechanical Ventilator 80 100.6 05/12/17 09:30 83 22 94/37 99 Mechanical Ventilator 80 05/12/17 09:30 100.6 05/12/17 09:10 81 20 80 05/12/17 09:00 81 21 83/32 99 Mechanical Ventilator 80 05/12/17 08:35 101.1 05/12/17 08:30 86 24 95/43 99 Mechanical Ventilator 80 05/12/17 08:16 85 94/36 05/12/17 08:00 101.1 84 21 94/36 95 Mechanical Ventilator 80 101.1 05/12/17 08:00 86 05/12/17 08:00 80 05/12/17 08:00 94/36 05/12/17 07:30 92/39 05/12/17 07:01 78 21 80 05/12/17 07:00 115/44 05/12/17 07:00 84 24 111/44 95 Mechanical Ventilator 80 05/12/17 06:00 90/43 05/12/17 06:00 83 22 92/40 96 Mechanical Ventilator 80 05/12/17 05:00 84 22 97/44 98 Mechanical Ventilator 80 05/12/17 05:00 106/43 05/12/17 04:34 78 20 80 05/12/17 04:00 77 05/12/17 04:00 99.9 76 22 101/42 98 Mechanical Ventilator 80 99.9 05/12/17 04:00 92/35 05/12/17 04:00 80 05/12/17 03:45 75 22 94/37 98 Mechanical Ventilator 80 05/12/17 03:36 90/42 05/12/17 03:30 75 23 90/37 95 Mechanical Ventilator 80 05/12/17 03:25 77 20 80 05/12/17 03:15 77 23 90/38 95 Mechanical Ventilator 80 05/12/17 03:00 90/42 05/12/17 03:00 80 23 90/42 95 Mechanical Ventilator 80 05/12/17 02:45 76 20 99/41 97 Mechanical Ventilator 80 05/12/17 02:30 78 20 87/36 97 Mechanical Ventilator 80 05/12/17 02:15 81 20 76/29 97 Mechanical Ventilator 80 05/12/17 02:00 83 21 86/35 97 Mechanical Ventilator 80 05/12/17 02:00 86/35 05/12/17 01:45 80 22 88/38 95 Mechanical Ventilator 80 05/12/17 01:30 85 24 86/35 93 Mechanical Ventilator 80 05/12/17 01:15 88 26 95/39 94 Mechanical Ventilator 80 05/12/17 01:00 73 21 112/48 97 Mechanical Ventilator 80 05/12/17 01:00 112/48 05/12/17 00:51 74 20 80 05/12/17 00:45 73 21 89/35 99 Mechanical Ventilator 80 05/12/17 00:30 73 20 89/38 96 Mechanical Ventilator 80 05/12/17 00:15 75 21 100/38 96 Mechanical Ventilator 80 05/12/17 00:00 75 21 94/35 95 Mechanical Ventilator 80 05/12/17 00:00 73 05/12/17 00:00 100/38 05/12/17 00:00 80 05/11/17 23:45 77 23 93/38 94 Mechanical Ventilator 80 05/11/17 23:30 73 21 88/34 96 Mechanical Ventilator 80 05/11/17 23:15 74 22 93/38 95 Mechanical Ventilator 80 05/11/17 23:00 69 23 98/38 94 Mechanical Ventilator 80 05/11/17 23:00 88/34 05/11/17 22:50 70 20 80 05/11/17 22:45 67 22 67/32 99 Mechanical Ventilator 80 05/11/17 22:30 67 23 85/38 100 Mechanical Ventilator 80 05/11/17 22:15 71 23 87/56 99 Mechanical Ventilator 80 05/11/17 22:00 92/40 05/11/17 22:00 69 20 92/40 98 Mechanical Ventilator 80 05/11/17 21:45 69 21 98/38 98 Mechanical Ventilator 80 05/11/17 21:30 67 22 67/32 99 Mechanical Ventilator 80 05/11/17 21:25 65 30 80 05/11/17 21:24 85/38 05/11/17 21:15 67 23 85/38 100 Mechanical Ventilator 80 05/11/17 21:00 72 22 71/36 100 Mechanical Ventilator 80 05/11/17 21:00 71/36 05/11/17 20:45 73 22 61/40 100 Mechanical Ventilator 100 05/11/17 20:30 78 26 98/40 100 Mechanical Ventilator 100 05/11/17 20:15 74 21 97/42 100 Mechanical Ventilator 100 05/11/17 20:12 99.9 05/11/17 20:00 100 05/11/17 20:00 74 21 102/46 100 Mechanical Ventilator 100 05/11/17 20:00 72 05/11/17 20:00 102/46 05/11/17 19:45 75 20 102/43 100 Mechanical Ventilator 100 General Appearance: obese, on vent, patient on isolation Cardiovascular: irregularly irregular Respiratory/Chest: crackles/rales - righ side , left soudn clear Abdomen: normal bowel sounds, non tender, soft Extremities: no swelling Intake and Output 05/11/17 05/12/17 19:00 07:00 Intake Total 1100.50 ml 882.5 ml Balance 1100.50 ml 882.5 ml Intake Oral 220 ml 0 ml IV Total 580.50 ml 472.5 ml Blood Product 300 ml 250 ml Other 160 ml Laboratory Tests Test 05/12/17 05:15 05/12/17 08:25 White Blood Count 22.3 K/UL (4.8-10.8) *H Red Blood Count 2.89 M/UL (4.20-5.40) L Hemoglobin 8.9 G/DL (12.0-16.0) #L Hematocrit 28.4 % (37.0-47.0) #L Mean Corpuscular Volume 98 FL (80-99) Mean Corpuscular Hemoglobin 30.6 PG (27.0-31.0) Mean Corpuscular Hemoglobin Concent 31.2 G/DL (32.0-36.0) L Red Cell Distribution Width 21.3 % (11.6-14.8) H Platelet Count 222 K/UL (150-450) Mean Platelet Volume 7.0 FL (6.5-10.1) Neutrophils (%) (Auto) % (45.0-75.0) Lymphocytes (%) (Auto) % (20.0-45.0) Monocytes (%) (Auto) % (1.0-10.0) Eosinophils (%) (Auto) % (0.0-3.0) Basophils (%) (Auto) % (0.0-2.0) Differential Total Cells Counted 100 Neutrophils % (Manual) 75 % (45-75) Lymphocytes % (Manual) 21 % (20-45) Monocytes % (Manual) 4 % (1-10) Eosinophils % (Manual) 0 % (0-3) Basophils % (Manual) 0 % (0-2) Band Neutrophils 0 % (0-8) Platelet Estimate Adequate Platelet Morphology Normal Hypochromasia 2+ Anisocytosis 3+ Sodium Level 128 MMOL/L (136-145) L Potassium Level 4.4 MMOL/L (3.5-5.1) Chloride Level 89 MMOL/L (98-107) L Carbon Dioxide Level 20 MMOL/L (21-32) L Anion Gap 19 mmol/L (5-15) H Blood Urea Nitrogen 83 mg/dL (7-18) H Creatinine 13.4 MG/DL (0.55-1.30) H Estimat Glomerular Filtration Rate 3.4 mL/min (>60) Glucose Level 336 MG/DL (74-106) #H Calcium Level 8.4 MG/DL (8.5-10.1) L Total Bilirubin 0.7 MG/DL (0.2-1.0) Aspartate Amino Transf (AST/SGOT) 27 U/L (15-37) Alanine Aminotransferase (ALT/SGPT) 8 U/L (12-78) L Alkaline Phosphatase 83 U/L (46-116) Creatine Kinase MB 2.1 NG/ML (0.0-3.6) Total Protein 8.2 G/DL (6.4-8.2) Albumin 1.6 G/DL (3.4-5.0) L Globulin 6.6 g/dL Albumin/Globulin Ratio 0.2 (1.0-2.7) L Arterial Blood pH 7.341 (7.350-7.450) Arterial Blood Partial Pressure CO2 51.6 mmHg (35.0-45.0) H Arterial Blood Partial Pressure O2 70.9 mmHg (75.0-100.0) L Arterial Blood HCO3 27.3 mmol/L (22.0-26.0) H Arterial Blood Oxygen Saturation 91.0 % (92.0-98.0) L Arterial Blood Base Excess 1.2 Cecilio Test Positive Microbiology Date/Time Source Procedure Growth Status 05/10/17 20:30 Blood Blood Culture - Preliminary Resulted 05/10/17 12:20 Blood Blood Culture - Preliminary NO GROWTH AFTER 24 HOURS Resulted MATHEUS GATES May 12, 2017 19:37
[2017-05-12] MEDS ORDERED: Topiramate 25mg tab ORAL SCH (21:00)
[2017-05-12] MEDS: TraZODone 50mg tab ORAL SCH (21:54)
--- NOTE | 2017-05-12 22:10 | General Progress Note ---
Assessment/Plan Assessment/Plan GI CONSULT ATSP for possible GIB Full note to follow Patient's NGT lavaged to bilious green return No BM x 4 days per RN Rectal exam showed light brown stools No evidence of acute GIB, but patient currently declining rapidly. Stat labs ordered Will follow closely Thank you Rory Fonseca Subjective Allergies: Coded Allergies: No Known Allergies (Unverified , 12/04/15) Objective Last 24 Hour Vital Signs Date Time Temp Pulse Resp B/P (MAP) Pulse Ox O2 Delivery O2 Flow Rate FiO2 05/12/17 21:25 77 26 100 05/12/17 20:45 83 20 100/43 93 Mechanical Ventilator 80 05/12/17 20:30 83 19 110/42 91 Mechanical Ventilator 80 05/12/17 20:15 86 19 107/44 91 Mechanical Ventilator 80 05/12/17 20:00 87 05/12/17 20:00 86 19 106/53 91 Mechanical Ventilator 80 05/12/17 20:00 100 05/12/17 19:45 87 19 100/51 92 Mechanical Ventilator 80 05/12/17 19:31 111/42 05/12/17 19:30 85 19 99/49 92 Mechanical Ventilator 80 05/12/17 19:15 98.6 84 21 111/42 93 Mechanical Ventilator 80 98.6 05/12/17 19:00 86 22 100/43 93 Mechanical Ventilator 80 05/12/17 18:48 87 22 100 05/12/17 18:00 99/47 05/12/17 18:00 82 22 97/45 93 Mechanical Ventilator 80 05/12/17 17:30 87 22 97/42 93 Mechanical Ventilator 80 05/12/17 17:00 98.6 88 25 101/21 93 Mechanical Ventilator 80 98.6 05/12/17 17:00 101/21 05/12/17 16:49 88 22 80 05/12/17 16:46 100/46 05/12/17 16:30 89 19 100/46 93 Mechanical Ventilator 80 05/12/17 16:00 80 05/12/17 16:00 90/47 05/12/17 16:00 88 05/12/17 16:00 88 19 90/47 93 Mechanical Ventilator 80 05/12/17 15:06 98 26 80 05/12/17 15:00 90 21 101/57 93 Mechanical Ventilator 80 05/12/17 15:00 101/57 2/22/18 14:30 88 18 90/51 93 Mechanical Ventilator 80 05/12/17 14:00 81 20 91/40 100 Mechanical Ventilator 80 05/12/17 14:00 91/40 05/12/17 13:46 83/42 05/12/17 13:05 91 27 80 05/12/17 13:00 99.2 82 26 107/52 100 Mechanical Ventilator 80 99.2 05/12/17 12:30 89/43 05/12/17 12:30 82 19 89/43 100 Mechanical Ventilator 80 05/12/17 12:00 80 05/12/17 12:00 84 20 99/47 100 Mechanical Ventilator 80 05/12/17 12:00 99/47 05/12/17 12:00 84 05/12/17 11:30 87 20 90/44 100 Mechanical Ventilator 80 05/12/17 11:30 90/44 05/12/17 11:02 87 26 80 05/12/17 11:00 110/22 05/12/17 11:00 89 26 110/22 100 Mechanical Ventilator 80 05/12/17 10:30 80 19 90/37 100 Mechanical Ventilator 80 05/12/17 10:19 97/39 05/12/17 10:00 100.6 85 23 97/39 99 Mechanical Ventilator 80 100.6 05/12/17 09:30 83 22 94/37 99 Mechanical Ventilator 80 05/12/17 09:30 100.6 05/12/17 09:10 81 20 80 05/12/17 09:00 81 21 83/32 99 Mechanical Ventilator 80 05/12/17 08:35 101.1 05/12/17 08:30 86 24 95/43 99 Mechanical Ventilator 80 05/12/17 08:16 85 94/36 05/12/17 08:00 101.1 84 21 94/36 95 Mechanical Ventilator 80 101.1 05/12/17 08:00 86 05/12/17 08:00 80 05/12/17 08:00 94/36 05/12/17 07:30 92/39 05/12/17 07:01 78 21 80 05/12/17 07:00 115/44 05/12/17 07:00 84 24 111/44 95 Mechanical Ventilator 80 05/12/17 06:00 90/43 05/12/17 06:00 83 22 92/40 96 Mechanical Ventilator 80 05/12/17 05:00 84 22 97/44 98 Mechanical Ventilator 80 05/12/17 05:00 106/43 05/12/17 04:34 78 20 80 05/12/17 04:00 77 05/12/17 04:00 99.9 76 22 101/42 98 Mechanical Ventilator 80 99.9 05/12/17 04:00 92/35 05/12/17 04:00 80 05/12/17 03:45 75 22 94/37 98 Mechanical Ventilator 80 05/12/17 03:36 90/42 05/12/17 03:30 75 23 90/37 95 Mechanical Ventilator 80 05/12/17 03:25 77 20 80 05/12/17 03:15 77 23 90/38 95 Mechanical Ventilator 80 05/12/17 03:00 90/42 05/12/17 03:00 80 23 90/42 95 Mechanical Ventilator 80 05/12/17 02:45 76 20 99/41 97 Mechanical Ventilator 80 05/12/17 02:30 78 20 87/36 97 Mechanical Ventilator 80 05/12/17 02:15 81 20 76/29 97 Mechanical Ventilator 80 05/12/17 02:00 83 21 86/35 97 Mechanical Ventilator 80 05/12/17 02:00 86/35 05/12/17 01:45 80 22 88/38 95 Mechanical Ventilator 80 05/12/17 01:30 85 24 86/35 93 Mechanical Ventilator 80 05/12/17 01:15 88 26 95/39 94 Mechanical Ventilator 80 05/12/17 01:00 73 21 112/48 97 Mechanical Ventilator 80 05/12/17 01:00 112/48 05/12/17 00:51 74 20 80 05/12/17 00:45 73 21 89/35 99 Mechanical Ventilator 80 05/12/17 00:30 73 20 89/38 96 Mechanical Ventilator 80 05/12/17 00:15 75 21 100/38 96 Mechanical Ventilator 80 05/12/17 00:00 75 21 94/35 95 Mechanical Ventilator 80 05/12/17 00:00 73 05/12/17 00:00 100/38 05/12/17 00:00 80 05/11/17 23:45 77 23 93/38 94 Mechanical Ventilator 80 05/11/17 23:30 73 21 88/34 96 Mechanical Ventilator 80 05/11/17 23:15 74 22 93/38 95 Mechanical Ventilator 80 05/11/17 23:00 69 23 98/38 94 Mechanical Ventilator 80 05/11/17 23:00 88/34 05/11/17 22:50 70 20 80 05/11/17 22:45 67 22 67/32 99 Mechanical Ventilator 80 05/11/17 22:30 67 23 85/38 100 Mechanical Ventilator 80 05/11/17 22:15 71 23 87/56 99 Mechanical Ventilator 80 Intake and Output 05/11/17 05/12/17 19:00 07:00 Intake Total 1100.50 ml 882.5 ml Balance 1100.50 ml 882.5 ml Intake Oral 220 ml 0 ml IV Total 580.50 ml 472.5 ml Blood Product 300 ml 250 ml Other 160 ml Laboratory Tests 05/12/17 05:15: White Blood Count 22.3*H, Red Blood Count 2.89L, Hemoglobin 8.9#L, Hematocrit 28.4#L, Mean Corpuscular Volume 98, Mean Corpuscular Hemoglobin 30.6, Mean Corpuscular Hemoglobin Concent 31.2L, Red Cell Distribution Width 21.3H, Platelet Count 222, Mean Platelet Volume 7.0, Neutrophils (%) (Auto) , Lymphocytes (%) (Auto) , Monocytes (%) (Auto) , Eosinophils (%) (Auto) , Basophils (%) (Auto) , Differential Total Cells Counted 100, Neutrophils % ( Manual) 75, Lymphocytes % (Manual) 21, Monocytes % (Manual) 4, Eosinophils % ( Manual) 0, Basophils % (Manual) 0, Band Neutrophils 0, Platelet Estimate Adequate, Platelet Morphology Normal, Hypochromasia 2+, Anisocytosis 3+, Sodium Level 128L, Potassium Level 4.4, Chloride Level 89L, Carbon Dioxide Level 20L, Anion Gap 19H, Blood Urea Nitrogen 83H, Creatinine 13.4H, Estimat Glomerular Filtration Rate 3.4, Glucose Level 336#H, Calcium Level 8.4L, Total Bilirubin 0.7, Aspartate Amino Transf (AST/SGOT) 27, Alanine Aminotransferase (ALT/SGPT) 8L, Alkaline Phosphatase 83, Creatine Kinase MB 2.1, Total Protein 8.2, Albumin 1.6L, Globulin 6.6, Albumin/Globulin Ratio 0.2L 05/12/17 08:25: Arterial Blood pH 7.341L, Arterial Blood Partial Pressure CO2 51.6H, Arterial Blood Partial Pressure O2 70.9L, Arterial Blood HCO3 27.3H, Arterial Blood Oxygen Saturation 91.0L, Arterial Blood Base Excess 1.2, Cecilio Test Positive Height (Feet): 5 Height (Inches): 4.00 Weight (Pounds): 211 JAMIE FONSECA May 12, 2017 22:10
[2017-05-12] MEDS ORDERED: Atropine Sulfate 1mg Inj *FOR SURGERY CHARGING ONLY ONE (22:13)
[2017-05-12] MEDS: DOPamine 400mg/250ml 250 ML IV SCH (22:17)
[2017-05-12] MEDS: Norepinephrine Bitartrate 8 MG in D5W 500ml 492 ML IV SCH (22:18)
[2017-05-12 22:49] LABS: HEMATOCRIT 22.6 % (37.0-47.0); HEMOGLOBIN 7.3 G/DL (12.0-16.0); MEAN CORPUSCULAR VOLUME 98 FL (80-99); PLATELET COUNT 254 K/UL (150-450); RED BLOOD COUNT 2.31 M/UL (4.20-5.40); RED CELL DISTRIBUTION WIDTH 21.5 % (11.6-14.8)
[2017-05-12 22:50] LABS: ANION GAP 14 mmol/L (5-15); BLOOD UREA NITROGEN 95 mg/dL (7-18); CALCIUM 8.5 MG/DL (8.5-10.1); CARBON DIOXIDE 23 MMOL/L (21-32); CHLORIDE 89 MMOL/L (98-107); CREATININE 14.9 MG/DL (0.55-1.30); SODIUM 126 MMOL/L (136-145)
[2017-05-12 22:52] LABS: WHITE BLOOD COUNT 27.8 K/UL (4.8-10.8)
[2017-05-12 22:56] LABS: POTASSIUM 6.3 MMOL/L (3.5-5.1)
[2017-05-13] VITALS (13 sets, daily range): BP systolic 75–109; BP diastolic 39–47
[2017-05-13] MEDS: Ceftaroline 200 MG in NS 55 ML IVPB SCH (00:35)
[2017-05-13] MEDS ORDERED: Sodium Polystyrene Sulfonate 15gm Powder NG ONE (01:00)
[2017-05-13] MEDS: DOPamine 400mg/250ml 250 ML IV SCH (01:48)
--- NOTE | 2017-05-13 02:31 | Consultation ---
DATE OF CONSULTATION: 05/12/2017 GASTROENTEROLOGY CONSULTATION CONSULTING PHYSICIAN: Desire Fonseca M.D. REFERRING PHYSICIANS: Timoteo Mcnair M.D. CHIEF COMPLAINT: I was asked to see this patient by Dr. Timoteo Mcnair for evaluation of severe anemia. HISTORY OF PRESENT ILLNESS: The patient is a 61-year-old woman with a history of end-stage renal disease, on hemodialysis, who came into the hospital due to generalized weakness and a high temperature of 104 degrees. She has been seen by multiple consultants including Cardiology, Infectious Diseases, Neurology, Surgery, and Renal services. At one point, she was felt to have a catheter infection. Therefore, the catheter was removed a few days ago. The plans are to place another dialysis catheter and dialyze her tomorrow. In the meantime, her hematocrit has trended down significantly requiring blood transfusion, which was given yesterday. Plans are to possibly perform a transesophageal echocardiogram tomorrow, but there is a concern about possible gastrointestinal bleeding and therefore this consultation was generated. The patient's nurse states that the patient has not had a bowel movement for about 3 to 4 days. She had a nasogastric tube, but no coffee-grounds has been aspirated. I aspirated the nasogastric tube at bedside and there was a bilious return. Rectal exam as described below, done which showed light brown stools. The patient has no prior history of gastrointestinal bleeding, but she is unable to provide any additional history herself as she is obtunded and on ventilator. More significantly, the patient's blood pressure significantly has dropped with a widened QRS and a low heart rate suggestive of worsening shock. PAST MEDICAL HISTORY: History of end-stage renal disease, on dialysis, history of seizures, peripheral vascular disease, history of hypertension, obesity, abdominal hernia. ALLERGIES: None. FAMILY HISTORY: Not available. SOCIAL HISTORY: The patient has had no history of smoking or drinking according to the chart. REVIEW OF SYSTEMS: Unobtainable. PHYSICAL EXAMINATION: GENERAL: A debilitated woman, who is seen in the ICU on the ventilator. She is being prepared for electroencephalogram measurements. HEENT: Normocephalic and atraumatic. There is an endotrachial tube in place and an orogastric tube in place as well. CHEST: Reveals coarse breath sounds. CARDIOVASCULAR: Revealed regular rate. ABDOMEN: Obese. In the left lower quadrant, the old abdominal wall hernia with some areas of skin breakdown with a dressing. EXTREMITIES: Revealed there are some contracture deformities and trace edema. NEUROLOGIC: Notable for obtundation. LABORATORY DATA: Noted. ASSESSMENT: This patient is in critical status with sepsis shock and impending cardiovascular collapse. The patient is having her labs repeated since there was a suspicion that her potassium may be high. By the time this late dictation was dictated, the patient's potassium stayed back at 6.3 and she was already being treated with insulin and glucose. The patient's CBC was also repeated and the CBC had dropped, although it is not clear how much of the CBC shifts are due to volume shifts. She has no signs and symptoms of acute gastrointestinal bleeding. With potassium of 6.3, I will be reluctant to give any transfusion at this time as it would possibly drive her potassium higher acutely. The patient's CBC should be monitored, and transfuse when potassium lower. There is no active gastrointestinal bleeding and therefore, if transesophageal echocardiogram needs to be done, then she is cleared from gastrointestinal standpoint. For tonight, I believe her management will be mainly supportive and in response to her cardiovascular needs. She will need to be dialyzed to reduce her potassium. I will follow her CBC closely. She should be placed on proton-pump inhibitor. I would hold off on feeding at this time since her condition is so unstable, but once stabilized, the feeding should be also resumed through the orogastric tube. RECOMMENDATIONS: Per above discussion and per orders written in the chart. Thank you for asking me to participate in the care of this patient. Desire Fonseca M.D. DR: Nancy JOB#: [id number] CC: BRIDGER
[2017-05-13] MEDS: Norepinephrine Bitartrate 8 MG in D5W 500ml 492 ML IV SCH (02:46)
[2017-05-13] MEDS ORDERED: Sodium Bicarbonate 8.4% 50ml Inj ONE (04:25)
[2017-05-13] MEDS ORDERED: NS 275ml ONE (04:25)
[2017-05-13] MEDS ORDERED: Tubing IV Secondary IV ONE (04:25)
[2017-05-13] MEDS ORDERED: Calcium Gluconate 1gm/10ml vial ONE (04:25)
--- NOTE | 2017-05-13 04:34 | Emergency Room Report ---
History of Present Illness General Chief Complaint: Flu Like Symptoms Source: Patient, Medical Record, PMD Present Illness Allergies: Coded Allergies: No Known Allergies (Unverified , 12/04/15) Patient History Last Menstrual Period: n/a Now: No Nursing Documentation-PMH Hx Cardiac Problems: Yes Hx Hypertension: Yes Hx Cancer: No Hx Gastrointestinal Problems: No Hx Dialysis: Yes - tues, thurs, sat Hx Neurological Problems: No Hx Seizures: Yes Physical Exam Vital Signs Date Time Temp Pulse Resp B/P (MAP) Pulse Ox O2 Delivery O2 Flow Rate FiO2 04/30/17 21:36 99.3 64 16 98 Room Air 04/30/17 21:53 115/94 05/01/17 00:47 2.0 05/01/17 09:56 28 Procedures CPR/Code Blue CPR/Code Blue Narrative I called the ICU for CODE BLUE 61-year-old female, end-stage renal disease, septic shock, on double pressors levo/dopamine, intubated CPR initiated by staff Initial rhythm was PEA recent labs showing hyperkalemia Patient was given 3 rounds of epi 1 g calcium One amp of bicarbonate Repeated pulse checks and rhythm checks revealing no pulse, asystole on monitor Total CPR x15 minutes Time of 4:30am Medical Decision Making Diagnostic Impression: Primary Impression: Severe sepsis Additional Impressions: Elevated troponin ESRD (end stage renal disease) on dialysis Pneumonia Last Vital Signs Date Time Temp Pulse Resp B/P (MAP) Pulse Ox O2 Delivery O2 Flow Rate FiO2 05/13/17 04:00 100 05/13/17 03:45 59 16 78/39 Mechanical Ventilator 05/13/17 02:58 99.8 05/12/17 23:15 89 05/10/17 11:00 4.0 Disposition: ADMITTED INPATIENT Condition: Serious Referrals: NOT CHOSEN ALYSSA/,REFERRING (PCP) David Pina M.D. May 13, 2017 04:34
--- NOTE | 2017-05-13 09:22 | Diagnostic Imaging Report ---
CLINICAL INDICATION: Septic shock, respiratory insufficiency, abdominal hernia with ulceration, infection, decubitus ulceration TECHNIQUE: Spiral acquisitions obtained through the chest, abdomen and pelvis. No IV contrast utilized, per referring physician request. Enteric contrast given. Multiplanar reconstructions generated. Total dose length product 2213.63 mGycm. CTDIvol(s) 29.57,19.95,10.78 mGy. Dose reduction achieved using automated exposure control COMPARISON: Abdomen and pelvis CT of 05/03/2017. No comparison chest CTs FINDINGS Chest: Extensive airspace consolidation is seen diffusely throughout both lungs, slightly worse on the right than on the left. There are small bilateral pleural effusions, slightly larger on the right than on the left. This results in a slight degree of compressive atelectatic change. There is an endotracheal tube in place. The tip is approximately 3 cm above the toan. There is a nasogastric tube in place. The tip of this is in the stomach at the level of the gastric body. Heart is enlarged. No pericardial effusion demonstrated. No mediastinal or hilar mass or adenopathy. There is a right internal jugular central venous catheter, tip at the level of the mid superior vena cava. No axillary or chest wall mass or adenopathy. Abdomen pelvis: There is marked diastasis of the rectus abdominis tendon and marked laxity and atrophy of the abdominal wall musculature resulting in a somewhat ill-defined broad-based ventral hernia involving most of the anterior abdominal wall. This results in marked protuberance of the anterior inferior mesenteric contents which protrudes well into the superficial subcutaneous fat, immediately deep to the skin surface in some areas. Some superficial high attenuation likely reflects stated clinical history of mesh placement. This contains most of the enteric structures, with the exception of the retroperitoneal portions of the colon and duodenum. There is also a smaller ventral hernia to the right inferiorly and laterally, which contains a single small loop of small bowel. There is no evidence of strangulation or obstruction, and contrast is seen as far distally as the anus. These findings are unchanged from the prior study There is no evidence of diverticulosis or diverticulitis. No small bowel distention. The appendix is not definitely visualized. No free or loculated intraperitoneal air or fluid. Lack of IV contrast limits assessment of the solid organs. The liver is unremarkable. The gallbladder is distended but no definite gallstones are seen. Previously questioned gallstones are not evident on the current exam. The pancreas, spleen, adrenals are unremarkable. The kidneys are atrophic, containing multiple cysts bilaterally. Left kidney demonstrates a lower pole 1 cm lesion which demonstrates nonspecific soft tissue attenuation, 60-69 Hounsfield units, just below criteria or a hyperdense cyst. Demonstrating nonspecific soft tissue attenuation, likely but not definitively a hyperdense proteinaceous cyst. Also evident previously. The right kidney demonstrates a 4 cm upper pole cyst with mural calcifications, appearing unchanged. The uterus is enlarged, then contains a 9 mm diameter mass with speckled calcifications consistent with degenerated fibroids, also previously described. No adnexal mass. There is evidence of decubitus ulceration of the rectococcygeal and posterior perineal region. This is new since the previous exam. No focal fluid collections or subcutaneous gas collections are demonstrated. No definite associated osseous abnormality. The bones demonstrate degenerative spondylosis changes. Impression: Extensive bilateral diffuse airspace consolidation slightly worse on the right than on the left. This most likely represents pneumonia or pulmonary edema, although there is a large differential. Small bilateral pleural effusions, right greater than left Satisfactory nasogastric and endotracheal intubation there is satisfactory position of central venous catheter. Cardiomegaly. Marked diastasis of the rectus abdominis tendon and laxity and atrophy of the abdominal wall musculature resulting in ill-defined broad-based ventral hernia involving most anterior abdominal wall. Very superficial location of the most anterior abdominal wall contents are consistent with stated clinical history of visible mesh. No evidence of subcutaneous abscess demonstrated. There is a smaller lateral daughter ventral hernia inferiorly No evidence of bowel or strangulation obstruction related to the above Evidence of superficial decubitus ulceration of the posterior perineal and rectococcygeal region. No evidence of deep cellulitis, abscess, or osseous involvement Atrophic kidneys, containing multiple cysts bilaterally, presumably multicystic disease of uremia given known history of dialysis dependent renal failure 1 cm left lower pole renal lesion. This demonstrates nonspecific soft tissue attenuation, appears similar to the previous exam and probably unchanged from an earlier study of 2017. Most likely a hyperdense proteinaceous cyst. Nonetheless, further evaluation with ultrasound is recommended Large fibroid uterus, also previously reported Degenerative spondylosis This agrees with the preliminary interpretation provided overnight by [facility] teleradiology service. The CT scanner at [facility] is accredited by the [employer] and the scans are performed using protocols designed to limit radiation exposure to as low as reasonably achievable to attain images of sufficient resolution adequate for diagnostic evaluation.
--- NOTE | 2017-05-13 13:28 | Cardiology Report ---
APPROVED REPORT EXAM: Two-dimensional and M-mode echocardiogram with Doppler and color Doppler. INDICATION ENDOCARDITIS M-Mode DIMENSIONS IVSd1.0 (0.7-1.1cm)Left Atrium (MM)2.0 (1.6-4.0cm) LVDd4.7 (3.5-5.6cm)Aortic Root4.2 (2.0-3.7cm) PWd1.3 (0.7-1.1cm) IVSs2.1 cm LVDs2.2 (2.5-4.0cm) PWs1.7 cm Technically difficult study due to poor acoustical windows. Normal left ventricular chamber size, systolic function and wall motion to extent visualized. Echogenic mass noted on posterior mitral valve, cannot r/o vegetation. Left ventricular ejection fraction estimated to be 60-65 %. No evidence of left ventricular hypertrophy. No evidence of pericardial effusion. All other cardiac chamber sizes are within normal. Focal aortic valve sclerosis with adequate cusp excursion. Thickened mitral valve leaflets with normal excursion. Mitral annulus and aortic root calcification. Pulmonic valve not well visualized. Normal tricuspid valve structure. IVC dilated at 2.3 cm with physiologic collapse suggestive of increased RA pressure. A color flow and spectral Doppler study was performed and revealed: No aortic regurgitation. Mild mitral regurgitation. Normal left ventricular diastolic function . Trace tricuspid regurgitation. Tricuspid systolic velocities suggests peak right ventricular systolic pressure of 39 mmHg,consistent with mild pulmonary hypertension. Mild pulmonic regurgitation present.
--- NOTE | 2017-05-13 18:45 | Electroencephalogram ---
DATE OF PROCEDURE: 05/12/2017 EEG REPORT REQUESTING PHYSICIAN: Koko Gary M.D. HISTORY: This EEG was performed on a 61-year-old lady with a history of multiple medical problems, who also has a history of seizures. She recently has had sepsis, respiratory failure, and earlier on the day of the EEG was noted to have some abnormal body and facial movements. The purpose of this EEG was to evaluate the patient for the degree and type of cerebral dysfunction and to exclude ongoing ictal or interictal phenomena. TECHNICAL NOTE: This EEG was performed on a [employer] with electrodes placed on the scalp according to the International 10-20 system. [id number] and [id number] montages were used. The EEG was technically satisfactory and was performed while the patient was in a poorly responsive state. OBSERVATIONS: In the poorly responsive state, the background activity consisted of 1.5-2.5 Hz delta and 4-5 Hz theta activity. Triphasic waveforms with an anterior to posterior gradient were also seen throughout the tracing. No significant change in the EEG background was noted on stimulating the patient. No definite focal abnormalities or epileptiform discharges were seen. IMPRESSION: This is an abnormal electroencephalogram characterized by: 1. Slowing of the background in the delta and theta range. 2. The presence of triphasic waveforms with an anterior to posterior gradient. 3. Poor responsiveness to external stimulation. COMMENT: This study is consistent with an encephalopathy of a severe degree, most probably with a toxic metabolic component as evidenced by the triphasic waveforms. Wu Coello M.D., M.S.P.H. DR: KALIE JOB#: [id number] [facility]
--- NOTE | 2017-05-16 11:02 | Discharge Summary ---
Discharge Summary Hospital Course Date of Admission Apr 30, 2017 at 23:19 Date of Discharge May 13, 2017 at 04:26 Admitting Diagnosis sepsis/fever HPI Josey Palma is a 61 year old female who was admitted on Apr 30, 2017 at 23: 19 for Sepsis, Fever Hospital Course summary #[id number] Discharge Condition Upon Discharge: stable Discharge Disposition Patient Discharge Diagnoses: Discharge Instructions Discharge Instructions Special Instructions I have been assigned to complete a D/C Summary on this account. I was not involved in the patient management Toma Gallegos NP ([facility]) May 16, 2017 11:02
--- NOTE | 2017-05-16 23:00 | Discharge Summary 2 SIG ---
SUMMARY DATE OF ADMISSION: 04/30/2017 DATE OF EXPIRATION: 05/13/2017 REASON FOR ADMISSION: 61-year-old female with past medical history of end-stage renal disease on hemodialysis, hypertension, seizure disorder presented to emergency room with generalized weakness, cough and congestion for few days. The patient found to be febrile and with leukocytosis. Lactic acid was above 6. ProBNP elevated. Troponin elevated. EKG showed sinus tachycardia, no acute ischemic changes. Chest x-ray revealed cardiomegaly with possible right lower extremity infiltrate versus pulmonary edema. Dialysis catheter shown to be in place. WBC -14.1, BUN and creatinine were elevated consistent with known history of end-stage renal disease and troponin -0.284. The patient was hypotensive. The patient was on multiple antihypertensive medication regimen. The patient was admitted to ICU for further management. ADMITTING DIAGNOSES: 1. Severe sepsis. 2. Pneumonia. 3. Elevated troponin. 4. End-stage renal disease, on hemodialysis. 5. Hypotension. HOSPITAL COURSE: The patient admitted. ID consult was requested. The patient started empirically on antibiotics. Catapult And Arresting Gear Officer consult was requested. The patient started on Levophed for blood pressure support. Supplemental oxygen and pulmonary toilet provided as needed. In terms of the infection, the patient had recurrent blood culture positive for MRSA Stool for C. difficile was negative. It was presumed initially that bacteremia was secondary to hemodialysis line infection. Hemodialysis catheter was removed and temporary hemodialysis catheter was inserted. The patient was on antibiotic under ID specialist management. Blood culture with persistent MRSA after HD catheter was removed. 2D echo showed no evidence of vegetation. Glass Science Engineer planned to perform KRISTIN to rule out vegetation. According to Infectious Disease specialist, the patient with persistent MRSA bacteremia, likely had endocarditis. The patient initially was on Levophed which subsequently stopped. Hemodynamic status was closely monitored. Then on 05/10/2017 patient was required to restart Levophed again. Levophed was titrated and was up to maximum dose , however blood pressure remained low. On the evening of 05/12/2017 the patient started on dopamine drip as well. Glass Science Engineer closely followed the patient. Per restaurant bartender, elevated troponin levels were flat and it was likely troponin leak secondary to end-stage renal disease. No evidence of epicardial coronary disease. The patient had evidence of paroxysmal episodes of atrial fibrillation. The patient was on amiodarone. QT interval appeared to be stable. KRISTIN was planned due to persistent bacteremia and strong suspicion for endocarditis; however, the patient was severely anemic on 05/11/2017 with hemoglobin -5.8 and hematocrit -18.4. The patient undergone transfusion of total of two units of packed red blood cells. Hemoglobin and hematocrit after transfusion on 05/12/2017 hemoglobin- 8.9, hematocrit- 28.4. GI consult was requested to rule out acute GI bleeding and clear for KRISTIN. According to the GI specialist, the patient had no evidence of acute GI bleeding. He lavaged NG tube. No coffee-ground aspirate came out. It was lavaged to bilious green return. No BM for four days. Again according to the gastrointestinal specialist, no evidence of acute bleeding and he cleared the patient for KRISTIN. At that time , GI recommended supportive treatment. The patient was placed on PPI . Tube feeding was on hold at that time. Bowel regimen implemented. Catapult And Arresting Gear Officer closely followed the patient. ABG revealed acute respiratory acidosis with hypoxemia and hypercapnia. The patient subsequently required emergency oral intubation on 05/11/2017 secondary to hypoxia and hypercapnia. Ventilator support and pulmonary toilet were provided. The patient was suctioned as needed. The patient was on antibiotics for pneumonia. Sputum culture revealed Ambreen. Neurologist was consulted since the patient had a seizure episode while in the ICU. The patient was started on Keppra. Seizure precautions were maintained. EEG revealed evidence of severe encephalopathy, most probably with toxic metabolic component as evident by the triphasic waveform. Child Care Giver followed the patient while on hemodialysis. Renal parameters and electrolytes were closely monitored and electrolytes were corrected as needed. Anemia workup revealed evidence of anemia of chronic, likely renal disease. The patient wasc placed on Epogen. Orthopedic surgeon seen and evaluated the patient regarding the pain in the right shoulder. According to the MRI, the patient had chronic full-thickness rotator cuff tear. According to museum informatics specialist, the patient was not a candidate for surgical intervention. Tear was chronic. Ultimately the patient would require intervention in the form of shoulder replacement but at that time she was not a good candidate given her condition and multiple comorbidities. Surgeon recommended at this time to manage her medically for sepsis and infection. General surgeon seen the patient for ventral hernia. The patient had history of prior umbilical hernia surgery with mesh and there was a question of possible infected mesh. Surgery was called to evaluate exposed umbilical hernia mesh. The patient had a surgery some time ago. After surgery her mesh became exposed but was not infected. The patient seen the surgeon prior who did not recommend reoperation due to recurrent medical condition and multiply comorbidities. According to surgeon, hernia was was stable. On exam it did not seem to be a source of sepsis. It was clean and well healed. Areas of exposed mesh had scar tissue and debris building under mesh but no signs of infection or drainage. Surgeon did not recommend excision of the mesh. Exposed mesh was cut and removed, underlying tissue with debris under mesh were accessed and cleaned away to allow healthy tissue to be seen. Surgeon closely followed the patient. No evidence of infection. Wound care was provided as per wound nurse recommendations for multiple pressure ulcers present on admission. On 05/12/2017 the patient was rapidly deteriorating. Blood pressure remained low despite Levophed on maximum dose . At about 1900 hours on 05/12/2017 the patient was started on second pressor, dopamine. The patient was febrile. Potassium at that time- 6.3. Hyperkalemia was treated. Hemoglobin and hematocrit trending down from the morning -8.9 down to 7.3 in the evening, hematocrit from 28.4 in the morning down to 22.6. On 05/13/2017, early in the morning Duglas Kam was called. The patient was in pulseless electrical activity with recent hyperkalemia. The patient was given multiple rounds of medications. Repeated pulse checks and rhythm checks revealed no pulse and asystole on monitor. Total CPR was 15 minutes. The patient was pronounced at 4:30 a.m. on 05/13/2017. Cause of : cardiopulmonary arrest. FINAL DIAGNOSES: 1. Status post cardiopulmonary arrest. 2. Acute hypercapnic hypoxemic respiratory failure requiring intubation. 3. Septic shock. 4. MRSA sepsis. 5. Hemodialysis line infection. 6. Persistent MRSA bacteremia, likely endocarditis. 7. Severe toxic metabolic encephalopathy. 8. Pneumonia. 9. Pulmonary edema 10. Paroxysmal atrial fibrillation. 11. End-stage renal disease on hemodialysis. 12. Seizure disorder. 13. Chronic obstructive pulmonary disease. 14. Abdominal ventral hernia with history of repair, with exposed mesh . 15. Morbid obesity. 16. Right shoulder chronic rotator cuff tear. 17. Depression. 18. Anemia of chronic renal disease, status post blood transfusion. 19. Coccyx stage III pressure ulcer, present on admission. 20. Right buttocks scattered decubitus ulcer stage III, present on admission. 21. Left lower buttocks stage III pressure ulcer, present on admission. 22. Secondary hyperparathyroidism of renal origin. 23. Depression Timoteo Mcnair MD I have been assigned to dictate discharge summary on this account and I was not involved in the patient's management. Toma Gallegos ([facility] N.PBeatriz DR: Kush JOB#: [id number] CC: BRIDGER
--- NOTE | 2017-05-26 22:54 | Discharge Summary ---
Discharge Summary Hospital Course Date of Admission Apr 30, 2017 at 23:19 Date of Discharge May 13, 2017 at 04:26 Admitting Diagnosis sepsis/fever HPI Josey Palma is a 61 year old female who was admitted on Apr 30, 2017 at 23: 19 for Sepsis dictated [id number] Discharge Discharge Disposition Patient was discharged to Discharge Diagnoses: ION APPIAH M.D. May 26, 2017 22:54
--- NOTE | 2017-05-29 22:15 | Discharge Summary ---
DATE OF ADMISSION: 04/30/2017 DATE OF DISCHARGE: 05/13/2017 REASON FOR ADMISSION: Fever and chills. BRIEF HOSPITAL COURSE: The patient was a 61-year-old, female with history of end-stage renal disease, on hemodialysis and hypertension, who presented to emergency room initially with high-grade fevers and weakness/lethargy. The patient was found to have positive blood cultures with gram-positive cocci and hypotension. The patient was transferred to the ICU for septic shock secondary to what was presumed to be line sepsis with gram-positive cocci bacteremia. Her dialysis catheter was removed and she was given a course of vancomycin and Zosyn. She had a TTE that showed no vegetations. She had a line holiday and repeat blood cultures, which were also positive despite despite the line holiday and antibiotics. She grew out MRSA bacteremia and she was placed just on vancomycin. She had a CT abdomen and pelvis. This revealed no abscess ventral hernia. She had some over the previous hernia surgery. She was seen by Surgery for it, who believed that it was noninfected. A new catheter was placed for dialysis and unfortunately, the patient's blood culture again grew gram-positive cocci. The patient declined significantly and ended up intubated and septic shock with high doses of pressors. The patient is on 22 mcg of Levophed on 05/12/2017. She was started on ceftaroline and daptomycin. A KRISTIN was ordered, however, unfortunately, the patient had a Code Blue on 05/13/2017 after being on pressors including Levophed and dopamine. CPR initially by staff for initial rhythm of PEA and she was given epinephrine, calcium, and bicarbonate with no resumption of heart rhythm. The patient was pronounced at 4:30 a.m. CAUSE OF : Septic shock secondary to MRSA bacteremia, probably secondary to endocarditis. SECONDARY CAUSE OF : Respiratory failure and end-stage renal disease, on hemodialysis. Timoteo Mcnair MD DR: DEBBY/omar JOB#: [id number] CC:
== END 2017-05-13 04:26 | disposition expired | DRG 314 ==
LOC: EDBD 21:44 → EMR 22:10 → 2E 23:19 → EDBEDREQ 23:28 → ICU 05-01 09:25 → 2E 05-04 17:26 → ICU 05-06 00:44
PROC: 5A1D70Z Performance of Urinary Filtration, Intermittent, Less than 6 Hours Per Day (ICD-10-PCS; principal; 2017-05-01)
PROC: 05HM33Z Insertion of Infusion Device into Right Internal Jugular Vein, Percutaneous Approach (ICD-10-PCS; 2017-05-05)
PROC: B513ZZA Fluoroscopy of Right Jugular Veins, Guidance (ICD-10-PCS; 2017-05-05)
PROC: 0BH17EZ Insertion of Endotracheal Airway into Trachea, Via Natural or Artificial Opening (ICD-10-PCS; 2017-05-11)
PROC: 5A1945Z Respiratory Ventilation, 24-96 Consecutive Hours (ICD-10-PCS; 2017-05-11)
PROC: B548ZZA Ultrasonography of Superior Vena Cava, Guidance (ICD-10-PCS; 2017-05-11)
PROC: 02HV33Z Insertion of Infusion Device into Superior Vena Cava, Percutaneous Approach (ICD-10-PCS; 2017-05-11)
PROC: 5A12012 Performance of Cardiac Output, Single, Manual (ICD-10-PCS; 2017-05-13)
DX: T82.7XXA Infection and inflammatory reaction due to other cardiac and vascular devices, implants and grafts, initial encounter (principal); N18.6 End stage renal disease; A41.02 Sepsis due to Methicillin resistant Staphylococcus aureus; R65.21 Severe sepsis with septic shock; G93.41 Metabolic encephalopathy; J18.9 Pneumonia, unspecified organism; J96.02 Acute respiratory failure with hypercapnia; J96.01 Acute respiratory failure with hypoxia; L89.153 Pressure ulcer of sacral region, stage 3; I12.0 Hypertensive chronic kidney disease with stage 5 chronic kidney disease or end stage renal disease; L89.323 Pressure ulcer of left buttock, stage 3; L89.313 Pressure ulcer of right buttock, stage 3; I38 Endocarditis, valve unspecified; Z99.2 Dependence on renal dialysis; I73.9 Peripheral vascular disease, unspecified; E66.01 Morbid (severe) obesity due to excess calories; Z68.36 Body mass index [BMI] 36.0-36.9, adult; G40.909 Epilepsy, unspecified, not intractable, without status epilepticus; K43.2 Incisional hernia without obstruction or gangrene; J44.9 Chronic obstructive pulmonary disease, unspecified; F32.9 Major depressive disorder, single episode, unspecified; I48.0 Paroxysmal atrial fibrillation; Z79.01 Long term (current) use of anticoagulants; M75.101 Unspecified rotator cuff tear or rupture of right shoulder, not specified as traumatic; D63.1 Anemia in chronic kidney disease; E21.3 Hyperparathyroidism, unspecified; E87.5 Hyperkalemia
CPT/HCPCS: 36415; 36569; 36589; 36600; 51702; 71045; 71250; 73521; 74018; 74176; 74177; 76937; 80048; 80053; 80202; 80299; 82550; 82553; 82803; 82962; 83540; 83550; 83605; 83880; 84484; 85007; 85025; 85610; 86710; 86850; 86900; 86901; 86920; 87040; 87070; 87081; 87181; 87205; 87324; 92950; 93005; 93306; 94002; 94003; 94660; 94664; 94760; 95819; J0171; J0712; J2250